=== PATIENT | female | born 1940 | race Caucasian/White ===

== ENCOUNTER 2017-07-09 15:30 | Outpatient (RCR) | payer MEDICARE, OTHER, SELFPAY ==
[2017-06-11 15:48] VITALS: BP 143/59; PULSE 93; RESP 22; TEMP 36.6; BMI 128.8
--- NOTE | 2017-06-11 17:01 | RAD_ITS ---
STUDY: X-RAY RIGHT FOOT, SECOND TOE REASON FOR EXAM: Female, 77 years old. Ulceration. TECHNIQUE: 3 view(s) of the toe were obtained. COMPARISON: Right foot, February 28, 2017. FINDINGS: Normal visualized metatarsus. Normal metatarsophalangeal (M.T.P) joint. Normal interphalangeal joints. There is limited visualization of the distal phalanges due to flexion deformity however there is no visualized fracture or destructive osseous pathology. The soft tissue structures are unremarkable. RAD/Toe(s) Min 2 Views IMPRESSION: No visualized fracture or destructive osseous pathology. Electronically Signed: Raymond Duff DO at 9:02 EST Tel [phone], Service support ,
--- NOTE | 2017-06-11 17:42 | PCM.WC.PN ---
(1) Cellulitis of right foot Status: Acute Current Visit: Yes Code(s): L03.115 - Cellulitis of right lower limb (2) Edema Status: Chronic Current Visit: Yes Code(s): R60.9 - Edema, unspecified (3) Neuropathic pain Status: Chronic Current Visit: Yes (4) Hammer toe of right foot Status: Chronic Current Visit: Yes Code(s): M20.41 - Other hammer toe(s) (acquired), right foot (5) Ulcer of right second toe with necrosis of muscle Status: Acute Current Visit: Yes Code(s): L97.513 - Non-pressure chronic ulcer of other part of right foot with necrosis of muscle (6) Delayed wound healing Status: Chronic Current Visit: Yes Code(s): T14.8 - Other injury of unspecified body region (7) Malnutrition Status: Chronic Current Visit: Yes Code(s): E46 - Unspecified protein-calorie malnutrition (8) Obesity Status: Chronic Current Visit: Yes Code(s): E66.9 - Obesity, unspecified Type of Wound Date of Service: 06/11/17 Chief Complaint: Right second toe ulcer History of Wound: This 77-year-old female with multiple comorbidities presents to the wound care center today with an ulcer to the right second toe. She reports is previously healed however it has returned the past month. Her has recently been admitted to hospice and she was not able to take care of herself as intended. She continues to wear shoes was modified previously to offload the wound better. The recurrence of this wound started after she tried to wear other shoes without this offloading mechanism. She has change dressing daily with Carolina. She complains of new redness, pain, swelling and other discoloration to the right second toe. She denies current fever, chill, nausea, vomiting, redness, odor, streaking. She does not wear compression dressings. Progress of Wound: Return and worse status - Physical Exam Vital Signs Temp Pulse Resp BP 97.8 F 93 22 H 143/59 H 06/11/17 15:48 06/11/17 15:48 06/11/17 15:48 06/11/17 15:48 General: Alert, Oriented x3, Cooperative Extremities: No cyanosis, Capillary Refill Less than 3 Seconds, No Calf Tenderness - Negative Vivian and Carroll sign bilateral, Diminished Peripheral Pulses, Edema - Bilateral lower extremities Skin: Ulcer/ Wound - No purulence, no odor, no geeta necrosis or eschar. There is exposed extensor tendon with devitalized fibrous and granular tissue. The toe has erythema extending to the sulcus level without additional proximal streaking. This is consistent with cellulitis. There is no interdigital maceration. Her adjacent skin is hairless and atrophic. No additional ulcers are noted. Wound Measurements and Assessment - Nurse 1 - General Ulcer Measurement Start: 06/11/17 15:40 Freq: Status: Active Protocol: Activity Type Activity Date Activity User E-Sign Co-Sign Detail Recorded Client Recorded Date Recorded By Document 06/11/17 15:48 DL [id number] 06/11/17 15:56 DL 06/11/17 15:48 Wound Center Nurse 1 [Ulcer Assessment Protocol: .WD.LOC] #2 R 2nd ant toe -Current Size (cm) - Length 0.5 -Current Size (cm) - Width 0.8 -Current Size (cm) - Depth 0.2 -Total Square Cm 0.40 -Photo Taken Yes -Exudate Amt Small (1-33%) -Exudate Type Serosanguineous -Wound Margin Distinct, Outline Attached -Granulation Amt None Present (0 %) -Granulation Quality N/A -Slough/Fibrin Yes -Necrosis Amt Large (67-100%) -Necrotic Tissue Type Adherent Slough -Structure Exposed N/A -Texture (Sheyla-wound Skin Appearance) Localized Edema -Moisture (Sheyla-wound Skin Appearance No Abnormality ) -Color (Sheyla-wound Skin Appearance) Erythema -Temperature (Sheyla-wound Skin Hot Appearance) -Tenderness on Palpation (Sheyla-wound Yes Skin Appearance) -Ulcer Cleansing Wound Cleanser -Foul Odor after Cleansing No -Anesthetic Used 4% Lidocaine Solution [Edema Assessment] -Right Calf (cm) 50 -Right Ankle (cm) 26 -Left Calf (cm) 52.5 -Left Ankle (cm) 31 WC - Nurse 2 - General Ulcer CM Notes Start: 06/11/17 15:40 Freq: Status: Active Protocol: Activity Type Activity Date Activity User E-Sign Co-Sign Detail Recorded Client Recorded Date Recorded By Document 06/11/17 16:37 TM [id number] 06/11/17 16:43 TM 01/03/18 16:37 Wound Center Nurse 2 [Procedure/Treatment] #2 R 2nd ant toe -Time 16:38 -Correct Patient Yes -Correct Side, Site, Position Yes -Correct Procedure Yes -Procedure Performed Yes -Type of Procedure Debridement -Clinical Debridement Subcutaneous -Post Debridement Size (cm) - Length 0.6 -Post Debridement Size (cm) - Width 0.9 -Post Debridement Size (cm) - Depth 0.2 -Total Square Cm 0.54 -Wound/Ulcer Outcome Not Healed -Ulcer Cleansing Rinsed/ Irrigated with Saline -Foul Odor after Cleansing No -Bioengineered Tissue No -Cetacaine [place] No -Topical Lidocaine (%) 5 -Bleeding Controlled with Pressure -Treatment Response Procedure Tolerated Well [See Physician Procedure note for Specifics] Pain Scale: 0-10 Numeric [Pain] -Is Patient Pain Free? Yes Musculoskeletal: No Tenderness to Palpation of Joints or Extremities, Muscle Wasting Neurological: - - Lack of epicritic sensation to light touch bilateral Psych/Mental Status: Normal Affect, Appropriate Debridement Note Post-Debridement Measurements/Treatment WC - Nurse 2 - General Ulcer CM Notes Start: 06/11/17 15:40 Freq: Status: Active Protocol: Activity Type Activity Date Activity User E-Sign Co-Sign Detail Recorded Client Recorded Date Recorded By Document 06/11/17 16:37 [id number] 06/11/17 16:43 06/11/17 16:37 Wound Center Nurse 2 #2 R 2nd ant toe -Time 16:38 -Correct Patient Yes -Correct Side, Site, Position Yes -Correct Procedure Yes -Procedure Performed Yes -Type of Procedure Debridement -Clinical Debridement Subcutaneous -Post Debridement Size (cm) - Length 0.6 -Post Debridement Size (cm) - Width 0.9 -Post Debridement Size (cm) - Depth 0.2 -Total Square Cm 0.54 -Wound/Ulcer Outcome Not Healed -Ulcer Cleansing Rinsed/ Irrigated with Saline -Foul Odor after Cleansing No -Bioengineered Tissue No -Cetacaine [place] No -Topical Lidocaine (%) 5 -Bleeding Controlled with Pressure -Treatment Response Procedure Tolerated Well Pain Scale: 0-10 Numeric Is Patient Pain Free? Yes Wound debrided: Dorsal second toe Laterality: Right Type of Debridement: Excisional debridement Depth: Down to and including healthy tissue Percentage of wound debrided: 100 Instrument Used: #15 blade Tissue Removed: Fibrous, devitalized subcutaneous, biofilm, slough Severity: Fat Layer Exposed Amount of bleeding with debridement: Mild Bleeding Controlled with: Pressure Patient tolerated procedure well Assessment/Plan Active Problems Edema (Chronic) Neuropathic pain (Chronic) Hammer toe of right foot (Chronic) Ulcer of right second toe with necrosis of muscle (Acute) Delayed wound healing (Chronic) Malnutrition (Chronic) Obesity (Chronic) Cellulitis of right foot (Acute) Assessment: Dorsal right second toe ulcer with fat and tendon exposed-return. Cellulitis right second toe. Neuropathy. Hammertoe. Malnutrition. Delayed healing. Chronic leg edema Plan: I reviewed and discussed her case. Subcutaneous excisional debridement was performed as noted in the clinical panel. To change dressing daily with Carolina. I recommend decrease pressure in the wound by cutting a hole in the shoe was performed at her initial consultation; she defers CAM Walker boot again today and it is noted she has very high fall risk. A Venous reflex exam was ordered to evaluate for incompetent veins that could potentially have intervention. Tubigrip's in double layer were applied today. Compliance is needed for this to help her condition and this was discussed again today. It is noted her clinical status has deteriorated and she now has signs of infection. Baseline lab work (CBC, CMP, ESR, C-reactive protein) and foot x-rays was also ordered to assess her infection status. A prescription for Augmentin was also provided and she was advised on safe and proper use. Her allergy list was reviewed. Aerobic and anaerobic and MRSA DNA PCR test was obtained today and the results are pending. Her noninvasive vascular studies were also reviewed with triphasic bilateral waveforms and a right HAYDEN of 1.06 and left 1.20. These findings suggest adequate perfusion in general to lower extremity. . To return to clinic in 1 week or sooner if he has any problems or concerns of infection. We reviewed signs of worsening infection status locally and systemically; she demonstrates understanding. She understands she is at risk for limb loss.
--- NOTE | 2017-06-11 17:48 | PN.PCM_ITS ---
(1) Cellulitis of right foot Status: Acute Current Visit: Yes Code(s): L03.115 - Cellulitis of right lower limb (2) Edema Status: Chronic Current Visit: Yes Code(s): R60.9 - Edema, unspecified (3) Neuropathic pain Status: Chronic Current Visit: Yes (4) Hammer toe of right foot Status: Chronic Current Visit: Yes Code(s): M20.41 - Other hammer toe(s) ( acquired), right foot (5) Ulcer of right second toe with necrosis of muscle Status: Acute Current Visit: Yes Code(s): L97.513 - Non-pressure chronic ulcer of other part of right foot with necrosis of muscle (6) Delayed wound healing Status: Chronic Current Visit: Yes Code(s): T14.8 - Other injury of unspecified body region (7) Malnutrition Status: Chronic Current Visit: Yes Code(s): E46 - Unspecified protein- calorie malnutrition (8) Obesity Status: Chronic Current Visit: Yes Code(s): E66.9 - Obesity, unspecified Type of Wound Date of Service: 06/11/17 Chief Complaint: Right second toe ulcer History of Wound: This 77-year-old female with multiple comorbidities presents to the wound care center today with an ulcer to the right second toe. She reports is previously healed however it has returned the past month. Her has recently been admitted to hospice and she was not able to take care of herself as intended. She continues to wear shoes was modified previously to offload the wound better. The recurrence of this wound started after she tried to wear other shoes without this offloading mechanism. She has change dressing daily with [place]. She complains of new redness, pain, swelling and other discoloration to the right second toe. She denies current fever, chill, nausea, vomiting, redness, odor, streaking. She does not wear compression dressings. Progress of Wound: Return and worse status - Physical Exam Vital Signs Temp Pulse Resp BP 97.8 F 93 22 H 143/59 H 06/11/17 15:48 06/11/17 15:48 06/11/17 15:48 06/11/17 15:48 General: Alert, Oriented x3, Cooperative Extremities: No cyanosis, Capillary Refill Less than 3 Seconds, No Calf Tenderness - Negative Vivian and Carroll sign bilateral, Diminished Peripheral Pulses, Edema - Bilateral lower extremities Skin: Ulcer/ Wound - No purulence, no odor, no geeta necrosis or eschar. There is exposed extensor tendon with devitalized fibrous and granular tissue. The toe has erythema extending to the sulcus level without additional proximal streaking. This is consistent with cellulitis. There is no interdigital maceration. Her adjacent skin is hairless and atrophic. No additional ulcers are noted. Wound Measurements and Assessment - Nurse 1 - General Ulcer Measurement Start: 06/11/17 15:40 Freq: Status: Active Protocol: Activity Type Activity Date Activity User E-Sign Co-Sign Detail Recorded Client Recorded Date Recorded By Document 06/11/17 15:48 DL [id number] 06/11/17 15:56 DL 06/11/17 15:48 Wound Center Nurse 1 [Ulcer Assessment Protocol: .WD.LOC] #2 R 2nd ant toe -Current Size (cm) - Length 0.5 -Current Size (cm) - Width 0.8 -Current Size (cm) - Depth 0.2 -Total Square Cm 0.40 -Photo Taken Yes -Exudate Amt Small (1-33%) -Exudate Type Serosanguineous -Wound Margin Distinct, Outline Attached -Granulation Amt None Present (0 %) -Granulation Quality N/A -Slough/Fibrin Yes -Necrosis Amt Large (67-100%) -Necrotic Tissue Type Adherent Slough -Structure Exposed N/A -Texture (Sheyla-wound Skin Appearance) Localized Edema -Moisture (Sheyla-wound Skin Appearance No Abnormality ) -Color (Sheyla-wound Skin Appearance) Erythema -Temperature (Sheyla-wound Skin Hot Appearance) -Tenderness on Palpation (Sheyla-wound Yes Skin Appearance) -Ulcer Cleansing Wound Cleanser -Foul Odor after Cleansing No -Anesthetic Used 4% Lidocaine Solution [Edema Assessment] -Right Calf (cm) 50 -Right Ankle (cm) 26 -Left Calf (cm) 52.5 -Left Ankle (cm) 31 WC - Nurse 2 - General Ulcer CM Notes Start: 06/11/17 15:40 Freq: Status: Active Protocol: Activity Type Activity Date Activity User E-Sign Co-Sign Detail Recorded Client Recorded Date Recorded By Document 06/11/17 16:37 TM [id number] 06/11/17 16:43 TM 01/03/18 16:37 Wound Center Nurse 2 [Procedure/Treatment] #2 R 2nd ant toe -Time 16:38 -Correct Patient Yes -Correct Side, Site, Position Yes -Correct Procedure Yes -Procedure Performed Yes -Type of Procedure Debridement -Clinical Debridement Subcutaneous -Post Debridement Size (cm) - Length 0.6 -Post Debridement Size (cm) - Width 0.9 -Post Debridement Size (cm) - Depth 0.2 -Total Square Cm 0.54 -Wound/Ulcer Outcome Not Healed -Ulcer Cleansing Rinsed/ Irrigated with Saline -Foul Odor after Cleansing No -Bioengineered Tissue No -Cetacaine [place] No -Topical Lidocaine (%) 5 -Bleeding Controlled with Pressure -Treatment Response Procedure Tolerated Well [See Physician Procedure note for Specifics] Pain Scale: 0-10 Numeric [Pain] -Is Patient Pain Free? Yes Musculoskeletal: No Tenderness to Palpation of Joints or Extremities, Muscle Wasting Neurological: - - Lack of epicritic sensation to light touch bilateral Psych/Mental Status: Normal Affect, Appropriate Debridement Note Post-Debridement Measurements/Treatment WC - Nurse 2 - General Ulcer CM Notes Start: 06/11/17 15:40 Freq: Status: Active Protocol: Activity Type Activity Date Activity User E-Sign Co-Sign Detail Recorded Client Recorded Date Recorded By Document 06/11/17 16:37 [id number] 06/11/17 16:43 06/11/17 16:37 Wound Center Nurse 2 #2 R 2nd ant toe -Time 16:38 -Correct Patient Yes -Correct Side, Site, Position Yes -Correct Procedure Yes -Procedure Performed Yes -Type of Procedure Debridement -Clinical Debridement Subcutaneous -Post Debridement Size (cm) - Length 0.6 -Post Debridement Size (cm) - Width 0.9 -Post Debridement Size (cm) - Depth 0.2 -Total Square Cm 0.54 -Wound/Ulcer Outcome Not Healed -Ulcer Cleansing Rinsed/ Irrigated with Saline -Foul Odor after Cleansing No -Bioengineered Tissue No -Cetacaine [place] No -Topical Lidocaine (%) 5 -Bleeding Controlled with Pressure -Treatment Response Procedure Tolerated Well Pain Scale: 0-10 Numeric Is Patient Pain Free? Yes Wound debrided: Dorsal second toe Laterality: Right Type of Debridement: Excisional debridement Depth: Down to and including healthy tissue Percentage of wound debrided: 100 Instrument Used: #15 blade Tissue Removed: Fibrous, devitalized subcutaneous, biofilm, slough Severity: Fat Layer Exposed Amount of bleeding with debridement: Mild Bleeding Controlled with: Pressure Patient tolerated procedure well Assessment/Plan Active Problems Edema (Chronic) Neuropathic pain (Chronic) Hammer toe of right foot (Chronic) Ulcer of right second toe with necrosis of muscle (Acute) Delayed wound healing (Chronic) Malnutrition (Chronic) Obesity (Chronic) Cellulitis of right foot (Acute) Assessment: Dorsal right second toe ulcer with fat and tendon exposed-return. Cellulitis right second toe. Neuropathy. Hammertoe. Malnutrition. Delayed healing. Chronic leg edema Plan: I reviewed and discussed her case. Subcutaneous excisional debridement was performed as noted in the clinical panel. To change dressing daily with [place]. I recommend decrease pressure in the wound by cutting a hole in the shoe was performed at her initial consultation; she defers CAM Walker boot again today and it is noted she has very high fall risk. A Venous reflex exam was ordered to evaluate for incompetent veins that could potentially have intervention. Tubigrip's in double layer were applied today. Compliance is needed for this to help her condition and this was discussed again today. It is noted her clinical status has deteriorated and she now has signs of infection. Baseline lab work (CBC, CMP, ESR, C-reactive protein) and foot x- rays was also ordered to assess her infection status. A prescription for Augmentin was also provided and she was advised on safe and proper use. Her allergy list was reviewed. Aerobic and anaerobic and MRSA DNA PCR test was obtained today and the results are pending. Her noninvasive vascular studies were also reviewed with triphasic bilateral waveforms and a right HAYDEN of 1.06 and left 1.20. These findings suggest adequate perfusion in general to lower extremity. . To return to clinic in 1 week or sooner if he has any problems or concerns of infection. We reviewed signs of worsening infection status locally and systemically; she demonstrates understanding. She understands she is at risk for limb loss.
[2017-06-11 18:06] LABS: Absolute Lymphocyte Count 1.45 X10^3/ul (0.83-4.51); Absolute Neutrophil Count 4.5 X10^3/uL (2.0-7.7); Basophil# 0.02 X10^3/uL; Basophil% 0.3 % (0-1); Eosinophil# 0.12 X10^3/uL; Eosinophils% 1.8 % (0-5); Hematocrit 39.6 % (37-47); Hemoglobin 12.5 g/dl (12.0-15.0); Lymphocyte # 1.45 X10^3/ul (4.0); Lymphocyte % 21.3 % (19-41); Mean Corp Hgb Conc 31.6 g/gl (32-36); Mean Corpuscular Hgb 30.2 pg (27.0-32.0); Mean Corpuscular Volume 95.7 fL (81-99); Mean Platelet Vol. 11.5 fl (6.2-12.0); Monocyte# 0.74 X10^3/uL; Monocyte% 10.9 % (0-10); Neutrophil # 4.47 X10^3/uL (2.7-7.7); Neutrophil % 65.6 % (47-70); Platelet Count 216 K/mm3 (150-450); RBC Distribution Width SD 48.9 fl (35.1-43.9); Red Blood Count 4.14 M/mm3 (4.2-5.4); White Blood Count 6.8 K/mm3 (4.4-11.0)
[2017-06-11 18:07] LABS: POSITIVE COUNT NO; POSITIVE DIFFERENTIAL NO; POSITIVE MORPHOLOGY NO
[2017-06-11 18:14] LABS: Erythrocyte Sedimentation Rate 15 mm/hr (0-30)
[2017-06-11 18:35] LABS: ALB/GLOB Ratio 0.9 RATIO (0.9-2.4); AST(SGOT) 27 U/L (15-37); Alanine Aminotransfer ALT/SGPT 29 U/L (12-78); Albumin, Serum 3.5 g/dL (3.4-5.0); Alkaline Phosphatase 113 U/L (45-117); Anion Gap 7 (5-15); BUN 24 mg/dL (7-18); BUN/Creat Ratio 24.8 RATIO (10-20); Calcium,Total 8.8 mg/dL (8.5-10.1); Chloride 104 mmol/L (98-107); Creatinine, Serum 0.97 mg/dL (0.55-1.02); EST Glomerular Filtration Rate 59 mL/min (>60); Est Glom Filt Rate - Afr Amer 72 mL/min (>60); Estimated Creatinine Clearance 207.02 ml/min; Glucose 86 mg/dL (70-110); Potassium 3.9 mmol/L (3.5-5.1); Protein, Total 7.5 g/dL (6.4-8.2); Sodium Level 139 mmol/L (136-145)
[2017-06-11 21:04] LABS: M R Staph aureus DNA By PCR Negative (Negative); Probe Check PASS; Specimen Processing Control PASS; Staph aureus DNA By PCR POSITIVE (Negative)
[2017-06-18 15:47] VITALS: BP 144/64; PULSE 85; RESP 22; TEMP 36.9; BMI 128.8
--- NOTE | 2017-06-18 22:14 | PCM.WC.PN ---
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 Status: Acute Current Visit: Yes Code(s): L97.513 - Non-pressure chronic ulcer of other part of right foot with necrosis of muscle (2) Cellulitis of right foot Status: Acute Current Visit: Yes Code(s): L03.115 - Cellulitis of right lower limb (3) Edema Status: Chronic Current Visit: Yes Code(s): R60.9 - Edema, unspecified (4) Neuropathic pain Status: Chronic Current Visit: Yes (5) Hammer toe of right foot Status: Chronic Current Visit: Yes Code(s): M20.41 - Other hammer toe(s) (acquired), right foot (6) Malnutrition Status: Chronic Current Visit: Yes Code(s): E46 - Unspecified protein-calorie malnutrition (7) Obesity Status: Chronic Current Visit: Yes Code(s): E66.9 - Obesity, unspecified Type of Wound Date of Service: 06/19/17 Chief Complaint: Right second toe ulcer History of Wound: This 77-year-old female with multiple comorbidities presents to the wound care center today with an ulcer to the right second toe. Unfortunately her this past week and she relates she has not been able to care for herself. She had upset stomach and diarrhea with Augmentin use and relates she took these medications on an empty stomach which was not advised. Her redness has resolved. She denies current fever, chill, nausea, vomiting, redness, odor, streaking. Progress of Wound: Improving - Physical Exam Vital Signs Temp Pulse Resp BP 98.5 F 85 22 H 144/64 H 06/18/17 15:47 06/18/17 15:47 06/18/17 15:47 06/18/17 15:47 General: Alert, Oriented x3, Cooperative Extremities: No cyanosis, Capillary Refill Less than 3 Seconds, No Calf Tenderness - Negative Vivian and Carroll sign bilateral, Diminished Peripheral Pulses, Edema - Bilateral lower extremities Skin: Ulcer/ Wound - No purulence, no erythema, no streaking, no odor, no geeta necrosis. The dorsal right second toe ulcer site is fibrous with minimal tendon visualized. No probe to bone noted. Her skin is atrophic and hairless right foot Wound Measurements and Assessment WC - Nurse 1 - General Ulcer Measurement Start: 06/11/17 15:40 Freq: Status: Active Protocol: Activity Type Activity Date Activity User E-Sign Co-Sign Detail Recorded Client Recorded Date Recorded By Document 06/18/17 15:47 DL [id number] 06/18/17 15:55 DL 06/18/17 15:47 Wound Center Nurse 1 [Ulcer Assessment Protocol: WC.WD.LOC] #2 R 2nd ant toe -Current Size (cm) - Length 0.8 -Current Size (cm) - Width 0.8 -Current Size (cm) - Depth 0.2 -Total Square Cm 0.64 -Photo Taken No -Epithelialization None Present -Exudate Amt Small (1-33%) -Exudate Type Serosanguineous -Wound Margin Distinct, Outline Attached -Granulation Amt None Present (0 %) -Necrosis Amt Large (67-100%) -Necrotic Tissue Type Adherent Slough -Structure Exposed N/A -Texture (Sheyla-wound Skin Appearance) Localized Edema -Moisture (Sheyla-wound Skin Appearance No Abnormality ) -Color (Sheyla-wound Skin Appearance) Erythema -Temperature (Sheyla-wound Skin No Abnormality Appearance) (Pt Warm) -Anesthetic Used 4% Lidocaine Solution - Nurse 2 - General Ulcer CM Notes Start: 06/11/17 15:40 Freq: Status: Active Protocol: Activity Type Activity Date Activity User E-Sign Co-Sign Detail Recorded Client Recorded Date Recorded By Document 06/18/17 16:43 JF [id number] 06/18/17 16:44 JF 06/18/17 16:43 Wound Center Nurse 2 [Procedure/Treatment] -Time 16:44 -Correct Patient Yes -Correct Side, Site, Position Yes -Correct Procedure Yes -Procedure Performed Yes -Type of Procedure Debridement -Clinical Debridement Subcutaneous -Post Debridement Size (cm) - Length 0.9 -Post Debridement Size (cm) - Width 0.8 -Post Debridement Size (cm) - Depth 0.2 -Total Square Cm 0.72 -Wound/Ulcer Outcome Not Healed -Ulcer Cleansing Rinsed/ Irrigated with Saline -Foul Odor after Cleansing No -Bioengineered Tissue No -Cetacaine [place] No -Bleeding Controlled with Pressure -Treatment Response Procedure Tolerated Well [See Physician Procedure note for Specifics] Pain Scale: 0-10 Numeric [Pain] -Is Patient Pain Free? Yes Musculoskeletal: No Tenderness to Palpation of Joints or Extremities, Muscle Wasting, - - Compartment soft. Dorsal contraction of lesser toes the right foot Neurological: - - Lack of epicritic sensation light touch right foot Psych/Mental Status: Normal Affect, Appropriate Debridement Note Post-Debridement Measurements/Treatment WC - Nurse 2 - General Ulcer CM Notes Start: 06/11/17 15:40 Freq: Status: Active Protocol: Activity Type Activity Date Activity User E-Sign Co-Sign Detail Recorded Client Recorded Date Recorded By Document 06/11/17 16:37 [id number] 06/11/17 16:43 Document 06/18/17 16:43 [id number] 06/18/17 16:44 06/11/17 06/18/17 16:37 16:43 Wound Center Nurse 2 #2 R 2nd ant toe -Time 16:38 16:44 -Correct Patient Yes Yes -Correct Side, Site, Position Yes Yes -Correct Procedure Yes Yes -Procedure Performed Yes Yes -Type of Procedure Debridement Debridement -Clinical Debridement Subcutaneous Subcutaneous -Post Debridement Size (cm) - Length 0.6 0.9 -Post Debridement Size (cm) - Width 0.9 0.8 -Post Debridement Size (cm) - Depth 0.2 0.2 -Total Square Cm 0.54 0.72 -Wound/Ulcer Outcome Not Healed Not Healed -Ulcer Cleansing Rinsed/ Rinsed/ Irrigated with Irrigated with Saline Saline -Foul Odor after Cleansing No No -Bioengineered Tissue No No -Cetacaine [place] No No -Topical Lidocaine (%) 5 -Bleeding Controlled with Pressure Pressure -Treatment Response Procedure Procedure Tolerated Well Tolerated Well Pain Scale: 0-10 Numeric Is Patient Pain Free? Yes Yes Wound debrided: Dorsal second toe Laterality: Right Type of Debridement: Excisional debridement Anesthesia Used: 4% Lidocaine Solution Depth: in the subcutaneous layer Percentage of wound debrided: 100 Instrument Used: #15 blade Tissue Removed: Fibrous, devitalized subcutaneous, biofilm, slough Severity: Fat Layer Exposed Amount of bleeding with debridement: Mild Bleeding Controlled with: Pressure Patient tolerated procedure well Assessment/Plan Clinical Impression(s) from Imaging Studies Toe X-Ray 06/11/17 17:01 IMPRESSION: No visualized fracture or destructive osseous pathology. Electronically Signed: Raymond Duff DO at 9:02 EST Tel [phone], Service support , Active Problems Edema (Chronic) Neuropathic pain (Chronic) Hammer toe of right foot (Chronic) Ulcer of right second toe with necrosis of muscle (Acute) Delayed wound healing (Chronic) Malnutrition (Chronic) Obesity (Chronic) Cellulitis of right foot (Acute) Assessment: Dorsal right second toe ulcer with fat and tendon exposed-return. Cellulitis right second toe - improving. Neuropathy. Hammertoe. Malnutrition. Delayed healing. Chronic leg edema Plan: I reviewed and discussed her case. Subcutaneous excisional debridement was performed as noted in the clinical panel. To change dressing daily with [place]. I recommend decrease pressure in the wound by cutting a hole in the shoe was performed at her initial consultation; she defers CAM Walker boot again today and it is noted she has very high fall risk. A Venous reflex exam was ordered to evaluate for incompetent veins that could potentially have intervention. Tubigrip's in double layer were applied today. Compliance is needed for this to help her condition and this was discussed again today. It is noted her clinical status has deteriorated and she now has signs of infection. Baseline lab work (CBC, CMP, ESR, C-reactive protein) and foot x-rays was also ordered to assess her infection status. A prescription for Augmentin was also provided last week and she was advised on safe and proper use. She stopped it due to diarrhea. She will try this again with proper use of concurrent food. She is advised to stop this if she has return of side effects immediately. Aerobic and anaerobic and MRSA DNA PCR test was obtained last visit and she demonstrated staph aureus and anaerobic cocci growth. Her noninvasive vascular studies were also reviewed with triphasic bilateral waveforms and a right HAYDEN of 1.06 and left 1.20. These findings suggest adequate perfusion in general to lower extremity. . To return to clinic in 1 week or sooner if he has any problems or concerns of infection. We reviewed signs of worsening infection status locally and systemically; she demonstrates understanding. She understands she is at risk for limb loss.
[2017-06-25 15:24] VITALS: BP 106/68; PULSE 91; RESP 20; TEMP 36.1; BMI 128.8
--- NOTE | 2017-06-25 21:28 | PN.PCM_ITS ---
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 Code(s): L97.513 - Non-pressure chronic ulcer of other part of right foot with necrosis of muscle (2) Cellulitis of right foot Status: Acute Code(s): L03.115 - Cellulitis of right lower limb (3) Edema Status: Chronic Code(s): R60.9 - Edema, unspecified (4) Neuropathic pain Status: Chronic (5) Hammer toe of right foot Status: Chronic Code(s): M20.41 - Other hammer toe(s) (acquired), right foot (6) Malnutrition Status: Chronic Code(s): E46 - Unspecified protein-calorie malnutrition (7) Obesity Status: Chronic Code(s): E66.9 - Obesity, unspecified Type of Wound Date of Service: 06/28/17 Chief Complaint: Right second toe ulcer History of Wound: This 77-year-old female with multiple comorbidities presents to the wound care center today with an ulcer to the right second toe. She has resumed oral antibiotic, Augmentin, this past week with food and she is tolerating this much better. Her redness has significantly improved. However she has continued pain to her toe. She changes her dressing daily as advised. She denies new trauma. She tries to offload her wound with a cut out to the top of her sneaker. She is not able to wear a cam walker boot due to her fall risk. It is noted she wears bilateral ankle-foot orthotics due to previous foot deformities and gait instability. Progress of Wound: Improving stable - Physical Exam Vital Signs Temp Pulse Resp BP 97 F L 91 20 H 106/68 06/25/17 15:24 06/25/17 15:24 06/25/17 15:24 06/25/17 15:24 General: Alert, Oriented x3, Cooperative Extremities: No cyanosis, Capillary Refill Less than 3 Seconds, No Calf Tenderness - Negative Vivian and Carroll sign bilateral, Diminished Peripheral Pulses - Palpable dorsalis pedis pulse bilateral, Edema - +2 bilateral lower extremity with varicosities Skin: Ulcer/ Wound - No purulence, no odor, no necrosis, no eschar. The erythema has decreased periwound to less than 2 mm peripherally. There is exposed tendon and it appears white glossy and healthy., - - Her skin is atrophic and hairless and there are no additional ulcers to bilateral lower extremities Wound Measurements and Assessment - Nurse 1 - General Ulcer Measurement Start: 06/11/17 15:40 Freq: Status: Active Protocol: Activity Type Activity Date Activity User E-Sign Co-Sign Detail Recorded Client Recorded Date Recorded By Document 06/25/17 15:24 DL [id number] 06/25/17 15:30 DL 06/25/17 15:24 Wound Center Nurse 1 [Ulcer Assessment Protocol: MERY.WD.LOC] #2 R 2nd ant toe -Current Size (cm) - Length 1.1 -Current Size (cm) - Width 1.1 -Current Size (cm) - Depth 0.2 -Total Square Cm 1.21 -Photo Taken No -Exudate Amt Small (1-33%) -Exudate Type Serosanguineous -Wound Margin Distinct, Outline Attached -Granulation Amt None Present (0 %) -Necrosis Amt Large (67-100%) -Necrotic Tissue Type Adherent Slough -Structure Exposed N/A -Texture (Sheyla-wound Skin Appearance) Localized Edema -Moisture (Sheyla-wound Skin Appearance No Abnormality ) -Color (Sheyla-wound Skin Appearance) Erythema -Temperature (Sheyla-wound Skin No Abnormality Appearance) (Pt Warm) -Ulcer Cleansing Rinsed/ Irrigated with Saline -Foul Odor after Cleansing No -Anesthetic Used 4% Lidocaine Solution - Nurse 2 - General Ulcer CM Notes Start: 06/11/17 15:40 Freq: Status: Active Protocol: Activity Type Activity Date Activity User E-Sign Co-Sign Detail Recorded Client Recorded Date Recorded By Document 06/25/17 15:48 [email or web address] [id number] 06/25/17 15:50 06/25/17 15:48 Wound Center Nurse 2 [Procedure/Treatment] -Time 15:48 -Correct Patient Yes -Correct Side, Site, Position Yes -Correct Procedure Yes -Procedure Performed Yes -Type of Procedure Debridement -Clinical Debridement Subcutaneous -Post Debridement Size (cm) - Length 1.2 -Post Debridement Size (cm) - Width 1.2 -Post Debridement Size (cm) - Depth 0.2 -Total Square Cm 1.44 -Wound/Ulcer Outcome Not Healed -Ulcer Cleansing Rinsed/ Irrigated with Saline -Foul Odor after Cleansing No -Bioengineered Tissue No -Cetacaine [place] No -Bleeding Controlled with Pressure -Treatment Response Procedure Tolerated Well [See Physician Procedure note for Specifics] Pain Scale: 0-10 Numeric [Pain] -Is Patient Pain Free? Yes Musculoskeletal: No Tenderness to Palpation of Joints or Extremities, Muscle Wasting, - - Dorsal contraction of second toe and ulcer site with prominent phalanx head at the site of the ulcer. No crepitus on palpation of the compartments of the lower extremity remain soft Neurological: - - lack of epicritic sensation light touch noted to bilateral lower extremity consistent with her neuropathy diagnosis Psych/Mental Status: Normal Affect, Appropriate Debridement Note Post-Debridement Measurements/Treatment WC - Nurse 2 - General Ulcer CM Notes Start: 06/11/17 15:40 Freq: Status: Active Protocol: Activity Type Activity Date Activity User E-Sign Co-Sign Detail Recorded Client Recorded Date Recorded By Document 06/11/17 16:37 TM [id number] 06/11/17 16:43 TM Document 06/18/17 16:43 [id number] 06/18/17 16:44 Document 06/25/17 15:48 [id number] 06/25/17 15:50 06/11/17 06/18/17 06/25/17 16:37 16:43 15:48 Wound Center Nurse 2 #2 R 2nd ant toe -Time 16:38 16:44 15:48 -Correct Patient Yes Yes Yes -Correct Side, Site, Position Yes Yes Yes -Correct Procedure Yes Yes Yes -Procedure Performed Yes Yes Yes -Type of Procedure Debridement Debridement Debridement -Clinical Debridement Subcutaneous Subcutaneous Subcutaneous -Post Debridement Size (cm) - Length 0.6 0.9 1.2 -Post Debridement Size (cm) - Width 0.9 0.8 1.2 -Post Debridement Size (cm) - Depth 0.2 0.2 0.2 -Total Square Cm 0.54 0.72 1.44 -Wound/Ulcer Outcome Not Healed Not Healed Not Healed -Ulcer Cleansing Rinsed/ Rinsed/ Rinsed/ Irrigated with Irrigated with Irrigated with Saline Saline Saline -Foul Odor after Cleansing No No No -Bioengineered Tissue No No No -Cetacaine [place] No No No -Topical Lidocaine (%) 5 -Bleeding Controlled with Pressure Pressure Pressure -Treatment Response Procedure Procedure Procedure Tolerated Well Tolerated Well Tolerated Well Pain Scale: 0-10 Numeric Is Patient Pain Free? Yes Yes Yes Wound debrided: Dorsal second toe Laterality: Right Type of Debridement: Excisional debridement Anesthesia Used: 4% Lidocaine Solution Depth: in the subcutaneous layer Percentage of wound debrided: 100 Instrument Used: #15 blade Tissue Removed: Fibrous, devitalized subcutaneous, biofilm, slough Severity: Fat Layer Exposed Amount of bleeding with debridement: Mild Bleeding Controlled with: Pressure Patient tolerated procedure well Assessment/Plan Clinical Impression(s) from Imaging Studies Toe X-Ray 06/11/17 17:01 IMPRESSION: No visualized fracture or destructive osseous pathology. Electronically Signed: Raymond Duff DO at 9:02 EST Tel [phone], Service support , Assessment: Dorsal right second toe ulcer with fat and tendon exposed-return. Cellulitis right second toe - improving. Neuropathy. Hammertoe. Malnutrition. Delayed healing. Chronic leg edema Plan: I reviewed and discussed her case. Subcutaneous excisional debridement was performed as noted in the clinical panel. To change dressing daily with [place]. I recommend decrease pressure in the wound by cutting a hole in the shoe was performed at her initial consultation; she defers CAM walker boot again today and it is noted she is very high fall risk. A Venous reflex exam was ordered to evaluate for incompetent veins that could potentially have intervention. She defers referral again today. Tubigrip's in double layer were applied today. Compliance is needed for this to help her condition and this was discussed again today. She was able to tolerte oral antibiotics when she took them with food this past week. Baseline lab work (CBC, CMP, ESR, C- reactive protein) and foot x-rays was also ordered to assess her infection status. She is advised to stop this if she has return of side effects immediately. Aerobic and anaerobic and MRSA DNA PCR test was obtained last visit and she demonstrated staph aureus and anaerobic cocci growth. Her noninvasive vascular studies were also reviewed with triphasic bilateral waveforms and a right HAYDEN of 1.06 and left 1.20. These findings suggest adequate perfusion in general to lower extremity. . To return to clinic in 1 week or sooner if he has any problems or concerns of infection. She defers surgical intervention option at this time such as arthroplasty of the involved digit with ulcer excision/biopsy/closure.
[2017-07-02 15:45] VITALS: BP 155/83; PULSE 87; RESP 20; TEMP 36.6; BMI 128.8
--- NOTE | 2017-07-02 23:34 | PN.PCM_ITS ---
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 Code(s): L97.513 - Non-pressure chronic ulcer of other part of right foot with necrosis of muscle (2) Cellulitis of right foot Status: Resolved Code(s): L03.115 - Cellulitis of right lower limb (3) Edema Status: Chronic Code(s): R60.9 - Edema, unspecified (4) Neuropathic pain Status: Chronic (5) Hammer toe of right foot Status: Chronic Code(s): M20.41 - Other hammer toe(s) (acquired), right foot (6) Malnutrition Status: Chronic Code(s): E46 - Unspecified protein-calorie malnutrition (7) Obesity Status: Chronic Code(s): E66.9 - Obesity, unspecified Type of Wound Date of Service: 07/05/17 Chief Complaint: Right second toe ulcer History of Wound: This 77-year-old female with multiple comorbidities presents to the wound care center today with an ulcer to the right second toe. She verbally agreed to have pure apply applied which is a collagen and antimicrobial dressing. This was applied according to standard protocol after debridement was performed. This was also secured in place with the wound veil and Steri-Strips. She tolerated this well. Local anesthesia was not required due to her lack of sensation and neuropathy. she has resumed oral antibiotic, Augmentin, this past week with food and she is tolerating this much better. Her redness remains improved. However she has continued pain to her toe. She tries to offload her wound with a cut out to the top of her sneaker. She is not able to wear a cam walker boot due to her fall risk. It is noted she wears bilateral ankle-foot orthotics due to previous foot deformities and gait instability. an additional section of the top if her shoe was cut away to offload her toe at this time. To take margot once dialy for nutritional optmization. RTC one week or call sooner if problems. Progress of Wound: Improving stable - Physical Exam Vital Signs Temp Pulse Resp BP 97.8 F 87 20 H 155/83 H 07/02/17 15:45 07/02/17 15:45 07/02/17 15:45 07/02/17 15:45 Wound Measurements and Assessment WC - Nurse 1 - General Ulcer Measurement Start: 06/11/17 15:40 Freq: Status: Active Protocol: Activity Type Activity Date Activity User E-Sign Co-Sign Detail Recorded Client Recorded Date Recorded By Document 07/02/17 15:45 DL [id number] 07/02/17 15:51 DL 07/02/17 15:45 Wound Center Nurse 1 [Ulcer Assessment Protocol: WC.WD.LOC] #2 R 2nd ant toe -Current Size (cm) - Length 1 -Current Size (cm) - Width 1.1 -Current Size (cm) - Depth 0.2 -Total Square Cm 1.1 -Photo Taken No -Exudate Amt Small (1-33%) -Exudate Type Serosanguineous -Wound Margin Distinct, Outline Attached -Granulation Amt None Present (0 %) -Necrosis Amt Large (67-100%) -Necrotic Tissue Type Adherent Slough -Structure Exposed N/A -Texture (Sheyla-wound Skin Appearance) Localized Edema -Moisture (Sheyla-wound Skin Appearance No Abnormality ) -Color (Sheyla-wound Skin Appearance) Erythema -Temperature (Sheyla-wound Skin No Abnormality Appearance) (Pt Warm) -Ulcer Cleansing Rinsed/ Irrigated with Saline -Foul Odor after Cleansing No -Anesthetic Used 4% Lidocaine Solution - Nurse 2 - General Ulcer CM Notes Start: 06/11/17 15:40 Freq: Status: Active Protocol: Activity Type Activity Date Activity User E-Sign Co-Sign Detail Recorded Client Recorded Date Recorded By Document 07/02/17 16:26 TM [id number] 07/02/17 16:39 TM 07/02/17 16:26 Wound Center Nurse 2 [Procedure/Treatment] -Time 16:37 -Correct Patient Yes -Correct Side, Site, Position Yes -Correct Procedure Yes -Procedure Performed Yes -Type of Procedure Debridement -Clinical Debridement Subcutaneous -Post Debridement Size (cm) - Length 1.1 -Post Debridement Size (cm) - Width 1.2 -Post Debridement Size (cm) - Depth 0.2 -Total Square Cm 1.32 -Wound/Ulcer Outcome Not Healed -Ulcer Cleansing Rinsed/ Irrigated with Saline -Foul Odor after Cleansing No -Bioengineered Tissue Yes -Type of bioengineered Tissue [id number] -Expiration Date 02/11/19 -Product Lot Number [id number] -Percent Used 100 -Saline Lot Number [id number] -Cetacaine [place] No -Topical Lidocaine (%) 5 -Bleeding Controlled with Pressure -Treatment Response Procedure Tolerated Well [See Physician Procedure note for Specifics] Pain Scale: 0-10 Numeric [Pain] -Is Patient Pain Free? Yes Debridement Note Post-Debridement Measurements/Treatment WC - Nurse 2 - General Ulcer CM Notes Start: 06/11/17 15:40 Freq: Status: Active Protocol: Activity Type Activity Date Activity User E-Sign Co-Sign Detail Recorded Client Recorded Date Recorded By Document 06/11/17 16:37 [id number] 06/11/17 16:43 Document 06/18/17 16:43 [id number] 06/18/17 16:44 Document 06/25/17 15:48 [id number] 06/25/17 15:50 Document 07/02/17 16:26 [id number] 07/02/17 16:39 TM 06/11/17 06/18/17 06/25/17 16:37 16:43 15:48 Wound Center Nurse 2 #2 R 2nd ant toe -Time 16:38 16:44 15:48 -Correct Patient Yes Yes Yes -Correct Side, Site, Position Yes Yes Yes -Correct Procedure Yes Yes Yes -Procedure Performed Yes Yes Yes -Type of Procedure Debridement Debridement Debridement -Clinical Debridement Subcutaneous Subcutaneous Subcutaneous -Post Debridement Size (cm) - Length 0.6 0.9 1.2 -Post Debridement Size (cm) - Width 0.9 0.8 1.2 -Post Debridement Size (cm) - Depth 0.2 0.2 0.2 -Total Square Cm 0.54 0.72 1.44 -Wound/Ulcer Outcome Not Healed Not Healed Not Healed -Ulcer Cleansing Rinsed/ Rinsed/ Rinsed/ Irrigated with Irrigated with Irrigated with Saline Saline Saline -Foul Odor after Cleansing No No No -Bioengineered Tissue No No No -Type of bioengineered Tissue -Expiration Date -Product Lot Number -Percent Used -Saline Lot Number -Cetacaine [place] No No No -Topical Lidocaine (%) 5 -Bleeding Controlled with Pressure Pressure Pressure -Treatment Response Procedure Procedure Procedure Tolerated Well Tolerated Well Tolerated Well Pain Scale: 0-10 Numeric Is Patient Pain Free? Yes Yes Yes 07/02/17 16:26 Wound Center Nurse 2 #2 R 2nd ant toe -Time 16:37 -Correct Patient Yes -Correct Side, Site, Position Yes -Correct Procedure Yes -Procedure Performed Yes -Type of Procedure Debridement -Clinical Debridement Subcutaneous -Post Debridement Size (cm) - Length 1.1 -Post Debridement Size (cm) - Width 1.2 -Post Debridement Size (cm) - Depth 0.2 -Total Square Cm 1.32 -Wound/Ulcer Outcome Not Healed -Ulcer Cleansing Rinsed/ Irrigated with Saline -Foul Odor after Cleansing No -Bioengineered Tissue Yes -Type of bioengineered Tissue [id number] -Expiration Date 02/11/19 -Product Lot Number [id number] -Percent Used 100 -Saline Lot Number [id number] -Cetacaine [place] No -Topical Lidocaine (%) 5 -Bleeding Controlled with Pressure -Treatment Response Procedure Tolerated Well Pain Scale: 0-10 Numeric Is Patient Pain Free? Yes Assessment/Plan Clinical Impression(s) from Imaging Studies Toe X-Ray 06/11/17 17:01 IMPRESSION: No visualized fracture or destructive osseous pathology. Electronically Signed: Raymond Duff DO at 9:02 EST Tel [phone], Service support , Assessment: Dorsal right second toe ulcer with fat and tendon exposed-return. Cellulitis right second toe - improving. Neuropathy. Hammertoe. Malnutrition. Delayed healing. Chronic leg edema Plan: I reviewed and discussed her case. Subcutaneous excisional debridement was performed as noted in the clinical panel. To change dressing daily with [place]. I recommend decrease pressure in the wound by cutting a hole in the shoe was performed at her initial consultation; she defers CAM walker boot again today and it is noted she is very high fall risk. A Venous reflex exam was ordered to evaluate for incompetent veins that could potentially have intervention. She defers referral again today. Tubigrip's in double layer were applied today. Compliance is needed for this to help her condition and this was discussed again today. She was able to tolerte oral antibiotics when she took them with food this past week. Baseline lab work (CBC, CMP, ESR, C- reactive protein) and foot x-rays was also ordered to assess her infection status. She is advised to stop this if she has return of side effects immediately. Aerobic and anaerobic and MRSA DNA PCR test was obtained last visit and she demonstrated staph aureus and anaerobic cocci growth. Her noninvasive vascular studies were also reviewed with triphasic bilateral waveforms and a right HAYDEN of 1.06 and left 1.20. These findings suggest adequate perfusion in general to lower extremity. . To return to clinic in 1 week or sooner if he has any problems or concerns of infection. She defers surgical intervention option at this time such as arthroplasty of the involved digit with ulcer excision/biopsy/closure.
[2017-07-09 15:49] VITALS: BP 132/70; PULSE 72; RESP 18; TEMP 37.4; BMI 128.8
--- NOTE | 2017-07-09 16:22 | PCM.WC.PN ---
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 Current Visit: Yes Code(s): L97.513 - Non-pressure chronic ulcer of other part of right foot with necrosis of muscle (2) Edema Status: Chronic Current Visit: Yes Code(s): R60.9 - Edema, unspecified (3) Hammer toe of right foot Status: Chronic Current Visit: No Code(s): M20.41 - Other hammer toe(s) (acquired), right foot (4) Malnutrition Status: Chronic Current Visit: No Code(s): E46 - Unspecified protein-calorie malnutrition (5) Obesity Status: Chronic Current Visit: Yes Code(s): E66.9 - Obesity, unspecified (6) Neuropathy Status: Chronic Current Visit: Yes Code(s): G62.9 - Polyneuropathy, unspecified Type of Wound Date of Service: 07/09/17 Chief Complaint: Right second toe ulcer History of Wound: This 77-year-old female with multiple comorbidities presents to the wound care center today with an ulcer to the right second toe. She has kept her dressing intact as advised. She denies worsening redness or odor or pain at the wound site. She denies fever, chill, nausea, vomiting, loss of appetite. Progress of Wound: Improving quality - Physical Exam Vital Signs Temp Pulse Resp BP 99.3 F H 72 18 132/70 H 07/09/17 15:49 07/09/17 15:49 07/09/17 15:49 07/09/17 15:49 General: Alert, Oriented x3, Cooperative Extremities: No cyanosis, Capillary Refill Less than 3 Seconds, No Calf Tenderness, Diminished Peripheral Pulses, Edema - Bilateral lower extremities Skin: Ulcer/ Wound - No purulence, no erythema, no streaking, no odor. There is exposed extensor tendon in the wound that is devitalized. Upon debridement there is deeper granular tissue noted that is healthier. Pain with manipulation is noted. Her adjacent skin is atrophic. Wound Measurements and Assessment WC - Nurse 1 - General Ulcer Measurement Start: 06/11/17 15:40 Freq: Status: Active Protocol: Activity Type Activity Date Activity User E-Sign Co-Sign Detail Recorded Client Recorded Date Recorded By Document 07/09/17 15:49 DV [id number] 07/09/17 15:58 DV 07/09/17 15:49 Wound Center Nurse 1 [Ulcer Assessment Protocol: WC.WD.LOC] #2 R 2nd ant toe -Combined with other wound No -Current Size (cm) - Length 1.4 -Current Size (cm) - Width 0.9 -Current Size (cm) - Depth 0.2 -Total Square Cm 1.26 -Photo Taken Yes -Epithelialization None Present -Tunneling No -Undermining/Tunneling No -Circular Undermining No -Classification - Thickness Full Thickness without Exposed Support Structure -Exudate Amt Medium (34-66%) -Exudate Type Serosanguineous -Wound Margin Distinct, Outline Attached -Granulation Amt Small (1-33%) -Granulation Quality Pale -Slough/Fibrin Yes -Necrosis Amt Large (67-100%) -Necrotic Tissue Type Adherent Slough -Structure Exposed None/Limited to Skin Breakdown -Texture (Sheyla-wound Skin Appearance) Assessed Localized Edema -Moisture (Sheyla-wound Skin Appearance Assessed ) Weeping -Color (Sheyla-wound Skin Appearance) Assessed Erythema -Temperature (Sheyla-wound Skin No Abnormality Appearance) (Pt Warm) -Tenderness on Palpation (Sheyla-wound No Skin Appearance) -Ulcer Cleansing Rinsed/ Irrigated with Saline -Foul Odor after Cleansing No -Anesthetic Used 4% Lidocaine Solution - Nurse 2 - General Ulcer CM Notes Start: 06/11/17 15:40 Freq: Status: Active Protocol: Activity Type Activity Date Activity User E-Sign Co-Sign Detail Recorded Client Recorded Date Recorded By Document 07/09/17 16:13 [id number] 07/09/17 16:16 07/09/17 16:13 Wound Center Nurse 2 [Procedure/Treatment] -Time 16:15 -Correct Patient Yes -Correct Side, Site, Position Yes -Correct Procedure Yes -Procedure Performed Yes -Type of Procedure Debridement -Clinical Debridement Muscle -Post Debridement Size (cm) - Length 1.5 -Post Debridement Size (cm) - Width 1 -Post Debridement Size (cm) - Depth 0.2 -Total Square Cm 1.5 -Wound/Ulcer Outcome Not Healed -Ulcer Cleansing Rinsed/ Irrigated with Saline -Foul Odor after Cleansing No -Bioengineered Tissue Yes -Type of bioengineered Tissue [id number] -Expiration Date 02/11/19 -Product Lot Number [id number] -Percent Used 100 -Cetacaine [place] No -Other saline [id number] -Treatment Response Procedure Tolerated Well [See Physician Procedure note for Specifics] Pain Scale: 0-10 Numeric [Pain] -Is Patient Pain Free? Yes Musculoskeletal: Muscle Wasting, Tenderness - Wound manipulation to second toe, - - Compartments of the foot remains soft. There is dorsal contraction of the lesser second toe Neurological: - - Lack of epicritic sensation light touch right foot Psych/Mental Status: Normal Affect, Appropriate Debridement Note Post-Debridement Measurements/Treatment WC - Nurse 2 - General Ulcer CM Notes Start: 06/11/17 15:40 Freq: Status: Active Protocol: Activity Type Activity Date Activity User E-Sign Co-Sign Detail Recorded Client Recorded Date Recorded By Document 06/11/17 16:37 [id number] 06/11/17 16:43 Document 06/18/17 16:43 [id number] 06/18/17 16:44 Document 06/25/17 15:48 [id number] 06/25/17 15:50 Document 07/02/17 16:26 [id number] 07/02/17 16:39 Document 07/09/17 16:13 [id number] 07/09/17 16:16 06/11/17 06/18/17 06/25/17 16:37 16:43 15:48 Wound Center Nurse 2 #2 R 2nd ant toe -Time 16:38 16:44 15:48 -Correct Patient Yes Yes Yes -Correct Side, Site, Position Yes Yes Yes -Correct Procedure Yes Yes Yes -Procedure Performed Yes Yes Yes -Type of Procedure Debridement Debridement Debridement -Clinical Debridement Subcutaneous Subcutaneous Subcutaneous -Post Debridement Size (cm) - Length 0.6 0.9 1.2 -Post Debridement Size (cm) - Width 0.9 0.8 1.2 -Post Debridement Size (cm) - Depth 0.2 0.2 0.2 -Total Square Cm 0.54 0.72 1.44 -Wound/Ulcer Outcome Not Healed Not Healed Not Healed -Ulcer Cleansing Rinsed/ Rinsed/ Rinsed/ Irrigated with Irrigated with Irrigated with Saline Saline Saline -Foul Odor after Cleansing No No No -Bioengineered Tissue No No No -Type of bioengineered Tissue -Expiration Date -Product Lot Number -Percent Used -Saline Lot Number -Cetacaine [place] No No No -Topical Lidocaine (%) 5 -Bleeding Controlled with Pressure Pressure Pressure -Other -Treatment Response Procedure Procedure Procedure Tolerated Well Tolerated Well Tolerated Well Pain Scale: 0-10 Numeric Is Patient Pain Free? Yes Yes Yes 07/02/17 07/09/17 16:26 16:13 Wound Center Nurse 2 #2 R 2nd ant toe -Time 16:37 16:15 -Correct Patient Yes Yes -Correct Side, Site, Position Yes Yes -Correct Procedure Yes Yes -Procedure Performed Yes Yes -Type of Procedure Debridement Debridement -Clinical Debridement Subcutaneous Muscle -Post Debridement Size (cm) - Length 1.1 1.5 -Post Debridement Size (cm) - Width 1.2 1 -Post Debridement Size (cm) - Depth 0.2 0.2 -Total Square Cm 1.32 1.5 -Wound/Ulcer Outcome Not Healed Not Healed -Ulcer Cleansing Rinsed/ Rinsed/ Irrigated with Irrigated with Saline Saline -Foul Odor after Cleansing No No -Bioengineered Tissue Yes Yes -Type of bioengineered Tissue [id number] -Expiration Date 02/11/19 02/11/19 -Product Lot Number [id number] -Percent Used 100 100 -Saline Lot Number [id number] -Cetacaine [place] No No -Topical Lidocaine (%) 5 -Bleeding Controlled with Pressure -Other saline [id number] -Treatment Response Procedure Procedure Tolerated Well Tolerated Well Pain Scale: 0-10 Numeric Is Patient Pain Free? Yes Yes Wound debrided: Dorsal second toe Laterality: Right Wound Grade/Stage: Grade 2 Type of Debridement: Excisional debridement Anesthesia Used: 4% Lidocaine Solution Depth: in the subcutaneous layer, to muscle Percentage of wound debrided: 100 Instrument Used: #15 blade, Forceps Tissue Removed: This 77-year-old female with multiple comorbidities presents to the wound c Severity: Necrosis of Muscle Amount of bleeding with debridement: Mild Bleeding Controlled with: Pressure Patient tolerated procedure well Assessment/Plan Clinical Impression(s) from Imaging Studies Toe X-Ray 06/11/17 17:01 IMPRESSION: No visualized fracture or destructive osseous pathology. 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 Cellulitis right second toe -resolved. Neuropathy. Hammertoe. Malnutrition. Delayed healing. Chronic leg edema Plan: I reviewed and discussed her case. Subcutaneous and tendon excisional debridement was performed as noted in the clinical panel. To change dressing daily with Puraply. She verbally agreed to have puraply applied which is a collagen and antimicrobial dressing. This was applied according to standard protocol after debridement was performed. This was also secured in place with the wound veil and Steri-Strips. She tolerated this well. Local anesthesia was not required due to her lack of sensation and neuropathy. She tries to offload her wound with a cut out to the top of her sneaker. She is not able to wear a cam walker boot due to her fall risk. It is noted she wears bilateral ankle-foot orthotics due to previous foot deformities and gait instability. To take margot once daily for nutritional optmization. She is ready to proceed with lower extremity compression management. She accepts a prescription for CircAid compression wrap at this time and she was advised on proper and safe use. RTC one week or call sooner if problems. I answered all of her questions.
== END 2017-07-09 23:59 ==
LOC: WC 15:30
PROVIDERS: Family Provider Nurse Practitioner; PCP Nurse Practitioner; Visit Provider Podiatrist
DX: L97.513 Non-pressure chronic ulcer of other part of right foot with necrosis of muscle (principal); E66.9 Obesity, unspecified; Z71.3 Dietary counseling and surveillance; R60.0 Localized edema; M20.41 Other hammer toe(s) (acquired), right foot; R09.89 Other specified symptoms and signs involving the circulatory and respiratory systems; L03.031 Cellulitis of right toe; R19.7 Diarrhea, unspecified; K30 Functional dyspepsia; G62.9 Polyneuropathy, unspecified; B95.61 Methicillin susceptible Staphylococcus aureus infection as the cause of diseases classified elsewhere; M79.674 Pain in right toe(s)
CPT/HCPCS: 11042; 11043; 15275; 36415; 73660; 80053; 85025; 85652; 86140; 87070; 87075; 87077; 87186; 87205; 87640; 99213; Q4172; G0463

== ENCOUNTER 2017-08-06 15:30 | Outpatient (RCR) | payer MEDICARE, OTHER, SELFPAY ==
[2017-07-09 15:49] VITALS: BP 132/70
[2017-07-10 01:01] VITALS: PULSE 72; RESP 18; TEMP 37.4
[2017-07-16 15:41] VITALS: BP 144/72; PULSE 88; RESP 18; TEMP 36.4; BMI 128.8
--- NOTE | 2017-07-16 16:24 | PCM.WC.PN ---
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 Current Visit: Yes Code(s): L97.513 - Non-pressure chronic ulcer of other part of right foot with necrosis of muscle (3) Delayed wound healing Status: Chronic Current Visit: Yes Code(s): T14.8 - Other injury of unspecified body region (4) Obesity Status: Chronic Current Visit: Yes Code(s): E66.9 - Obesity, unspecified (5) Neuropathy Status: Chronic Current Visit: Yes Code(s): G62.9 - Polyneuropathy, unspecified (6) Walking difficulty due to ankle and foot Status: Chronic Current Visit: Yes Code(s): R26.2 - Difficulty in walking, not elsewhere classified Type of Wound Date of Service: 07/16/17 Chief Complaint: Right second toe ulcer History of Wound: This 77-year-old female with multiple comorbidities presents to the wound care center today with an ulcer to the right second toe. She has kept her dressing intact as advised. She denies worsening redness or odor or redness at the wound site. She denies fever, chill, nausea, vomiting, loss of appetite. He is continued pain to the ulcer site that is worse at night. She relates she is unable to undergo surgery at this time or wear an offloading boot. She wears ankle-foot orthoses due to walking and balance issues. Progress of Wound: Improving quality - Physical Exam Vital Signs Temp Pulse Resp BP 97.5 F L 88 18 144/72 H 07/16/17 15:41 07/16/17 15:41 07/16/17 15:41 07/16/17 15:41 General: Alert, Oriented x3, Cooperative Extremities: No cyanosis, Capillary Refill Less than 3 Seconds, No Calf Tenderness - Negative Vivian and Carroll sign right, Diminished Peripheral Pulses, Peripheral Pulses Normal Skin: Ulcer/ Wound - No purulence, erythema, blistering, no odor, no necrosis. The wound bed has increased granulation tissue and appears improved quality. The peripheral skin is atrophic. Wound Measurements and Assessment WC - Nurse 1 - General Ulcer Measurement Start: 07/16/17 15:41 Freq: Status: Active Protocol: Activity Type Activity Date Activity User E-Sign Co-Sign Detail Recorded Client Recorded Date Recorded By Document 07/16/17 15:41 DL [id number] 07/16/17 15:45 DL 07/16/17 15:41 Wound Center Nurse 1 [Ulcer Assessment Protocol: WC.WD.LOC] #2 R 2nd ant toe -Combined with other wound No -Current Size (cm) - Length 1.4 -Current Size (cm) - Width 1 -Current Size (cm) - Depth 0.2 -Total Square Cm 1.4 -Photo Taken No -Tunneling No -Undermining/Tunneling No -Circular Undermining No -Classification - Pressure Ulcer Stage 3 -Exudate Amt Small (1-33%) -Exudate Type Serosanguineous -Wound Margin Thickened & Rolled Under -Granulation Amt Medium (34-66%) -Granulation Quality [place] -Slough/Fibrin Yes -Necrosis Amt Small (1-33%) -Necrotic Tissue Type Adherent Slough -Structure Exposed N/A -Texture (Sheyla-wound Skin Appearance) Assessed -Moisture (Sheyla-wound Skin Appearance Assessed ) -Color (Sheyla-wound Skin Appearance) Assessed Erythema -Temperature (Sheyla-wound Skin No Abnormality Appearance) (Pt Warm) -Tenderness on Palpation (Sheyla-wound No Skin Appearance) -Ulcer Cleansing Rinsed/ Irrigated with Saline -Foul Odor after Cleansing No -Anesthetic Used 4% Lidocaine Solution - Nurse 2 - General Ulcer CM Notes Start: 07/16/17 15:41 Freq: Status: Active Protocol: Activity Type Activity Date Activity User E-Sign Co-Sign Detail Recorded Client Recorded Date Recorded By Document 07/16/17 16:05 [id number] 07/16/17 16:09 07/16/17 16:05 Wound Center Nurse 2 [Procedure/Treatment] -Time 16:05 -Correct Patient Yes -Correct Side, Site, Position Yes -Correct Procedure Yes -Procedure Performed Yes -Type of Procedure Debridement -Clinical Debridement Subcutaneous -Post Debridement Size (cm) - Length 1.2 -Post Debridement Size (cm) - Width 1.0 -Post Debridement Size (cm) - Depth 0.1 -Total Square Cm 1.20 -Wound/Ulcer Outcome Not Healed -Ulcer Cleansing Rinsed/ Irrigated with Saline -Foul Odor after Cleansing No -Bioengineered Tissue Yes -Type of bioengineered Tissue [id number] -Expiration Date 02/11/19 -Product Lot Number [id number] -Percent Used 100 -Saline Lot Number [id number] -Topical Lidocaine (%) 5 -Bleeding Controlled with Pressure -Treatment Response Procedure Tolerated Well [See Physician Procedure note for Specifics] Pain Scale: 0-10 Numeric [Pain] -Is Patient Pain Free? Yes Musculoskeletal: No Tenderness to Palpation of Joints or Extremities, Muscle Wasting, - - Dorsal contraction of lesser toe, two right foot Neurological: - - Lack of sensation light touch right lower extremity Psych/Mental Status: Normal Affect, Appropriate Debridement Note Post-Debridement Measurements/Treatment WC - Nurse 2 - General Ulcer CM Notes Start: 07/16/17 15:41 Freq: Status: Active Protocol: Activity Type Activity Date Activity User E-Sign Co-Sign Detail Recorded Client Recorded Date Recorded By Document 07/16/17 16:05 [id number] 07/16/17 16:09 TM 07/16/17 16:05 Wound Center Nurse 2 #2 R 2nd ant toe -Time 16:05 -Correct Patient Yes -Correct Side, Site, Position Yes -Correct Procedure Yes -Procedure Performed Yes -Type of Procedure Debridement -Clinical Debridement Subcutaneous -Post Debridement Size (cm) - Length 1.2 -Post Debridement Size (cm) - Width 1.0 -Post Debridement Size (cm) - Depth 0.1 -Total Square Cm 1.20 -Wound/Ulcer Outcome Not Healed -Ulcer Cleansing Rinsed/ Irrigated with Saline -Foul Odor after Cleansing No -Bioengineered Tissue Yes -Type of bioengineered Tissue [id number] -Expiration Date 02/11/19 -Product Lot Number [id number] -Percent Used 100 -Saline Lot Number [id number] -Topical Lidocaine (%) 5 -Bleeding Controlled with Pressure -Treatment Response Procedure Tolerated Well Pain Scale: 0-10 Numeric Is Patient Pain Free? 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 Cellulitis right second toe -resolved. Neuropathy. Hammertoe. Malnutrition. Delayed healing. Chronic leg edema. Walking difficulty Plan: I reviewed and discussed her case. Subcutaneous excisional debridement was performed as noted in the clinical panel. Pure apply was applied today. She verbally agreed to have puraply applied which is a collagen and antimicrobial dressing. This was applied according to standard protocol after debridement was performed. This was also secured in place with the wound veil and Steri-Strips. She tolerated this well. Local anesthesia was not required due to her lack of sensation and neuropathy. Clean dry and intact until follow-up next week. She tries to offload her wound with a cut out to the top of her sneaker. She is not able to wear a cam walker boot due to her fall risk. I offered her this boot at any rate with additional physical therapy training sessions; she will consider this. It is noted she wears bilateral ankle-foot orthotics due to previous foot deformities and gait instability. To take margot once daily for nutritional optmization. She is ready to proceed with lower extremity compression management. She accepts a prescription for CircAid compression wrap at this time and she was advised on proper and safe use. RTC one week or call sooner if problems. I answered all of her questions. Due to the chronicity of this wound she understands the per deterioration in her bone or joint infection is possible. Serial x-rays and labs will be ordered next visit. She also understands arthroplasty with bone biopsy is an option that I recommend. She defers at this time. I also offered her admission to a rehabilitation center after the procedure she elects to proceed with the due to her inability to care for this at home on her own and walk safely with a appropriate offloading devices. She will give this more thought this next week.
--- NOTE | 2017-07-16 16:30 | PN.PCM_ITS ---
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 Current Visit: Yes Code(s): L97.513 - Non-pressure chronic ulcer of other part of right foot with necrosis of muscle (3) Delayed wound healing Status: Chronic Current Visit: Yes Code(s): T14.8 - Other injury of unspecified body region (4) Obesity Status: Chronic Current Visit: Yes Code(s): E66.9 - Obesity, unspecified (5) Neuropathy Status: Chronic Current Visit: Yes Code(s): G62.9 - Polyneuropathy, unspecified (6) Walking difficulty due to ankle and foot Status: Chronic Current Visit: Yes Code(s): R26.2 - Difficulty in walking, not elsewhere classified Type of Wound Date of Service: 07/16/17 Chief Complaint: Right second toe ulcer History of Wound: This 77-year-old female with multiple comorbidities presents to the wound care center today with an ulcer to the right second toe. She has kept her dressing intact as advised. She denies worsening redness or odor or redness at the wound site. She denies fever, chill, nausea, vomiting, loss of appetite. He is continued pain to the ulcer site that is worse at night. She relates she is unable to undergo surgery at this time or wear an offloading boot. She wears ankle-foot orthoses due to walking and balance issues. Progress of Wound: Improving quality - Physical Exam Vital Signs Temp Pulse Resp BP 97.5 F L 88 18 144/72 H 07/16/17 15:41 07/16/17 15:41 07/16/17 15:41 07/16/17 15:41 General: Alert, Oriented x3, Cooperative Extremities: No cyanosis, Capillary Refill Less than 3 Seconds, No Calf Tenderness - Negative Vivian and Carroll sign right, Diminished Peripheral Pulses, Peripheral Pulses Normal Skin: Ulcer/ Wound - No purulence, erythema, blistering, no odor, no necrosis. The wound bed has increased granulation tissue and appears improved quality. The peripheral skin is atrophic. Wound Measurements and Assessment WC - Nurse 1 - General Ulcer Measurement Start: 07/16/17 15:41 Freq: Status: Active Protocol: Activity Type Activity Date Activity User E-Sign Co-Sign Detail Recorded Client Recorded Date Recorded By Document 07/16/17 15:41 DL [id number] 07/16/17 15:45 DL 07/16/17 15:41 Wound Center Nurse 1 [Ulcer Assessment Protocol: WC.WD.LOC] #2 R 2nd ant toe -Combined with other wound No -Current Size (cm) - Length 1.4 -Current Size (cm) - Width 1 -Current Size (cm) - Depth 0.2 -Total Square Cm 1.4 -Photo Taken No -Tunneling No -Undermining/Tunneling No -Circular Undermining No -Classification - Pressure Ulcer Stage 3 -Exudate Amt Small (1-33%) -Exudate Type Serosanguineous -Wound Margin Thickened & Rolled Under -Granulation Amt Medium (34-66%) -Granulation Quality [place] -Slough/Fibrin Yes -Necrosis Amt Small (1-33%) -Necrotic Tissue Type Adherent Slough -Structure Exposed N/A -Texture (Sheyla-wound Skin Appearance) Assessed -Moisture (Sheyla-wound Skin Appearance Assessed ) -Color (Sheyla-wound Skin Appearance) Assessed Erythema -Temperature (Sheyla-wound Skin No Abnormality Appearance) (Pt Warm) -Tenderness on Palpation (Sheyla-wound No Skin Appearance) -Ulcer Cleansing Rinsed/ Irrigated with Saline -Foul Odor after Cleansing No -Anesthetic Used 4% Lidocaine Solution - Nurse 2 - General Ulcer CM Notes Start: 07/16/17 15:41 Freq: Status: Active Protocol: Activity Type Activity Date Activity User E-Sign Co-Sign Detail Recorded Client Recorded Date Recorded By Document 07/16/17 16:05 [id number] 07/16/17 16:09 07/16/17 16:05 Wound Center Nurse 2 [Procedure/Treatment] -Time 16:05 -Correct Patient Yes -Correct Side, Site, Position Yes -Correct Procedure Yes -Procedure Performed Yes -Type of Procedure Debridement -Clinical Debridement Subcutaneous -Post Debridement Size (cm) - Length 1.2 -Post Debridement Size (cm) - Width 1.0 -Post Debridement Size (cm) - Depth 0.1 -Total Square Cm 1.20 -Wound/Ulcer Outcome Not Healed -Ulcer Cleansing Rinsed/ Irrigated with Saline -Foul Odor after Cleansing No -Bioengineered Tissue Yes -Type of bioengineered Tissue [id number] -Expiration Date 02/11/19 -Product Lot Number [id number] -Percent Used 100 -Saline Lot Number [id number] -Topical Lidocaine (%) 5 -Bleeding Controlled with Pressure -Treatment Response Procedure Tolerated Well [See Physician Procedure note for Specifics] Pain Scale: 0-10 Numeric [Pain] -Is Patient Pain Free? Yes Musculoskeletal: No Tenderness to Palpation of Joints or Extremities, Muscle Wasting, - - Dorsal contraction of lesser toe, two right foot Neurological: - - Lack of sensation light touch right lower extremity Psych/Mental Status: Normal Affect, Appropriate Debridement Note Post-Debridement Measurements/Treatment WC - Nurse 2 - General Ulcer CM Notes Start: 07/16/17 15:41 Freq: Status: Active Protocol: Activity Type Activity Date Activity User E-Sign Co-Sign Detail Recorded Client Recorded Date Recorded By Document 07/16/17 16:05 [id number] 07/16/17 16:09 TM 07/16/17 16:05 Wound Center Nurse 2 #2 R 2nd ant toe -Time 16:05 -Correct Patient Yes -Correct Side, Site, Position Yes -Correct Procedure Yes -Procedure Performed Yes -Type of Procedure Debridement -Clinical Debridement Subcutaneous -Post Debridement Size (cm) - Length 1.2 -Post Debridement Size (cm) - Width 1.0 -Post Debridement Size (cm) - Depth 0.1 -Total Square Cm 1.20 -Wound/Ulcer Outcome Not Healed -Ulcer Cleansing Rinsed/ Irrigated with Saline -Foul Odor after Cleansing No -Bioengineered Tissue Yes -Type of bioengineered Tissue [id number] -Expiration Date 02/11/19 -Product Lot Number [id number] -Percent Used 100 -Saline Lot Number [id number] -Topical Lidocaine (%) 5 -Bleeding Controlled with Pressure -Treatment Response Procedure Tolerated Well Pain Scale: 0-10 Numeric Is Patient Pain Free? 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 Cellulitis right second toe -resolved. Neuropathy. Hammertoe. Malnutrition. Delayed healing. Chronic leg edema. Walking difficulty Plan: I reviewed and discussed her case. Subcutaneous excisional debridement was performed as noted in the clinical panel. Pure apply was applied today. She verbally agreed to have puraply applied which is a collagen and antimicrobial dressing. This was applied according to standard protocol after debridement was performed. This was also secured in place with the wound veil and Steri-Strips. She tolerated this well. Local anesthesia was not required due to her lack of sensation and neuropathy. Clean dry and intact until follow- up next week. She tries to offload her wound with a cut out to the top of her sneaker. She is not able to wear a cam walker boot due to her fall risk. I offered her this boot at any rate with additional physical therapy training sessions; she will consider this. It is noted she wears bilateral ankle-foot orthotics due to previous foot deformities and gait instability. To take amrgot once daily for nutritional optmization. She is ready to proceed with lower extremity compression management. She accepts a prescription for CircAid compression wrap at this time and she was advised on proper and safe use. RTC one week or call sooner if problems. I answered all of her questions. Due to the chronicity of this wound she understands the per deterioration in her bone or joint infection is possible. Serial x-rays and labs will be ordered next visit. She also understands arthroplasty with bone biopsy is an option that I recommend. She defers at this time. I also offered her admission to a rehabilitation center after the procedure she elects to proceed with the due to her inability to care for this at home on her own and walk safely with a appropriate offloading devices. She will give this more thought this next week.
[2017-07-18 15:20] VITALS: BP 120/68; RESP 24; TEMP 36.6; BMI 128.8
[2017-07-23 15:52] VITALS: BP 117/47; PULSE 80; RESP 18; TEMP 36.3; BMI 128.8
--- NOTE | 2017-07-23 16:36 | PN.PCM_ITS ---
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 Current Visit: Yes Code(s): L97.513 - Non-pressure chronic ulcer of other part of right foot with necrosis of muscle (3) Delayed wound healing Status: Chronic Current Visit: Yes Code(s): T14.8 - Other injury of unspecified body region (4) Obesity Status: Chronic Current Visit: Yes Code(s): E66.9 - Obesity, unspecified (5) Neuropathy Status: Chronic Current Visit: Yes Code(s): G62.9 - Polyneuropathy, unspecified (6) Walking difficulty due to ankle and foot Status: Chronic Current Visit: Yes Code(s): R26.2 - Difficulty in walking, not elsewhere classified Type of Wound Date of Service: 07/24/17 Chief Complaint: Right second toe ulcer History of Wound: This 77-year-old female with multiple comorbidities presents to the wound care center today with an ulcer to the right second toe. She has kept her dressing intact as advised. She denies worsening redness or odor or redness at the wound site. She denies fever, chill, nausea, vomiting, loss of appetite. He is continued pain to the ulcer site. She relates she is unable to undergo surgery at this time or wear an offloading boot. She wears ankle- foot orthoses due to walking and balance issues. Progress of Wound: Improving quality - Physical Exam Vital Signs Temp Pulse Resp BP 97.3 F L 80 18 117/47 L 07/23/17 15:52 07/23/17 15:52 07/23/17 15:52 07/23/17 15:52 General: Alert, Oriented x3, Cooperative Extremities: No cyanosis, Capillary Refill Less than 3 Seconds, No Calf Tenderness, Diminished Peripheral Pulses, Edema Skin: Ulcer/ Wound - Decrease inflammation. No erythema, no streaking, no odor Wound Measurements and Assessment WC - Nurse 1 - General Ulcer Measurement Start: 07/16/17 15:41 Freq: Status: Active Protocol: Activity Type Activity Date Activity User E-Sign Co-Sign Detail Recorded Client Recorded Date Recorded By Document 07/23/17 15:52 MW [id number] 07/23/17 15:54 MW 07/23/17 15:52 Wound Center Nurse 1 [Ulcer Assessment Protocol: MERY.WD.LOC] #2 R 2nd ant toe -Combined with other wound No -Current Size (cm) - Length 1.0 -Current Size (cm) - Width 0.8 -Current Size (cm) - Depth 0.2 -Total Square Cm 0.80 -Photo Taken No -Epithelialization None Present -Tunneling No -Undermining/Tunneling No -Circular Undermining No -Exudate Amt Small (1-33%) -Exudate Type Serosanguineous -Wound Margin Distinct, Outline Attached -Granulation Amt Small (1-33%) -Granulation Quality [place] -Slough/Fibrin Yes -Necrosis Amt Medium (34-66%) -Necrotic Tissue Type Adherent Slough -Structure Exposed N/A -Texture (Sheyla-wound Skin Appearance) No Abnormality Assessed -Moisture (Sheyla-wound Skin Appearance Assessed ) -Color (Sheyla-wound Skin Appearance) Assessed Erythema -Temperature (Sheyla-wound Skin No Abnormality Appearance) (Pt Warm) -Tenderness on Palpation (Sheyla-wound Yes Skin Appearance) -Ulcer Cleansing soap and water -Foul Odor after Cleansing No -Anesthetic Used 4% Lidocaine Solution [Edema Assessment] -Lower Limb Edema Present No - Nurse 2 - General Ulcer CM Notes Start: 07/16/17 15:41 Freq: Status: Active Protocol: Activity Type Activity Date Activity User E-Sign Co-Sign Detail Recorded Client Recorded Date Recorded By Document 07/23/17 16:20 [id number] 07/23/17 16:22 07/23/17 16:20 Wound Center Nurse 2 [Procedure/Treatment] #2 R 2nd ant toe -Time 16:21 -Correct Patient Yes -Correct Side, Site, Position Yes -Correct Procedure Yes -Procedure Performed Yes -Type of Procedure Debridement -Clinical Debridement Subcutaneous -Post Debridement Size (cm) - Length 1.1 -Post Debridement Size (cm) - Width 0.9 -Post Debridement Size (cm) - Depth 0.2 -Total Square Cm 0.99 -Wound/Ulcer Outcome Not Healed -Ulcer Cleansing Rinsed/ Irrigated with Saline -Foul Odor after Cleansing No -Bioengineered Tissue No -Type of bioengineered Tissue [id number] -Expiration Date 03/11/19 -Product Lot Number [id number] -Percent Used 100 -Saline Lot Number [id number] -Bleeding Controlled with Pressure -Treatment Response Procedure Tolerated Well [See Physician Procedure note for Specifics] Pain Scale: 0-10 Numeric [Pain] -Is Patient Pain Free? Yes Musculoskeletal: No Tenderness to Palpation of Joints or Extremities, Muscle Wasting, - - Dorsal contraction right second toe Neurological: - - Lack of sensation to light touch bilateral feet Psych/Mental Status: Normal Affect, Appropriate Debridement Note Post-Debridement Measurements/Treatment WC - Nurse 2 - General Ulcer CM Notes Start: 07/16/17 15:41 Freq: Status: Active Protocol: Activity Type Activity Date Activity User E-Sign Co-Sign Detail Recorded Client Recorded Date Recorded By Document 07/16/17 16:05 TM [id number] 07/16/17 16:09 TM Document 07/23/17 16:20 [id number] 07/23/17 16:22 07/16/17 07/23/17 16:05 16:20 Wound Center Nurse 2 #2 R 2nd ant toe -Time 16:05 16:21 -Correct Patient Yes Yes -Correct Side, Site, Position Yes Yes -Correct Procedure Yes Yes -Procedure Performed Yes Yes -Type of Procedure Debridement Debridement -Clinical Debridement Subcutaneous Subcutaneous -Post Debridement Size (cm) - Length 1.2 1.1 -Post Debridement Size (cm) - Width 1.0 0.9 -Post Debridement Size (cm) - Depth 0.1 0.2 -Total Square Cm 1.20 0.99 -Wound/Ulcer Outcome Not Healed Not Healed -Ulcer Cleansing Rinsed/ Rinsed/ Irrigated with Irrigated with Saline Saline -Foul Odor after Cleansing No No -Bioengineered Tissue Yes No -Type of bioengineered Tissue [id number] -Expiration Date 02/11/19 03/11/19 -Product Lot Number [id number] -Percent Used 100 100 -Saline Lot Number [id number] -Topical Lidocaine (%) 5 -Bleeding Controlled with Pressure Pressure -Treatment Response Procedure Procedure Tolerated Well Tolerated Well Pain Scale: 0-10 Numeric Is Patient Pain Free? 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 Cellulitis right second toe -resolved. Neuropathy. Hammertoe. Malnutrition. Delayed healing. Chronic leg edema. Walking difficulty Plan: I reviewed and discussed her case. Subcutaneous excisional debridement was performed as noted in the clinical panel. Purapply was applied today. She verbally agreed to have puraply applied which is a collagen and antimicrobial dressing. This was applied according to standard protocol after debridement was performed. This was also secured in place with the wound veil and Steri- Strips. She tolerated this well. I recommended an advanced wound care product , epi fix that is derived from amniotic cord cells. The indication and anticipated procedure and healing management was discussed. She is amenable and preauthorization is still in process. Local anesthesia was not required due to her lack of sensation and neuropathy. Clean dry and intact until follow- up next week. She tries to offload her wound with a cut out to the top of her sneaker. She is not able to wear a cam walker boot due to her fall risk. I offered her this boot at any rate with additional physical therapy training sessions; she will consider this. It is noted she wears bilateral ankle-foot orthotics due to previous foot deformities and gait instability. To take margot once daily for nutritional optmization. She is ready to proceed with lower extremity compression management. She accepts a prescription for CircAid compression wrap at this time and she was advised on proper and safe use. RTC one week or call sooner if problems. I answered all of her questions. Due to the chronicity of this wound she understands the per deterioration in her bone or joint infection is possible. Serial x-rays and labs will be ordered next visit. She also understands arthroplasty with bone biopsy is an option that I recommend. She defers at this time. I also offered her admission to a rehabilitation center after the procedure she elects to proceed with the due to her inability to care for this at home on her own and walk safely with a appropriate offloading devices. I answered her questions.
[2017-07-30 15:41] VITALS: BP 152/61; PULSE 84; RESP 18; TEMP 36.6; BMI 128.8
--- NOTE | 2017-07-30 16:24 | PCM.WC.PN ---
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 Current Visit: Yes Code(s): L97.513 - Non-pressure chronic ulcer of other part of right foot with necrosis of muscle (2) Hammer toe of right foot Status: Chronic Current Visit: Yes Code(s): M20.41 - Other hammer toe(s) (acquired), right foot (3) Delayed wound healing Status: Chronic Current Visit: Yes Code(s): T14.8 - Other injury of unspecified body region (4) Obesity Status: Chronic Current Visit: Yes Code(s): E66.9 - Obesity, unspecified (5) Neuropathy Status: Chronic Current Visit: Yes Code(s): G62.9 - Polyneuropathy, unspecified (6) 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 She has kept her dressing intact as advised. She denies worsening redness or odor or redness at the wound site. She denies fever, chill, nausea, vomiting, loss of appetite. He is decreased pain to the ulcer site. She relates she is unable to undergo surgery at this time or wear an offloading boot. She wears ankle-foot orthoses due to walking and balance issues. Progress of Wound: Improving quality - Physical Exam Vital Signs Temp Pulse Resp BP 97.8 F 84 18 152/61 H 07/30/17 15:41 07/30/17 15:41 07/30/17 15:41 07/30/17 15:41 General: Alert, Oriented x3, Cooperative Extremities: No cyanosis, Capillary Refill Less than 3 Seconds, No Calf Tenderness - Negative [place] and [place], Diminished Peripheral Pulses, Edema - Decreased Skin: Ulcer/ Wound - No purulence, no erythema, streaking, no odor, no exposed bone joint or tendon to the second toe. The adjacent skin is atrophic with scant hair Wound Measurements and Assessment WC - Nurse 1 - General Ulcer Measurement Start: 07/16/17 15:41 Freq: Status: Active Protocol: Activity Type Activity Date Activity User E-Sign Co-Sign Detail Recorded Client Recorded Date Recorded By Document 07/30/17 15:41 DL [id number] 07/30/17 15:48 DL 07/30/17 15:41 Wound Center Nurse 1 [Ulcer Assessment] #2 R 2nd ant toe -Current Size (cm) - Length 0.8 -Current Size (cm) - Width 0.6 -Current Size (cm) - Depth 0.1 -Total Square Cm 0.48 -Photo Taken No -Exudate Amt Small (1-33%) -Exudate Type Serosanguineous -Wound Margin Thickened -Granulation Amt Medium (34-66%) -Granulation Quality [place] -Necrosis Amt Medium (34-66%) -Necrotic Tissue Type Adherent Slough -Structure Exposed N/A -Texture (Sheyla-wound Skin Appearance) Scarring -Moisture (Sheyla-wound Skin Appearance No Abnormality ) -Color (Sheyla-wound Skin Appearance) Erythema Rubor -Temperature (Sheyla-wound Skin No Abnormality Appearance) (Pt Warm) -Ulcer Cleansing Rinsed/ Irrigated with Saline -Foul Odor after Cleansing No -Anesthetic Used 4% Lidocaine Solution [Edema Assessment] -Right Calf (cm) 51.5 -Right Ankle (cm) 25.5 WC - Nurse 2 - General Ulcer CM Notes Start: 07/16/17 15:41 Freq: Status: Active Protocol: Activity Type Activity Date Activity User E-Sign Co-Sign Detail Recorded Client Recorded Date Recorded By Document 07/30/17 15:59 [id number] 07/30/17 16:03 07/30/17 15:59 Wound Center Nurse 2 [Procedure/Treatment] #2 R 2nd ant toe -Time 16:00 -Correct Patient Yes -Correct Side, Site, Position Yes -Correct Procedure Yes -Procedure Performed Yes -Type of Procedure Debridement -Clinical Debridement Subcutaneous -Post Debridement Size (cm) - Length 0.8 -Post Debridement Size (cm) - Width 0.7 -Post Debridement Size (cm) - Depth 0.2 -Total Square Cm 0.56 -Wound/Ulcer Outcome Not Healed -Ulcer Cleansing Rinsed/ Irrigated with Saline -Foul Odor after Cleansing No -Bioengineered Tissue Yes -Type of bioengineered Tissue EPIFIX -Expiration Date 05/09/22 -Product Lot Number [id number] -Percent Used 100 -Saline Lot Number [id number] -Bleeding Controlled with Pressure -Treatment Response Procedure Tolerated Well [See Physician Procedure note for Specifics] Pain Scale: 0-10 Numeric [Pain] -Is Patient Pain Free? Yes Musculoskeletal: No Tenderness to Palpation of Joints or Extremities, Muscle Wasting, - - Dorsal contraction second toe Neurological: - - Lack of epicritic sensation light touch bilateral foot Psych/Mental Status: Normal Affect, Appropriate Debridement Note Post-Debridement Measurements/Treatment WC - Nurse 2 - General Ulcer CM Notes Start: 07/16/17 15:41 Freq: Status: Active Protocol: Activity Type Activity Date Activity User E-Sign Co-Sign Detail Recorded Client Recorded Date Recorded By Document 07/16/17 16:05 TM [id number] 07/16/17 16:09 TM Document 07/23/17 16:20 [id number] 07/23/17 16:22 Document 07/30/17 15:59 [id number] 07/30/17 16:03 07/16/17 07/23/17 07/30/17 16:05 16:20 15:59 Wound Center Nurse 2 #2 R 2nd ant toe -Time 16:05 16:21 16:00 -Correct Patient Yes Yes Yes -Correct Side, Site, Position Yes Yes Yes -Correct Procedure Yes Yes Yes -Procedure Performed Yes Yes Yes -Type of Procedure Debridement Debridement Debridement -Clinical Debridement Subcutaneous Subcutaneous Subcutaneous -Post Debridement Size (cm) - Length 1.2 1.1 0.8 -Post Debridement Size (cm) - Width 1.0 0.9 0.7 -Post Debridement Size (cm) - Depth 0.1 0.2 0.2 -Total Square Cm 1.20 0.99 0.56 -Wound/Ulcer Outcome Not Healed Not Healed Not Healed -Ulcer Cleansing Rinsed/ Rinsed/ Rinsed/ Irrigated with Irrigated with Irrigated with Saline Saline Saline -Foul Odor after Cleansing No No No -Bioengineered Tissue Yes No Yes -Type of bioengineered Tissue [id number] EPIFIX -Expiration Date 02/11/19 03/11/19 05/09/22 -Product Lot Number [id number] -Percent Used 100 100 100 -Saline Lot Number [id number] -Topical Lidocaine (%) 5 -Bleeding Controlled with Pressure Pressure Pressure -Treatment Response Procedure Procedure Procedure Tolerated Well Tolerated Well Tolerated Well Pain Scale: 0-10 Numeric Is Patient Pain Free? 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 Cellulitis right second toe -resolved. Neuropathy. Hammertoe. Malnutrition. Delayed healing. Chronic leg edema. Walking difficulty Plan: I reviewed and discussed her case. Subcutaneous excisional debridement was performed as noted in the clinical panel. She is approved for covered epi fix, advanced wound care product. Verbal consent was obtained and epi fix was applied today according to standard protocol after ulcer debridement and saline irrigation. This was secured in place with a wound veil and Steri-Strips. She tolerated this well. The indication and anticipated procedure and healing management was discussed. Local anesthesia was not required due to her lack of sensation and neuropathy. Clean dry and intact until follow-up next week. She tries to offload her wound with a cut out to the top of her sneaker. She is not able to wear a cam walker boot due to her fall risk. I offered her this boot at any rate with additional physical therapy training sessions; she will consider this. It is noted she wears bilateral ankle-foot orthotics due to previous foot deformities and gait instability. To take margot once daily for nutritional optmization. She is ready to proceed with lower extremity compression management. She accepts a prescription for CircAid compression wrap at this time and she was advised on proper and safe use. To RTC one week or call sooner if problems. I answered all of her questions.
[2017-08-06 15:54] VITALS: BP 151/75; PULSE 83; RESP 16; TEMP 36.5; BMI 128.8
--- NOTE | 2017-08-06 16:21 | PCM.WC.PN ---
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 Code(s): L97.513 - Non-pressure chronic ulcer of other part of right foot with necrosis of muscle (2) Hammer toe of right foot Status: Chronic Code(s): M20.41 - Other hammer toe(s) (acquired), right foot (3) Delayed wound healing Status: Chronic Code(s): T14.8 - Other injury of unspecified body region (4) Obesity Status: Chronic Code(s): E66.9 - Obesity, unspecified (5) Neuropathy Status: Chronic Code(s): G62.9 - Polyneuropathy, unspecified (6) Walking difficulty due to ankle and foot Status: Chronic Code(s): R26.2 - Difficulty in walking, not elsewhere classified Type of Wound Date of Service: 08/07/17 Chief Complaint: Right second toe ulcer History of Wound: This 77-year-old female with multiple comorbidities presents to the wound care center today with an ulcer to the right second toe. She has kept her dressing intact as advised. She denies worsening redness or odor or redness at the wound site. She denies fever, chill, nausea, vomiting, loss of appetite. She has continued decreased pain to the ulcer site. She relates she is unable to undergo surgery at this time or wear an offloading boot. She wears ankle-foot orthoses due to walking and balance issues. She has avoided wearing shoes at home to take pressure off the wound and reports this is helping. Progress of Wound: Improving quality - Physical Exam Vital Signs Temp Pulse Resp BP 97.7 F L 83 16 151/75 H 08/06/17 15:54 08/06/17 15:54 08/06/17 15:54 08/06/17 15:54 General: Alert, Oriented x3, Cooperative Extremities: No cyanosis, Capillary Refill Less than 3 Seconds, No Calf Tenderness, Diminished Peripheral Pulses, Edema Skin: Ulcer/ Wound - No purulence, no erythema, streaking, no odor. No exposed bone joint or tendon today. There is some peripheral epithelialization noted, - - The skin is atrophic Wound Measurements and Assessment WC - Nurse 1 - General Ulcer Measurement Start: 07/16/17 15:41 Freq: Status: Active Protocol: Activity Type Activity Date Activity User E-Sign Co-Sign Detail Recorded Client Recorded Date Recorded By Document 08/06/17 15:54 MW [id number] 08/06/17 15:56 MW 08/06/17 15:54 Wound Center Nurse 1 [Ulcer Assessment] #2 R 2nd ant toe -Combined with other wound No -Current Size (cm) - Length 1.1 -Current Size (cm) - Width 1.0 -Current Size (cm) - Depth 0.1 -Total Square Cm 1.10 -Date of Last Picture (Recall this 08/06/17 field) -Photo Taken Yes -Epithelialization None Present -Tunneling No -Undermining/Tunneling No -Circular Undermining No -Exudate Amt Small (1-33%) -Exudate Type Serosanguineous -Wound Margin Flat & Intact -Granulation Amt Small (1-33%) -Granulation Quality Pale -Slough/Fibrin Yes -Necrosis Amt Large (67-100%) -Necrotic Tissue Type Adherent Slough -Structure Exposed N/A -Texture (Sheyla-wound Skin Appearance) Assessed Localized Edema -Moisture (Sheyla-wound Skin Appearance No Abnormality ) Assessed -Color (Sheyla-wound Skin Appearance) Assessed Erythema -Temperature (Sheyla-wound Skin No Abnormality Appearance) (Pt Warm) -Tenderness on Palpation (Sheyla-wound Yes Skin Appearance) -Ulcer Cleansing soap and water -Foul Odor after Cleansing No -Anesthetic Used 4% Lidocaine Solution [Edema Assessment] -Lower Limb Edema Present No WC - Nurse 2 - General Ulcer CM Notes Start: 07/16/17 15:41 Freq: Status: Active Protocol: Activity Type Activity Date Activity User E-Sign Co-Sign Detail Recorded Client Recorded Date Recorded By Document 08/06/17 16:09 [id number] 08/06/17 16:10 08/06/17 16:09 Wound Center Nurse 2 [Procedure/Treatment] #2 R 2nd ant toe -Time 16:09 -Correct Patient Yes -Correct Side, Site, Position Yes -Correct Procedure Yes -Procedure Performed Yes -Type of Procedure Debridement -Clinical Debridement Subcutaneous -Post Debridement Size (cm) - Length 1.1 -Post Debridement Size (cm) - Width 1.1 -Post Debridement Size (cm) - Depth 0.1 -Total Square Cm 1.21 -Wound/Ulcer Outcome Not Healed -Ulcer Cleansing Rinsed/ Irrigated with Saline -Foul Odor after Cleansing No -Bioengineered Tissue Yes -Type of bioengineered Tissue EPIFIX -Expiration Date 05/09/22 -Product Lot Number [id number] -Percent Used 100 -Saline Lot Number [id number] -Bleeding Controlled with Pressure -Treatment Response Procedure Tolerated Well [See Physician Procedure note for Specifics] Pain Scale: 0-10 Numeric [Pain] -Is Patient Pain Free? Yes Musculoskeletal: No Tenderness to Palpation of Joints or Extremities, Muscle Wasting, - - Dorsal contraction left second toe Neurological: - - Lack of epicritic sensation light touch consistent with neuropathy Psych/Mental Status: Normal Affect, Appropriate Debridement Note Post-Debridement Measurements/Treatment WC - Nurse 2 - General Ulcer CM Notes Start: 07/16/17 15:41 Freq: Status: Active Protocol: Activity Type Activity Date Activity User E-Sign Co-Sign Detail Recorded Client Recorded Date Recorded By Document 07/16/17 16:05 [id number] 07/16/17 16:09 Document 07/23/17 16:20 [id number] 07/23/17 16:22 Document 07/30/17 15:59 [id number] 07/30/17 16:03 Document 08/06/17 16:09 [id number] 08/06/17 16:10 07/16/17 07/23/17 07/30/17 16:05 16:20 15:59 Wound Center Nurse 2 #2 R 2nd ant toe -Time 16:05 16:21 16:00 -Correct Patient Yes Yes Yes -Correct Side, Site, Position Yes Yes Yes -Correct Procedure Yes Yes Yes -Procedure Performed Yes Yes Yes -Type of Procedure Debridement Debridement Debridement -Clinical Debridement Subcutaneous Subcutaneous Subcutaneous -Post Debridement Size (cm) - Length 1.2 1.1 0.8 -Post Debridement Size (cm) - Width 1.0 0.9 0.7 -Post Debridement Size (cm) - Depth 0.1 0.2 0.2 -Total Square Cm 1.20 0.99 0.56 -Wound/Ulcer Outcome Not Healed Not Healed Not Healed -Ulcer Cleansing Rinsed/ Rinsed/ Rinsed/ Irrigated with Irrigated with Irrigated with Saline Saline Saline -Foul Odor after Cleansing No No No -Bioengineered Tissue Yes No Yes -Type of bioengineered Tissue [id number] EPIFIX -Expiration Date 02/11/19 03/11/19 05/09/22 -Product Lot Number [id number] -Percent Used 100 100 100 -Saline Lot Number [id number] -Topical Lidocaine (%) 5 -Bleeding Controlled with Pressure Pressure Pressure -Treatment Response Procedure Procedure Procedure Tolerated Well Tolerated Well Tolerated Well Pain Scale: 0-10 Numeric Is Patient Pain Free? Yes Yes Yes 08/06/17 16:09 Wound Center Nurse 2 #2 R 2nd ant toe -Time 16:09 -Correct Patient Yes -Correct Side, Site, Position Yes -Correct Procedure Yes -Procedure Performed Yes -Type of Procedure Debridement -Clinical Debridement Subcutaneous -Post Debridement Size (cm) - Length 1.1 -Post Debridement Size (cm) - Width 1.1 -Post Debridement Size (cm) - Depth 0.1 -Total Square Cm 1.21 -Wound/Ulcer Outcome Not Healed -Ulcer Cleansing Rinsed/ Irrigated with Saline -Foul Odor after Cleansing No -Bioengineered Tissue Yes -Type of bioengineered Tissue EPIFIX -Expiration Date 05/09/22 -Product Lot Number [id number] -Percent Used 100 -Saline Lot Number [id number] -Topical Lidocaine (%) -Bleeding Controlled with Pressure -Treatment Response Procedure Tolerated Well Pain Scale: 0-10 Numeric Is Patient Pain Free? Yes Wound debrided: dorsal second toe Laterality: Right Type of Debridement: Excisional debridement Anesthesia Used: 4% Lidocaine Solution Depth: in the subcutaneous layer Percentage of wound debrided: 100 Instrument Used: #15 blade Tissue Removed: fibrous, devitalized subcutaneous, biofilm, slough Severity: Fat Layer Exposed Amount of bleeding with debridement: Mild Bleeding Controlled with: Pressure Patient tolerated procedure well Assessment/Plan Assessment: Dorsal right second toe ulcer with fat exposed. Cellulitis right second toe -resolved. Neuropathy. Hammertoe. Malnutrition. Delayed healing. Chronic leg edema. Walking difficulty Plan: I reviewed and discussed her case. Subcutaneous excisional debridement was performed as noted in the clinical panel. She is approved for covered epi fix, advanced wound care product. Verbal consent was obtained and epi fix was applied today according to standard protocol after ulcer debridement and saline irrigation. This was secured in place with a wound veil and Steri-Strips. She tolerated this well. The indication and anticipated procedure and healing management was discussed. Local anesthesia was not required due to her lack of sensation and neuropathy. Clean dry and intact until follow-up next week. She tries to offload her wound with a cut out to the top of her sneaker. She is not able to wear a cam walker boot due to her fall risk. I offered her this boot at any rate with additional physical therapy training sessions; she will consider this. It is noted she wears bilateral ankle-foot orthotics due to previous foot deformities and gait instability. To take margot once daily for nutritional optmization. She is ready to proceed with lower extremity compression management. She accepts a prescription for CircAid compression wrap at this time and she was advised on proper and safe use. To RTC one week or call sooner if problems. I answered all of her questions.
== END 2017-08-06 23:59 ==
LOC: WC 15:30
PROVIDERS: Family Provider Nurse Practitioner; PCP Nurse Practitioner; Visit Provider Podiatrist
DX: L97.513 Non-pressure chronic ulcer of other part of right foot with necrosis of muscle (principal); R26.2 Difficulty in walking, not elsewhere classified; E66.9 Obesity, unspecified; Z71.3 Dietary counseling and surveillance; M20.41 Other hammer toe(s) (acquired), right foot; G62.9 Polyneuropathy, unspecified; L03.031 Cellulitis of right toe; R60.0 Localized edema
CPT/HCPCS: 15275; 99211; Q4131; Q4172; G0463

== ENCOUNTER → 2017-08-08 14:04 | Outpatient (CLI) | payer MEDICARE, OTHER, SELFPAY | PROVIDERS: Family Provider Nurse Practitioner; PCP Nurse Practitioner; Visit Provider Internal Medicine | DX: R55 Syncope and collapse (principal) | CPT/HCPCS: 93225; 93226 ==

== ENCOUNTER 2017-08-08 15:04 | Outpatient (RCR) | payer MEDICARE, OTHER, SELFPAY | END 2017-09-06 23:59 | LOC: WC 15:04 | PROVIDERS: Family Provider Nurse Practitioner; PCP Nurse Practitioner; Visit Provider Family Medicine | DX: R60.0 Localized edema (principal); G62.9 Polyneuropathy, unspecified; L97.512 Non-pressure chronic ulcer of other part of right foot with fat layer exposed; M20.41 Other hammer toe(s) (acquired), right foot; R26.2 Difficulty in walking, not elsewhere classified ==

== ENCOUNTER → 2017-08-11 13:08 | Outpatient (CLI) | payer MEDICARE, OTHER, SELFPAY ==
[2017-07-18 13:52] VITALS: BP 120/68; BMI 61.2
--- NOTE | 2017-08-11 13:11 | ECHOD_ITS ---
Reason For Study: NEAR SYNCOPE Procedure This was a 2D Doppler, Color Flow transthoracic echocardiogram. The exam was of fair technical quality due to body habitus. Exam performed in department. Left Ventricle Normal LV size. Left ventricular systolic function is normal. The estimated ejection fraction is 60 %. No evidence for diastolic dysfunction. No regional wall motion abnormalities noted. Right Ventricle Normal RV size. Normal systolic function. Atria The left atrium is moderately enlarged. Normal right atrium. Mitral Valve Normal mitral valve. Mild (1+) eccentric mitral valve insufficiency. Tricuspid Valve Normal tricuspid valve. Trivial tricuspid valve insufficiency. Aortic Valve Trisinus/trileaflet aortic valve. Pulmonic Valve Normal pulmonic valve. Great Vessels Normal aortic root. The pulmonary artery is normal size. Normal inferior vena cava. Pericardium/Pleural No pericardial effusion. MMode/2D Measurements & Calculations LVIDd: 4.9 cm IVSd: 1.2 cm Ao root diam: 2.9 cm LVIDs: 2.8 cm LVPWd: 1.0 cm LA dimension: 4.8 cm RVDd: 3.3 cm FS: 42.3 % LAV(MOD-bp): 98.4 ml EDV(MOD-sp4): 105.0 ml EDV(MOD-sp2): 98.6 ml LAV(MOD-bp) Indexed: 46.0 ml/m2 ESV(MOD-sp4): 41.7 ml EF(MOD-sp2): 65.1 % LAV(MOD-sp2): 130.0 ml EF(MOD-sp4): 60.3 % LAV(MOD-sp4): 74.4 ml SV(MOD-sp4): 63.4 ml SV(MOD-sp2): 64.2 ml LA A4 area: 23.4 cm2 RA A4 area: 14.5 cm2 Doppler Measurements & Calculations MV E max leann: 136.6 cm/sec Ao V2 max: 158.7 cm/sec LV V1 max: 119.0 cm/sec MV A max leann: 91.6 cm/sec Ao max P.1 mmHg LV V1 max P.7 mmHg MV E/A: 1.5 PA V2 max: 86.5 cm/sec Interpretation Summary Normal LV size. Left ventricular systolic function is normal. The estimated ejection fraction is 60 %. The left atrium is moderately enlarged. Mild (1+) eccentric mitral valve insufficiency. No evidence for diastolic dysfunction. Ordering Physician: Tomasa Self Referring Physician: ANNE TALBOT Performed By: Val Pagan, RDCS, RVT
--- NOTE | 2017-08-11 13:11 | CDU_ITS ---
Reason For Study: Near syncope Rt. Velocities/BP Lt. Velocities/BP Prox CCA 104.0/16.4 cm/sec. Prox CCA 107.0/12.9 cm/sec. Mid CCA 100.0/15.8 cm/sec. Mid CCA 96.7/15.8 cm/sec. Dist CCA 109.0/19.3 cm/sec. Dist CCA 85.0/16.4 cm/sec. Prox ICA 107.0/17.6 cm/sec. Prox ICA 127.0/22.0 cm/sec. Mid ICA 97.3/21.7 cm/sec. Mid ICA 82.7/21.7 cm/sec. Dist ICA 106.0/22.3 cm/sec. Dist ICA 101.0/24.0 cm/sec. Rt. ICA/CCA = 1.1. Lt. ICA/CCA = 1.3. Prox ECA 114.0/18.8 cm/sec. Prox ECA 215.0/31.4 cm/sec. Rt. Vert. 48.1/9.4 cm/sec. Lt. Vert. 45.1/11.7 cm/sec. Right Extracranial There is intimal thickening but no significant atherosclerotic plaque noted in the right common carotid artery. There is no significant atherosclerotic plaque noted in the right internal carotid artery. There is no significant atherosclerotic plaque noted in the right external carotid artery. Antegrade flow is noted in the right vertebral artery. Left Extracranial There is intimal thickening but no significant atherosclerotic plaque noted in the left common carotid artery. There is heterogeneous, irregular atherosclerotic plaque noted in the left internal carotid artery. There is heterogeneous, irregular atherosclerotic plaque noted in the left external carotid artery. Antegrade flow is noted in the left vertebral artery. Procedure Carotid Duplex [id number]. Exam performed in department. Interpretation Summary Mild (<50%) stenosis right extracranial internal carotid. Moderate (50-69%) stenosis left extracranial internal carotid. Flow within the vertebral arteries is antegrade bilaterally. Ordering Physician: Tomasa Self Referring Physician: Tomasa Self Performed By: Sana Hanson RVT
--- NOTE | 2017-08-11 14:51 | CT_ITS ---
STUDY: CT BRAIN WITHOUT CONTRAST REASON FOR EXAM: Female, 77 years old. Near syncope. RADIATION DOSAGE (If Supplied By Facility): CTDIvol = ( 60.81 ) mGy, DLP = ( 1089.89 ) mGycm TECHNIQUE: Transaxial CT imaging of the brain was performed without administration of intravenous contrast material. Individualized dose optimization techniques were used for this CT. COMPARISON: None. FINDINGS: Normal soft tissue structures. There is hyperostosis frontalis internus. There is mild cerebral atrophy with widening of the extra-axial spaces and ventricular dilatation. There are areas of decreased attenuation within the white matter tracts of the supratentorial brain, consistent with microvascular disease changes. Normal basal ganglia and thalami. Normal brainstem. Normal cerebellum. There is no intracranial hemorrhage. There are no findings of an acute ischemic infarction. Normal visualized paranasal sinuses. CT/Brain/Head without Contrast IMPRESSION: Chronic involutional changes of the brain. Electronically Signed: Shamar Shah MD at 16:50 EST , Service support ,
== END ==
PROVIDERS: Family Provider Nurse Practitioner; PCP Nurse Practitioner; Visit Provider Internal Medicine
DX: R55 Syncope and collapse (principal)
CPT/HCPCS: 70450; 93306; 93880

== ENCOUNTER 2017-09-03 15:30 | Outpatient (RCR) | payer MEDICARE, OTHER, SELFPAY ==
[2017-08-07 00:47] VITALS: BP 120/68; PULSE 83; RESP 16; TEMP 36.5; BMI 128.8
[2017-08-13 15:43] VITALS: BP 141/80; PULSE 88; RESP 20; TEMP 36.1; BMI 128.8
--- NOTE | 2017-08-13 16:39 | PCM.WC.PN ---
(1) Ulcer of right foot with fat layer exposed Status: Chronic Current Visit: Yes Code(s): L97.512 - Non-pressure chronic ulcer of other part of right foot with fat layer exposed (2) Neuropathy Status: Chronic Current Visit: Yes Code(s): G62.9 - Polyneuropathy, unspecified (3) Edema Status: Chronic Current Visit: Yes Code(s): R60.9 - Edema, unspecified (4) Delayed wound healing Status: Chronic Current Visit: Yes Code(s): T14.8 - Other injury of unspecified body region (5) Malnutrition Status: Chronic Current Visit: Yes Code(s): E46 - Unspecified protein-calorie malnutrition (6) Hammer toe of right foot Status: Chronic Current Visit: Yes Code(s): M20.41 - Other hammer toe(s) (acquired), right foot Type of Wound Date of Service: 08/13/17 Chief Complaint: Right second toe ulcer History of Wound: This 77-year-old female with multiple comorbidities presents to the wound care center today with an ulcer to the right second toe. She has kept her dressing intact as advised. She denies worsening redness or odor or redness at the wound site. She denies fever, chill, nausea, vomiting, loss of appetite. He is decreased pain to the ulcer site. She was not able to wear the compression dressing is advised last week due to depression. Progress of Wound: Improving quality - Physical Exam Vital Signs Temp Pulse Resp BP 97 F L 88 20 H 141/80 H 08/13/17 15:43 08/13/17 15:43 08/13/17 15:43 08/13/17 15:43 General: Alert, Oriented x3, Cooperative Extremities: No cyanosis, Capillary Refill Less than 3 Seconds, No Calf Tenderness, Diminished Peripheral Pulses, Edema Skin: Ulcer/ Wound - No purulence, no erythema, no streaking, no odor, no infection. No exposed tendon bone or joint. Her skin is atrophic. Peripheral epithelialization and healing progression and granulation tissue is noted the dorsal toe. No new wounds. Wound Measurements and Assessment WC - Nurse 1 - General Ulcer Measurement Start: 08/13/17 15:43 Freq: Status: Active Protocol: Activity Type Activity Date Activity User E-Sign Co-Sign Detail Recorded Client Recorded Date Recorded By Document 08/13/17 15:43 DL [id number] 08/13/17 15:54 DL 08/13/17 15:43 Wound Center Nurse 1 [Ulcer Assessment] #2 R 2nd ant toe -Current Size (cm) - Length 0.8 -Current Size (cm) - Width 0.8 -Current Size (cm) - Depth 0.1 -Total Square Cm 0.64 -Photo Taken No -Exudate Amt Small (1-33%) -Exudate Type Serosanguineous -Wound Margin Distinct, Outline Attached -Granulation Amt Small (1-33%) -Granulation Quality [place] -Necrosis Amt Small (1-33%) -Necrotic Tissue Type Adherent Slough -Structure Exposed N/A -Texture (Sheyla-wound Skin Appearance) Localized Edema Scarring -Moisture (Sheyla-wound Skin Appearance No Abnormality ) -Color (Sheyla-wound Skin Appearance) Erythema -Temperature (Sheyla-wound Skin No Abnormality Appearance) (Pt Warm) -Ulcer Cleansing Rinsed/ Irrigated with Saline -Foul Odor after Cleansing No -Anesthetic Used 4% Lidocaine Solution [Edema Assessment] -Right Calf (cm) 50.2 -Right Ankle (cm) 25 WC - Nurse 2 - General Ulcer CM Notes Start: 08/13/17 15:43 Freq: Status: Active Protocol: Activity Type Activity Date Activity User E-Sign Co-Sign Detail Recorded Client Recorded Date Recorded By Document 08/13/17 16:13 [id number] 08/13/17 16:17 08/13/17 16:13 Wound Center Nurse 2 [Procedure/Treatment] #2 R 2nd ant toe -Time 16:13 -Correct Patient Yes -Correct Side, Site, Position Yes -Correct Procedure Yes -Procedure Performed Yes -Type of Procedure Debridement -Clinical Debridement Subcutaneous -Post Debridement Size (cm) - Length 0.9 -Post Debridement Size (cm) - Width 0.9 -Post Debridement Size (cm) - Depth 0.1 -Total Square Cm 0.81 -Wound/Ulcer Outcome Not Healed -Ulcer Cleansing Rinsed/ Irrigated with Saline -Foul Odor after Cleansing No -Bioengineered Tissue Yes -Type of bioengineered Tissue EPIFIX -Expiration Date 05/09/22 -Product Lot Number [id number] -Percent Used 100 -Saline Lot Number [id number] -Topical Lidocaine (%) 4 -Bleeding Controlled with Pressure -Treatment Response Procedure Tolerated Well [See Physician Procedure note for Specifics] Pain Scale: 0-10 Numeric [Pain] -Is Patient Pain Free? Yes Musculoskeletal: No Tenderness to Palpation of Joints or Extremities, Muscle Wasting, - - Dorsal contraction of right second toe Neurological: - - Lack of epicritic sensation light touch right foot Psych/Mental Status: Normal Affect, Appropriate Debridement Note Post-Debridement Measurements/Treatment WC - Nurse 2 - General Ulcer CM Notes Start: 08/13/17 15:43 Freq: Status: Active Protocol: Activity Type Activity Date Activity User E-Sign Co-Sign Detail Recorded Client Recorded Date Recorded By Document 08/13/17 16:13 TM [id number] 08/13/17 16:17 TM 08/13/17 16:13 Wound Center Nurse 2 #2 R 2nd ant toe -Time 16:13 -Correct Patient Yes -Correct Side, Site, Position Yes -Correct Procedure Yes -Procedure Performed Yes -Type of Procedure Debridement -Clinical Debridement Subcutaneous -Post Debridement Size (cm) - Length 0.9 -Post Debridement Size (cm) - Width 0.9 -Post Debridement Size (cm) - Depth 0.1 -Total Square Cm 0.81 -Wound/Ulcer Outcome Not Healed -Ulcer Cleansing Rinsed/ Irrigated with Saline -Foul Odor after Cleansing No -Bioengineered Tissue Yes -Type of bioengineered Tissue EPIFIX -Expiration Date 05/09/22 -Product Lot Number [id number] -Percent Used 100 -Saline Lot Number [id number] -Topical Lidocaine (%) 4 -Bleeding Controlled with Pressure -Treatment Response Procedure Tolerated Well Pain Scale: 0-10 Numeric Is Patient Pain Free? Yes Wound debrided: dorsal 2nd toe Laterality: Right Type of Debridement: Excisional debridement Anesthesia Used: 4% Lidocaine Solution Depth: in the subcutaneous layer Percentage of wound debrided: 100 Instrument Used: #15 blade Tissue Removed: fibrous, devitalized subcutaneous, biofilm, slough Severity: Fat Layer Exposed Amount of bleeding with debridement: Mild Bleeding Controlled with: Pressure Patient tolerated procedure well Assessment/Plan Active Problems (Last Updated 07/18/17 @ 12:58 by Brandt Jarquin) Edema (Chronic) Delayed wound healing (Chronic) Malnutrition (Chronic) Ulcer of right foot with fat layer exposed (Chronic) Hammer toe of right foot (Chronic) Neuropathy (Chronic) Assessment: Dorsal right second toe ulcer with fat exposed. Cellulitis right second toe -resolved. Neuropathy. Hammertoe. Malnutrition. Delayed healing. Chronic leg edema. Walking difficulty Plan: I reviewed and discussed her case. Subcutaneous excisional debridement was performed as noted in the clinical panel. She is approved for covered epi fix, advanced wound care product. Verbal consent was obtained and epi fix was applied today according to standard protocol after ulcer debridement and saline irrigation. This was secured in place with a wound veil and Steri-Strips. She tolerated this well. The indication and anticipated procedure and healing management was discussed. Local anesthesia was not required due to her lack of sensation and neuropathy. Clean dry and intact until follow-up next week. She tries to offload her wound with a cut out to the top of her sneaker. It is noted she wears bilateral ankle-foot orthotics due to previous foot deformities and gait instability. To take margot once daily for nutritional optmization. She has CircAid compression wrap but was not able to use them. She defers help and will consider reapplication this upcoming week. To RTC one week or call sooner if problems. I answered all of her questions.
--- NOTE | 2017-08-13 16:43 | PN.PCM_ITS ---
(1) Ulcer of right foot with fat layer exposed Status: Chronic Current Visit: Yes Code(s): L97.512 - Non-pressure chronic ulcer of other part of right foot with fat layer exposed (2) Neuropathy Status: Chronic Current Visit: Yes Code(s): G62.9 - Polyneuropathy, unspecified (3) Edema Status: Chronic Current Visit: Yes Code(s): R60.9 - Edema, unspecified (4) Delayed wound healing Status: Chronic Current Visit: Yes Code(s): T14.8 - Other injury of unspecified body region (5) Malnutrition Status: Chronic Current Visit: Yes Code(s): E46 - Unspecified protein- calorie malnutrition (6) Hammer toe of right foot Status: Chronic Current Visit: Yes Code(s): M20.41 - Other hammer toe(s) ( acquired), right foot Type of Wound Date of Service: 08/13/17 Chief Complaint: Right second toe ulcer History of Wound: This 77-year-old female with multiple comorbidities presents to the wound care center today with an ulcer to the right second toe. She has kept her dressing intact as advised. She denies worsening redness or odor or redness at the wound site. She denies fever, chill, nausea, vomiting, loss of appetite. He is decreased pain to the ulcer site. She was not able to wear the compression dressing is advised last week due to depression. Progress of Wound: Improving quality - Physical Exam Vital Signs Temp Pulse Resp BP 97 F L 88 20 H 141/80 H 08/13/17 15:43 08/13/17 15:43 08/13/17 15:43 08/13/17 15:43 General: Alert, Oriented x3, Cooperative Extremities: No cyanosis, Capillary Refill Less than 3 Seconds, No Calf Tenderness, Diminished Peripheral Pulses, Edema Skin: Ulcer/ Wound - No purulence, no erythema, no streaking, no odor, no infection. No exposed tendon bone or joint. Her skin is atrophic. Peripheral epithelialization and healing progression and granulation tissue is noted the dorsal toe. No new wounds. Wound Measurements and Assessment WC - Nurse 1 - General Ulcer Measurement Start: 08/13/17 15:43 Freq: Status: Active Protocol: Activity Type Activity Date Activity User E-Sign Co-Sign Detail Recorded Client Recorded Date Recorded By Document 08/13/17 15:43 DL [id number] 08/13/17 15:54 DL 08/13/17 15:43 Wound Center Nurse 1 [Ulcer Assessment] #2 R 2nd ant toe -Current Size (cm) - Length 0.8 -Current Size (cm) - Width 0.8 -Current Size (cm) - Depth 0.1 -Total Square Cm 0.64 -Photo Taken No -Exudate Amt Small (1-33%) -Exudate Type Serosanguineous -Wound Margin Distinct, Outline Attached -Granulation Amt Small (1-33%) -Granulation Quality [place] -Necrosis Amt Small (1-33%) -Necrotic Tissue Type Adherent Slough -Structure Exposed N/A -Texture (Sheyla-wound Skin Appearance) Localized Edema Scarring -Moisture (Sheyla-wound Skin Appearance No Abnormality ) -Color (Sheyla-wound Skin Appearance) Erythema -Temperature (Sheyla-wound Skin No Abnormality Appearance) (Pt Warm) -Ulcer Cleansing Rinsed/ Irrigated with Saline -Foul Odor after Cleansing No -Anesthetic Used 4% Lidocaine Solution [Edema Assessment] -Right Calf (cm) 50.2 -Right Ankle (cm) 25 WC - Nurse 2 - General Ulcer CM Notes Start: 08/13/17 15:43 Freq: Status: Active Protocol: Activity Type Activity Date Activity User E-Sign Co-Sign Detail Recorded Client Recorded Date Recorded By Document 08/13/17 16:13 [id number] 08/13/17 16:17 08/13/17 16:13 Wound Center Nurse 2 [Procedure/Treatment] #2 R 2nd ant toe -Time 16:13 -Correct Patient Yes -Correct Side, Site, Position Yes -Correct Procedure Yes -Procedure Performed Yes -Type of Procedure Debridement -Clinical Debridement Subcutaneous -Post Debridement Size (cm) - Length 0.9 -Post Debridement Size (cm) - Width 0.9 -Post Debridement Size (cm) - Depth 0.1 -Total Square Cm 0.81 -Wound/Ulcer Outcome Not Healed -Ulcer Cleansing Rinsed/ Irrigated with Saline -Foul Odor after Cleansing No -Bioengineered Tissue Yes -Type of bioengineered Tissue EPIFIX -Expiration Date 05/09/22 -Product Lot Number [id number] -Percent Used 100 -Saline Lot Number [id number] -Topical Lidocaine (%) 4 -Bleeding Controlled with Pressure -Treatment Response Procedure Tolerated Well [See Physician Procedure note for Specifics] Pain Scale: 0-10 Numeric [Pain] -Is Patient Pain Free? Yes Musculoskeletal: No Tenderness to Palpation of Joints or Extremities, Muscle Wasting, - - Dorsal contraction of right second toe Neurological: - - Lack of epicritic sensation light touch right foot Psych/Mental Status: Normal Affect, Appropriate Debridement Note Post-Debridement Measurements/Treatment WC - Nurse 2 - General Ulcer CM Notes Start: 08/13/17 15:43 Freq: Status: Active Protocol: Activity Type Activity Date Activity User E-Sign Co-Sign Detail Recorded Client Recorded Date Recorded By Document 08/13/17 16:13 TM [id number] 08/13/17 16:17 TM 08/13/17 16:13 Wound Center Nurse 2 #2 R 2nd ant toe -Time 16:13 -Correct Patient Yes -Correct Side, Site, Position Yes -Correct Procedure Yes -Procedure Performed Yes -Type of Procedure Debridement -Clinical Debridement Subcutaneous -Post Debridement Size (cm) - Length 0.9 -Post Debridement Size (cm) - Width 0.9 -Post Debridement Size (cm) - Depth 0.1 -Total Square Cm 0.81 -Wound/Ulcer Outcome Not Healed -Ulcer Cleansing Rinsed/ Irrigated with Saline -Foul Odor after Cleansing No -Bioengineered Tissue Yes -Type of bioengineered Tissue EPIFIX -Expiration Date 05/09/22 -Product Lot Number [id number] -Percent Used 100 -Saline Lot Number [id number] -Topical Lidocaine (%) 4 -Bleeding Controlled with Pressure -Treatment Response Procedure Tolerated Well Pain Scale: 0-10 Numeric Is Patient Pain Free? Yes Wound debrided: dorsal 2nd toe Laterality: Right Type of Debridement: Excisional debridement Anesthesia Used: 4% Lidocaine Solution Depth: in the subcutaneous layer Percentage of wound debrided: 100 Instrument Used: #15 blade Tissue Removed: fibrous, devitalized subcutaneous, biofilm, slough Severity: Fat Layer Exposed Amount of bleeding with debridement: Mild Bleeding Controlled with: Pressure Patient tolerated procedure well Assessment/Plan Active Problems (Last Updated 07/18/17 @ 12:58 by Brandt Jarquin) Edema (Chronic) Delayed wound healing (Chronic) Malnutrition (Chronic) Ulcer of right foot with fat layer exposed (Chronic) Hammer toe of right foot (Chronic) Neuropathy (Chronic) Assessment: Dorsal right second toe ulcer with fat exposed. Cellulitis right second toe -resolved. Neuropathy. Hammertoe. Malnutrition. Delayed healing. Chronic leg edema. Walking difficulty Plan: I reviewed and discussed her case. Subcutaneous excisional debridement was performed as noted in the clinical panel. She is approved for covered epi fix, advanced wound care product. Verbal consent was obtained and epi fix was applied today according to standard protocol after ulcer debridement and saline irrigation. This was secured in place with a wound veil and Steri-Strips. She tolerated this well. The indication and anticipated procedure and healing management was discussed. Local anesthesia was not required due to her lack of sensation and neuropathy. Clean dry and intact until follow-up next week. She tries to offload her wound with a cut out to the top of her sneaker. It is noted she wears bilateral ankle-foot orthotics due to previous foot deformities and gait instability. To take marogt once daily for nutritional optmization. She has CircAid compression wrap but was not able to use them. She defers help and will consider reapplication this upcoming week. To RTC one week or call sooner if problems. I answered all of her questions.
[2017-08-20 16:15] VITALS: BP 151/78; PULSE 80; RESP 18; TEMP 36.3; BMI 128.8
--- NOTE | 2017-08-20 17:27 | PN.PCM_ITS ---
(1) Ulcer of right foot with fat layer exposed Status: Chronic Current Visit: Yes Code(s): L97.512 - Non-pressure chronic ulcer of other part of right foot with fat layer exposed (2) Neuropathy Status: Chronic Current Visit: Yes Code(s): G62.9 - Polyneuropathy, unspecified (3) Edema Status: Chronic Current Visit: Yes Code(s): R60.9 - Edema, unspecified (4) Delayed wound healing Status: Chronic Current Visit: Yes Code(s): T14.8 - Other injury of unspecified body region (5) Malnutrition Status: Chronic Current Visit: Yes Code(s): E46 - Unspecified protein- calorie malnutrition (6) Hammer toe of right foot Status: Chronic Current Visit: Yes Code(s): M20.41 - Other hammer toe(s) ( acquired), right foot Type of Wound Date of Service: 08/23/17 Chief Complaint: Right second toe ulcer History of Wound: This 77-year-old female with multiple comorbidities presents to the wound care center today with an ulcer to the right second toe. She has kept her dressing intact as advised. She denies worsening redness or odor or redness at the wound site. She denies fever, chill, nausea, vomiting, loss of appetite. She had an advanced wound care product applied. Progress of Wound: Improving quality - Physical Exam Vital Signs Temp Pulse Resp BP 97.3 F L 80 18 151/78 H 08/20/17 16:15 08/20/17 16:15 08/20/17 16:15 08/20/17 16:15 General: Alert, Oriented x3, Cooperative Extremities: No cyanosis, Capillary Refill Less than 3 Seconds, No Calf Tenderness, Diminished Peripheral Pulses, Edema - bilateral legs mild and unchanged Skin: Ulcer/ Wound - no maceration, erythema, streaking, odor, or infection. Atrophic skin Wound Measurements and Assessment WC - Nurse 1 - General Ulcer Measurement Start: 08/13/17 15:43 Freq: Status: Active Protocol: Activity Type Activity Date Activity User E-Sign Co-Sign Detail Recorded Client Recorded Date Recorded By Document 08/20/17 16:15 DV [id number] 08/20/17 16:31 DV 08/20/17 16:15 Wound Center Nurse 1 [Ulcer Assessment] #2 R 2nd ant toe -Combined with other wound No -Current Size (cm) - Length 1.6 -Current Size (cm) - Width 1.5 -Current Size (cm) - Depth 0.1 -Total Square Cm 2.40 -Photo Taken No -Epithelialization Small 1-33% -Tunneling No -Undermining/Tunneling No -Circular Undermining No -Exudate Amt Medium (34-66%) -Exudate Type Serosanguineous -Wound Margin Distinct, Outline Attached -Granulation Amt Small (1-33%) -Granulation Quality [place] -Slough/Fibrin Yes -Necrosis Amt Medium (34-66%) -Necrotic Tissue Type Adherent Slough -Structure Exposed None/Limited to Skin Breakdown -Texture (Sheyla-wound Skin Appearance) Assessed Localized Edema Scarring -Moisture (Sheyla-wound Skin Appearance Assessed ) Weeping -Color (Sheyla-wound Skin Appearance) No Abnormality Assessed -Temperature (Sheyla-wound Skin No Abnormality Appearance) (Pt Warm) -Tenderness on Palpation (Sheyla-wound Yes Skin Appearance) -Ulcer Cleansing Rinsed/ Irrigated with Saline -Foul Odor after Cleansing No -Anesthetic Used 4% Lidocaine Solution WC - Nurse 2 - General Ulcer CM Notes Start: 08/13/17 15:43 Freq: Status: Active Protocol: Activity Type Activity Date Activity User E-Sign Co-Sign Detail Recorded Client Recorded Date Recorded By Document 08/20/17 16:50 MITCH [id number] 08/20/17 16:51 MITCH 08/20/17 16:50 Wound Center Nurse 2 [Procedure/Treatment] -Time 16:50 -Correct Patient Yes -Correct Side, Site, Position Yes -Correct Procedure Yes -Procedure Performed Yes -Type of Procedure Debridement -Clinical Debridement Subcutaneous -Post Debridement Size (cm) - Length 1.6 -Post Debridement Size (cm) - Width 1.6 -Post Debridement Size (cm) - Depth 0.1 -Total Square Cm 2.56 -Wound/Ulcer Outcome Not Healed -Ulcer Cleansing Rinsed/ Irrigated with Saline -Foul Odor after Cleansing No -Bioengineered Tissue Yes -Type of bioengineered Tissue EPIFIX -Expiration Date 05/09/22 -Product Lot Number [id number] -Percent Used 100 -Saline Lot Number [id number] -Bleeding Controlled with Pressure -Treatment Response Procedure Tolerated Well [See Physician Procedure note for Specifics] Pain Scale: 0-10 Numeric [Pain] -Is Patient Pain Free? Yes Musculoskeletal: No Tenderness to Palpation of Joints or Extremities, Muscle Wasting, - - Dorsal lesser digit contraction Neurological: - - Lack of epicritic sensation light touch Psych/Mental Status: Normal Affect, Appropriate Debridement Note Post-Debridement Measurements/Treatment WC - Nurse 2 - General Ulcer CM Notes Start: 08/13/17 15:43 Freq: Status: Active Protocol: Activity Type Activity Date Activity User E-Sign Co-Sign Detail Recorded Client Recorded Date Recorded By Document 08/13/17 16:13 TM [id number] 08/13/17 16:17 TM Document 08/20/17 16:50 [id number] 08/20/17 16:51 08/13/17 08/20/17 16:13 16:50 Wound Center Nurse 2 #2 R 2nd ant toe -Time 16:13 16:50 -Correct Patient Yes Yes -Correct Side, Site, Position Yes Yes -Correct Procedure Yes Yes -Procedure Performed Yes Yes -Type of Procedure Debridement Debridement -Clinical Debridement Subcutaneous Subcutaneous -Post Debridement Size (cm) - Length 0.9 1.6 -Post Debridement Size (cm) - Width 0.9 1.6 -Post Debridement Size (cm) - Depth 0.1 0.1 -Total Square Cm 0.81 2.56 -Wound/Ulcer Outcome Not Healed Not Healed -Ulcer Cleansing Rinsed/ Rinsed/ Irrigated with Irrigated with Saline Saline -Foul Odor after Cleansing No No -Bioengineered Tissue Yes Yes -Type of bioengineered Tissue EPIFIX EPIFIX -Expiration Date 05/09/22 05/09/22 -Product Lot Number [id number] -Percent Used 100 100 -Saline Lot Number [id number] -Topical Lidocaine (%) 4 -Bleeding Controlled with Pressure Pressure -Treatment Response Procedure Procedure Tolerated Well Tolerated Well Pain Scale: 0-10 Numeric Is Patient Pain Free? Yes Yes Wound debrided: dorsal second toe Laterality: Right Type of Debridement: Excisional debridement Anesthesia Used: 4% Lidocaine Solution Depth: in the subcutaneous layer Percentage of wound debrided: 100 Instrument Used: #15 blade Tissue Removed: fibrous, devitalized subcutaneous, biofilm, slough Severity: Fat Layer Exposed Amount of bleeding with debridement: Mild Bleeding Controlled with: Pressure Patient tolerated procedure well Assessment/Plan Active Problems (Last Updated 07/18/17 @ 12:58 by Brandt Jarquin) Edema (Chronic) Delayed wound healing (Chronic) Malnutrition (Chronic) Ulcer of right foot with fat layer exposed (Chronic) Hammer toe of right foot (Chronic) Neuropathy (Chronic) Assessment: Dorsal right second toe ulcer with fat exposed. Cellulitis right second toe -resolved. Neuropathy. Hammertoe. Malnutrition. Delayed healing. Chronic leg edema. Walking difficulty Plan: I reviewed and discussed her case. Subcutaneous excisional debridement was performed as noted in the clinical panel. She is approved for covered epi fix, advanced wound care product. Verbal consent was obtained and epi fix was applied today according to standard protocol after ulcer debridement and saline irrigation. This was secured in place with a wound veil and Steri-Strips. She tolerated this well. The indication and anticipated procedure and healing management was discussed. Local anesthesia was not required due to her lack of sensation and neuropathy. She was advised to keep this site clean dry and intact until follow-up next week. She tries to offload her wound with a cut out to the top of her sneaker. It is noted she wears bilateral ankle-foot orthotics due to previous foot deformities and gait instability. To take margot once daily for nutritional optmization. She has CircAid compression wrap and will try to use them as advised. To RTC one week or call sooner if problems. I answered all of her questions.
[2017-08-27 13:52] VITALS: BP 133/110; PULSE 104; RESP 20; TEMP 36.6; BMI 128.8
--- NOTE | 2017-08-27 14:22 | PCM.WC.PN ---
(1) Ulcer of right foot with fat layer exposed Status: Chronic Current Visit: Yes Code(s): L97.512 - Non-pressure chronic ulcer of other part of right foot with fat layer exposed (2) Neuropathy Status: Chronic Current Visit: Yes Code(s): G62.9 - Polyneuropathy, unspecified (3) Edema Status: Chronic Current Visit: Yes Code(s): R60.9 - Edema, unspecified (4) Malnutrition Status: Chronic Current Visit: Yes Code(s): E46 - Unspecified protein-calorie malnutrition (5) Hammer toe of right foot Status: Chronic Current Visit: Yes Code(s): M20.41 - Other hammer toe(s) (acquired), right foot (6) Delayed wound healing Status: Chronic Current Visit: Yes Code(s): T14.8XXD - Other injury of unspecified body region, subsequent encounter (7) Osteomyelitis Status: Suspected Current Visit: Yes Code(s): M86.9 - Osteomyelitis, unspecified Type of Wound Date of Service: 08/27/17 Chief Complaint: Right second toe ulcer History of Wound: This 77-year-old female with multiple comorbidities presents to the wound care center today with an ulcer to the right second toe. She has kept her dressing intact as advised. She denies worsening redness or odor or redness at the wound site. She denies fever, chill, nausea, vomiting, loss of appetite. She had an advanced wound care product applied. She has ongoing deep aching to this toe and denies odor or redness. She has not been wearing the recommended compression dressing. She is not amenable to proceed forward with surgical intervention at this time. Progress of Wound: Stable - Physical Exam Vital Signs Temp Pulse Resp BP 98 F 104 H 20 H 133/110 H 08/27/17 13:52 08/27/17 13:52 08/27/17 13:52 08/27/17 13:52 General: Alert, Oriented x3, Cooperative Extremities: No cyanosis, Capillary Refill Less than 3 Seconds, No Calf Tenderness, Diminished Peripheral Pulses, Edema - Bilateral lower extremities, Tenderness - Pain with wound manipulation. No pain to proximal second metatarsophalangeal joint palpation or with passive range of motion. No bogginess on palpation. Skin: Ulcer/ Wound - No purulence, no erythema, no streaking, no odor, no acute signs of infection. There is some peripheral epithelialization noted. Wound Measurements and Assessment WC - Nurse 1 - General Ulcer Measurement Start: 08/13/17 15:43 Freq: Status: Active Protocol: Activity Type Activity Date Activity User E-Sign Co-Sign Detail Recorded Client Recorded Date Recorded By Document 08/27/17 13:52 DL [id number] 08/27/17 13:57 DL 08/27/17 13:52 Wound Center Nurse 1 [Ulcer Assessment] #2 R 2nd ant toe -Current Size (cm) - Length 0.8 -Current Size (cm) - Width 0.5 -Current Size (cm) - Depth 0.1 -Total Square Cm 0.40 -Photo Taken No -Exudate Amt Small (1-33%) -Exudate Type Serosanguineous -Wound Margin Distinct, Outline Attached -Granulation Amt Large (67-100%) -Granulation Quality [place] -Necrosis Amt Small (1-33%) -Necrotic Tissue Type Adherent Slough -Structure Exposed N/A -Texture (Sheyla-wound Skin Appearance) Localized Edema Scarring -Moisture (Sheyla-wound Skin Appearance No Abnormality ) -Color (Sheyla-wound Skin Appearance) Rubor -Temperature (Sheyla-wound Skin No Abnormality Appearance) (Pt Warm) -Ulcer Cleansing Wound Cleanser -Foul Odor after Cleansing No -Anesthetic Used 4% Lidocaine Solution [Edema Assessment] -Right Calf (cm) 50.8 -Right Ankle (cm) 25.4 WC - Nurse 2 - General Ulcer CM Notes Start: 08/13/17 15:43 Freq: Status: Active Protocol: Activity Type Activity Date Activity User E-Sign Co-Sign Detail Recorded Client Recorded Date Recorded By Document 08/27/17 14:18 TM [id number] 08/27/17 14:21 TM 08/27/17 14:18 Wound Center Nurse 2 [Procedure/Treatment] #2 R 2nd ant toe -Time 14:20 -Correct Patient Yes -Correct Side, Site, Position Yes -Correct Procedure Yes -Procedure Performed Yes -Type of Procedure Debridement -Clinical Debridement Subcutaneous -Post Debridement Size (cm) - Length 0.9 -Post Debridement Size (cm) - Width 0.6 -Post Debridement Size (cm) - Depth 0.1 -Total Square Cm 0.54 -Wound/Ulcer Outcome Not Healed -Ulcer Cleansing Rinsed/ Irrigated with Saline -Foul Odor after Cleansing No -Bioengineered Tissue Yes -Type of bioengineered Tissue EPIFIX -Expiration Date 06/09/22 -Product Lot Number [id number] -Percent Used 100 -Saline Lot Number [id number] -Topical Lidocaine (%) 4 -Bleeding Controlled with Pressure -Treatment Response Procedure Tolerated Well [See Physician Procedure note for Specifics] Pain Scale: 0-10 Numeric [Pain] -Is Patient Pain Free? Yes Musculoskeletal: No Tenderness to Palpation of Joints or Extremities, Muscle Wasting, - - Dorsal dorsal contraction of right second toe that is reducible Neurological: - - Lack of epicritic sensation light touch right lower extremity Psych/Mental Status: Normal Affect, Appropriate, - - Depressed Debridement Note Post-Debridement Measurements/Treatment WC - Nurse 2 - General Ulcer CM Notes Start: 08/13/17 15:43 Freq: Status: Active Protocol: Activity Type Activity Date Activity User E-Sign Co-Sign Detail Recorded Client Recorded Date Recorded By Document 08/13/17 16:13 [id number] 08/13/17 16:17 Document 08/20/17 16:50 [id number] 08/20/17 16:51 Document 08/27/17 14:18 [id number] 08/27/17 14:21 08/13/17 08/20/17 08/27/17 16:13 16:50 14:18 Wound Center Nurse 2 #2 R 2nd ant toe -Time 16:13 16:50 14:20 -Correct Patient Yes Yes Yes -Correct Side, Site, Position Yes Yes Yes -Correct Procedure Yes Yes Yes -Procedure Performed Yes Yes Yes -Type of Procedure Debridement Debridement Debridement -Clinical Debridement Subcutaneous Subcutaneous Subcutaneous -Post Debridement Size (cm) - Length 0.9 1.6 0.9 -Post Debridement Size (cm) - Width 0.9 1.6 0.6 -Post Debridement Size (cm) - Depth 0.1 0.1 0.1 -Total Square Cm 0.81 2.56 0.54 -Wound/Ulcer Outcome Not Healed Not Healed Not Healed -Ulcer Cleansing Rinsed/ Rinsed/ Rinsed/ Irrigated with Irrigated with Irrigated with Saline Saline Saline -Foul Odor after Cleansing No No No -Bioengineered Tissue Yes Yes Yes -Type of bioengineered Tissue EPIFIX EPIFIX EPIFIX -Expiration Date 05/09/22 05/09/22 06/09/22 -Product Lot Number [id number] -Percent Used 100 100 100 -Saline Lot Number [id number] -Topical Lidocaine (%) 4 4 -Bleeding Controlled with Pressure Pressure Pressure -Treatment Response Procedure Procedure Procedure Tolerated Well Tolerated Well Tolerated Well Pain Scale: 0-10 Numeric Is Patient Pain Free? Yes Yes Yes Wound debrided: dorsal 2nd toe Laterality: Right Type of Debridement: Excisional debridement Anesthesia Used: 4% Lidocaine Solution Depth: in the subcutaneous layer Percentage of wound debrided: 100 Instrument Used: #15 blade Tissue Removed: fibrous, devitalized subcutaneous tissue, biofilm, slough Severity: Fat Layer Exposed Amount of bleeding with debridement: Mild Bleeding Controlled with: Pressure Patient tolerated procedure well Assessment/Plan Active Problems (Last Updated 07/18/17 @ 12:58 by Brandt Jarquin) Delayed wound healing (Chronic) Edema (Chronic) Delayed wound healing (Chronic) Malnutrition (Chronic) Ulcer of right foot with fat layer exposed (Chronic) Hammer toe of right foot (Chronic) Neuropathy (Chronic) Assessment: Dorsal right second toe ulcer with fat exposed. rule out osteomyelitis right second toe. Neuropathy. Hammertoe. Malnutrition. Delayed healing. Chronic leg edema. Walking difficulty Plan: I reviewed and discussed her case. Subcutaneous excisional debridement was performed as noted in the clinical panel. She is approved for covered epi fix, advanced wound care product. Verbal consent was obtained and epi fix was applied today according to standard protocol after ulcer debridement and saline irrigation. This was secured in place with a wound veil and Steri-Strips. She tolerated this well. The indication and anticipated procedure and healing management was discussed. Local anesthesia was not required due to her lack of sensation and neuropathy. She was advised to keep this site clean dry and intact until follow-up next week. She tries to offload her wound with a cut out to the top of her sneaker. It is noted she wears bilateral ankle-foot orthotics due to previous foot deformities and gait instability. We discussed off loading the wound by removing the knuckle joint and she is not amenable to this at this time. To take margot once daily for nutritional optmization. She has CircAid compression wrap and will try to use them as advised. Due to the chronicity of the wound and recent progression of pain to this site I recommend workup for potential deep infection formation. Toe x-rays and labs (CBC, CMP, C-reactive protein, sedimentation rate) were ordered and the results are pending. To RTC one week or call sooner if problems. I answered all of her questions.
--- NOTE | 2017-08-27 14:28 | PN.PCM_ITS ---
(1) Ulcer of right foot with fat layer exposed Status: Chronic Current Visit: Yes Code(s): L97.512 - Non-pressure chronic ulcer of other part of right foot with fat layer exposed (2) Neuropathy Status: Chronic Current Visit: Yes Code(s): G62.9 - Polyneuropathy, unspecified (3) Edema Status: Chronic Current Visit: Yes Code(s): R60.9 - Edema, unspecified (4) Malnutrition Status: Chronic Current Visit: Yes Code(s): E46 - Unspecified protein- calorie malnutrition (5) Hammer toe of right foot Status: Chronic Current Visit: Yes Code(s): M20.41 - Other hammer toe(s) ( acquired), right foot (6) Delayed wound healing Status: Chronic Current Visit: Yes Code(s): T14.8XXD - Other injury of unspecified body region, subsequent encounter (7) Osteomyelitis Status: Suspected Current Visit: Yes Code(s): M86.9 - Osteomyelitis, unspecified Type of Wound Date of Service: 08/27/17 Chief Complaint: Right second toe ulcer History of Wound: This 77-year-old female with multiple comorbidities presents to the wound care center today with an ulcer to the right second toe. She has kept her dressing intact as advised. She denies worsening redness or odor or redness at the wound site. She denies fever, chill, nausea, vomiting, loss of appetite. She had an advanced wound care product applied. She has ongoing deep aching to this toe and denies odor or redness. She has not been wearing the recommended compression dressing. She is not amenable to proceed forward with surgical intervention at this time. Progress of Wound: Stable - Physical Exam Vital Signs Temp Pulse Resp BP 98 F 104 H 20 H 133/110 H 08/27/17 13:52 08/27/17 13:52 08/27/17 13:52 08/27/17 13:52 General: Alert, Oriented x3, Cooperative Extremities: No cyanosis, Capillary Refill Less than 3 Seconds, No Calf Tenderness, Diminished Peripheral Pulses, Edema - Bilateral lower extremities, Tenderness - Pain with wound manipulation. No pain to proximal second metatarsophalangeal joint palpation or with passive range of motion. No bogginess on palpation. Skin: Ulcer/ Wound - No purulence, no erythema, no streaking, no odor, no acute signs of infection. There is some peripheral epithelialization noted. Wound Measurements and Assessment WC - Nurse 1 - General Ulcer Measurement Start: 08/13/17 15:43 Freq: Status: Active Protocol: Activity Type Activity Date Activity User E-Sign Co-Sign Detail Recorded Client Recorded Date Recorded By Document 08/27/17 13:52 DL [id number] 08/27/17 13:57 DL 08/27/17 13:52 Wound Center Nurse 1 [Ulcer Assessment] #2 R 2nd ant toe -Current Size (cm) - Length 0.8 -Current Size (cm) - Width 0.5 -Current Size (cm) - Depth 0.1 -Total Square Cm 0.40 -Photo Taken No -Exudate Amt Small (1-33%) -Exudate Type Serosanguineous -Wound Margin Distinct, Outline Attached -Granulation Amt Large (67-100%) -Granulation Quality [place] -Necrosis Amt Small (1-33%) -Necrotic Tissue Type Adherent Slough -Structure Exposed N/A -Texture (Sheyla-wound Skin Appearance) Localized Edema Scarring -Moisture (Sheyla-wound Skin Appearance No Abnormality ) -Color (Sheyla-wound Skin Appearance) Rubor -Temperature (Sheyla-wound Skin No Abnormality Appearance) (Pt Warm) -Ulcer Cleansing Wound Cleanser -Foul Odor after Cleansing No -Anesthetic Used 4% Lidocaine Solution [Edema Assessment] -Right Calf (cm) 50.8 -Right Ankle (cm) 25.4 WC - Nurse 2 - General Ulcer CM Notes Start: 08/13/17 15:43 Freq: Status: Active Protocol: Activity Type Activity Date Activity User E-Sign Co-Sign Detail Recorded Client Recorded Date Recorded By Document 08/27/17 14:18 TM [id number] 08/27/17 14:21 TM 08/27/17 14:18 Wound Center Nurse 2 [Procedure/Treatment] #2 R 2nd ant toe -Time 14:20 -Correct Patient Yes -Correct Side, Site, Position Yes -Correct Procedure Yes -Procedure Performed Yes -Type of Procedure Debridement -Clinical Debridement Subcutaneous -Post Debridement Size (cm) - Length 0.9 -Post Debridement Size (cm) - Width 0.6 -Post Debridement Size (cm) - Depth 0.1 -Total Square Cm 0.54 -Wound/Ulcer Outcome Not Healed -Ulcer Cleansing Rinsed/ Irrigated with Saline -Foul Odor after Cleansing No -Bioengineered Tissue Yes -Type of bioengineered Tissue EPIFIX -Expiration Date 06/09/22 -Product Lot Number [id number] -Percent Used 100 -Saline Lot Number [id number] -Topical Lidocaine (%) 4 -Bleeding Controlled with Pressure -Treatment Response Procedure Tolerated Well [See Physician Procedure note for Specifics] Pain Scale: 0-10 Numeric [Pain] -Is Patient Pain Free? Yes Musculoskeletal: No Tenderness to Palpation of Joints or Extremities, Muscle Wasting, - - Dorsal dorsal contraction of right second toe that is reducible Neurological: - - Lack of epicritic sensation light touch right lower extremity Psych/Mental Status: Normal Affect, Appropriate, - - Depressed Debridement Note Post-Debridement Measurements/Treatment WC - Nurse 2 - General Ulcer CM Notes Start: 08/13/17 15:43 Freq: Status: Active Protocol: Activity Type Activity Date Activity User E-Sign Co-Sign Detail Recorded Client Recorded Date Recorded By Document 08/13/17 16:13 [id number] 08/13/17 16:17 Document 08/20/17 16:50 [id number] 08/20/17 16:51 Document 08/27/17 14:18 [id number] 08/27/17 14:21 08/13/17 08/20/17 08/27/17 16:13 16:50 14:18 Wound Center Nurse 2 #2 R 2nd ant toe -Time 16:13 16:50 14:20 -Correct Patient Yes Yes Yes -Correct Side, Site, Position Yes Yes Yes -Correct Procedure Yes Yes Yes -Procedure Performed Yes Yes Yes -Type of Procedure Debridement Debridement Debridement -Clinical Debridement Subcutaneous Subcutaneous Subcutaneous -Post Debridement Size (cm) - Length 0.9 1.6 0.9 -Post Debridement Size (cm) - Width 0.9 1.6 0.6 -Post Debridement Size (cm) - Depth 0.1 0.1 0.1 -Total Square Cm 0.81 2.56 0.54 -Wound/Ulcer Outcome Not Healed Not Healed Not Healed -Ulcer Cleansing Rinsed/ Rinsed/ Rinsed/ Irrigated with Irrigated with Irrigated with Saline Saline Saline -Foul Odor after Cleansing No No No -Bioengineered Tissue Yes Yes Yes -Type of bioengineered Tissue EPIFIX EPIFIX EPIFIX -Expiration Date 05/09/22 05/09/22 06/09/22 -Product Lot Number [id number] -Percent Used 100 100 100 -Saline Lot Number [id number] -Topical Lidocaine (%) 4 4 -Bleeding Controlled with Pressure Pressure Pressure -Treatment Response Procedure Procedure Procedure Tolerated Well Tolerated Well Tolerated Well Pain Scale: 0-10 Numeric Is Patient Pain Free? Yes Yes Yes Wound debrided: dorsal 2nd toe Laterality: Right Type of Debridement: Excisional debridement Anesthesia Used: 4% Lidocaine Solution Depth: in the subcutaneous layer Percentage of wound debrided: 100 Instrument Used: #15 blade Tissue Removed: fibrous, devitalized subcutaneous tissue, biofilm, slough Severity: Fat Layer Exposed Amount of bleeding with debridement: Mild Bleeding Controlled with: Pressure Patient tolerated procedure well Assessment/Plan Active Problems (Last Updated 07/18/17 @ 12:58 by Brandt Jarquin) Delayed wound healing (Chronic) Edema (Chronic) Delayed wound healing (Chronic) Malnutrition (Chronic) Ulcer of right foot with fat layer exposed (Chronic) Hammer toe of right foot (Chronic) Neuropathy (Chronic) Assessment: Dorsal right second toe ulcer with fat exposed. rule out osteomyelitis right second toe. Neuropathy. Hammertoe. Malnutrition. Delayed healing. Chronic leg edema. Walking difficulty Plan: I reviewed and discussed her case. Subcutaneous excisional debridement was performed as noted in the clinical panel. She is approved for covered epi fix, advanced wound care product. Verbal consent was obtained and epi fix was applied today according to standard protocol after ulcer debridement and saline irrigation. This was secured in place with a wound veil and Steri-Strips. She tolerated this well. The indication and anticipated procedure and healing management was discussed. Local anesthesia was not required due to her lack of sensation and neuropathy. She was advised to keep this site clean dry and intact until follow-up next week. She tries to offload her wound with a cut out to the top of her sneaker. It is noted she wears bilateral ankle-foot orthotics due to previous foot deformities and gait instability. We discussed off loading the wound by removing the knuckle joint and she is not amenable to this at this time. To take margot once daily for nutritional optmization. She has CircAid compression wrap and will try to use them as advised. Due to the chronicity of the wound and recent progression of pain to this site I recommend workup for potential deep infection formation. Toe x-rays and labs (CBC, CMP, C -reactive protein, sedimentation rate) were ordered and the results are pending. To RTC one week or call sooner if problems. I answered all of her questions.
--- NOTE | 2017-08-27 15:12 | RAD_ITS ---
STUDY: X-RAY RIGHT FOOT, THE SECOND TOE. REASON FOR EXAM: Female, 77 years old. Chronic soft tissue wound. TECHNIQUE: view(s) of the toe were obtained. COMPARISON: None. FINDINGS: Normal visualized metatarsus. Normal metatarsophalangeal (M.T.P) joint. Normal interphalangeal joints. Normal phalanges and interphalangeal joints. There is no demonstrated fracture. No focal destructive process. The soft tissue structures are unremarkable. RAD/Toe(s) Min 2 Views IMPRESSION: Within normal limits. Electronically Signed: Olayinka Knapp MD at 10:23 EDT , Service support ,
[2017-08-27 18:20] LABS: Absolute Lymphocyte Count 1.54 X10^3/ul (0.83-4.51); Absolute Neutrophil Count 4.2 X10^3/uL (2.0-7.7); Basophil# 0.02 X10^3/uL; Basophil% 0.3 % (0-1); Eosinophil# 0.13 X10^3/uL; Eosinophils% 1.9 % (0-5); Hematocrit 39.4 % (37-47); Hemoglobin 12.5 g/dl (12.0-15.0); Lymphocyte # 1.54 X10^3/ul (4.0); Lymphocyte % 22.3 % (19-41); Mean Corp Hgb Conc 31.7 g/gl (32-36); Mean Corpuscular Hgb 30.6 pg (27.0-32.0); Mean Corpuscular Volume 96.6 fL (81-99); Mean Platelet Vol. 11.9 fl (6.2-12.0); Monocyte# 0.96 X10^3/uL; Monocyte% 13.9 % (0-10); Neutrophil # 4.24 X10^3/uL (2.7-7.7); Neutrophil % 61.3 % (47-70); Platelet Count 227 K/mm3 (150-450); RBC Distribution Width CV 13.7 % (11.6-14.6); RBC Distribution Width SD 47.2 fl (35.1-43.9); Red Blood Count 4.08 M/mm3 (4.2-5.4); White Blood Count 6.9 K/mm3 (4.4-11.0)
[2017-08-27 18:21] LABS: POSITIVE COUNT NO; POSITIVE DIFFERENTIAL NO; POSITIVE MORPHOLOGY NO
[2017-08-27 18:29] LABS: Erythrocyte Sedimentation Rate 18 mm/hr (0-30)
[2017-08-27 18:42] LABS: ALB/GLOB Ratio 0.9 RATIO (0.9-2.4); AST(SGOT) 24 U/L (15-37); Alanine Aminotransfer ALT/SGPT 28 U/L (13-56); Albumin, Serum 3.7 g/dL (3.2-5.0); Alkaline Phosphatase 108 U/L (45-117); Anion Gap 7 (5-15); BUN 30 mg/dL (7-18); BUN/Creat Ratio 27.8 RATIO (10-20); CRP < 2.90 mg/L (0.0-3.0); Calcium,Total 8.8 mg/dL (8.5-10.1); Chloride 103 mmol/L (98-107); Creatinine, Serum 1.08 mg/dL (0.55-1.02); EST Glomerular Filtration Rate 52 mL/min (>60); Est Glom Filt Rate - Afr Amer 63 mL/min (>60); Estimated Creatinine Clearance 185.94 ml/min; Glucose 77 mg/dL (74-106); Potassium 3.9 mmol/L (3.5-5.1); Protein, Total 7.7 g/dL (6.4-8.2); Sodium Level 140 mmol/L (136-145)
[2017-09-04 12:15] VITALS: BP 140/73; PULSE 85; TEMP 36.6; BMI 128.8
== END 2017-09-06 23:59 ==
LOC: WC 15:30
PROVIDERS: Family Provider Nurse Practitioner; PCP Nurse Practitioner; Visit Provider Podiatrist
DX: L97.512 Non-pressure chronic ulcer of other part of right foot with fat layer exposed (principal); G62.9 Polyneuropathy, unspecified; R60.0 Localized edema; M20.41 Other hammer toe(s) (acquired), right foot; R26.2 Difficulty in walking, not elsewhere classified
CPT/HCPCS: 15275; 36415; 73660; 80053; 85025; 85652; 86140; 99211; 99212; Q4131; G0463

== ENCOUNTER 2017-09-10 10:35 | Outpatient (RCR) | payer MEDICARE, OTHER, SELFPAY | END 2017-10-06 10:36 | disposition home or self-care (01) | LOC: WC 10:35 | PROVIDERS: Family Provider Nurse Practitioner; PCP Nurse Practitioner; Referring Provider Family Medicine; Visit Provider Family Medicine | DX: L97.512 Non-pressure chronic ulcer of other part of right foot with fat layer exposed (principal); L03.115 Cellulitis of right lower limb; M20.41 Other hammer toe(s) (acquired), right foot; E46 Unspecified protein-calorie malnutrition; G62.9 Polyneuropathy, unspecified; R60.0 Localized edema; R26.2 Difficulty in walking, not elsewhere classified | CPT/HCPCS: 11042 ==

== ENCOUNTER → 2017-09-12 08:36 | Outpatient (CLI) | payer MEDICARE, OTHER, SELFPAY ==
--- NOTE | 2017-09-12 08:39 | RAD_ITS ---
STUDY: AIR-CONTRAST UPPER GI SERIES AND SMALL BOWEL FOLLOW-THROUGH EXAMINATION. REASON FOR EXAM: Female, 77 years old. Esophageal pain and right lower quadrant pain. FLUOROSCOPY TIME (if supplied): (0:44) minutes/seconds TECHNIQUE: The patient ingested barium. Multiple images of the esophagus, stomach and duodenum were obtained. Following this, a small bowel follow-through examination was performed. COMPARISON: None. FINDINGS: The esophagus is unremarkable. There is no evidence of obstruction. No mass lesion is seen. There is no evidence of gastroesophageal reflux. Small sliding or hernia. The stomach is unremarkable. A small diverticulum is seen in the medial aspect of the second portion of the duodenum.. There is no evidence of ulceration. No mass lesion is seen. Following this, a small bowel follow-through examination was obtained. The transit time is normal. No intrinsic or extrinsic abnormality is seen. RAD/Upper GI/w Small Bowel IMPRESSION: Small sliding hiatal hernia without gastroesophageal reflux. 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 Electronically Signed: Hi Naranjo MD at 20:31 EDT Tel [phone], Service support ,
== END ==
PROVIDERS: Family Provider Nurse Practitioner; PCP Nurse Practitioner; Visit Provider Nurse Practitioner Adult Health
DX: K44.9 Diaphragmatic hernia without obstruction or gangrene (principal); K57.10 Diverticulosis of small intestine without perforation or abscess without bleeding; R10.13 Epigastric pain
CPT/HCPCS: 74249

== ENCOUNTER 2017-10-01 15:30 | Outpatient (RCR) | payer MEDICARE, OTHER, SELFPAY ==
[2017-09-07 00:41] VITALS: BP 120/68; PULSE 85; RESP 20; TEMP 36.6; BMI 128.8
[2017-09-10 15:56] VITALS: BP 165/79; PULSE 80; RESP 18; TEMP 36.6; BMI 128.8
--- NOTE | 2017-09-10 22:26 | PCM.WC.PN ---
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 Current Visit: Yes Code(s): L97.513 - Non-pressure chronic ulcer of other part of right foot with necrosis of muscle (2) Delayed wound healing Status: Chronic Current Visit: Yes Code(s): T14.8XXD - Other injury of unspecified body region, subsequent encounter (3) Walking difficulty due to ankle and foot Status: Chronic Current Visit: Yes Code(s): R26.2 - Difficulty in walking, not elsewhere classified (4) Hammer toe of right foot Status: Chronic Current Visit: Yes Code(s): M20.41 - Other hammer toe(s) (acquired), right foot (5) Malnutrition Status: Chronic Current Visit: Yes Code(s): E46 - Unspecified protein-calorie malnutrition (6) Obesity Status: Chronic Current Visit: Yes Code(s): E66.9 - Obesity, unspecified (7) Neuropathy Status: Chronic Current Visit: Yes Code(s): G62.9 - Polyneuropathy, unspecified (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 She has kept her dressing intact as advised. She denies worsening redness or odor or redness at the wound site. She denies fever, chill, nausea, vomiting, loss of appetite. She had an advanced wound care product applied. She has ongoing deep aching to this toe and denies odor or redness. She has not been wearing the recommended compression dressing. Progress of Wound: Stable - Physical Exam Vital Signs Temp Pulse Resp BP 97.8 F 80 18 165/79 H 09/10/17 15:56 09/10/17 15:56 09/10/17 15:56 09/10/17 15:56 General: Alert, Oriented x3, Cooperative Extremities: No cyanosis, Capillary Refill Less than 3 Seconds, No Calf Tenderness, Diminished Peripheral Pulses, Edema Skin: Ulcer/ Wound - no purulence, no erythema, no infection, no streaking right. no deep joint or bone noted, - - atrophic skin Wound Measurements and Assessment WC - Nurse 1 - General Ulcer Measurement Start: 09/10/17 15:56 Freq: Status: Active Protocol: Activity Type Activity Date Activity User E-Sign Co-Sign Detail Recorded Client Recorded Date Recorded By Document 09/10/17 15:56 MW [id number] 09/10/17 16:01 MW 09/10/17 15:56 Wound Center Nurse 1 [Ulcer Assessment] #2 R 2nd ant toe -Combined with other wound No -Current Size (cm) - Length 1.0 -Current Size (cm) - Width 1.2 -Current Size (cm) - Depth 0.1 -Total Square Cm 1.20 -Photo Taken No -Epithelialization None Present -Tunneling No -Undermining/Tunneling No -Circular Undermining No -Exudate Amt Small (1-33%) -Exudate Type Serosanguineous -Wound Margin Flat & Intact -Granulation Amt Small (1-33%) -Granulation Quality [place] -Slough/Fibrin Yes -Necrosis Amt Medium (34-66%) -Necrotic Tissue Type Adherent Slough -Structure Exposed N/A -Texture (Sheyla-wound Skin Appearance) No Abnormality Assessed -Moisture (Sheyla-wound Skin Appearance Assessed ) Maceration -Color (Sheyla-wound Skin Appearance) Assessed Erythema -Temperature (Sheyla-wound Skin No Abnormality Appearance) (Pt Warm) -Tenderness on Palpation (Sheyla-wound No Skin Appearance) -Ulcer Cleansing soap and water -Foul Odor after Cleansing No -Anesthetic Used 4% Lidocaine Solution [Edema Assessment] -Lower Limb Edema Present No WC - Nurse 2 - General Ulcer CM Notes Start: 09/10/17 15:56 Freq: Status: Active Protocol: Activity Type Activity Date Activity User E-Sign Co-Sign Detail Recorded Client Recorded Date Recorded By Document 09/10/17 16:36 TM [id number] 09/10/17 16:37 TM 09/10/17 16:36 Wound Center Nurse 2 [Procedure/Treatment] #2 R 2nd ant toe -Time 16:36 -Correct Patient Yes -Correct Side, Site, Position Yes -Correct Procedure Yes -Procedure Performed Yes -Type of Procedure Debridement -Clinical Debridement Subcutaneous -Post Debridement Size (cm) - Length 1.1 -Post Debridement Size (cm) - Width 1.3 -Post Debridement Size (cm) - Depth 0.1 -Total Square Cm 1.43 -Wound/Ulcer Outcome Not Healed -Ulcer Cleansing Rinsed/ Irrigated with Saline -Foul Odor after Cleansing No -Bioengineered Tissue No -Topical Lidocaine (%) 4 -Bleeding Controlled with Pressure -Treatment Response Procedure Tolerated Well [See Physician Procedure note for Specifics] Pain Scale: 0-10 Numeric [Pain] -Is Patient Pain Free? Yes Musculoskeletal: No Tenderness to Palpation of Joints or Extremities, Muscle Wasting, - - dorsal contraction lesser digits (2) Neurological: - - lack of epicritic sensation via light touch right lower extremity Psych/Mental Status: Normal Affect, Appropriate Debridement Note Post-Debridement Measurements/Treatment WC - Nurse 2 - General Ulcer CM Notes Start: 09/10/17 15:56 Freq: Status: Active Protocol: Activity Type Activity Date Activity User E-Sign Co-Sign Detail Recorded Client Recorded Date Recorded By Document 09/10/17 16:36 TM [id number] 09/10/17 16:37 TM 09/10/17 16:36 Wound Center Nurse 2 #2 R 2nd ant toe -Time 16:36 -Correct Patient Yes -Correct Side, Site, Position Yes -Correct Procedure Yes -Procedure Performed Yes -Type of Procedure Debridement -Clinical Debridement Subcutaneous -Post Debridement Size (cm) - Length 1.1 -Post Debridement Size (cm) - Width 1.3 -Post Debridement Size (cm) - Depth 0.1 -Total Square Cm 1.43 -Wound/Ulcer Outcome Not Healed -Ulcer Cleansing Rinsed/ Irrigated with Saline -Foul Odor after Cleansing No -Bioengineered Tissue No -Topical Lidocaine (%) 4 -Bleeding Controlled with Pressure -Treatment Response Procedure Tolerated Well Pain Scale: 0-10 Numeric Is Patient Pain Free? Yes Wound debrided: dorsal second toe Laterality: Right Type of Debridement: Excisional debridement Anesthesia Used: 4% Lidocaine Solution Depth: in the subcutaneous layer Percentage of wound debrided: 100 Instrument Used: #15 blade Tissue Removed: fibrous, devitalized subcutaneous, biofilm, slough Severity: Fat Layer Exposed Amount of bleeding with debridement: Mild Bleeding Controlled with: Pressure Patient tolerated procedure well Assessment/Plan Active Problems (Last Updated 07/18/17 @ 12:58 by Brandt Jarquin) Delayed wound healing (Chronic) Posterior tibialis muscle dysfunction (Chronic) Walking difficulty due to ankle and foot (Chronic) Hammer toe of right foot (Chronic) 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 rule out osteomyelitis right second toe. Neuropathy. Hammertoe. Malnutrition. Delayed healing. Chronic leg edema. Walking difficulty Plan: I reviewed and discussed her case. Subcutaneous excisional debridement was performed as noted in the clinical panel. He wound progression has stagnated and I recommend application of franklyn. This was applied and moistened with saline. She was advised to keep this site clean dry and intact until follow-up next week. She tries to offload her wound with a cut out to the top of her sneaker. It is noted she wears bilateral ankle-foot orthotics due to previous foot deformities and gait instability. We discussed off loading the wound by removing the knuckle joint and she is not amenable to this at this time. To take margot once daily for nutritional optmization. She has CircAid compression wrap and will try to use them as advised. Due to the chronicity of the wound and recent progression of pain to this site I recommend workup for potential deep infection formation. Toe x-rays and labs (CBC, CMP, C-reactive protein, sedimentation rate) were ordered and the results are pending. To RTC one week or call sooner if problems. I answered all of her questions.
[2017-09-17 11:36] VITALS: BP 161/83; PULSE 83; RESP 16; TEMP 36.8; BMI 128.8
--- NOTE | 2017-09-17 12:56 | PCM.WC.PN ---
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 Current Visit: Yes Code(s): L97.513 - Non-pressure chronic ulcer of other part of right foot with necrosis of muscle (2) Delayed wound healing Status: Chronic Current Visit: Yes Code(s): T14.8XXD - Other injury of unspecified body region, subsequent encounter (3) Walking difficulty due to ankle and foot Status: Chronic Current Visit: Yes Code(s): R26.2 - Difficulty in walking, not elsewhere classified (4) Hammer toe of right foot Status: Chronic Current Visit: Yes Code(s): M20.41 - Other hammer toe(s) (acquired), right foot (5) Malnutrition Status: Chronic Current Visit: Yes Code(s): E46 - Unspecified protein-calorie malnutrition (6) Obesity Status: Chronic Current Visit: Yes Code(s): E66.9 - Obesity, unspecified (7) Neuropathy Status: Chronic Current Visit: Yes Code(s): G62.9 - Polyneuropathy, unspecified (8) Posterior tibialis muscle dysfunction Status: Chronic Current Visit: Yes Code(s): M76.829 - Posterior tibial tendinitis, unspecified leg Type of Wound Date of Service: 09/17/17 Chief Complaint: Right second toe ulcer History of Wound: This 77-year-old female with multiple comorbidities presents to the wound care center today with an ulcer to the right second toe. She has perform dressing changes as advised. She denies worsening redness or odor or redness at the wound site. She denies fever, chill, nausea, vomiting, loss of appetite. Progress of Wound: Improving - Physical Exam Vital Signs Temp Pulse Resp BP 98.2 F 83 16 161/83 H 09/17/17 11:36 09/17/17 11:36 09/17/17 11:36 09/17/17 11:36 General: Alert, Oriented x3, Cooperative Extremities: No cyanosis, Capillary Refill Less than 3 Seconds, No Calf Tenderness, Diminished Peripheral Pulses, Edema - Mild bilateral, - - Dorsal contraction of lesser toes Skin: Ulcer/ Wound - No purulence, no erythema, no streaking, no odor, no exposed deep tendon and joint or bone. The peripheral skin is atrophic. Wound Measurements and Assessment WC - Nurse 1 - General Ulcer Measurement Start: 09/10/17 15:56 Freq: Status: Active Protocol: Activity Type Activity Date Activity User E-Sign Co-Sign Detail Recorded Client Recorded Date Recorded By Document 09/17/17 11:36 [facility] [id number] 09/17/17 11:43 [facility] 09/17/17 11:36 Wound Center Nurse 1 [Ulcer Assessment] #2 R 2nd ant toe -Combined with other wound No -Current Size (cm) - Length 1 -Current Size (cm) - Width 1 -Current Size (cm) - Depth 0.1 -Total Square Cm 1 -Date of Last Picture (Recall this 09/17/17 field) -Photo Taken Yes -Epithelialization Small 1-33% -Tunneling No -Undermining/Tunneling No -Circular Undermining No -Exudate Amt Small (1-33%) -Exudate Type Serosanguineous -Wound Margin Distinct, Outline Attached -Granulation Amt Large (67-100%) -Granulation Quality Red -Slough/Fibrin No -Necrosis Amt None Present (0 %) -Structure Exposed N/A -Texture (Sheyla-wound Skin Appearance) Scarring -Moisture (Sheyla-wound Skin Appearance Assessed ) -Color (Sheyla-wound Skin Appearance) Erythema -Temperature (Sheyla-wound Skin No Abnormality Appearance) (Pt Warm) -Tenderness on Palpation (Sheyla-wound Yes Skin Appearance) -Ulcer Cleansing Rinsed/ Irrigated with Saline -Foul Odor after Cleansing No -Anesthetic Used 4% Lidocaine Solution [Edema Assessment] -Lower Limb Edema Present Yes -Right Calf (cm) 50 -Right Ankle (cm) 25.6 WC - Nurse 2 - General Ulcer CM Notes Start: 09/10/17 15:56 Freq: Status: Active Protocol: Activity Type Activity Date Activity User E-Sign Co-Sign Detail Recorded Client Recorded Date Recorded By Document 09/17/17 12:07 [id number] 09/17/17 12:09 09/17/17 12:07 Wound Center Nurse 2 [Procedure/Treatment] #2 R 2nd ant toe -Time 12:08 -Correct Patient Yes -Correct Side, Site, Position Yes -Correct Procedure Yes -Procedure Performed Yes -Type of Procedure Debridement -Clinical Debridement Subcutaneous -Post Debridement Size (cm) - Length 1.1 -Post Debridement Size (cm) - Width 1.1 -Post Debridement Size (cm) - Depth 0.1 -Total Square Cm 1.21 -Wound/Ulcer Outcome Not Healed -Ulcer Cleansing Rinsed/ Irrigated with Saline -Foul Odor after Cleansing No -Bioengineered Tissue No -Topical Lidocaine (%) 5 -Bleeding Controlled with Pressure -Treatment Response Procedure Tolerated Well [See Physician Procedure note for Specifics] Pain Scale: 0-10 Numeric [Pain] -Is Patient Pain Free? Yes Musculoskeletal: No Tenderness to Palpation of Joints or Extremities, Muscle Wasting, Tenderness - Pain with wound debridement Neurological: Sensory exam intact to light touch and pain Psych/Mental Status: Normal Affect, Appropriate Debridement Note Post-Debridement Measurements/Treatment WC - Nurse 2 - General Ulcer CM Notes Start: 09/10/17 15:56 Freq: Status: Active Protocol: Activity Type Activity Date Activity User E-Sign Co-Sign Detail Recorded Client Recorded Date Recorded By Document 09/10/17 16:36 TM [email or web address] 09/10/17 16:37 TM Document 09/17/17 12:07 TM [id number] 09/17/17 12:09 TM 09/10/17 09/17/17 16:36 12:07 Wound Center Nurse 2 #2 R 2nd ant toe -Time 16:36 12:08 -Correct Patient Yes Yes -Correct Side, Site, Position Yes Yes -Correct Procedure Yes Yes -Procedure Performed Yes Yes -Type of Procedure Debridement Debridement -Clinical Debridement Subcutaneous Subcutaneous -Post Debridement Size (cm) - Length 1.1 1.1 -Post Debridement Size (cm) - Width 1.3 1.1 -Post Debridement Size (cm) - Depth 0.1 0.1 -Total Square Cm 1.43 1.21 -Wound/Ulcer Outcome Not Healed Not Healed -Ulcer Cleansing Rinsed/ Rinsed/ Irrigated with Irrigated with Saline Saline -Foul Odor after Cleansing No No -Bioengineered Tissue No No -Topical Lidocaine (%) 4 5 -Bleeding Controlled with Pressure Pressure -Treatment Response Procedure Procedure Tolerated Well Tolerated Well Pain Scale: 0-10 Numeric Is Patient Pain Free? Yes Yes Wound debrided: dorsal second toe Laterality: Right Type of Debridement: Excisional debridement Anesthesia Used: 4% Lidocaine Solution Depth: in the subcutaneous layer Percentage of wound debrided: 100 Instrument Used: #15 blade Tissue Removed: fibrous, devitalized subcutaneous, biofilm, slough Severity: Fat Layer Exposed Amount of bleeding with debridement: Mild Bleeding Controlled with: Pressure Patient tolerated procedure well Assessment/Plan Active Problems (Last Updated 07/18/17 @ 12:58 by Brandt Jarquin) Delayed wound healing (Chronic) Posterior tibialis muscle dysfunction (Chronic) Walking difficulty due to ankle and foot (Chronic) Hammer toe of right foot (Chronic) 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 Neuropathy. Hammertoe. Malnutrition. Delayed healing. Chronic leg edema. Walking difficulty Plan: I reviewed and discussed her case. Subcutaneous excisional debridement was performed as noted in the clinical panel. To continue daily dressing changes with [place]. Additional advanced wound care product application will be considered in the future if this stagnates. This was applied and moistened with saline. She was advised to changes every 2 days. She tries to offload her wound with a cut out to the top of her sneaker. It is noted she wears bilateral ankle-foot orthotics due to previous foot deformities and gait instability. We discussed off loading the wound by removing the knuckle joint and she is not amenable to this at this time. To take margot once daily for nutritional optmization. She has CircAid compression wrap and will try to use them as advised. Due to the chronicity of the wound and recent progression of pain to this site I recommend workup for potential deep infection formation. Her right toe x-rays were negative for any soft tissue emphysema, osseous destruction, or acute fractures or dislocations. Her hammertoe deformities are noted. Her last set of labs obtained at the end of last month were relatively negative. She did not have any leukocytosis and her white blood cell count 6.9, sedimentation rate 18, and C-reactive protein less than 2.9. These lab trends will be periodically monitored. To RTC two weeks or call sooner if problems. I answered all of her questions.
--- NOTE | 2017-09-17 13:01 | PN.PCM_ITS ---
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 Current Visit: Yes Code(s): L97.513 - Non-pressure chronic ulcer of other part of right foot with necrosis of muscle (2) Delayed wound healing Status: Chronic Current Visit: Yes Code(s): T14.8XXD - Other injury of unspecified body region, subsequent encounter (3) Walking difficulty due to ankle and foot Status: Chronic Current Visit: Yes Code(s): R26.2 - Difficulty in walking, not elsewhere classified (4) Hammer toe of right foot Status: Chronic Current Visit: Yes Code(s): M20.41 - Other hammer toe(s) ( acquired), right foot (5) Malnutrition Status: Chronic Current Visit: Yes Code(s): E46 - Unspecified protein- calorie malnutrition (6) Obesity Status: Chronic Current Visit: Yes Code(s): E66.9 - Obesity, unspecified (7) Neuropathy Status: Chronic Current Visit: Yes Code(s): G62.9 - Polyneuropathy, unspecified (8) Posterior tibialis muscle dysfunction Status: Chronic Current Visit: Yes Code(s): M76.829 - Posterior tibial tendinitis, unspecified leg Type of Wound Date of Service: 09/17/17 Chief Complaint: Right second toe ulcer History of Wound: This 77-year-old female with multiple comorbidities presents to the wound care center today with an ulcer to the right second toe. She has perform dressing changes as advised. She denies worsening redness or odor or redness at the wound site. She denies fever, chill, nausea, vomiting, loss of appetite. Progress of Wound: Improving - Physical Exam Vital Signs Temp Pulse Resp BP 98.2 F 83 16 161/83 H 09/17/17 11:36 09/17/17 11:36 09/17/17 11:36 09/17/17 11:36 General: Alert, Oriented x3, Cooperative Extremities: No cyanosis, Capillary Refill Less than 3 Seconds, No Calf Tenderness, Diminished Peripheral Pulses, Edema - Mild bilateral, - - Dorsal contraction of lesser toes Skin: Ulcer/ Wound - No purulence, no erythema, no streaking, no odor, no exposed deep tendon and joint or bone. The peripheral skin is atrophic. Wound Measurements and Assessment WC - Nurse 1 - General Ulcer Measurement Start: 09/10/17 15:56 Freq: Status: Active Protocol: Activity Type Activity Date Activity User E-Sign Co-Sign Detail Recorded Client Recorded Date Recorded By Document 09/17/17 11:36 [facility] [id number] 09/17/17 11:43 [facility] 09/17/17 11:36 Wound Center Nurse 1 [Ulcer Assessment] #2 R 2nd ant toe -Combined with other wound No -Current Size (cm) - Length 1 -Current Size (cm) - Width 1 -Current Size (cm) - Depth 0.1 -Total Square Cm 1 -Date of Last Picture (Recall this 09/17/17 field) -Photo Taken Yes -Epithelialization Small 1-33% -Tunneling No -Undermining/Tunneling No -Circular Undermining No -Exudate Amt Small (1-33%) -Exudate Type Serosanguineous -Wound Margin Distinct, Outline Attached -Granulation Amt Large (67-100%) -Granulation Quality Red -Slough/Fibrin No -Necrosis Amt None Present (0 %) -Structure Exposed N/A -Texture (Sheyla-wound Skin Appearance) Scarring -Moisture (Sheyla-wound Skin Appearance Assessed ) -Color (Sheyla-wound Skin Appearance) Erythema -Temperature (Sheyla-wound Skin No Abnormality Appearance) (Pt Warm) -Tenderness on Palpation (Sheyla-wound Yes Skin Appearance) -Ulcer Cleansing Rinsed/ Irrigated with Saline -Foul Odor after Cleansing No -Anesthetic Used 4% Lidocaine Solution [Edema Assessment] -Lower Limb Edema Present Yes -Right Calf (cm) 50 -Right Ankle (cm) 25.6 WC - Nurse 2 - General Ulcer CM Notes Start: 09/10/17 15:56 Freq: Status: Active Protocol: Activity Type Activity Date Activity User E-Sign Co-Sign Detail Recorded Client Recorded Date Recorded By Document 09/17/17 12:07 [id number] 09/17/17 12:09 09/17/17 12:07 Wound Center Nurse 2 [Procedure/Treatment] #2 R 2nd ant toe -Time 12:08 -Correct Patient Yes -Correct Side, Site, Position Yes -Correct Procedure Yes -Procedure Performed Yes -Type of Procedure Debridement -Clinical Debridement Subcutaneous -Post Debridement Size (cm) - Length 1.1 -Post Debridement Size (cm) - Width 1.1 -Post Debridement Size (cm) - Depth 0.1 -Total Square Cm 1.21 -Wound/Ulcer Outcome Not Healed -Ulcer Cleansing Rinsed/ Irrigated with Saline -Foul Odor after Cleansing No -Bioengineered Tissue No -Topical Lidocaine (%) 5 -Bleeding Controlled with Pressure -Treatment Response Procedure Tolerated Well [See Physician Procedure note for Specifics] Pain Scale: 0-10 Numeric [Pain] -Is Patient Pain Free? Yes Musculoskeletal: No Tenderness to Palpation of Joints or Extremities, Muscle Wasting, Tenderness - Pain with wound debridement Neurological: Sensory exam intact to light touch and pain Psych/Mental Status: Normal Affect, Appropriate Debridement Note Post-Debridement Measurements/Treatment WC - Nurse 2 - General Ulcer CM Notes Start: 09/10/17 15:56 Freq: Status: Active Protocol: Activity Type Activity Date Activity User E-Sign Co-Sign Detail Recorded Client Recorded Date Recorded By Document 09/10/17 16:36 TM [id number] 09/10/17 16:37 TM Document 09/17/17 12:07 TM [id number] 09/17/17 12:09 TM 09/10/17 09/17/17 16:36 12:07 Wound Center Nurse 2 #2 R 2nd ant toe -Time 16:36 12:08 -Correct Patient Yes Yes -Correct Side, Site, Position Yes Yes -Correct Procedure Yes Yes -Procedure Performed Yes Yes -Type of Procedure Debridement Debridement -Clinical Debridement Subcutaneous Subcutaneous -Post Debridement Size (cm) - Length 1.1 1.1 -Post Debridement Size (cm) - Width 1.3 1.1 -Post Debridement Size (cm) - Depth 0.1 0.1 -Total Square Cm 1.43 1.21 -Wound/Ulcer Outcome Not Healed Not Healed -Ulcer Cleansing Rinsed/ Rinsed/ Irrigated with Irrigated with Saline Saline -Foul Odor after Cleansing No No -Bioengineered Tissue No No -Topical Lidocaine (%) 4 5 -Bleeding Controlled with Pressure Pressure -Treatment Response Procedure Procedure Tolerated Well Tolerated Well Pain Scale: 0-10 Numeric Is Patient Pain Free? Yes Yes Wound debrided: dorsal second toe Laterality: Right Type of Debridement: Excisional debridement Anesthesia Used: 4% Lidocaine Solution Depth: in the subcutaneous layer Percentage of wound debrided: 100 Instrument Used: #15 blade Tissue Removed: fibrous, devitalized subcutaneous, biofilm, slough Severity: Fat Layer Exposed Amount of bleeding with debridement: Mild Bleeding Controlled with: Pressure Patient tolerated procedure well Assessment/Plan Active Problems (Last Updated 07/18/17 @ 12:58 by Brandt Jarquin) Delayed wound healing (Chronic) Posterior tibialis muscle dysfunction (Chronic) Walking difficulty due to ankle and foot (Chronic) Hammer toe of right foot (Chronic) 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 Neuropathy. Hammertoe. Malnutrition. Delayed healing. Chronic leg edema. Walking difficulty Plan: I reviewed and discussed her case. Subcutaneous excisional debridement was performed as noted in the clinical panel. To continue daily dressing changes with [place]. Additional advanced wound care product application will be considered in the future if this stagnates. This was applied and moistened with saline. She was advised to changes every 2 days. She tries to offload her wound with a cut out to the top of her sneaker. It is noted she wears bilateral ankle-foot orthotics due to previous foot deformities and gait instability. We discussed off loading the wound by removing the knuckle joint and she is not amenable to this at this time. To take margot once daily for nutritional optmization. She has CircAid compression wrap and will try to use them as advised. Due to the chronicity of the wound and recent progression of pain to this site I recommend workup for potential deep infection formation. Her right toe x-rays were negative for any soft tissue emphysema, osseous destruction, or acute fractures or dislocations. Her hammertoe deformities are noted. Her last set of labs obtained at the end of last month were relatively negative. She did not have any leukocytosis and her white blood cell count 6.9 , sedimentation rate 18, and C-reactive protein less than 2.9. These lab trends will be periodically monitored. To RTC two weeks or call sooner if problems. I answered all of her questions.
[2017-10-01 15:54] VITALS: BP 123/47; PULSE 85; RESP 18; TEMP 36.3; BMI 128.8
--- NOTE | 2017-10-02 12:54 | PN.PCM_ITS ---
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 Current Visit: Yes Code(s): L97.513 - Non-pressure chronic ulcer of other part of right foot with necrosis of muscle (2) Delayed wound healing Status: Chronic Current Visit: Yes Code(s): T14.8XXD - Other injury of unspecified body region, subsequent encounter (3) Walking difficulty due to ankle and foot Status: Chronic Current Visit: Yes Code(s): R26.2 - Difficulty in walking, not elsewhere classified (4) Hammer toe of right foot Status: Chronic Current Visit: Yes Code(s): M20.41 - Other hammer toe(s) ( acquired), right foot (5) Malnutrition Status: Chronic Current Visit: Yes Code(s): E46 - Unspecified protein- calorie malnutrition (6) Obesity Status: Chronic Current Visit: Yes Code(s): E66.9 - Obesity, unspecified (7) Neuropathy Status: Chronic Current Visit: Yes Code(s): G62.9 - Polyneuropathy, unspecified (8) Posterior tibialis muscle dysfunction Status: Chronic Current Visit: Yes Code(s): M76.829 - Posterior tibial tendinitis, unspecified leg Type of Wound Date of Service: 10/03/17 Chief Complaint: Right second toe ulcer History of Wound: This 77-year-old female with multiple comorbidities presents to the wound care center today with an ulcer to the right second toe. She has perform dressing changes as advised. She denies worsening redness or odor or redness at the wound site. She denies fever, chill, nausea, vomiting, loss of appetite. Late she has had to wear her shoe more frequently this past week and the hole that was coming top of that she does provide adequate offloading. However, her concern is that when she is entering her shoe with the foot the wound is being scraped. Progress of Wound: Stable - Physical Exam Vital Signs Temp Pulse Resp BP 97.3 F L 85 18 123/47 H 10/01/17 15:54 10/01/17 15:54 10/01/17 15:54 10/01/17 15:54 General: Alert, Oriented x3, Cooperative Extremities: No cyanosis, No edema, No Calf Tenderness - Bilateral negative Vivian and Carroll signs, Diminished Peripheral Pulses, Edema, - - Dorsal contraction of second toe Skin: Ulcer/ Wound - No purulence, no erythema, streaking, no odor, no acute signs of infection. The wound bed is granular and more superficial Wound Measurements and Assessment - Nurse 1 - General Ulcer Measurement Start: 09/10/17 15:56 Freq: Status: Active Protocol: Activity Type Activity Date Activity User E-Sign Co-Sign Detail Recorded Client Recorded Date Recorded By Document 10/01/17 15:54 [id number] 10/01/17 16:00 10/01/17 15:54 Wound Center Nurse 1 [Ulcer Assessment] #2 R 2nd ant toe -Combined with other wound No -Current Size (cm) - Length 1.0 -Current Size (cm) - Width 1.4 -Current Size (cm) - Depth 0.1 -Total Square Cm 1.40 -Photo Taken Yes -Epithelialization Small 1-33% -Tunneling No -Undermining/Tunneling No -Circular Undermining No -Exudate Amt Medium (34-66%) -Exudate Type Serous -Wound Margin Flat & Intact -Granulation Amt Medium (34-66%) -Granulation Quality [place] -Slough/Fibrin Yes -Necrosis Amt Medium (34-66%) -Necrotic Tissue Type Adherent Slough -Structure Exposed N/A -Texture (Sheyla-wound Skin Appearance) Assessed Localized Edema -Moisture (Sheyla-wound Skin Appearance Assessed ) Dry/Scaly -Color (Sheyla-wound Skin Appearance) Assessed -Temperature (Sheyla-wound Skin No Abnormality Appearance) (Pt Warm) -Tenderness on Palpation (Sheyla-wound No Skin Appearance) -Ulcer Cleansing Rinsed/ Irrigated with Saline -Foul Odor after Cleansing No -Anesthetic Used 4% Lidocaine Solution - Nurse 2 - General Ulcer CM Notes Start: 09/10/17 15:56 Freq: Status: Active Protocol: Activity Type Activity Date Activity User E-Sign Co-Sign Detail Recorded Client Recorded Date Recorded By Document 10/01/17 16:55 [id number] 10/01/17 16:56 10/01/17 16:55 Wound Center Nurse 2 [Procedure/Treatment] -Time 16:55 -Correct Patient Yes -Correct Side, Site, Position Yes -Correct Procedure Yes -Procedure Performed Yes -Type of Procedure Debridement -Clinical Debridement Subcutaneous -Post Debridement Size (cm) - Length 1 -Post Debridement Size (cm) - Width 1.5 -Post Debridement Size (cm) - Depth 0.1 -Total Square Cm 1.5 -Wound/Ulcer Outcome Not Healed -Ulcer Cleansing Rinsed/ Irrigated with Saline -Foul Odor after Cleansing No -Bioengineered Tissue No -Bleeding Controlled with Pressure -Treatment Response Procedure Tolerated Well [See Physician Procedure note for Specifics] Pain Scale: 0-10 Numeric [Pain] -Is Patient Pain Free? Yes Musculoskeletal: No Tenderness to Palpation of Joints or Extremities, Muscle Wasting Neurological: - - Lack of epicritic sensation light touch to the involved limb Psych/Mental Status: Normal Affect, Appropriate Debridement Note Post-Debridement Measurements/Treatment WC - Nurse 2 - General Ulcer CM Notes Start: 09/10/17 15:56 Freq: Status: Active Protocol: Activity Type Activity Date Activity User E-Sign Co-Sign Detail Recorded Client Recorded Date Recorded By Document 09/10/17 16:36 [id number] 09/10/17 16:37 Document 09/17/17 12:07 [id number] 09/17/17 12:09 Document 10/01/17 16:55 [id number] 10/01/17 16:56 09/10/17 09/17/17 10/01/17 16:36 12:07 16:55 Wound Center Nurse 2 #2 R 2nd ant toe -Time 16:36 12:08 16:55 -Correct Patient Yes Yes Yes -Correct Side, Site, Position Yes Yes Yes -Correct Procedure Yes Yes Yes -Procedure Performed Yes Yes Yes -Type of Procedure Debridement Debridement Debridement -Clinical Debridement Subcutaneous Subcutaneous Subcutaneous -Post Debridement Size (cm) - Length 1.1 1.1 1 -Post Debridement Size (cm) - Width 1.3 1.1 1.5 -Post Debridement Size (cm) - Depth 0.1 0.1 0.1 -Total Square Cm 1.43 1.21 1.5 -Wound/Ulcer Outcome Not Healed Not Healed Not Healed -Ulcer Cleansing Rinsed/ Rinsed/ Rinsed/ Irrigated with Irrigated with Irrigated with Saline Saline Saline -Foul Odor after Cleansing No No No -Bioengineered Tissue No No No -Topical Lidocaine (%) 4 5 -Bleeding Controlled with Pressure Pressure Pressure -Treatment Response Procedure Procedure Procedure Tolerated Well Tolerated Well Tolerated Well Pain Scale: 0-10 Numeric Is Patient Pain Free? Yes Yes Yes Wound debrided: dorsal toe second Laterality: Right Type of Debridement: Excisional debridement Anesthesia Used: 5% Lidocaine Gel Depth: in the subcutaneous layer Percentage of wound debrided: 100 Instrument Used: #15 blade Tissue Removed: fibrous, devitalized subcutaneous, biofilm, slough Severity: Fat Layer Exposed Amount of bleeding with debridement: Mild Bleeding Controlled with: Pressure Patient tolerated procedure well Assessment/Plan Active Problems (Last Updated 07/18/17 @ 12:58 by Brandt Jarquin) Delayed wound healing (Chronic) Posterior tibialis muscle dysfunction (Chronic) Walking difficulty due to ankle and foot (Chronic) Hammer toe of right foot (Chronic) 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 Neuropathy. Hammertoe. Malnutrition. Delayed healing. Chronic leg edema. Walking difficulty Plan: I reviewed and discussed her case. Subcutaneous excisional debridement was performed as noted in the clinical panel. To continue daily dressing changes with [place]. Additional advanced wound care product application will be considered in the future if this stagnates. This was applied and moistened with saline. She was advised to changes every 2 days. She tries to offload her wound with a cut out to the top of her sneaker. It is noted she wears bilateral ankle-foot orthotics due to previous foot deformities and gait instability. We discussed off loading the wound by removing the knuckle joint and she is not amenable to this at this time. To take margot once daily for nutritional optmization. She defers surgical arthroplasty of this toe to reduce the deformity contributing to this ulcer site. She has CircAid compression wrap and will try to use them as advised. Due to the chronicity of the wound and recent progression of pain to this site I recommend workup for potential deep infection formation. Her right toe x-rays were negative for any soft tissue emphysema, osseous destruction, or acute fractures or dislocations. Her hammertoe deformities are noted. Her last set of labs obtained at the end of last month were relatively negative. She did not have any leukocytosis and her white blood cell count 6.9, sedimentation rate 18, and C-reactive protein less than 2.9. These lab trends will be periodically monitored. To RTC 1 week or call sooner if problems. I answered all of her questions.
== END 2017-10-06 23:59 ==
LOC: WC 15:30
PROVIDERS: Family Provider Nurse Practitioner; PCP Nurse Practitioner; Visit Provider Podiatrist
DX: L97.513 Non-pressure chronic ulcer of other part of right foot with necrosis of muscle (principal); R26.2 Difficulty in walking, not elsewhere classified; M20.41 Other hammer toe(s) (acquired), right foot; E66.9 Obesity, unspecified; Z71.3 Dietary counseling and surveillance; G62.9 Polyneuropathy, unspecified; M76.829 Posterior tibial tendinitis, unspecified leg; R60.0 Localized edema
CPT/HCPCS: 11042

== ENCOUNTER → 2017-10-27 10:32 | Outpatient (CLI) | payer MEDICARE, OTHER, SELFPAY ==
--- NOTE | 2017-09-20 11:39 | US_ITS ---
STUDY: ABDOMINAL ULTRASOUND REASON FOR EXAM: Female, 77 years old. Epigastric pain TECHNIQUE: Transabdominal ultrasound was performed with real-time and static leos scale imaging. TECHNICAL QUALITY: Limited. Examination limited due to a combination of factors including obesity and bowel gas, and patient condition. COMPARISON: None. FINDINGS: Liver: The liver measures 16.2 cm. There is increased echogenicity consistent with fatty infiltration. The bile ducts are within normal limits. There is hepatic color flow. The direction of portal flow is hepatopetal. There is no demonstrated mass lesion. Gallbladder: Normal distended gallbladder. The gallbladder wall measures 1.3 mm. There is a negative sonographic Baptiste's sign. There is no pericholecystic fluid. There are multiple echogenic structures within the gallbladder, consistent with multiple gallstones. Common Bile Duct (C.B.D.): The common bile duct measures 3.2 mm. Pancreas: Normal size of the head, body and tail of the pancreas. There is normal echogenicity of the pancreas. There is no demonstrated pancreatic mass or cyst. Spleen: Normal size of the spleen. The spleen measures 10.2 cm. Right Kidney: Normal size of the right kidney. The right kidney measures 10.0 x 5.2 x 5.2 cm. Normal renal cortex. The right cortex measures 1.5 cm. There is no demonstrated renal mass or cyst. There is no right hydronephrosis. Left Kidney: Normal size of the left kidney. The left kidney measures 9.3 x 4.8 x 5.4 cm. Normal renal cortex. The left cortex measures 1.4 cm. There is no demonstrated renal mass or cyst. There is no left hydronephrosis. Aorta: Tapers normally I.V.C.: The IVC is patent. There is no ascites. US/Abdomen Complete IMPRESSION: Fatty infiltration of liver, no discrete lesion Cholelithiasis, no sonographic evidence of acute cholecystitis Electronically Signed: Adin Miranda MD at 18:18 EDT , Service support ,
== END ==
PROVIDERS: Family Provider Nurse Practitioner; PCP Nurse Practitioner; Visit Provider Nurse Practitioner Adult Health
DX: K76.0 Fatty (change of) liver, not elsewhere classified (principal); K80.20 Calculus of gallbladder without cholecystitis without obstruction
CPT/HCPCS: 76700

== ENCOUNTER 2017-11-05 15:30 | Outpatient (RCR) | payer MEDICARE, OTHER, SELFPAY ==
[2017-10-07 00:35] VITALS: BP 120/68; PULSE 85; RESP 18; TEMP 36.3; BMI 128.8
[2017-10-22 15:45] VITALS: BP 143/65; PULSE 83; RESP 18; TEMP 36.3; BMI 128.8
--- NOTE | 2017-10-22 16:38 | PN.PCM_ITS ---
(1) Ulcer of right foot with fat layer exposed Status: Chronic Current Visit: Yes Code(s): L97.512 - Non-pressure chronic ulcer of other part of right foot with fat layer exposed (2) Delayed wound healing Status: Chronic Current Visit: Yes Code(s): T14.8XXD - Other injury of unspecified body region, subsequent encounter (3) Hammer toe of right foot Status: Chronic Current Visit: Yes Code(s): M20.41 - Other hammer toe(s) ( acquired), right foot (4) Delayed wound healing Status: Chronic Current Visit: Yes Code(s): T14.8 - Other injury of unspecified body region (5) Malnutrition Status: Chronic Current Visit: Yes Code(s): E46 - Unspecified protein- calorie malnutrition (6) Neuropathy Status: Chronic Current Visit: Yes Code(s): G62.9 - Polyneuropathy, unspecified Type of Wound Date of Service: 10/22/17 Chief Complaint: Right second toe ulcer History of Wound: This 77-year-old female with multiple comorbidities presents to the wound care center today with an ulcer to the right second toe. She has performed dressing changes as advised. She denies worsening redness or odor or redness at the wound site. She denies fever, chill, nausea, vomiting, loss of appetite. Progress of Wound: Stable - Physical Exam Vital Signs Temp Pulse Resp BP 97.4 F L 83 18 143/65 H 10/22/17 15:45 10/22/17 15:45 10/22/17 15:45 10/22/17 15:45 General: Alert, Oriented x3, Cooperative Extremities: No cyanosis, Capillary Refill Less than 3 Seconds, No Calf Tenderness, Diminished Peripheral Pulses, Edema Skin: Ulcer/ Wound - No purulence, no erythema, streaking, no odor, no infection. The wound size has decreased and there is peripheral epithelialization. The wound base is granular and healthy. The peripheral skin is atrophic. Wound Measurements and Assessment WC - Nurse 1 - General Ulcer Measurement Start: 10/22/17 15:45 Freq: Status: Active Protocol: Activity Type Activity Date Activity User E-Sign Co-Sign Detail Recorded Client Recorded Date Recorded By Document 10/22/17 15:45 DL [id number] 10/22/17 15:53 DL 10/22/17 15:45 Wound Center Nurse 1 [Ulcer Assessment] #2 R 2nd ant toe -Current Size (cm) - Length 0.8 -Current Size (cm) - Width 0.8 -Current Size (cm) - Depth 0.1 -Total Square Cm 0.64 -Photo Taken No -Exudate Amt Small (1-33%) -Exudate Type Serosanguineous -Wound Margin Distinct, Outline Attached -Granulation Amt Large (67-100%) -Granulation Quality Red -Necrosis Amt Small (1-33%) -Necrotic Tissue Type Adherent Slough -Structure Exposed N/A -Texture (Sheyla-wound Skin Appearance) Localized Edema -Moisture (Sheyla-wound Skin Appearance No Abnormality ) -Color (Sheyla-wound Skin Appearance) Erythema -Temperature (Sheyla-wound Skin No Abnormality Appearance) (Pt Warm) -Ulcer Cleansing Wound Cleanser -Foul Odor after Cleansing No -Anesthetic Used 4% Lidocaine Solution WC - Nurse 2 - General Ulcer CM Notes Start: 10/22/17 15:45 Freq: Status: Active Protocol: Activity Type Activity Date Activity User E-Sign Co-Sign Detail Recorded Client Recorded Date Recorded By Document 10/22/17 16:11 [id number] 10/22/17 16:12 MITCH 10/22/17 16:11 Wound Center Nurse 2 [Procedure/Treatment] -Time 16:12 -Correct Patient Yes -Correct Side, Site, Position Yes -Correct Procedure Yes -Procedure Performed Yes -Type of Procedure Debridement -Clinical Debridement Subcutaneous -Post Debridement Size (cm) - Length 0.9 -Post Debridement Size (cm) - Width 0.9 -Post Debridement Size (cm) - Depth 0.1 -Total Square Cm 0.81 -Wound/Ulcer Outcome Not Healed -Ulcer Cleansing Rinsed/ Irrigated with Saline -Foul Odor after Cleansing No -Bioengineered Tissue No -Bleeding Controlled with Pressure -Treatment Response Procedure Tolerated Well [See Physician Procedure note for Specifics] Pain Scale: 0-10 Numeric [Pain] -Is Patient Pain Free? Yes Musculoskeletal: No Tenderness to Palpation of Joints or Extremities, Muscle Wasting, - - Dorsal contraction of second toe with prominent dorsal aspect at the wound sites Neurological: - - Lack of epicritic sensation light touch Psych/Mental Status: Normal Affect, Appropriate Debridement Note Post-Debridement Measurements/Treatment WC - Nurse 2 - General Ulcer CM Notes Start: 10/22/17 15:45 Freq: Status: Active Protocol: Activity Type Activity Date Activity User E-Sign Co-Sign Detail Recorded Client Recorded Date Recorded By Document 10/22/17 16:11 [email or web address] [id number] 10/22/17 16:12 MITCH 10/22/17 16:11 Wound Center Nurse 2 #2 R 2nd ant toe -Time 16:12 -Correct Patient Yes -Correct Side, Site, Position Yes -Correct Procedure Yes -Procedure Performed Yes -Type of Procedure Debridement -Clinical Debridement Subcutaneous -Post Debridement Size (cm) - Length 0.9 -Post Debridement Size (cm) - Width 0.9 -Post Debridement Size (cm) - Depth 0.1 -Total Square Cm 0.81 -Wound/Ulcer Outcome Not Healed -Ulcer Cleansing Rinsed/ Irrigated with Saline -Foul Odor after Cleansing No -Bioengineered Tissue No -Bleeding Controlled with Pressure -Treatment Response Procedure Tolerated Well Pain Scale: 0-10 Numeric Is Patient Pain Free? Yes Wound debrided: dorsal 2nd toe Laterality: Right Type of Debridement: Excisional debridement Anesthesia Used: 5% Lidocaine Gel Depth: in the subcutaneous layer Percentage of wound debrided: 100 Instrument Used: #15 blade Tissue Removed: fibrous, devitalized subcutaneous tissue, biofilm, slough Severity: Fat Layer Exposed Amount of bleeding with debridement: Mild Bleeding Controlled with: Pressure Patient tolerated procedure well Assessment/Plan Active Problems (Last Updated 07/18/17 @ 12:58 by Brandt Jarquin) Delayed wound healing (Chronic) Hammer toe of right foot (Chronic) Delayed wound healing (Chronic) Malnutrition (Chronic) Ulcer of right foot with fat layer exposed (Chronic) Neuropathy (Chronic) Assessment: Dorsal right second toe ulcer with fat exposed. Neuropathy. Hammertoe. Malnutrition. Delayed healing. Chronic leg edema. Walking difficulty Plan: I reviewed and discussed her case. Subcutaneous excisional debridement was performed as noted in the clinical panel. To continue daily dressing changes with [place]. Additional advanced wound care product application will be considered in the future if this stagnates. This was applied and moistened with saline. She was advised to changes every 2 days. She tries to offload her wound with a cut out to the top of her sneaker. It is noted she wears bilateral ankle-foot orthotics due to previous foot deformities and gait instability. We discussed off loading the wound by removing the knuckle joint and she is not amenable to this at this time. To take margot once daily for nutritional optmization. She defers surgical arthroplasty of this toe to reduce the deformity contributing to this ulcer site. She has CircAid compression wrap and will try to use them as advised. Due to the chronicity of the wound and recent progression of pain to this site I recommend workup for potential deep infection formation. Her right toe x-rays were negative for any soft tissue emphysema, osseous destruction, or acute fractures or dislocations. Her hammertoe deformities are noted. Her last set of labs obtained at the end of last month were relatively negative. She did not have any leukocytosis and her white blood cell count 6.9, sedimentation rate 18, and C-reactive protein less than 2.9. These lab trends will be periodically monitored. To RTC 1 week or call sooner if problems. I answered all of her questions.
[2017-10-29 16:03] VITALS: BP 145/70; PULSE 89; RESP 20; TEMP 36.4; BMI 128.8
--- NOTE | 2017-10-29 16:39 | PCM.WC.PN ---
(1) Cellulitis of right foot Status: Chronic Current Visit: Yes Code(s): L03.115 - Cellulitis of right lower limb (2) Ulcer of right foot with fat layer exposed Status: Chronic Current Visit: Yes Code(s): L97.512 - Non-pressure chronic ulcer of other part of right foot with fat layer exposed (3) Delayed wound healing Status: Chronic Current Visit: Yes Code(s): T14.8XXD - Other injury of unspecified body region, subsequent encounter (4) Hammer toe of right foot Status: Chronic Current Visit: Yes Code(s): M20.41 - Other hammer toe(s) (acquired), right foot (5) Delayed wound healing Status: Chronic Current Visit: Yes Code(s): T14.8 - Other injury of unspecified body region (6) Malnutrition Status: Chronic Current Visit: Yes Code(s): E46 - Unspecified protein-calorie malnutrition (7) Neuropathy Status: Chronic Current Visit: Yes Code(s): G62.9 - Polyneuropathy, unspecified (8) Cellulitis of foot, right Status: Acute Current Visit: Yes Code(s): L03.115 - Cellulitis of right lower limb Type of Wound Date of Service: 10/29/17 Chief Complaint: Right second toe ulcer History of Wound: This 77-year-old female with multiple comorbidities presents to the wound care center today with an ulcer to the right second toe. She has performed dressing changes as advised. She denies odor or pain at the wound site. She denies fever, chill, nausea, vomiting, loss of appetite. She has progressive redness. She did not pick and shovel man her Augmentin antibiotics as prescribed yesterday after she made a phone call to the foot and ankle center with concern of infection. Progress of Wound: Stable. Decreased wound size but concern of peripheral mild infection noted - Physical Exam Vital Signs Temp Pulse Resp BP 97.5 F L 89 20 H 145/70 H 10/29/17 16:03 10/29/17 16:03 10/29/17 16:03 10/29/17 16:03 General: Alert, Oriented x3, Cooperative Extremities: No cyanosis, Capillary Refill Less than 3 Seconds, No Calf Tenderness, Diminished Peripheral Pulses, Edema Skin: Ulcer/ Wound - No purulence, no erythema, streaking, no necrosis or eschar right foot. There is decreased wound size with improvement of granulation tissue wound bed. The peripheral skin is atrophic. There is erythema that extends proximal to the sulcus level and this was marked today. It does extend onto the second toe and she denies application of tape along this pattern. No interdigital maceration noted. Wound Measurements and Assessment - Nurse 1 - General Ulcer Measurement Start: 10/22/17 15:45 Freq: Status: Active Protocol: Activity Type Activity Date Activity User E-Sign Co-Sign Detail Recorded Client Recorded Date Recorded By Document 10/29/17 16:03 DL [id number] 10/29/17 16:08 DL 10/29/17 16:03 Wound Center Nurse 1 [Ulcer Assessment] #2 R 2nd ant toe -Current Size (cm) - Length 0.8 -Current Size (cm) - Width 0.8 -Current Size (cm) - Depth 0.1 -Total Square Cm 0.64 -Photo Taken No -Exudate Amt Small (1-33%) -Exudate Type Serosanguineous -Wound Margin Distinct, Outline Attached -Granulation Amt Large (67-100%) -Granulation Quality Red -Necrosis Amt Small (1-33%) -Necrotic Tissue Type Adherent Slough -Structure Exposed N/A -Texture (Sheyla-wound Skin Appearance) Rash -Moisture (Sheyla-wound Skin Appearance No Abnormality ) -Color (Sheyla-wound Skin Appearance) Erythema -Temperature (Sheyla-wound Skin No Abnormality Appearance) (Pt Warm) -Ulcer Cleansing Rinsed/ Irrigated with Saline -Foul Odor after Cleansing No -Anesthetic Used 4% Lidocaine Solution - Nurse 2 - General Ulcer CM Notes Start: 10/22/17 15:45 Freq: Status: Active Protocol: Activity Type Activity Date Activity User E-Sign Co-Sign Detail Recorded Client Recorded Date Recorded By Document 10/29/17 16:27 MITCH [id number] 10/29/17 16:29 10/29/17 16:27 Wound Center Nurse 2 [Procedure/Treatment] -Time 16:27 -Correct Patient Yes -Correct Side, Site, Position Yes -Correct Procedure Yes -Procedure Performed Yes -Type of Procedure Debridement -Clinical Debridement Subcutaneous -Post Debridement Size (cm) - Length 0.6 -Post Debridement Size (cm) - Width 1.0 -Post Debridement Size (cm) - Depth 0.1 -Total Square Cm 0.60 -Wound/Ulcer Outcome Not Healed -Ulcer Cleansing Rinsed/ Irrigated with Saline -Foul Odor after Cleansing No -Bioengineered Tissue No -Bleeding Controlled with Pressure -Treatment Response Procedure Tolerated Well [See Physician Procedure note for Specifics] Pain Scale: 0-10 Numeric [Pain] -Is Patient Pain Free? Yes Musculoskeletal: No Tenderness to Palpation of Joints or Extremities, Muscle Wasting, - - Subtle dorsal contraction of lesser toes and hallux abuts second toe. Neurological: - - Lack of epicritic sensation light touch right lower extremity Psych/Mental Status: Normal Affect, Appropriate Debridement Note Post-Debridement Measurements/Treatment WC - Nurse 2 - General Ulcer CM Notes Start: 10/22/17 15:45 Freq: Status: Active Protocol: Activity Type Activity Date Activity User E-Sign Co-Sign Detail Recorded Client Recorded Date Recorded By Document 10/22/17 16:11 [id number] 10/22/17 16:12 Document 10/29/17 16:27 [id number] 10/29/17 16:29 10/22/17 10/29/17 16:11 16:27 Wound Center Nurse 2 #2 R 2nd ant toe -Time 16:12 16:27 -Correct Patient Yes Yes -Correct Side, Site, Position Yes Yes -Correct Procedure Yes Yes -Procedure Performed Yes Yes -Type of Procedure Debridement Debridement -Clinical Debridement Subcutaneous Subcutaneous -Post Debridement Size (cm) - Length 0.9 0.6 -Post Debridement Size (cm) - Width 0.9 1.0 -Post Debridement Size (cm) - Depth 0.1 0.1 -Total Square Cm 0.81 0.60 -Wound/Ulcer Outcome Not Healed Not Healed -Ulcer Cleansing Rinsed/ Rinsed/ Irrigated with Irrigated with Saline Saline -Foul Odor after Cleansing No No -Bioengineered Tissue No No -Bleeding Controlled with Pressure Pressure -Treatment Response Procedure Procedure Tolerated Well Tolerated Well Pain Scale: 0-10 Numeric Is Patient Pain Free? Yes Yes Wound debrided: dorsal 2nd toe Laterality: Right Type of Debridement: Excisional debridement Anesthesia Used: 5% Lidocaine Gel Depth: in the subcutaneous layer Percentage of wound debrided: 100 Instrument Used: #15 blade Tissue Removed: fibrous, devitalized subcutaneous, biofilm, slough Severity: Fat Layer Exposed Amount of bleeding with debridement: Mild Bleeding Controlled with: Pressure Patient tolerated procedure well Assessment/Plan Active Problems (Last Updated 07/18/17 @ 12:58 by Brandt Jarquin) Delayed wound healing (Chronic) Cellulitis of foot, right (Acute) Hammer toe of right foot (Chronic) Delayed wound healing (Chronic) Malnutrition (Chronic) Ulcer of right foot with fat layer exposed (Chronic) Cellulitis of right foot (Chronic) Neuropathy (Chronic) Assessment: Dorsal right second toe ulcer with fat exposed. Neuropathy. Hammertoe. Malnutrition. Delayed healing. Chronic leg edema. Walking difficulty Plan: I reviewed and discussed her case. Subcutaneous excisional debridement was performed as noted in the clinical panel. To continue daily dressing changes with [place]. Additional advanced wound care product application will be considered in the future if this stagnates. This was applied and moistened with saline. She was advised to changes every 2 days. She tries to offload her wound with a cut out to the top of her sneaker. It is noted she wears bilateral ankle-foot orthotics due to previous foot deformities and gait instability. We discussed off loading the wound by removing the knuckle joint and she is not amenable to this at this time. To take margot once daily for nutritional optmization. She defers surgical arthroplasty of this toe to reduce the deformity contributing to this ulcer site. She has CircAid compression wrap and will try to use them as advised. Due to the chronicity of the wound and recent progression of pain to this site I recommend workup for potential deep infection formation. Her right toe x-rays were negative for any soft tissue emphysema, osseous destruction, or acute fractures or dislocations. Her hammertoe deformities are noted. Her last set of labs obtained at the end of last month were relatively negative. She did not have any leukocytosis and her white blood cell count 6.9, sedimentation rate 18, and C-reactive protein less than 2.9. These lab trends will be periodically monitored. The redness there is marked. I advised her to avoid tape application to this site. This is evidence of peripheral wound inflammation versus mild infection. She is advised to take Augmentin 875 mg tablets twice daily for a 1 week course and this is already sent to her pharmacy. To call if this progresses on the marked area. To RTC 1 week or call sooner if problems. I answered all of her questions.
--- NOTE | 2017-10-29 16:43 | PN.PCM_ITS ---
(1) Cellulitis of right foot Status: Chronic Current Visit: Yes Code(s): L03.115 - Cellulitis of right lower limb (2) Ulcer of right foot with fat layer exposed Status: Chronic Current Visit: Yes Code(s): L97.512 - Non-pressure chronic ulcer of other part of right foot with fat layer exposed (3) Delayed wound healing Status: Chronic Current Visit: Yes Code(s): T14.8XXD - Other injury of unspecified body region, subsequent encounter (4) Hammer toe of right foot Status: Chronic Current Visit: Yes Code(s): M20.41 - Other hammer toe(s) ( acquired), right foot (5) Delayed wound healing Status: Chronic Current Visit: Yes Code(s): T14.8 - Other injury of unspecified body region (6) Malnutrition Status: Chronic Current Visit: Yes Code(s): E46 - Unspecified protein- calorie malnutrition (7) Neuropathy Status: Chronic Current Visit: Yes Code(s): G62.9 - Polyneuropathy, unspecified (8) Cellulitis of foot, right Status: Acute Current Visit: Yes Code(s): L03.115 - Cellulitis of right lower limb Type of Wound Date of Service: 10/29/17 Chief Complaint: Right second toe ulcer History of Wound: This 77-year-old female with multiple comorbidities presents to the wound care center today with an ulcer to the right second toe. She has performed dressing changes as advised. She denies odor or pain at the wound site. She denies fever, chill, nausea, vomiting, loss of appetite. She has progressive redness. She did not hot die picker her Augmentin antibiotics as prescribed yesterday after she made a phone call to the foot and ankle center with concern of infection. Progress of Wound: Stable. Decreased wound size but concern of peripheral mild infection noted - Physical Exam Vital Signs Temp Pulse Resp BP 97.5 F L 89 20 H 145/70 H 10/29/17 16:03 10/29/17 16:03 10/29/17 16:03 10/29/17 16:03 General: Alert, Oriented x3, Cooperative Extremities: No cyanosis, Capillary Refill Less than 3 Seconds, No Calf Tenderness, Diminished Peripheral Pulses, Edema Skin: Ulcer/ Wound - No purulence, no erythema, streaking, no necrosis or eschar right foot. There is decreased wound size with improvement of granulation tissue wound bed. The peripheral skin is atrophic. There is erythema that extends proximal to the sulcus level and this was marked today. It does extend onto the second toe and she denies application of tape along this pattern. No interdigital maceration noted. Wound Measurements and Assessment - Nurse 1 - General Ulcer Measurement Start: 10/22/17 15:45 Freq: Status: Active Protocol: Activity Type Activity Date Activity User E-Sign Co-Sign Detail Recorded Client Recorded Date Recorded By Document 10/29/17 16:03 DL [id number] 10/29/17 16:08 DL 10/29/17 16:03 Wound Center Nurse 1 [Ulcer Assessment] #2 R 2nd ant toe -Current Size (cm) - Length 0.8 -Current Size (cm) - Width 0.8 -Current Size (cm) - Depth 0.1 -Total Square Cm 0.64 -Photo Taken No -Exudate Amt Small (1-33%) -Exudate Type Serosanguineous -Wound Margin Distinct, Outline Attached -Granulation Amt Large (67-100%) -Granulation Quality Red -Necrosis Amt Small (1-33%) -Necrotic Tissue Type Adherent Slough -Structure Exposed N/A -Texture (Sheyla-wound Skin Appearance) Rash -Moisture (Sheyla-wound Skin Appearance No Abnormality ) -Color (Sheyla-wound Skin Appearance) Erythema -Temperature (Sheyla-wound Skin No Abnormality Appearance) (Pt Warm) -Ulcer Cleansing Rinsed/ Irrigated with Saline -Foul Odor after Cleansing No -Anesthetic Used 4% Lidocaine Solution - Nurse 2 - General Ulcer CM Notes Start: 10/22/17 15:45 Freq: Status: Active Protocol: Activity Type Activity Date Activity User E-Sign Co-Sign Detail Recorded Client Recorded Date Recorded By Document 10/29/17 16:27 [email or web address] [id number] 10/29/17 16:29 10/29/17 16:27 Wound Center Nurse 2 [Procedure/Treatment] -Time 16:27 -Correct Patient Yes -Correct Side, Site, Position Yes -Correct Procedure Yes -Procedure Performed Yes -Type of Procedure Debridement -Clinical Debridement Subcutaneous -Post Debridement Size (cm) - Length 0.6 -Post Debridement Size (cm) - Width 1.0 -Post Debridement Size (cm) - Depth 0.1 -Total Square Cm 0.60 -Wound/Ulcer Outcome Not Healed -Ulcer Cleansing Rinsed/ Irrigated with Saline -Foul Odor after Cleansing No -Bioengineered Tissue No -Bleeding Controlled with Pressure -Treatment Response Procedure Tolerated Well [See Physician Procedure note for Specifics] Pain Scale: 0-10 Numeric [Pain] -Is Patient Pain Free? Yes Musculoskeletal: No Tenderness to Palpation of Joints or Extremities, Muscle Wasting, - - Subtle dorsal contraction of lesser toes and hallux abuts second toe. Neurological: - - Lack of epicritic sensation light touch right lower extremity Psych/Mental Status: Normal Affect, Appropriate Debridement Note Post-Debridement Measurements/Treatment WC - Nurse 2 - General Ulcer CM Notes Start: 10/22/17 15:45 Freq: Status: Active Protocol: Activity Type Activity Date Activity User E-Sign Co-Sign Detail Recorded Client Recorded Date Recorded By Document 10/22/17 16:11 [id number] 10/22/17 16:12 Document 10/29/17 16:27 [id number] 10/29/17 16:29 10/22/17 10/29/17 16:11 16:27 Wound Center Nurse 2 #2 R 2nd ant toe -Time 16:12 16:27 -Correct Patient Yes Yes -Correct Side, Site, Position Yes Yes -Correct Procedure Yes Yes -Procedure Performed Yes Yes -Type of Procedure Debridement Debridement -Clinical Debridement Subcutaneous Subcutaneous -Post Debridement Size (cm) - Length 0.9 0.6 -Post Debridement Size (cm) - Width 0.9 1.0 -Post Debridement Size (cm) - Depth 0.1 0.1 -Total Square Cm 0.81 0.60 -Wound/Ulcer Outcome Not Healed Not Healed -Ulcer Cleansing Rinsed/ Rinsed/ Irrigated with Irrigated with Saline Saline -Foul Odor after Cleansing No No -Bioengineered Tissue No No -Bleeding Controlled with Pressure Pressure -Treatment Response Procedure Procedure Tolerated Well Tolerated Well Pain Scale: 0-10 Numeric Is Patient Pain Free? Yes Yes Wound debrided: dorsal 2nd toe Laterality: Right Type of Debridement: Excisional debridement Anesthesia Used: 5% Lidocaine Gel Depth: in the subcutaneous layer Percentage of wound debrided: 100 Instrument Used: #15 blade Tissue Removed: fibrous, devitalized subcutaneous, biofilm, slough Severity: Fat Layer Exposed Amount of bleeding with debridement: Mild Bleeding Controlled with: Pressure Patient tolerated procedure well Assessment/Plan Active Problems (Last Updated 07/18/17 @ 12:58 by Brandt Jarquin) Delayed wound healing (Chronic) Cellulitis of foot, right (Acute) Hammer toe of right foot (Chronic) Delayed wound healing (Chronic) Malnutrition (Chronic) Ulcer of right foot with fat layer exposed (Chronic) Cellulitis of right foot (Chronic) Neuropathy (Chronic) Assessment: Dorsal right second toe ulcer with fat exposed. Neuropathy. Hammertoe. Malnutrition. Delayed healing. Chronic leg edema. Walking difficulty Plan: I reviewed and discussed her case. Subcutaneous excisional debridement was performed as noted in the clinical panel. To continue daily dressing changes with [place]. Additional advanced wound care product application will be considered in the future if this stagnates. This was applied and moistened with saline. She was advised to changes every 2 days. She tries to offload her wound with a cut out to the top of her sneaker. It is noted she wears bilateral ankle-foot orthotics due to previous foot deformities and gait instability. We discussed off loading the wound by removing the knuckle joint and she is not amenable to this at this time. To take margot once daily for nutritional optmization. She defers surgical arthroplasty of this toe to reduce the deformity contributing to this ulcer site. She has CircAid compression wrap and will try to use them as advised. Due to the chronicity of the wound and recent progression of pain to this site I recommend workup for potential deep infection formation. Her right toe x-rays were negative for any soft tissue emphysema, osseous destruction, or acute fractures or dislocations. Her hammertoe deformities are noted. Her last set of labs obtained at the end of last month were relatively negative. She did not have any leukocytosis and her white blood cell count 6.9, sedimentation rate 18, and C-reactive protein less than 2.9. These lab trends will be periodically monitored. The redness there is marked. I advised her to avoid tape application to this site. This is evidence of peripheral wound inflammation versus mild infection. She is advised to take Augmentin 875 mg tablets twice daily for a 1 week course and this is already sent to her pharmacy. To call if this progresses on the marked area. To RTC 1 week or call sooner if problems. I answered all of her questions.
[2017-11-05 15:47] VITALS: BP 156/60; PULSE 88; RESP 18; TEMP 36.4; BMI 128.8
--- NOTE | 2017-11-05 16:42 | PN.PCM_ITS ---
(1) Ulcer of right foot with fat layer exposed Status: Chronic Current Visit: Yes Code(s): L97.512 - Non-pressure chronic ulcer of other part of right foot with fat layer exposed (2) Delayed wound healing Status: Chronic Current Visit: Yes Code(s): T14.8XXD - Other injury of unspecified body region, subsequent encounter (3) Hammer toe of right foot Status: Chronic Current Visit: Yes Code(s): M20.41 - Other hammer toe(s) ( acquired), right foot (4) Delayed wound healing Status: Chronic Current Visit: Yes Code(s): T14.8 - Other injury of unspecified body region (5) Malnutrition Status: Chronic Current Visit: Yes Code(s): E46 - Unspecified protein- calorie malnutrition (6) Neuropathy Status: Chronic Current Visit: Yes Code(s): G62.9 - Polyneuropathy, unspecified (7) Cellulitis of foot, right Status: Acute Current Visit: Yes Code(s): L03.115 - Cellulitis of right lower limb Type of Wound Date of Service: 11/06/17 Chief Complaint: Right second toe ulcer History of Wound: This 77-year-old female with multiple comorbidities presents to the wound care center today with an ulcer to the right second toe. She has performed dressing changes as advised. She denies odor or pain at the wound site. She denies fever, chill, nausea, vomiting, loss of appetite. She has resolved rednessl; she completed her doxycycline prescription. Progress of Wound: improving - Physical Exam Vital Signs Temp Pulse Resp BP 97.5 F L 88 18 156/60 H 11/05/17 15:47 11/05/17 15:47 11/05/17 15:47 11/05/17 15:47 General: Alert, Oriented x3, Cooperative Extremities: No edema - decreased to toe, Capillary Refill Less than 3 Seconds, No Calf Tenderness, Diminished Peripheral Pulses Skin: Ulcer/ Wound - lateral peripheral epithelialization noted to 2nd toe. no purulence, no erythema, no streaking, no odor, no infection noted. no exposed bone or capsule is seen. no interdigital maceration seen. Wound Measurements and Assessment WC - Nurse 1 - General Ulcer Measurement Start: 10/22/17 15:45 Freq: Status: Active Protocol: Activity Type Activity Date Activity User E-Sign Co-Sign Detail Recorded Client Recorded Date Recorded By Document 11/05/17 15:47 RB [id number] 11/05/17 15:55 RB 11/05/17 15:47 Wound Center Nurse 1 [Ulcer Assessment] #2 R 2nd ant toe -Combined with other wound No -Current Size (cm) - Length 0.6 -Current Size (cm) - Width 0.7 -Current Size (cm) - Depth 0.1 -Total Square Cm 0.42 -Photo Taken No -Epithelialization Small 1-33% -Tunneling No -Undermining/Tunneling No -Circular Undermining No -Classification - Thickness Full Thickness without Exposed Support Structure -Exudate Amt Small (1-33%) -Exudate Type Serosanguineous -Wound Margin Distinct, Outline Attached -Granulation Amt Medium (34-66%) -Granulation Quality [place] -Slough/Fibrin Yes -Necrosis Amt Small (1-33%) -Necrotic Tissue Type Adherent Slough -Structure Exposed N/A -Texture (Sheyla-wound Skin Appearance) Assessed -Moisture (Sheyla-wound Skin Appearance Assessed ) -Color (Sheyla-wound Skin Appearance) Assessed -Temperature (Sheyla-wound Skin No Abnormality Appearance) (Pt Warm) -Tenderness on Palpation (Sheyla-wound No Skin Appearance) -Ulcer Cleansing Rinsed/ Irrigated with Saline -Foul Odor after Cleansing No -Anesthetic Used 5% Lidocaine Gel WC - Nurse 2 - General Ulcer CM Notes Start: 10/22/17 15:45 Freq: Status: Active Protocol: Activity Type Activity Date Activity User E-Sign Co-Sign Detail Recorded Client Recorded Date Recorded By Document 11/05/17 16:10 [id number] 11/05/17 16:11 11/05/17 16:10 Wound Center Nurse 2 [Procedure/Treatment] -Time 16:10 -Correct Patient Yes -Correct Side, Site, Position Yes -Correct Procedure Yes -Procedure Performed Yes -Type of Procedure Debridement -Clinical Debridement Subcutaneous -Post Debridement Size (cm) - Length 0.7 -Post Debridement Size (cm) - Width 0.7 -Post Debridement Size (cm) - Depth 0.1 -Total Square Cm 0.49 -Wound/Ulcer Outcome Not Healed -Ulcer Cleansing Rinsed/ Irrigated with Saline -Foul Odor after Cleansing No -Bioengineered Tissue No -Bleeding Controlled with Pressure -Treatment Response Procedure Tolerated Well [See Physician Procedure note for Specifics] Pain Scale: 0-10 Numeric [Pain] -Is Patient Pain Free? Yes Musculoskeletal: No Tenderness to Palpation of Joints or Extremities, Muscle Wasting Neurological: - - lack of epicritic sensation via light touch Psych/Mental Status: Normal Affect, Appropriate Debridement Note Post-Debridement Measurements/Treatment WC - Nurse 2 - General Ulcer CM Notes Start: 10/22/17 15:45 Freq: Status: Active Protocol: Activity Type Activity Date Activity User E-Sign Co-Sign Detail Recorded Client Recorded Date Recorded By Document 10/22/17 16:11 [id number] 10/22/17 16:12 Document 10/29/17 16:27 [id number] 10/29/17 16:29 Document 11/05/17 16:10 [id number] 11/05/17 16:11 10/22/17 10/29/17 11/05/17 16:11 16:27 16:10 Wound Center Nurse 2 #2 R 2nd ant toe -Time 16:12 16:27 16:10 -Correct Patient Yes Yes Yes -Correct Side, Site, Position Yes Yes Yes -Correct Procedure Yes Yes Yes -Procedure Performed Yes Yes Yes -Type of Procedure Debridement Debridement Debridement -Clinical Debridement Subcutaneous Subcutaneous Subcutaneous -Post Debridement Size (cm) - Length 0.9 0.6 0.7 -Post Debridement Size (cm) - Width 0.9 1.0 0.7 -Post Debridement Size (cm) - Depth 0.1 0.1 0.1 -Total Square Cm 0.81 0.60 0.49 -Wound/Ulcer Outcome Not Healed Not Healed Not Healed -Ulcer Cleansing Rinsed/ Rinsed/ Rinsed/ Irrigated with Irrigated with Irrigated with Saline Saline Saline -Foul Odor after Cleansing No No No -Bioengineered Tissue No No No -Bleeding Controlled with Pressure Pressure Pressure -Treatment Response Procedure Procedure Procedure Tolerated Well Tolerated Well Tolerated Well Pain Scale: 0-10 Numeric Is Patient Pain Free? Yes Yes Yes Assessment/Plan Active Problems (Last Updated 07/18/17 @ 12:58 by Brandt Jarquin) Delayed wound healing (Chronic) Cellulitis of foot, right (Acute) Hammer toe of right foot (Chronic) Delayed wound healing (Chronic) Malnutrition (Chronic) Ulcer of right foot with fat layer exposed (Chronic) Cellulitis of right foot (Chronic) Neuropathy (Chronic) Assessment: Dorsal right second toe ulcer with fat exposed. Neuropathy. Hammertoe. Malnutrition. Delayed healing. Chronic leg edema. Walking difficulty Plan: I reviewed and discussed her case. Subcutaneous excisional debridement was performed as noted in the clinical panel. To continue daily dressing changes with [place]. Additional advanced wound care product application will be considered in the future if this stagnates. This was applied and moistened with saline. She was advised to changes every 2 days. She tries to offload her wound with a cut out to the top of her sneaker. It is noted she wears bilateral ankle-foot orthotics due to previous foot deformities and gait instability. We discussed off loading the wound by removing the knuckle joint and she is not amenable to this at this time. To take margot once daily for nutritional optmization. She defers surgical arthroplasty of this toe to reduce the deformity contributing to this ulcer site. She has CircAid compression wrap and will try to use them as advised. Due to the chronicity of the wound and recent progression of pain to this site I recommend workup for potential deep infection formation. Her right toe x-rays were negative for any soft tissue emphysema, osseous destruction, or acute fractures or dislocations. Her hammertoe deformities are noted. Her last set of labs obtained at the end of last month were relatively negative. She did not have any leukocytosis and her white blood cell count 6.9, sedimentation rate 18, and C-reactive protein less than 2.9. These lab trends will be periodically monitored. The redness there is marked. I advised her to avoid tape application to this site. This is evidence of peripheral wound inflammation has resolved. To RTC 1 week or call sooner if problems. I answered all of her questions.
== END 2017-11-06 23:59 ==
LOC: WC 15:30
PROVIDERS: Family Provider Nurse Practitioner; PCP Nurse Practitioner; Visit Provider Podiatrist
DX: L97.512 Non-pressure chronic ulcer of other part of right foot with fat layer exposed (principal); L03.115 Cellulitis of right lower limb; M20.41 Other hammer toe(s) (acquired), right foot; E46 Unspecified protein-calorie malnutrition; G62.9 Polyneuropathy, unspecified; R60.0 Localized edema; R26.2 Difficulty in walking, not elsewhere classified
CPT/HCPCS: 11042

== ENCOUNTER 2017-11-26 12:48 | Outpatient (RCR) | payer MEDICARE, OTHER, SELFPAY ==
[2017-11-07 00:34] VITALS: BP 156/60; PULSE 88; RESP 18; TEMP 36.4; BMI 128.8
[2017-11-26 13:47] VITALS: BP 128/65; PULSE 83; RESP 18; TEMP 36.9; BMI 128.8
--- NOTE | 2017-11-26 14:31 | PN.PCM_ITS ---
(1) Ulcer of right foot with fat layer exposed Status: Chronic Current Visit: Yes Code(s): L97.512 - Non-pressure chronic ulcer of other part of right foot with fat layer exposed (2) Delayed wound healing Status: Chronic Current Visit: Yes Code(s): T14.8XXD - Other injury of unspecified body region, subsequent encounter (3) Neuropathy Status: Chronic Current Visit: Yes Code(s): G62.9 - Polyneuropathy, unspecified (4) Hammer toe of right foot Status: Chronic Current Visit: Yes Code(s): M20.41 - Other hammer toe(s) ( acquired), right foot Type of Wound Date of Service: 11/26/17 Chief Complaint: Right second toe ulcer History of Wound: This 77-year-old female with multiple comorbidities presents to the wound care center today with an ulcer to the right second toe. She has performed dressing changes as advised. She denies odor or pain at the wound site. She denies fever, chill, nausea, vomiting, loss of appetite. She has resolved redness ; she completed her doxycycline prescription. She has changed her dressing with hydrogel is advised. She discontinue [place] use. She is also been performing self toe massage without touching the wound itself. She does allow the wound to get air occasionally throughout the day. Progress of Wound: improving - Physical Exam Vital Signs Temp Pulse Resp BP 98.4 F 83 18 128/65 H 11/26/17 13:47 11/26/17 13:47 11/26/17 13:47 11/26/17 13:47 General: Alert, Oriented x3, Cooperative Extremities: No cyanosis, Capillary Refill Less than 3 Seconds, No Calf Tenderness, Diminished Peripheral Pulses, Edema, - - Dorsal contraction of right second toe Skin: Ulcer/ Wound - No purulence, no erythema, streaking, no odor, no infection. There is no exposed tendon bone or joint to the right foot. Her skin is atrophic and hairless right Wound Measurements and Assessment WC - Nurse 1 - General Ulcer Measurement Start: 11/26/17 13:42 Freq: Status: Active Protocol: Activity Type Activity Date Activity User E-Sign Co-Sign Detail Recorded Client Recorded Date Recorded By Document 11/26/17 13:47 RB [id number] 11/26/17 13:54 RB 06/20/18 13:47 Wound Center Nurse 1 [Ulcer Assessment] #2 R 2nd ant toe -Combined with other wound No -Current Size (cm) - Length 0.4 -Current Size (cm) - Width 0.5 -Current Size (cm) - Depth 0.1 -Total Square Cm 0.20 -Photo Taken No -Epithelialization Small 1-33% -Tunneling No -Undermining/Tunneling No -Circular Undermining No -Classification - Thickness Full Thickness without Exposed Support Structure -Exudate Amt Small (1-33%) -Exudate Type Serosanguineous -Wound Margin Distinct, Outline Attached -Granulation Amt Medium (34-66%) -Granulation Quality [place] -Slough/Fibrin Yes -Necrosis Amt Small (1-33%) -Necrotic Tissue Type Adherent Slough -Structure Exposed N/A -Texture (Sheyla-wound Skin Appearance) Assessed -Moisture (Sheyla-wound Skin Appearance Assessed ) -Color (Sheyla-wound Skin Appearance) Assessed -Temperature (Sheyla-wound Skin No Abnormality Appearance) (Pt Warm) -Tenderness on Palpation (Sheyla-wound No Skin Appearance) -Ulcer Cleansing Rinsed/ Irrigated with Saline -Foul Odor after Cleansing No -Anesthetic Used 5% Lidocaine Gel WC - Nurse 2 - General Ulcer CM Notes Start: 11/26/17 13:42 Freq: Status: Active Protocol: Activity Type Activity Date Activity User E-Sign Co-Sign Detail Recorded Client Recorded Date Recorded By Document 11/26/17 14:14 MITCH [id number] 11/26/17 14:16 MITCH 11/26/17 14:14 Wound Center Nurse 2 [Procedure/Treatment] -Time 14:15 -Correct Patient Yes -Correct Side, Site, Position Yes -Correct Procedure Yes -Procedure Performed Yes -Type of Procedure Debridement -Clinical Debridement Subcutaneous -Post Debridement Size (cm) - Length 0.3 -Post Debridement Size (cm) - Width 0.4 -Post Debridement Size (cm) - Depth 0.1 -Total Square Cm 0.12 -Wound/Ulcer Outcome Not Healed -Ulcer Cleansing Rinsed/ Irrigated with Saline -Foul Odor after Cleansing No -Bioengineered Tissue No -Bleeding Controlled with Pressure -Treatment Response Procedure Tolerated Well [See Physician Procedure note for Specifics] Pain Scale: 0-10 Numeric [Pain] -Is Patient Pain Free? Yes Musculoskeletal: No Tenderness to Palpation of Joints or Extremities, Muscle Wasting Neurological: - - Lack of epicritic sensation light touch right foot Psych/Mental Status: Normal Affect, Appropriate Debridement Note Post-Debridement Measurements/Treatment WC - Nurse 2 - General Ulcer CM Notes Start: 11/26/17 13:42 Freq: Status: Active Protocol: Activity Type Activity Date Activity User E-Sign Co-Sign Detail Recorded Client Recorded Date Recorded By Document 11/26/17 14:14 MITCH [id number] 11/26/17 14:16 MITCH 11/26/17 14:14 Wound Center Nurse 2 #2 R 2nd ant toe -Time 14:15 -Correct Patient Yes -Correct Side, Site, Position Yes -Correct Procedure Yes -Procedure Performed Yes -Type of Procedure Debridement -Clinical Debridement Subcutaneous -Post Debridement Size (cm) - Length 0.3 -Post Debridement Size (cm) - Width 0.4 -Post Debridement Size (cm) - Depth 0.1 -Total Square Cm 0.12 -Wound/Ulcer Outcome Not Healed -Ulcer Cleansing Rinsed/ Irrigated with Saline -Foul Odor after Cleansing No -Bioengineered Tissue No -Bleeding Controlled with Pressure -Treatment Response Procedure Tolerated Well Pain Scale: 0-10 Numeric Is Patient Pain Free? Yes Wound debrided: dorsal second toe Laterality: Right Wound Grade/Stage: Type of Debridement: Excisional debridement Anesthesia Used: 5% Lidocaine Gel Depth: in the subcutaneous layer Percentage of wound debrided: 100 Instrument Used: #15 blade Tissue Removed: fibrous, devitalized subcutaneous, biofilm, slough Severity: Fat Layer Exposed Amount of bleeding with debridement: Mild Bleeding Controlled with: Pressure Patient tolerated procedure well Assessment/Plan Active Problems (Last Updated 07/18/17 @ 12:58 by Brandt Jarquin) Delayed wound healing (Chronic) Ulcer of right foot with fat layer exposed (Chronic) Hammer toe of right foot (Chronic) Neuropathy (Chronic) Assessment: Dorsal right second toe ulcer with fat exposed. Neuropathy. Hammertoe. Malnutrition. Delayed healing. Chronic leg edema. Walking difficulty Plan: I reviewed and discussed her case. Subcutaneous excisional debridement was performed as noted in the clinical panel. To continue daily dressing changes with hydrogel and Adaptic. She was advised to changes every 2 days. She tries to offload her wound with a cut out to the top of her sneaker. It is noted she wears bilateral ankle-foot orthotics due to previous foot deformities and gait instability. To take margot once daily for nutritional optmization. She previously defers surgical arthroplasty of this toe to reduce the deformity contributing to this ulcer site. She has CircAid compression wrap and will try to use them as advised. Due to the chronicity of the wound and recent progression of pain to this site I recommend workup for potential deep infection formation. Her right toe x-rays were negative for any soft tissue emphysema, osseous destruction, or acute fractures or dislocations. Her hammertoe deformities are noted. Her last set of labs obtained at the end of last month were relatively negative. She did not have any leukocytosis and her white blood cell count 6.9, sedimentation rate 18, and C-reactive protein less than 2.9. These lab trends will be periodically monitored. She was reassured there are no clinical signs of infection today. To RTC 1 week or call sooner if problems. I answered all of her questions.
== END 2017-12-06 23:59 ==
LOC: WC 12:48
PROVIDERS: Family Provider Nurse Practitioner; PCP Nurse Practitioner; Visit Provider Podiatrist
DX: L89.893 Pressure ulcer of other site, stage 3 (principal); G62.9 Polyneuropathy, unspecified; M20.41 Other hammer toe(s) (acquired), right foot; R60.0 Localized edema
CPT/HCPCS: 11042

== ENCOUNTER 2017-12-24 14:15 | Outpatient (RCR) | payer MEDICARE, OTHER, SELFPAY ==
[2017-12-07 00:33] VITALS: BP 128/65; PULSE 83; RESP 18; TEMP 36.9; BMI 128.8
[2017-12-17 15:55] VITALS: BP 155/77; PULSE 95; RESP 18; TEMP 36.3; BMI 128.8
--- NOTE | 2017-12-17 16:46 | PCM.WC.PN ---
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 She has performed dressing changes as advised. She denies odor or pain at the wound site. She denies fever, chill, nausea, vomiting, loss of appetite. She has resolved redness ; she completed her doxycycline prescription. She has changed her dressing with hydrogel is advised. She discontinue [place] use. She reports increased swelling and bilateral lower extremity discomfort. She admits her new balance shoes are 2 years old and her braces are also very old. She inquires about getting these items updated. She denies recent trauma or new injuries. Progress of Wound: improving - Physical Exam Vital Signs Temp Pulse Resp BP 97.4 F L 95 18 155/77 H 12/17/17 15:55 12/17/17 15:55 12/17/17 15:55 12/17/17 15:55 General: Alert, Oriented x3, Cooperative Extremities: No cyanosis, Capillary Refill Less than 3 Seconds, No Calf Tenderness - Negative Vivian and [place] bilateral, Diminished Peripheral Pulses, Edema - Bilateral lower extremity moderate, - - Dorsal contraction of lesser toes right foot. The compartments of bilateral lower extremities remain soft. Her new balance shoes are noted in bilateral short articulating ankle foot orthotics are noted and well aligned the foot and leg contour. Skin: Ulcer/ Wound - There is no purulence, erythema, streaking, odor, infection right lower extremity. The skin is atrophic. There is no exposed bone or tendon noted Wound Measurements and Assessment WC - Nurse 1 - General Ulcer Measurement Start: 12/17/17 15:54 Freq: Status: Active Protocol: Activity Type Activity Date Activity User E-Sign Co-Sign Detail Recorded Client Recorded Date Recorded By Document 12/17/17 15:55 DL [id number] 12/17/17 16:00 DL 12/17/17 15:55 Wound Center Nurse 1 [Ulcer Assessment] #2 R 2nd ant toe -Current Size (cm) - Length 0.2 -Current Size (cm) - Width 0.3 -Current Size (cm) - Depth 0.1 -Total Square Cm 0.06 -Photo Taken No -Exudate Amt Small (1-33%) -Exudate Type Serosanguineous -Wound Margin Distinct, Outline Attached -Granulation Amt Small (1-33%) -Granulation Quality [place] -Necrosis Amt Small (1-33%) -Necrotic Tissue Type Adherent Slough -Structure Exposed N/A -Texture (Sheyla-wound Skin Appearance) Localized Edema -Moisture (Sheyla-wound Skin Appearance No Abnormality ) -Color (Sheyla-wound Skin Appearance) Rubor -Tenderness on Palpation (Sheyla-wound Yes Skin Appearance) -Ulcer Cleansing Rinsed/ Irrigated with Saline -Foul Odor after Cleansing No -Anesthetic Used 4% Lidocaine Solution MERY - Nurse 2 - General Ulcer CM Notes Start: 12/17/17 15:54 Freq: Status: Active Protocol: Activity Type Activity Date Activity User E-Sign Co-Sign Detail Recorded Client Recorded Date Recorded By Document 12/17/17 16:23 [id number] 12/17/17 16:30 12/17/17 16:23 Wound Center Nurse 2 [Procedure/Treatment] -Time 16:25 -Correct Patient Yes -Correct Side, Site, Position Yes -Correct Procedure Yes -Procedure Performed Yes -Type of Procedure Debridement -Clinical Debridement Subcutaneous -Post Debridement Size (cm) - Length 0.2 -Post Debridement Size (cm) - Width 0.6 -Post Debridement Size (cm) - Depth 0.1 -Total Square Cm 0.12 -Wound/Ulcer Outcome Not Healed -Ulcer Cleansing Not Cleansed -Foul Odor after Cleansing No -Bioengineered Tissue No -Bleeding Controlled with NA -Treatment Response Procedure Tolerated Well [See Physician Procedure note for Specifics] Pain Scale: 0-10 Numeric [Pain] -Is Patient Pain Free? Yes Musculoskeletal: No Tenderness to Palpation of Joints or Extremities, Muscle Wasting Neurological: - - Lack of epicritic sensation to light touch right lower extremity Psych/Mental Status: Normal Affect, Appropriate Debridement Note Post-Debridement Measurements/Treatment WC - Nurse 2 - General Ulcer CM Notes Start: 12/17/17 15:54 Freq: Status: Active Protocol: Activity Type Activity Date Activity User E-Sign Co-Sign Detail Recorded Client Recorded Date Recorded By Document 12/17/17 16:23 [id number] 12/17/17 16:30 CS 12/17/17 16:23 Wound Center Nurse 2 #2 R 2nd ant toe -Time 16:25 -Correct Patient Yes -Correct Side, Site, Position Yes -Correct Procedure Yes -Procedure Performed Yes -Type of Procedure Debridement -Clinical Debridement Subcutaneous -Post Debridement Size (cm) - Length 0.2 -Post Debridement Size (cm) - Width 0.6 -Post Debridement Size (cm) - Depth 0.1 -Total Square Cm 0.12 -Wound/Ulcer Outcome Not Healed -Ulcer Cleansing Not Cleansed -Foul Odor after Cleansing No -Bioengineered Tissue No -Bleeding Controlled with NA -Treatment Response Procedure Tolerated Well Pain Scale: 0-10 Numeric Is Patient Pain Free? 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 Neuropathy. Hammertoe. Malnutrition. Delayed healing. Chronic leg edema. Walking difficulty Plan: I reviewed and discussed her case. Subcutaneous excisional debridement was performed as noted in the clinical panel. To continue daily dressing changes with hydrogel and Adaptic. She was advised to changes every 2 days. She tries to offload her wound with a cut out to the top of her sneaker. It is noted she wears bilateral ankle-foot orthotics due to previous foot deformities and gait instability. I recommended this time to get these braces and she is updated. She will follow-up at the foot and ankle center within the next month to discuss extra-depth shoes updated foot and ankle orthotics. To take margot once daily for nutritional optmization. She has CircAid compression wrap and will try to use them as advised. She is concerned she does not always tolerate this and I recommend application of single layer Tubigrip today. She is advised on proper use. I recommend she start on the foot and ended the proximal leg. Her labs and x-rays are previously performed and reviewed as noted. She was reassured there are no clinical signs of infection today and she is recently progressing better. To RTC 1 week or call sooner if problems. I answered all of her questions.
[2017-12-24 14:22] VITALS: BP 150/81; PULSE 98; RESP 18; TEMP 37; BMI 128.8
--- NOTE | 2017-12-24 17:13 | PCM.WC.PN ---
(1) Ulcer of right foot with fat layer exposed Status: Chronic Code(s): L97.512 - Non-pressure chronic ulcer of other part of right foot with fat layer exposed (2) Delayed wound healing Status: Chronic Code(s): T14.8XXD - Other injury of unspecified body region, subsequent encounter (3) Walking difficulty due to ankle and foot Status: Chronic Code(s): R26.2 - Difficulty in walking, not elsewhere classified (4) Edema Status: Chronic Code(s): R60.9 - Edema, unspecified (5) Malnutrition Status: Chronic Code(s): E46 - Unspecified protein-calorie malnutrition (6) Neuropathy Status: Chronic Code(s): G62.9 - Polyneuropathy, unspecified Type of Wound Date of Service: 12/28/17 Chief Complaint: Right second toe ulcer History of Wound: This 77-year-old female with multiple comorbidities presents to the wound care center today with an ulcer to the right second toe. She has performed dressing changes as advised. She denies odor or pain at the wound site. She denies fever, chill, nausea, vomiting, loss of appetite. She has changed her dressing with hydrogel is advised. Progress of Wound: improving - Physical Exam Vital Signs Temp Pulse Resp BP 98.6 F 98 18 150/81 H 12/24/17 14:22 12/24/17 14:22 12/24/17 14:22 12/24/17 14:22 General: Alert, Oriented x3, Cooperative Extremities: No cyanosis, Capillary Refill Less than 3 Seconds, No Calf Tenderness - Negative Carroll right, Diminished Peripheral Pulses, Edema - Right lower extremity Skin: Ulcer/ Wound - No purulence, no erythema, streaking, odor, no infection. There is peripheral epithelialization noted to the dorsal right second toe ulcer with no infection signs. Skin is atrophic. Wound Measurements and Assessment WC - Nurse 1 - General Ulcer Measurement Start: 12/17/17 15:54 Freq: Status: Active Protocol: Activity Type Activity Date Activity User E-Sign Co-Sign Detail Recorded Client Recorded Date Recorded By Document 12/24/17 14:22 [id number] 12/24/17 14:23 12/24/17 14:22 Wound Center Nurse 1 [Ulcer Assessment] #2 R 2nd ant toe -Combined with other wound No -Current Size (cm) - Length 0.2 -Current Size (cm) - Width 0.2 -Current Size (cm) - Depth 0.1 -Total Square Cm 0.04 -Photo Taken No -Epithelialization Small 1-33% -Tunneling No -Undermining/Tunneling No -Circular Undermining No -Exudate Amt Small (1-33%) -Exudate Type Serosanguineous -Wound Margin Distinct, Outline Attached -Granulation Amt Small (1-33%) -Granulation Quality [place] -Slough/Fibrin No -Necrosis Amt None Present (0 %) -Necrotic Tissue Type Adherent Slough -Structure Exposed None/Limited to Skin Breakdown -Texture (Sheyla-wound Skin Appearance) Assessed -Moisture (Sheyla-wound Skin Appearance No Abnormality ) Assessed -Color (Sheyla-wound Skin Appearance) No Abnormality Assessed -Temperature (Sheyla-wound Skin No Abnormality Appearance) (Pt Warm) -Tenderness on Palpation (Sheyla-wound Yes Skin Appearance) -Ulcer Cleansing Rinsed/ Irrigated with Saline -Foul Odor after Cleansing No -Anesthetic Used 4% Lidocaine Solution [Edema Assessment] -Lower Limb Edema Present NA WC - Nurse 2 - General Ulcer CM Notes Start: 12/17/17 15:54 Freq: Status: Active Protocol: Activity Type Activity Date Activity User E-Sign Co-Sign Detail Recorded Client Recorded Date Recorded By Document 12/24/17 14:49 [id number] 12/24/17 14:49 12/24/17 14:49 Wound Center Nurse 2 [Procedure/Treatment] #2 R 2nd ant toe -Time 14:49 -Correct Patient Yes -Correct Side, Site, Position Yes -Correct Procedure Yes -Procedure Performed Yes -Type of Procedure Debridement -Clinical Debridement Subcutaneous -Post Debridement Size (cm) - Length 0.1 -Post Debridement Size (cm) - Width 0.2 -Post Debridement Size (cm) - Depth 0.1 -Total Square Cm 0.02 -Wound/Ulcer Outcome Not Healed -Ulcer Cleansing Rinsed/ Irrigated with Saline -Foul Odor after Cleansing No -Bioengineered Tissue No -Topical Lidocaine (%) 4 -Bleeding Controlled with Pressure -Treatment Response Procedure Tolerated Well [See Physician Procedure note for Specifics] Pain Scale: 0-10 Numeric [Pain] -Is Patient Pain Free? Yes Musculoskeletal: No Tenderness to Palpation of Joints or Extremities, Muscle Wasting Neurological: - - Lack of epicritic sensation light touch Psych/Mental Status: Normal Affect, Appropriate Debridement Note Post-Debridement Measurements/Treatment WC - Nurse 2 - General Ulcer CM Notes Start: 12/17/17 15:54 Freq: Status: Active Protocol: Activity Type Activity Date Activity User E-Sign Co-Sign Detail Recorded Client Recorded Date Recorded By Document 12/17/17 16:23 [id number] 12/17/17 16:30 Document 12/24/17 14:49 [id number] 12/24/17 14:49 12/17/17 12/24/17 16:23 14:49 Wound Center Nurse 2 #2 R 2nd ant toe -Time 16:25 14:49 -Correct Patient Yes Yes -Correct Side, Site, Position Yes Yes -Correct Procedure Yes Yes -Procedure Performed Yes Yes -Type of Procedure Debridement Debridement -Clinical Debridement Subcutaneous Subcutaneous -Post Debridement Size (cm) - Length 0.2 0.1 -Post Debridement Size (cm) - Width 0.6 0.2 -Post Debridement Size (cm) - Depth 0.1 0.1 -Total Square Cm 0.12 0.02 -Wound/Ulcer Outcome Not Healed Not Healed -Ulcer Cleansing Not Cleansed Rinsed/ Irrigated with Saline -Foul Odor after Cleansing No No -Bioengineered Tissue No No -Topical Lidocaine (%) 4 -Bleeding Controlled with NA Pressure -Treatment Response Procedure Procedure Tolerated Well Tolerated Well Pain Scale: 0-10 Numeric Is Patient Pain Free? Yes Yes Wound debrided: dorsal 2nd toe Laterality: Right Type of Debridement: Excisional debridement Anesthesia Used: 5% Lidocaine Gel Depth: in the subcutaneous layer Percentage of wound debrided: 100 Instrument Used: #15 blade Tissue Removed: fibrous, devitalized subcutaneous, biofilm, slough Severity: Fat Layer Exposed Amount of bleeding with debridement: Mild Bleeding Controlled with: Pressure Patient tolerated procedure well Assessment/Plan Assessment: Dorsal right second toe ulcer with fat exposed. Neuropathy. Hammertoe. Malnutrition. Delayed healing. Chronic leg edema. Walking difficulty Plan: I reviewed and discussed her case. Subcutaneous excisional debridement was performed as noted in the clinical panel. To continue daily dressing changes with hydrogel and Adaptic. She was advised to changes every 2 days. She tries to offload her wound with a cut out to the top of her sneaker. She was reassured there are no clinical signs of infection today and she is recently progressing better. To RTC 1 week or call sooner if problems. I answered all of her questions.
== END 2018-01-06 23:59 ==
LOC: WC 14:15
PROVIDERS: Family Provider Nurse Practitioner; PCP Nurse Practitioner; Visit Provider Podiatrist
DX: L97.512 Non-pressure chronic ulcer of other part of right foot with fat layer exposed (principal); R26.2 Difficulty in walking, not elsewhere classified; G62.9 Polyneuropathy, unspecified; R60.0 Localized edema; M79.89 Other specified soft tissue disorders; M20.40 Other hammer toe(s) (acquired), unspecified foot
CPT/HCPCS: 11042

== ENCOUNTER → 2018-01-06 17:58 | Outpatient (CLI) | payer MEDICARE, OTHER, SELFPAY | PROVIDERS: Family Provider Nurse Practitioner; PCP Nurse Practitioner; Visit Provider Urology | DX: N39.0 Urinary tract infection, site not specified (principal) | CPT/HCPCS: 87077; 87086; 87088; 87186 ==

== ENCOUNTER 2018-01-21 14:15 | Outpatient (RCR) | payer MEDICARE, OTHER, SELFPAY ==
[2018-01-07 00:36] VITALS: BP 150/81; PULSE 98; RESP 18; TEMP 37; BMI 128.8
[2018-01-07 14:44] VITALS: BP 166/67; PULSE 88; RESP 18; TEMP 36.6; BMI 128.8
--- NOTE | 2018-01-08 20:49 | PCM.WC.PN ---
(1) Ulcer of right foot with fat layer exposed Status: Chronic Current Visit: Yes Code(s): L97.512 - Non-pressure chronic ulcer of other part of right foot with fat layer exposed (2) Delayed wound healing Status: Chronic Current Visit: Yes Code(s): T14.8XXD - Other injury of unspecified body region, subsequent encounter (3) Malnutrition Status: Chronic Current Visit: Yes Code(s): E46 - Unspecified protein-calorie malnutrition (4) Hammer toe of right foot Status: Chronic Current Visit: Yes Code(s): M20.41 - Other hammer toe(s) (acquired), right foot (5) Neuropathy Status: Chronic Current Visit: Yes Code(s): G62.9 - Polyneuropathy, unspecified Type of Wound Date of Service: 01/07/18 Chief Complaint: Right second toe ulcer History of Wound: This 77-year-old female with multiple comorbidities presents to the wound care center today with an ulcer to the right second toe. She has performed dressing changes as advised. She denies odor or pain at the wound site. She denies fever, chill, nausea, vomiting, loss of appetite. She has changed her dressing with hydrogel is advised. Progress of Wound: improving - Physical Exam Vital Signs Temp Pulse Resp BP 97.8 F 88 18 166/67 H 01/07/18 14:44 01/07/18 14:44 01/07/18 14:44 01/07/18 14:44 General: Alert, Oriented x3, Cooperative Extremities: No cyanosis, Capillary Refill Less than 3 Seconds, No Calf Tenderness - Negative Vivian and Carroll bilateral, Diminished Peripheral Pulses, Edema - Moderate bilateral lower extremity, - - Dorsal contraction right second toe Skin: Ulcer/ Wound - No purulence, no erythema, streaking, no odor, no infection. Peripheral epithelialization is a granular base wound is noted. The skin is atrophic and hairless. Wound Measurements and Assessment WC - Nurse 1 - General Ulcer Measurement Start: 01/07/18 14:37 Freq: Status: Active Protocol: Activity Type Activity Date Activity User E-Sign Co-Sign Detail Recorded Client Recorded Date Recorded By Document 01/07/18 14:44 RB [id number] 01/07/18 14:50 RB 01/07/18 14:44 Wound Center Nurse 1 [Ulcer Assessment] #2 R 2nd ant toe -Combined with other wound No -Current Size (cm) - Length 0.3 -Current Size (cm) - Width 0.6 -Current Size (cm) - Depth 0.1 -Total Square Cm 0.18 -Photo Taken No -Tunneling No -Undermining/Tunneling No -Circular Undermining No -Classification - Thickness Full Thickness without Exposed Support Structure -Exudate Amt Small (1-33%) -Exudate Type Serosanguineous -Wound Margin Distinct, Outline Attached -Granulation Amt Large (67-100%) -Granulation Quality [place] -Slough/Fibrin Yes -Necrosis Amt Small (1-33%) -Necrotic Tissue Type Adherent Slough -Structure Exposed N/A -Texture (Sheyla-wound Skin Appearance) Assessed -Moisture (Sheyla-wound Skin Appearance Assessed ) -Color (Sheyla-wound Skin Appearance) Assessed -Temperature (Sheyla-wound Skin No Abnormality Appearance) (Pt Warm) -Tenderness on Palpation (Sheyla-wound No Skin Appearance) -Ulcer Cleansing Rinsed/ Irrigated with Saline -Foul Odor after Cleansing No -Anesthetic Used 4% Lidocaine Solution [Edema Assessment] -Lower Limb Edema Present Yes -Right Calf (cm) 48.5 -Right Ankle (cm) 25.2 WC - Nurse 2 - General Ulcer CM Notes Start: 01/07/18 14:37 Freq: Status: Active Protocol: Activity Type Activity Date Activity User E-Sign Co-Sign Detail Recorded Client Recorded Date Recorded By Document 01/07/18 15:07 [id number] 01/07/18 15:09 01/07/18 15:07 Wound Center Nurse 2 [Procedure/Treatment] #2 R 2nd ant toe -Time 15:08 -Correct Patient Yes -Correct Side, Site, Position Yes -Correct Procedure Yes -Procedure Performed Yes -Type of Procedure Debridement -Clinical Debridement Subcutaneous -Post Debridement Size (cm) - Length 0.4 -Post Debridement Size (cm) - Width 0.7 -Post Debridement Size (cm) - Depth 0.1 -Total Square Cm 0.28 -Wound/Ulcer Outcome Not Healed -Ulcer Cleansing Rinsed/ Irrigated with Saline -Foul Odor after Cleansing No -Bioengineered Tissue No -Topical Lidocaine (%) 4 -Bleeding Controlled with Pressure -Treatment Response Procedure Tolerated Well [See Physician Procedure note for Specifics] Pain Scale: 0-10 Numeric [Pain] -Is Patient Pain Free? Yes Musculoskeletal: No Tenderness to Palpation of Joints or Extremities, Muscle Wasting Neurological: - - Lack of epicritic sensation light touch bilateral lower extremities Psych/Mental Status: Normal Affect, Appropriate Debridement Note Post-Debridement Measurements/Treatment WC - Nurse 2 - General Ulcer CM Notes Start: 01/07/18 14:37 Freq: Status: Active Protocol: Activity Type Activity Date Activity User E-Sign Co-Sign Detail Recorded Client Recorded Date Recorded By Document 01/07/18 15:07 [id number] 01/07/18 15:09 01/07/18 15:07 Wound Center Nurse 2 #2 R 2nd ant toe -Time 15:08 -Correct Patient Yes -Correct Side, Site, Position Yes -Correct Procedure Yes -Procedure Performed Yes -Type of Procedure Debridement -Clinical Debridement Subcutaneous -Post Debridement Size (cm) - Length 0.4 -Post Debridement Size (cm) - Width 0.7 -Post Debridement Size (cm) - Depth 0.1 -Total Square Cm 0.28 -Wound/Ulcer Outcome Not Healed -Ulcer Cleansing Rinsed/ Irrigated with Saline -Foul Odor after Cleansing No -Bioengineered Tissue No -Topical Lidocaine (%) 4 -Bleeding Controlled with Pressure -Treatment Response Procedure Tolerated Well Pain Scale: 0-10 Numeric Is Patient Pain Free? Yes Wound debrided: dorsal toe Laterality: Right Type of Debridement: Excisional debridement Anesthesia Used: 4% Lidocaine Solution Depth: in the subcutaneous layer Percentage of wound debrided: 100 Instrument Used: #15 blade Tissue Removed: fibrous, devitalized subcutaneous, biofilm, slough Severity: Fat Layer Exposed Amount of bleeding with debridement: Mild Bleeding Controlled with: Pressure Patient tolerated procedure well Assessment/Plan Active Problems (Last Reviewed 12/18/17 @ 07:59 by Carlos Manuel Gunn MD) Delayed wound healing (Chronic) Hammer toe of right foot (Chronic) Malnutrition (Chronic) Ulcer of right foot with fat layer exposed (Chronic) Hammer toe of right foot (Chronic) Neuropathy (Chronic) Assessment: Dorsal right second toe ulcer with fat exposed. Neuropathy. Hammertoe. Malnutrition. Delayed healing. Chronic leg edema. Walking difficulty Plan: I reviewed and discussed her case. Subcutaneous excisional debridement was performed as noted in the clinical panel. To continue daily dressing changes with hydrogel and Adaptic. She was advised to changes every 2 days. She tries to offload her wound with a cut out to the top of her sneaker. She was reassured there are no clinical signs of infection today and she is recently progressing better. She will follow-up at the foot and ankle center for protective palliative care of the nails as well as to discuss updated supportive extra-depth shoes with ankle-foot orthoses to bilateral lower extremities. To RTC 1 week or call sooner if problems. I answered all of her questions.
--- NOTE | 2018-01-08 20:52 | PN.PCM_ITS ---
(1) Ulcer of right foot with fat layer exposed Status: Chronic Current Visit: Yes Code(s): L97.512 - Non-pressure chronic ulcer of other part of right foot with fat layer exposed (2) Delayed wound healing Status: Chronic Current Visit: Yes Code(s): T14.8XXD - Other injury of unspecified body region, subsequent encounter (3) Malnutrition Status: Chronic Current Visit: Yes Code(s): E46 - Unspecified protein- calorie malnutrition (4) Hammer toe of right foot Status: Chronic Current Visit: Yes Code(s): M20.41 - Other hammer toe(s) ( acquired), right foot (5) Neuropathy Status: Chronic Current Visit: Yes Code(s): G62.9 - Polyneuropathy, unspecified Type of Wound Date of Service: 01/07/18 Chief Complaint: Right second toe ulcer History of Wound: This 77-year-old female with multiple comorbidities presents to the wound care center today with an ulcer to the right second toe. She has performed dressing changes as advised. She denies odor or pain at the wound site. She denies fever, chill, nausea, vomiting, loss of appetite. She has changed her dressing with hydrogel is advised. Progress of Wound: improving - Physical Exam Vital Signs Temp Pulse Resp BP 97.8 F 88 18 166/67 H 01/07/18 14:44 01/07/18 14:44 01/07/18 14:44 01/07/18 14:44 General: Alert, Oriented x3, Cooperative Extremities: No cyanosis, Capillary Refill Less than 3 Seconds, No Calf Tenderness - Negative Vivian and Carroll bilateral, Diminished Peripheral Pulses, Edema - Moderate bilateral lower extremity, - - Dorsal contraction right second toe Skin: Ulcer/ Wound - No purulence, no erythema, streaking, no odor, no infection. Peripheral epithelialization is a granular base wound is noted. The skin is atrophic and hairless. Wound Measurements and Assessment WC - Nurse 1 - General Ulcer Measurement Start: 01/07/18 14:37 Freq: Status: Active Protocol: Activity Type Activity Date Activity User E-Sign Co-Sign Detail Recorded Client Recorded Date Recorded By Document 01/07/18 14:44 RB [id number] 01/07/18 14:50 RB 01/07/18 14:44 Wound Center Nurse 1 [Ulcer Assessment] #2 R 2nd ant toe -Combined with other wound No -Current Size (cm) - Length 0.3 -Current Size (cm) - Width 0.6 -Current Size (cm) - Depth 0.1 -Total Square Cm 0.18 -Photo Taken No -Tunneling No -Undermining/Tunneling No -Circular Undermining No -Classification - Thickness Full Thickness without Exposed Support Structure -Exudate Amt Small (1-33%) -Exudate Type Serosanguineous -Wound Margin Distinct, Outline Attached -Granulation Amt Large (67-100%) -Granulation Quality [place] -Slough/Fibrin Yes -Necrosis Amt Small (1-33%) -Necrotic Tissue Type Adherent Slough -Structure Exposed N/A -Texture (Sheyla-wound Skin Appearance) Assessed -Moisture (Sheyla-wound Skin Appearance Assessed ) -Color (Sheyla-wound Skin Appearance) Assessed -Temperature (Sheyla-wound Skin No Abnormality Appearance) (Pt Warm) -Tenderness on Palpation (Sheyla-wound No Skin Appearance) -Ulcer Cleansing Rinsed/ Irrigated with Saline -Foul Odor after Cleansing No -Anesthetic Used 4% Lidocaine Solution [Edema Assessment] -Lower Limb Edema Present Yes -Right Calf (cm) 48.5 -Right Ankle (cm) 25.2 WC - Nurse 2 - General Ulcer CM Notes Start: 01/07/18 14:37 Freq: Status: Active Protocol: Activity Type Activity Date Activity User E-Sign Co-Sign Detail Recorded Client Recorded Date Recorded By Document 01/07/18 15:07 [id number] 01/07/18 15:09 01/07/18 15:07 Wound Center Nurse 2 [Procedure/Treatment] #2 R 2nd ant toe -Time 15:08 -Correct Patient Yes -Correct Side, Site, Position Yes -Correct Procedure Yes -Procedure Performed Yes -Type of Procedure Debridement -Clinical Debridement Subcutaneous -Post Debridement Size (cm) - Length 0.4 -Post Debridement Size (cm) - Width 0.7 -Post Debridement Size (cm) - Depth 0.1 -Total Square Cm 0.28 -Wound/Ulcer Outcome Not Healed -Ulcer Cleansing Rinsed/ Irrigated with Saline -Foul Odor after Cleansing No -Bioengineered Tissue No -Topical Lidocaine (%) 4 -Bleeding Controlled with Pressure -Treatment Response Procedure Tolerated Well [See Physician Procedure note for Specifics] Pain Scale: 0-10 Numeric [Pain] -Is Patient Pain Free? Yes Musculoskeletal: No Tenderness to Palpation of Joints or Extremities, Muscle Wasting Neurological: - - Lack of epicritic sensation light touch bilateral lower extremities Psych/Mental Status: Normal Affect, Appropriate Debridement Note Post-Debridement Measurements/Treatment WC - Nurse 2 - General Ulcer CM Notes Start: 01/07/18 14:37 Freq: Status: Active Protocol: Activity Type Activity Date Activity User E-Sign Co-Sign Detail Recorded Client Recorded Date Recorded By Document 01/07/18 15:07 [id number] 01/07/18 15:09 01/07/18 15:07 Wound Center Nurse 2 #2 R 2nd ant toe -Time 15:08 -Correct Patient Yes -Correct Side, Site, Position Yes -Correct Procedure Yes -Procedure Performed Yes -Type of Procedure Debridement -Clinical Debridement Subcutaneous -Post Debridement Size (cm) - Length 0.4 -Post Debridement Size (cm) - Width 0.7 -Post Debridement Size (cm) - Depth 0.1 -Total Square Cm 0.28 -Wound/Ulcer Outcome Not Healed -Ulcer Cleansing Rinsed/ Irrigated with Saline -Foul Odor after Cleansing No -Bioengineered Tissue No -Topical Lidocaine (%) 4 -Bleeding Controlled with Pressure -Treatment Response Procedure Tolerated Well Pain Scale: 0-10 Numeric Is Patient Pain Free? Yes Wound debrided: dorsal toe Laterality: Right Type of Debridement: Excisional debridement Anesthesia Used: 4% Lidocaine Solution Depth: in the subcutaneous layer Percentage of wound debrided: 100 Instrument Used: #15 blade Tissue Removed: fibrous, devitalized subcutaneous, biofilm, slough Severity: Fat Layer Exposed Amount of bleeding with debridement: Mild Bleeding Controlled with: Pressure Patient tolerated procedure well Assessment/Plan Active Problems (Last Reviewed 12/18/17 @ 07:59 by Carlos Manuel Gunn MD) Delayed wound healing (Chronic) Hammer toe of right foot (Chronic) Malnutrition (Chronic) Ulcer of right foot with fat layer exposed (Chronic) Hammer toe of right foot (Chronic) Neuropathy (Chronic) Assessment: Dorsal right second toe ulcer with fat exposed. Neuropathy. Hammertoe. Malnutrition. Delayed healing. Chronic leg edema. Walking difficulty Plan: I reviewed and discussed her case. Subcutaneous excisional debridement was performed as noted in the clinical panel. To continue daily dressing changes with hydrogel and Adaptic. She was advised to changes every 2 days. She tries to offload her wound with a cut out to the top of her sneaker. She was reassured there are no clinical signs of infection today and she is recently progressing better. She will follow-up at the foot and ankle center for protective palliative care of the nails as well as to discuss updated supportive extra-depth shoes with ankle-foot orthoses to bilateral lower extremities. To RTC 1 week or call sooner if problems. I answered all of her questions.
[2018-01-14 14:29] VITALS: BP 143/35; PULSE 89; RESP 20; TEMP 36.6; BMI 128.8
--- NOTE | 2018-01-14 16:46 | PCM.WC.PN ---
(1) Ulcer of right foot with fat layer exposed Status: Chronic Code(s): L97.512 - Non-pressure chronic ulcer of other part of right foot with fat layer exposed (2) Delayed wound healing Status: Chronic Code(s): T14.8XXD - Other injury of unspecified body region, subsequent encounter (3) Malnutrition Status: Chronic Code(s): E46 - Unspecified protein-calorie malnutrition (4) Hammer toe of right foot Status: Chronic Code(s): M20.41 - Other hammer toe(s) (acquired), right foot (5) Neuropathy Status: Chronic Code(s): G62.9 - Polyneuropathy, unspecified Type of Wound Date of Service: 01/17/18 Chief Complaint: Right second toe ulcer History of Wound: This 77-year-old female with multiple comorbidities presents to the wound care center today with an ulcer to the right second toe. She has performed dressing changes as advised. She denies odor or pain at the wound site. She denies fever, chill, nausea, vomiting, loss of appetite. She has changed her dressing with hydrogel is advised. Progress of Wound: improving - Physical Exam Vital Signs Temp Pulse Resp BP 97.9 F 89 20 H 143/35 H 01/14/18 14:29 01/14/18 14:29 01/14/18 14:29 01/14/18 14:29 General: Alert, Oriented x3, Cooperative HEENT: Atraumatic Extremities: No cyanosis, Capillary Refill Less than 3 Seconds, No Calf Tenderness - Negative for depression bilateral, Diminished Peripheral Pulses, Edema - Controlled and mild bilateral Skin: Ulcer/ Wound - No purulence, no erythema, streaking, no odor, no infection. Peripheral epithelialization is noted. The skin is atrophic and hairless Wound Measurements and Assessment WC - Nurse 1 - General Ulcer Measurement Start: 01/07/18 14:37 Freq: Status: Active Protocol: Activity Type Activity Date Activity User E-Sign Co-Sign Detail Recorded Client Recorded Date Recorded By Document 01/14/18 14:29 [id number] 01/14/18 14:33 01/14/18 14:29 Wound Center Nurse 1 [Ulcer Assessment] #2 R 2nd ant toe -Current Size (cm) - Length 0.2 -Current Size (cm) - Width 0.1 -Current Size (cm) - Depth 0.1 -Total Square Cm 0.02 -Photo Taken No -Exudate Amt Small (1-33%) -Exudate Type Serosanguineous -Wound Margin Flat & Intact -Granulation Amt Large (67-100%) -Granulation Quality [place] -Necrosis Amt None Present (0 %) -Structure Exposed N/A -Texture (Sheyla-wound Skin Appearance) Scarring -Moisture (Sheyla-wound Skin Appearance Dry/Scaly ) -Color (Sheyla-wound Skin Appearance) Erythema Rubor -Temperature (Sheyla-wound Skin No Abnormality Appearance) (Pt Warm) -Ulcer Cleansing Rinsed/ Irrigated with Saline -Foul Odor after Cleansing No -Anesthetic Used 4% Lidocaine Solution [Edema Assessment] -Right Calf (cm) 48 -Right Ankle (cm) 26 - Nurse 2 - General Ulcer CM Notes Start: 01/07/18 14:37 Freq: Status: Active Protocol: Activity Type Activity Date Activity User E-Sign Co-Sign Detail Recorded Client Recorded Date Recorded By Document 01/14/18 14:58 [id number] 01/14/18 15:00 01/14/18 14:58 Wound Center Nurse 2 [Procedure/Treatment] #2 R 2nd ant toe -Time 14:58 -Correct Patient Yes -Correct Side, Site, Position Yes -Correct Procedure Yes -Procedure Performed Yes -Type of Procedure Debridement -Clinical Debridement Selective -Post Debridement Size (cm) - Length 0.2 -Post Debridement Size (cm) - Width 0.1 -Post Debridement Size (cm) - Depth 0.1 -Total Square Cm 0.02 -Wound/Ulcer Outcome Not Healed -Ulcer Cleansing Rinsed/ Irrigated with Saline -Foul Odor after Cleansing No -Bioengineered Tissue No -Topical Lidocaine (%) 4 -Bleeding Controlled with Pressure -Treatment Response Procedure Tolerated Well [See Physician Procedure note for Specifics] Pain Scale: 0-10 Numeric [Pain] -Is Patient Pain Free? Yes Musculoskeletal: No Tenderness to Palpation of Joints or Extremities, Muscle Wasting Neurological: - - Lack of epicritic sensation light touch bilateral lower extremities Psych/Mental Status: Normal Affect, Appropriate Debridement Note Post-Debridement Measurements/Treatment - Nurse 2 - General Ulcer CM Notes Start: 01/07/18 14:37 Freq: Status: Active Protocol: Activity Type Activity Date Activity User E-Sign Co-Sign Detail Recorded Client Recorded Date Recorded By Document 01/07/18 15:07 TM [id number] 01/07/18 15:09 TM Document 01/14/18 14:58 TM [id number] 01/14/18 15:00 TM 01/07/18 01/14/18 15:07 14:58 Wound Center Nurse 2 #2 R 2nd ant toe -Time 15:08 14:58 -Correct Patient Yes Yes -Correct Side, Site, Position Yes Yes -Correct Procedure Yes Yes -Procedure Performed Yes Yes -Type of Procedure Debridement Debridement -Clinical Debridement Subcutaneous Selective -Post Debridement Size (cm) - Length 0.4 0.2 -Post Debridement Size (cm) - Width 0.7 0.1 -Post Debridement Size (cm) - Depth 0.1 0.1 -Total Square Cm 0.28 0.02 -Wound/Ulcer Outcome Not Healed Not Healed -Ulcer Cleansing Rinsed/ Rinsed/ Irrigated with Irrigated with Saline Saline -Foul Odor after Cleansing No No -Bioengineered Tissue No No -Topical Lidocaine (%) 4 4 -Bleeding Controlled with Pressure Pressure -Treatment Response Procedure Procedure Tolerated Well Tolerated Well Pain Scale: 0-10 Numeric Is Patient Pain Free? Yes Yes Wound debrided: dorsal 2nd toe Laterality: Right Type of Debridement: Excisional debridement Anesthesia Used: 4% Lidocaine Solution Depth: Down to and including healthy tissue Percentage of wound debrided: 100 Instrument Used: #15 blade Tissue Removed: fibrous, devitalized subhemorrhagic tissue scant, biofilm, slough Severity: Limited To Skin Breakdown Amount of bleeding with debridement: Mild Bleeding Controlled with: Pressure Patient tolerated procedure well Assessment/Plan Assessment: Dorsal right second toe ulcer with skin discontinuity. Neuropathy. Hammertoe. Malnutrition. Delayed healing. Chronic leg edema. Walking difficulty Plan: I reviewed and discussed her case. Selective debridement was performed as noted in the clinical panel. To continue daily dressing changes with hydrogel and Adaptic. She was advised to changes every 2 days. She tries to offload her wound with a cut out to the top of her sneaker. She was reassured there are no clinical signs of infection today and she is recently progressing better. She was also recently seen by me at the foot and ankle center in which I will assist her with obtaining custom shoes, a rate Fabricio brace, and a left Sunitha brace for treatment of her painful bilateral lower extremity deformities and walking impairment. To RTC 1 week or call sooner if problems. I answered all of her questions.
[2018-01-21 14:20] VITALS: BP 151/64; PULSE 87; RESP 18; TEMP 36.9; BMI 128.8
--- NOTE | 2018-01-21 16:34 | PCM.WC.PN ---
(1) Ulcer of right second toe, limited to breakdown of skin Status: Chronic Current Visit: Yes Code(s): L97.511 - Non-pressure chronic ulcer of other part of right foot limited to breakdown of skin (2) Delayed wound healing Status: Chronic Current Visit: Yes Code(s): T14.8XXD - Other injury of unspecified body region, subsequent encounter (3) Malnutrition Status: Chronic Current Visit: Yes Code(s): E46 - Unspecified protein-calorie malnutrition (4) Hammer toe of right foot Status: Chronic Current Visit: Yes Code(s): M20.41 - Other hammer toe(s) (acquired), right foot (5) Neuropathy Status: Chronic Current Visit: Yes Code(s): G62.9 - Polyneuropathy, unspecified Type of Wound Date of Service: 01/21/18 Chief Complaint: Right second toe ulcer History of Wound: This 77-year-old female with multiple comorbidities presents to the wound care center today with an ulcer to the right second toe. She has performed dressing changes as advised. She denies odor or pain at the wound site. She denies fever, chill, nausea, vomiting, loss of appetite. She has changed her dressing with hydrogel is advised. Progress of Wound: improving - Physical Exam Vital Signs Temp Pulse Resp BP 98.4 F 87 18 151/64 H 01/21/18 14:20 01/21/18 14:20 01/21/18 14:20 01/21/18 14:20 General: Alert, Oriented x3, Cooperative Extremities: No cyanosis, Capillary Refill Less than 3 Seconds, No Calf Tenderness, Diminished Peripheral Pulses, Edema, - - Subtle dorsal contraction of lesser toe Skin: Ulcer/ Wound - No purulence, no erythema, no streaking, no odor, no infection. There is no longer any subcutaneous tissue exposed there is some very scant skin discontinuity and peripheral skin peeling noted to the ulcer site which is improving. The skin is atrophic and hairless right foot Wound Measurements and Assessment WC - Nurse 1 - General Ulcer Measurement Start: 01/07/18 14:37 Freq: Status: Active Protocol: Activity Type Activity Date Activity User E-Sign Co-Sign Detail Recorded Client Recorded Date Recorded By Document 01/21/18 14:20 [facility] [id number] 01/21/18 14:27 [facility] 01/21/18 14:20 Wound Center Nurse 1 [Ulcer Assessment] #2 R 2nd ant toe -Combined with other wound No -Current Size (cm) - Length 0.3 -Current Size (cm) - Width 0.8 -Current Size (cm) - Depth 0.1 -Total Square Cm 0.24 -Date of Last Picture (Recall this 01/21/18 field) -Photo Taken Yes -Epithelialization None Present -Tunneling No -Undermining/Tunneling No -Circular Undermining No -Exudate Amt None Present (0 %) -Wound Margin Distinct, Outline Attached -Granulation Amt Small (1-33%) -Granulation Quality Red -Slough/Fibrin Yes -Necrosis Amt Medium (34-66%) -Necrotic Tissue Type Adherent Slough -Texture (Sheyla-wound Skin Appearance) Scarring -Moisture (Sheyla-wound Skin Appearance Assessed ) -Color (Sheyla-wound Skin Appearance) Erythema -Temperature (Sheyla-wound Skin No Abnormality Appearance) (Pt Warm) -Tenderness on Palpation (Sheyla-wound No Skin Appearance) -Ulcer Cleansing Rinsed/ Irrigated with Saline -Foul Odor after Cleansing No -Anesthetic Used 5% Lidocaine Gel [Edema Assessment] -Lower Limb Edema Present Yes -Right Calf (cm) 46 -Right Ankle (cm) 26.8 WC - Nurse 2 - General Ulcer CM Notes Start: 01/07/18 14:37 Freq: Status: Active Protocol: Activity Type Activity Date Activity User E-Sign Co-Sign Detail Recorded Client Recorded Date Recorded By Document 01/21/18 14:36 [id number] 01/21/18 14:40 01/21/18 14:36 Wound Center Nurse 2 [Procedure/Treatment] #2 R 2nd ant toe -Time 14:39 -Correct Patient No -Correct Side, Site, Position No -Correct Procedure No -Procedure Performed No -Post Debridement Size (cm) - Length 0.3 -Post Debridement Size (cm) - Width 0.8 -Post Debridement Size (cm) - Depth 0.1 -Total Square Cm 0.24 -Wound/Ulcer Outcome Not Healed -Ulcer Cleansing Rinsed/ Irrigated with Saline -Foul Odor after Cleansing No [See Physician Procedure note for Specifics] Pain Scale: 0-10 Numeric [Pain] -Is Patient Pain Free? Yes Musculoskeletal: No Tenderness to Palpation of Joints or Extremities, Muscle Wasting Neurological: - - Lack of epicritic sensation light touch bilateral lower extremities Psych/Mental Status: Normal Affect, Appropriate Debridement Note Post-Debridement Measurements/Treatment WC - Nurse 2 - General Ulcer CM Notes Start: 01/07/18 14:37 Freq: Status: Active Protocol: Activity Type Activity Date Activity User E-Sign Co-Sign Detail Recorded Client Recorded Date Recorded By Document 01/07/18 15:07 [id number] 01/07/18 15:09 TM Document 01/14/18 14:58 [id number] 01/14/18 15:00 Document 01/21/18 14:36 [id number] 01/21/18 14:40 01/07/18 01/14/18 01/21/18 15:07 14:58 14:36 Wound Center Nurse 2 #2 R 2nd ant toe -Time 15:08 14:58 14:39 -Correct Patient Yes Yes No -Correct Side, Site, Position Yes Yes No -Correct Procedure Yes Yes No -Procedure Performed Yes Yes No -Type of Procedure Debridement Debridement -Clinical Debridement Subcutaneous Selective -Post Debridement Size (cm) - Length 0.4 0.2 0.3 -Post Debridement Size (cm) - Width 0.7 0.1 0.8 -Post Debridement Size (cm) - Depth 0.1 0.1 0.1 -Total Square Cm 0.28 0.02 0.24 -Wound/Ulcer Outcome Not Healed Not Healed Not Healed -Ulcer Cleansing Rinsed/ Rinsed/ Rinsed/ Irrigated with Irrigated with Irrigated with Saline Saline Saline -Foul Odor after Cleansing No No No -Bioengineered Tissue No No -Topical Lidocaine (%) 4 4 -Bleeding Controlled with Pressure Pressure -Treatment Response Procedure Procedure Tolerated Well Tolerated Well Pain Scale: 0-10 Numeric Is Patient Pain Free? Yes Yes Yes No debridement was completed today - Very scant skin discontinuities superficially noted and no debridement was performed Assessment/Plan Active Problems (Last Reviewed 12/18/17 @ 07:59 by Carlos Manuel Gunn MD) Ulcer of right second toe, limited to breakdown of skin (Chronic) Delayed wound healing (Chronic) Malnutrition (Chronic) Ulcer of right foot with fat layer exposed (Chronic) Hammer toe of right foot (Chronic) Neuropathy (Chronic) Assessment: Dorsal right second toe ulcer with skin discontinuity, improving and no infection. Neuropathy. Hammertoe. Malnutrition. Delayed healing. Chronic leg edema. Walking difficulty Plan: I reviewed and discussed her case. No debridement was performed today due to improvement. To continue daily dressing changes with hydrogel and Adaptic. She was advised to changes every 2 days. She tries to offload her wound with a cut out to the top of her sneaker. She was reassured there are no clinical signs of infection today and she is recently progressing better. She was also recently seen by me at the foot and ankle center in which I will assist her with obtaining custom shoes, a rate Fabricio brace, and a left Sunitha brace for treatment of her painful bilateral lower extremity deformities and walking impairment. She has followed up as advised. To RTC 1 week or call sooner if problems. I answered all of her questions.
== END 2018-02-06 23:59 ==
LOC: WC 14:15
PROVIDERS: Family Provider Nurse Practitioner; PCP Nurse Practitioner; Visit Provider Podiatrist
DX: L97.512 Non-pressure chronic ulcer of other part of right foot with fat layer exposed (principal); R26.2 Difficulty in walking, not elsewhere classified; G62.9 Polyneuropathy, unspecified; R60.0 Localized edema; M79.89 Other specified soft tissue disorders; M20.40 Other hammer toe(s) (acquired), unspecified foot
CPT/HCPCS: 11042; 97597; 99212; 99213; G0463

== ENCOUNTER 2018-02-18 14:30 | Outpatient (RCR) | payer MEDICARE, OTHER, SELFPAY ==
[2018-02-07 00:48] VITALS: BP 151/64; PULSE 87; RESP 18; TEMP 36.9; BMI 128.8
[2018-02-11 14:37] VITALS: BP 157/56; PULSE 101; RESP 18; TEMP 36.1; BMI 128.8
--- NOTE | 2018-02-11 16:02 | PCM.WC.PN ---
(1) Ulcer of right second toe, limited to breakdown of skin Status: Chronic Current Visit: Yes Code(s): L97.511 - Non-pressure chronic ulcer of other part of right foot limited to breakdown of skin (2) Hammer toe of right foot Status: Chronic Current Visit: Yes Code(s): M20.41 - Other hammer toe(s) (acquired), right foot (3) Neuropathy Status: Chronic Current Visit: Yes Code(s): G62.9 - Polyneuropathy, unspecified Type of Wound Date of Service: 02/11/18 Chief Complaint: Right second toe ulcer History of Wound: This 78-year-old female with multiple comorbidities presents to the wound care center today with an ulcer to the right second toe. She has performed dressing changes as advised. She denies odor or pain at the wound site. She denies fever, chill, nausea, vomiting, loss of appetite. She has changed her dressing with hydrogel is advised. She thinks there is still some moisture. She did go to [facility] and was casted for left lower extremity ankle-foot orthotic and they are currently still making this. She was also advised to order extra deep stretchable shoe gear to accommodate this brace. She denies being casted or evaluated for the right lower extremity ankle-foot orthotic that was also ordered. Progress of Wound: Healed - Physical Exam Vital Signs Temp Pulse Resp BP 97.0 F L 101 H 18 157/56 H 02/11/18 14:37 02/11/18 14:37 02/11/18 14:37 02/11/18 14:37 General: Alert, Oriented x3, Cooperative Extremities: No cyanosis, Capillary Refill Less than 3 Seconds, No Calf Tenderness - negative christine and escamilla signs, Diminished Peripheral Pulses, Edema, - - Bilateral lower extremity deformity with progressive flatfoot Skin: Ulcer/ Wound - full epithelialization is noted. no purulence, no erythema, no infection is noted. I do not see any weeping or moisture or maceration at this time., - - Her skin is atrophic Wound Measurements and Assessment WC - Nurse 1 - General Ulcer Measurement Start: 02/11/18 14:36 Freq: Status: Active Protocol: Activity Type Activity Date Activity User E-Sign Co-Sign Detail Recorded Client Recorded Date Recorded By Document 02/11/18 14:37 [place] [id number] 02/11/18 14:40 [place] 02/11/18 14:37 Wound Center Nurse 1 [Ulcer Assessment] #2 R 2nd ant toe -Combined with other wound No -Current Size (cm) - Length 0.1 -Current Size (cm) - Width 0.6 -Current Size (cm) - Depth 0.1 -Total Square Cm 0.06 -Photo Taken No -Epithelialization Small 1-33% -Tunneling No -Undermining/Tunneling No -Circular Undermining No -Exudate Amt None Present (0 %) -Wound Margin Flat & Intact -Granulation Amt Large (67-100%) -Granulation Quality [place] Red -Slough/Fibrin No -Necrosis Amt None Present (0 %) -Texture (Sheyla-wound Skin Appearance) Assessed -Moisture (Sheyla-wound Skin Appearance Assessed ) -Color (Sheyla-wound Skin Appearance) Assessed -Temperature (Sheyla-wound Skin No Abnormality Appearance) (Pt Warm) -Tenderness on Palpation (Sheyla-wound No Skin Appearance) -Ulcer Cleansing Rinsed/ Irrigated with Saline -Foul Odor after Cleansing No -Anesthetic Used 4% Lidocaine Solution [Edema Assessment] -Right Calf (cm) 51.2 -Right Ankle (cm) 27.5 WC - Nurse 2 - General Ulcer CM Notes Start: 02/11/18 14:36 Freq: Status: Active Protocol: Activity Type Activity Date Activity User E-Sign Co-Sign Detail Recorded Client Recorded Date Recorded By Document 02/11/18 14:53 [id number] 02/11/18 15:00 02/11/18 14:53 Wound Center Nurse 2 [Procedure/Treatment] #2 R 2nd ant toe -Time 14:59 -Correct Patient Yes -Correct Side, Site, Position Yes -Correct Procedure Yes -Procedure Performed Yes -Post Debridement Size (cm) - Length 0 -Post Debridement Size (cm) - Width 0 -Post Debridement Size (cm) - Depth 0 -Total Square Cm 0 -Wound/Ulcer Outcome Healed- Epithelialized -Ulcer Cleansing Rinsed/ Irrigated with Saline -Foul Odor after Cleansing No -Bioengineered Tissue No -Topical Lidocaine (%) 4 -Bleeding Controlled with NA -Treatment Response Procedure Tolerated Well [See Physician Procedure note for Specifics] Pain Scale: 0-10 Numeric [Pain] -Is Patient Pain Free? Yes Neurological: - - Lack of normal epicritic sensation light touch bilateral lower extremities Psych/Mental Status: Normal Affect, Appropriate Debridement Note Post-Debridement Measurements/Treatment WC - Nurse 2 - General Ulcer CM Notes Start: 02/11/18 14:36 Freq: Status: Active Protocol: Activity Type Activity Date Activity User E-Sign Co-Sign Detail Recorded Client Recorded Date Recorded By Document 02/11/18 14:53 TM [id number] 02/11/18 15:00 TM 02/11/18 14:53 Wound Center Nurse 2 #2 R 2nd ant toe -Time 14:59 -Correct Patient Yes -Correct Side, Site, Position Yes -Correct Procedure Yes -Procedure Performed Yes -Post Debridement Size (cm) - Length 0 -Post Debridement Size (cm) - Width 0 -Post Debridement Size (cm) - Depth 0 -Total Square Cm 0 -Wound/Ulcer Outcome Healed- Epithelialized -Ulcer Cleansing Rinsed/ Irrigated with Saline -Foul Odor after Cleansing No -Bioengineered Tissue No -Topical Lidocaine (%) 4 -Bleeding Controlled with NA -Treatment Response Procedure Tolerated Well Pain Scale: 0-10 Numeric Is Patient Pain Free? Yes No debridement was completed today - The ulcer site has healed Assessment/Plan Active Problems (Last Reviewed 12/18/17 @ 07:59 by Carlos Manuel Gunn MD) Ulcer of right second toe, limited to breakdown of skin (Chronic) Hammer toe of right foot (Chronic) Neuropathy (Chronic) Assessment: Dorsal right second toe ulcer healed. Neuropathy. Hammertoe. Malnutrition. Delayed healing. Chronic leg edema. Walking difficulty Plan: I reviewed and discussed her case. No debridement was performed today due to improvement and full epithelialization is noted. She reports there is recent weeping and we will continue to protect the site where the skin remodel. It is okay to cover gently with a dry gauze. No additional wound care products are recommended at this time. It appears the ulcer site is healed today. To continue offloading until she follows up in 1 week to check this site. I also recommend she follows up at [facility] to obtain bilateral foot and ankle orthotics. It appears she is already been casted and started the process for the left lower extremity. I recommend she returns to follow-up for the right lower extremity. I answered all her questions. To monitor the foot daily for recurrence of ulcer or infection development.
[2018-02-18 14:39] VITALS: BP 149/67; PULSE 93; RESP 18; TEMP 36.7; BMI 128.8
--- NOTE | 2018-02-18 15:38 | PCM.WC.PN ---
(1) Ulcer of right second toe, limited to breakdown of skin Status: Resolved Current Visit: Yes Code(s): L97.511 - Non-pressure chronic ulcer of other part of right foot limited to breakdown of skin (2) Hammer toe of right foot Status: Chronic Current Visit: Yes Code(s): M20.41 - Other hammer toe(s) (acquired), right foot (3) Neuropathy Status: Chronic Current Visit: Yes Code(s): G62.9 - Polyneuropathy, unspecified Type of Wound Date of Service: 02/18/18 Chief Complaint: Right second toe ulcer History of Wound: This 78-year-old female with multiple comorbidities presents to the wound care center today with an ulcer to the right second toe. This site has not changed for over 2 weeks and she continues to wear silicone toe sleeve. She denies fever, chill, nausea, vomiting, loss of appetite. She started to get casted for her left lower extremity ankle-foot orthotic at [email or web address] and was also given a referral to get extra-depth shoes. She is waiting is scheduled to get casted for her right ankle foot orthotic at [email or web address] and has called once last week to follow-up on this. Progress of Wound: Remains healed - Physical Exam Vital Signs Temp Pulse Resp BP 98.0 F 93 18 149/67 H 02/18/18 14:39 02/18/18 14:39 02/18/18 14:39 02/18/18 14:39 General: Alert, Oriented x3, Cooperative Extremities: No cyanosis, Capillary Refill Less than 3 Seconds, No Calf Tenderness, Diminished Peripheral Pulses, Edema Skin: Ulcer/ Wound - Full epithelialization is noted in the ulcer site remains peripheral skin is atrophic and skin remodeling is noted at the recent ulcer site of the dorsal right second toe Wound Measurements and Assessment WC - Nurse 1 - General Ulcer Measurement Start: 02/11/18 14:36 Freq: Status: Active Protocol: Activity Type Activity Date Activity User E-Sign Co-Sign Detail Recorded Client Recorded Date Recorded By Document 02/18/18 14:39 [id number] 02/18/18 14:40 02/18/18 14:39 Wound Center Nurse 1 [Edema Assessment] -Lower Limb Edema Present NA WC - Nurse 2 - General Ulcer CM Notes Start: 02/11/18 14:36 Freq: Status: Active Protocol: Activity Type Activity Date Activity User E-Sign Co-Sign Detail Recorded Client Recorded Date Recorded By Document 02/18/18 14:43 [id number] 02/18/18 14:50 02/18/18 14:43 Pain Scale: 0-10 Numeric [Pain] -Is Patient Pain Free? Yes Musculoskeletal: No Tenderness to Palpation of Joints or Extremities, Muscle Wasting, - - Dorsal contraction of right second toe Neurological: - - Lack of epicritic sensation light touch noted Psych/Mental Status: Normal Affect, Appropriate Debridement Note Post-Debridement Measurements/Treatment WC - Nurse 2 - General Ulcer CM Notes Start: 02/11/18 14:36 Freq: Status: Active Protocol: Activity Type Activity Date Activity User E-Sign Co-Sign Detail Recorded Client Recorded Date Recorded By Document 02/11/18 14:53 [id number] 02/11/18 15:00 TM Document 02/18/18 14:43 [id number] 02/18/18 14:50 02/11/18 02/18/18 14:53 14:43 Wound Center Nurse 2 #2 R 2nd ant toe -Time 14:59 -Correct Patient Yes -Correct Side, Site, Position Yes -Correct Procedure Yes -Procedure Performed Yes -Post Debridement Size (cm) - Length 0 -Post Debridement Size (cm) - Width 0 -Post Debridement Size (cm) - Depth 0 -Total Square Cm 0 -Wound/Ulcer Outcome Healed- Epithelialized -Ulcer Cleansing Rinsed/ Irrigated with Saline -Foul Odor after Cleansing No -Bioengineered Tissue No -Topical Lidocaine (%) 4 -Bleeding Controlled with NA -Treatment Response Procedure Tolerated Well Pain Scale: 0-10 Numeric Is Patient Pain Free? Yes Yes No debridement was completed today - Because the ulcer site is healed Assessment/Plan Active Problems (Last Reviewed 12/18/17 @ 07:59 by Carlos Manuel Gunn MD) Hammer toe of right foot (Chronic) Neuropathy (Chronic) Assessment: Dorsal right second toe ulcer healed. Neuropathy. Hammertoe. Malnutrition. Delayed healing. Chronic leg edema. Walking difficulty Plan: I reviewed and discussed her case. No debridement was performed today due to improvement and full epithelialization is noted. She denies recent weeping and I recommended she does not apply any dressing. It is okay to apply silicone toe sleeve as long as it is not causing additional pressure on this friable site. No additional wound care products are recommended at this time. It appears the ulcer site has remained healed today. To continue offloading until with extra-depth shoes. I also recommend she follows up at [facility] to obtain bilateral foot and ankle orthotics. It appears she is already been casted and started the process for the left lower extremity. I recommend she returns to follow-up for the right lower extremity. She will be discharged from the wound healing center at this time. She is scheduled follow-up at the foot and ankle center for her other lower extremity treatments. I answered all her questions. To monitor the foot daily for recurrence of ulcer or infection development.
--- NOTE | 2018-02-18 15:42 | PN.PCM_ITS ---
(1) Ulcer of right second toe, limited to breakdown of skin Status: Resolved Current Visit: Yes Code(s): L97.511 - Non-pressure chronic ulcer of other part of right foot limited to breakdown of skin (2) Hammer toe of right foot Status: Chronic Current Visit: Yes Code(s): M20.41 - Other hammer toe(s) ( acquired), right foot (3) Neuropathy Status: Chronic Current Visit: Yes Code(s): G62.9 - Polyneuropathy, unspecified Type of Wound Date of Service: 02/18/18 Chief Complaint: Right second toe ulcer History of Wound: This 78-year-old female with multiple comorbidities presents to the wound care center today with an ulcer to the right second toe. This site has not changed for over 2 weeks and she continues to wear silicone toe sleeve. She denies fever, chill, nausea, vomiting, loss of appetite. She started to get casted for her left lower extremity ankle-foot orthotic at [facility] and was also given a referral to get extra-depth shoes. She is waiting is scheduled to get casted for her right ankle foot orthotic at [facility] and has called once last week to follow-up on this. Progress of Wound: Remains healed - Physical Exam Vital Signs Temp Pulse Resp BP 98.0 F 93 18 149/67 H 02/18/18 14:39 02/18/18 14:39 02/18/18 14:39 02/18/18 14:39 General: Alert, Oriented x3, Cooperative Extremities: No cyanosis, Capillary Refill Less than 3 Seconds, No Calf Tenderness, Diminished Peripheral Pulses, Edema Skin: Ulcer/ Wound - Full epithelialization is noted in the ulcer site remains peripheral skin is atrophic and skin remodeling is noted at the recent ulcer site of the dorsal right second toe Wound Measurements and Assessment WC - Nurse 1 - General Ulcer Measurement Start: 02/11/18 14:36 Freq: Status: Active Protocol: Activity Type Activity Date Activity User E-Sign Co-Sign Detail Recorded Client Recorded Date Recorded By Document 02/18/18 14:39 [id number] 02/18/18 14:40 02/18/18 14:39 Wound Center Nurse 1 [Edema Assessment] -Lower Limb Edema Present NA WC - Nurse 2 - General Ulcer CM Notes Start: 02/11/18 14:36 Freq: Status: Active Protocol: Activity Type Activity Date Activity User E-Sign Co-Sign Detail Recorded Client Recorded Date Recorded By Document 02/18/18 14:43 [id number] 02/18/18 14:50 02/18/18 14:43 Pain Scale: 0-10 Numeric [Pain] -Is Patient Pain Free? Yes Musculoskeletal: No Tenderness to Palpation of Joints or Extremities, Muscle Wasting, - - Dorsal contraction of right second toe Neurological: - - Lack of epicritic sensation light touch noted Psych/Mental Status: Normal Affect, Appropriate Debridement Note Post-Debridement Measurements/Treatment WC - Nurse 2 - General Ulcer CM Notes Start: 02/11/18 14:36 Freq: Status: Active Protocol: Activity Type Activity Date Activity User E-Sign Co-Sign Detail Recorded Client Recorded Date Recorded By Document 02/11/18 14:53 [id number] 02/11/18 15:00 TM Document 02/18/18 14:43 [id number] 02/18/18 14:50 02/11/18 02/18/18 14:53 14:43 Wound Center Nurse 2 #2 R 2nd ant toe -Time 14:59 -Correct Patient Yes -Correct Side, Site, Position Yes -Correct Procedure Yes -Procedure Performed Yes -Post Debridement Size (cm) - Length 0 -Post Debridement Size (cm) - Width 0 -Post Debridement Size (cm) - Depth 0 -Total Square Cm 0 -Wound/Ulcer Outcome Healed- Epithelialized -Ulcer Cleansing Rinsed/ Irrigated with Saline -Foul Odor after Cleansing No -Bioengineered Tissue No -Topical Lidocaine (%) 4 -Bleeding Controlled with NA -Treatment Response Procedure Tolerated Well Pain Scale: 0-10 Numeric Is Patient Pain Free? Yes Yes No debridement was completed today - Because the ulcer site is healed Assessment/Plan Active Problems (Last Reviewed 12/18/17 @ 07:59 by Carlos Manuel Gunn MD) Hammer toe of right foot (Chronic) Neuropathy (Chronic) Assessment: Dorsal right second toe ulcer healed. Neuropathy. Hammertoe. Malnutrition. Delayed healing. Chronic leg edema. Walking difficulty Plan: I reviewed and discussed her case. No debridement was performed today due to improvement and full epithelialization is noted. She denies recent weeping and I recommended she does not apply any dressing. It is okay to apply silicone toe sleeve as long as it is not causing additional pressure on this friable site. No additional wound care products are recommended at this time. It appears the ulcer site has remained healed today. To continue offloading until with extra-depth shoes. I also recommend she follows up at [facility] to obtain bilateral foot and ankle orthotics. It appears she is already been casted and started the process for the left lower extremity. I recommend she returns to follow-up for the right lower extremity. She will be discharged from the wound healing center at this time. She is scheduled follow-up at the foot and ankle center for her other lower extremity treatments. I answered all her questions. To monitor the foot daily for recurrence of ulcer or infection development.
== END 2018-03-08 23:59 ==
LOC: WC 14:30
PROVIDERS: Family Provider Nurse Practitioner; PCP Nurse Practitioner; Visit Provider Podiatrist
DX: Z09 Encounter for follow-up examination after completed treatment for conditions other than malignant neoplasm (principal); M20.41 Other hammer toe(s) (acquired), right foot; G62.9 Polyneuropathy, unspecified; R60.0 Localized edema
CPT/HCPCS: 99212; 99213; G0463

== ENCOUNTER → 2018-04-28 12:33 | Outpatient (CLI) | payer MEDICARE, OTHER, SELFPAY ==
[2018-03-09 00:41] VITALS: BMI 128.8
--- NOTE | 2018-04-28 12:39 | BI_ITS ---
MAMMOGRAPHY - BILATERAL SCREENING REASON FOR EXAM: Female, 78 years old. Routine annual screening examination. PERTINENT HISTORY: Non-contributory. TECHNIQUE: Digital bilateral breast bonnie (3D mammographic acquisition) in the CC and MLO projections. 2-D mediolateral oblique (MLO) and craniocaudad (CC) views of both breasts were obtained. CAD: Full Field Digital Mammography with Computer Added Detection was performed. COMPARISON: Comparison is made with prior study dated April 26, 2017 and April 17, 2016. FINDINGS: Breast Composition: There are scattered areas of fibroglandular density. There are no dominant masses or suspicious calcifications. No other significant abnormalities are identified. There has been no significant change since the prior study. BI/SCREENING MAMM (CAD), BILAT IMPRESSION: Stable bilateral screening mammogram. Yearly follow-up mammogram recommended. (A) ASSESSMENT CATEGORY: BIRADS Category 1: Negative. A letter regarding these results will be sent to the patient by the facility within 30 days. Approximately 10% of breast cancers are not detected by mammography. A normal mammogram should not delay biopsy of a clinically suspicious abnormality. [id number] Electronically Signed: Hi Naranjo MD at 8:12 EST Tel [phone], Service support ,
--- NOTE | 2018-04-28 12:40 | BD_ITS ---
STUDY: DUAL ENERGY X-RAY ABSORPTIOMETRY / DXA REASON FOR EXAM: Female, 78 years old. The patient is postmenopausal. Loss of height. TECHNIQUE: Bone Mineral Density (BMD) measurements of lumbar spine and left hip were obtained. The patient is status post right hip replacement. COMPARISON: Comparison is made with prior study dated September 19, 2009. FINDINGS: Lumbar Spine (L1-L4): g/cm2 (1.326) / T-score (1.0) / Z-score (2.9) Findings are suggestive of normal bone density with a low fracture risk. Left Femur Total: g/cm2 (0.833) / T-score (-1.4) / Z-score (0.5) Left Femoral Neck: g/cm2 (0.820) / T-score (-1.6) / Z-score (0.5) The T-Scores on the most recent prior examination were: Lumbar Spine (L1-L4): There has been worsening of bone density since the previous examination. Left Femur Total: which represents a worsening of 17%. BD/Dexa Bone Density Study IMPRESSION: The patient is considered osteopenic as outlined below according to World [employer] Organization (WHO) criteria with a moderate fracture risk. There has been worsening of bone density since the previous examination. Reference Information: The T-score is the number of standard deviations above or below the standard which is normal for young adults at their peak bone mineral density. The World Health Organization (WHO) interprets the T-scores as follows: Above -1 Normal bone density Between -1 and -2.5 Osteopenia Equal to / or below -2.5 Osteoporosis As a practical clinical guideline, osteopenia may be graded as follows: Mild -1 through -1.5 Moderate -1.6 through -2.0 Severe -2.1 through -2.4 The Z-score is the number of standard deviations above or below age-matched controls. A Z-score of less than -1.5 would be considered abnormal. References: 1. NIH Osteoporosis and Related Bone Diseases http://www.osteo.org 2. International Society for Clinical Densitometry http://www.iscd.org 3. National Osteoporosis Foundation http://www.nof.org Electronically Signed: Hi Naranjo MD at 15:02 EST Tel [phone], Service support ,
== END ==
PROVIDERS: Family Provider Nurse Practitioner; PCP Nurse Practitioner; Visit Provider Nurse Practitioner
DX: Z78.0 Asymptomatic menopausal state (principal); Z12.31 Encounter for screening mammogram for malignant neoplasm of breast
CPT/HCPCS: 77063; 77067; 77080

== ENCOUNTER → 2018-06-10 14:10 | Outpatient (CLI) | payer MEDICARE, OTHER, SELFPAY ==
[2018-06-04 16:35] VITALS: BMI 61.2
--- NOTE | 2018-06-10 14:14 | US_ITS ---
STUDY: RENAL ULTRASOUND - COMPLETE REASON FOR EXAM: Female, 78 years old. Recurrent urinary tract infections. TECHNIQUE: Ultrasound evaluation of the kidneys was performed with real-time and static spear-scale imaging. COMPARISON: CT abdomen and pelvis 04/24/2016, ultrasound abdomen 09/04/2016, 09/20/2017. FINDINGS: RIGHT KIDNEY: 9.5 x 5.7 x 5.3 cm, normal cortical thickness and echotexture 1.5 cm, with no mass, cyst, calculus or hydronephrosis. LEFT KIDNEY: 9.6 x 4.9 x 5.9 cm, normal cortical thickness and echotexture 1.6 cm, with no mass, cyst, calculus or hydronephrosis. BLADDER: Bilateral ureteral jets are visible. Urinary bladder appears normal in caliber, contour and wall thickness, maximum wall thickness 3 mm. Distended volume 72 mL. US/Kidney and Bladder IMPRESSION: Normal ultrasound of the kidneys and urinary bladder. Electronically Signed: Severiano Overton MD at 15:25 EST Tel , Service support ,
== END ==
PROVIDERS: Family Provider Nurse Practitioner; PCP Nurse Practitioner; Referring Provider Urology; Visit Provider Urology
DX: N39.0 Urinary tract infection, site not specified (principal)
CPT/HCPCS: 76770

== ENCOUNTER 2019-02-24 08:48 | Day surgery (SDC) | payer MEDICARE, OTHER, SELFPAY ==
[2019-02-12 13:06] VITALS: BMI 61.2
--- NOTE | 2019-02-13 12:38 | HP_ITS ---
Intake Vital Signs 02/12/19 Body Mass Index (BMI) 61.2 02/12/19 Height 4 ft 11 in 02/12/19 Weight: 258 lb 3 oz 02/12/19 Body Mass Index (BMI) 52.1 02/12/19 Blood Pressure 163/73 H 02/12/19 Blood Pressure Location Rt brachial 02/12/19 Blood Pressure Position Sitting 02/12/19 Respiratory Rate 20 H 02/12/19 Pulse Rate 75 02/12/19 Pulse Ox 95 Intake Visit Reasons: EGD/[facility] 2YRS AGO Chief Complaint: post EGD Reformatory Attendant Required: No Is patient in pain?: No Allergies latex Allergy (Verified 12/17/17 14:25) Rash bupropion [From Wellbutrin] Adverse Reaction (Severe, Verified 12/17/17 14:25) Shakiness & lightheadedness ciprofloxacin Adverse Reaction (Verified 12/17/17 14:25) Diarrhea levofloxacin [From Levaquin] Adverse Reaction (Verified 12/17/17 14:25) Diarrhea Medications Biotin 5,000 mcg PO DAILY 04/18/14 [History Confirmed 02/12/19] Levothyroxine Sodium [Levoxyl] 75 mcg PO [id number] 04/18/14 [History Confirmed 02/12/19] Omeprazole [Prilosec] 40 mg PO DAILY 04/18/14 [History Confirmed 02/12/19] Calcium Carb/Mag Ox/Zinc Sulf [Fipnhgd-Xwiabwvom-Kink Tablet] 1 ea PO DAILY 05/09/16 [History Confirmed 02/12/19] Gabapentin [Neurontin] 300 mg PO QHS 05/09/16 [History Confirmed 02/12/19] Propranolol HCl [Inderal (Beta Lynnette)] 20 mg PO BID 05/09/16 [History Confirmed 02/12/19] L.acidoph,Paracasei, B.lactis [Probiotic] 1 ea PO DAILY 08/15/16 [History Confirmed 02/12/19] Cholecalciferol (Vitamin D3) [Vitamin D3] 2,000 unit PO DAILY 02/13/17 [History Confirmed 02/12/19] Duloxetine Hcl [Cymbalta] 120 mg PO DAILY 02/13/17 [History Confirmed 02/12/19] Meloxicam 15 mg PO DAILY 02/13/17 [History Confirmed 02/12/19] melatonin 5 mg capsule mg PO 07/18/17 [History Confirmed 02/12/19] potassium 99 mg tablet 99 mg PO QDAY 07/18/17 [History Confirmed 02/12/19] amlodipine 5 mg tablet 5 mg PO QDAY 12/17/17 [History Confirmed 02/12/19] furosemide 40 mg tablet 40 mg PO QDAY #90 tab 06/25/18 [Rx Confirmed 02/12/19] losartan 100 mg tablet 100 mg PO DAILY #90 tab 09/29/18 [Rx Confirmed 02/12/19] Is last menstrual period known: No Post menopausal: Yes Patient : No PFSH Medical History Hyperlipidemia (Chronic) Essential (primary) hypertension (Chronic) Ulcer of right second toe, limited to breakdown of skin (Resolved) Delayed wound healing (Chronic) Osteomyelitis (Suspected) History of flexible sigmoidoscopy (Acute ~2007) Anxiety (Chronic) Bipolar disorder (Chronic) Congenital coronary artery anomaly (Chronic) Diverticulosis (Chronic) GERD (gastroesophageal reflux disease) (Chronic) Hammer toe of right foot (Chronic) Hypothyroidism (Chronic) IBS (irritable bowel syndrome) (Chronic) Insomnia (Chronic) Neuropathic pain (Chronic) Obesity (Chronic) Obstructive sleep apnea (Chronic) Osteoarthritis of right hip (Chronic) Posterior tibialis muscle dysfunction (Chronic) Renal insufficiency (Chronic) Sciatica (Chronic) Vitamin D deficiency (Chronic) Walking difficulty due to ankle and foot (Chronic) Palpitations (Resolved) Postoperative anemia (Resolved) Mitral valve prolapse (Ruled-out) Surgical History History of cardiac catheterization (Acute ~2008) History of carpal tunnel release (Acute ~2006) History of esophagogastroduodenoscopy (EGD) (Acute ~2016) History of suburethral sling procedure (Acute ~2015) History of total hysterectomy (Acute ~2015) S/P colonoscopy (Suspected) History of esophagogastroduodenoscopy (EGD) (Resolved ~05/04/08) History of total right hip replacement (Resolved ~05/2016) S/P shoulder replacement (Resolved) Status post knee replacement (Resolved) Family History Father Aortic aneurysm Cancer lymphoma Mother CVA (cerebral vascular accident) Dementia Aunt Colon cancer Social History (Updated 02/13/19 @ 12:38 by Carlos Manuel Gunn MD) Smoking Status: Former smoker how long ago did patient quit smokin alcohol intake: never substance use type: does not use caffeine: Yes Type: coffee what type of physical activity do you participate in: none seatbelt use: never do you feel safe at home: Yes HPI HPI HPI: SERA MARK, is a 79 F who presents to the office today for HPI HPI Surgical H&P: Yes HPI: SERA MARK, is a 79 F who presents to the office today for Evaluation for endoscopy. Patient has a history of Headley's esophagus this was done in 2017 where she was noted to have a rather long segment that looked abnormal this was biopsied but did not show any signs of intestinal metaplasia. Unfortunately I do not know the number of biopsies that were performed. She also had a colonoscopy in 2014 and was noted to have a 5 mm polyp of the rectum. She has been having some nausea and she is also been noting some diarrhea. And this is been happening with increasing frequency when she eats. In addition she is having significant amount of right-sided discomfort. ROS General General: Yes fatigue; no weight change, appetite, colon cancer, breast cancer or weakness HEENT HEENT: No difficulty swallowing, eye injury, eye surgery, swollen glands or hoarseness Endo Endocrine: Yes thyroid disease; no diabetes mellitus, thyroid cancer, Hair loss, heat intolerance or cold intolerance Cardio Cardiovascular: No murmur, pacemaker, heart disease, atrial fibrillation, high blood pressure, heart attack, heart stent, palpitations, shortness of breat with exertion or chest pain Psych Psychiatric: Yes depression; no anxiety or hearing voices Resp Respiratory: Yes shortness of breath, Yes sleep apnea, No cough, No COPD, No asthma, No emphysema, No wheezing Gastro Gastrointestinal: No abdominal pain, No nausea or vomiting, Yes diarrhea, Yes constipation, No blood in stool, Yes acid reflux, No hemorrhoids, No ulcers, No gallbladder problem, No black,tarry stools Neuro Neurologic: No weakness Exam Const General: no acute distress, well developed, well hydrated Orientation: oriented to person, oriented to place, oriented to time [facility] Head: normocephalic, atraumatic Ears: external ears normal Mouth: moist mucous membranes Eyes Sclera: sclerae normal Pupils: normal by confrontation Neck Neck: no lymphadenopathy noted Neck mass: No Thyroid: thyroid normal, symmetrical Chest Chest palpation & inspection: normal inspection of the chest Resp Effort & Inspection: normal respiratory effort Auscultation: clear to auscultation bilaterally Percussion: percussion normal Cardio Rate: regular rate Rhythm: regular rhythm Heart Sounds: no murmurs GI Inspection: obesity Palpation: soft, no hepatosplenomegaly, no masses, tender (Right side of abdomen) Rectal Exam: other Other: Rectal exam deferred. Extrem General: normal to inspection, no clubbing, cyanosis or edema Assessment & Plan Problems 1. History of Headley's esophagus Z87. 2. Right sided abdominal pain R10.9 3. Diarrhea, unspecified type R19.7 Plan I have discussed the above with the patient. I have offered the patient colonoscopy As well as an EGDfor evaluation. I have explained the risks/benefits of the procedure and described the procedure. I have discussed the risks with the patient, including but not limited to: infection, bleeding, perforation of the GI tract requiring emergency surgery, inability to complete the procedure, injury to any internal organs, complications of anesthesia, etc. - the patient understands and agrees to proceed. I have answered all the patient's questions to the patient's satisfaction and the patient has no further questions. The patient has been given instructions for the colon cleansing preparation. We will be doing random colon biopsies Orders Orders: EGD 02/12/19 Coding Level of Care Code Off vis,new,level 3 Diagnoses History of Headley's esophagus Z87.19 Right sided abdominal pain R10.9 Diarrhea, unspecified type R19.7 ??Diarrhea type: unspecified type 02/13/19 1238 <Electronically signed by Carlos Manuel jensen MD> Date _ Carlos Manuel Gunn MD I have re-examined the patient. There are no clinical changes since date of exam.
[2019-02-16 12:59] VITALS: BMI 51.0
[2019-02-24] VITALS (9 sets, daily range): BP systolic 99–134; BP diastolic 52–100; PULSE 68–80; RESP 16; TEMP 36.1–36.5; O2SAT 92–98; BMI 52.5
--- NOTE | 2019-02-24 09:45 | COLBX_PTH ---
PATIENT: SERA MARK LOC: EN U#:[id number] AGE/SX: 79/F ROOM: RE02/24/[address]: Dr. Carlos Manuel Gunn MD : 1940 BED: DIS: 02/24/2019 SPEC #: [id number] RECD: 02/24/19 10:45 STATUS: WILFRID MEKHI #: [id number] VIET: 02/24/19 09:[address]: Carlos Manuel Gunn DEPT: SURGICAL PATHOLOGY RECD BY: Stephen Calzada ENTERED: 02/24/19 11:31 SP TYPE: COLON BX OTHR DR: Millie Cabrera, TIRE BUFFER-C Tissues: A - Gastric mucous membrane B - COLON BIOPSY Procedures: Trichrome (control) Special Stain Group II Surgery Specimen Level IV HEADER OPERATION: [place] [place] DIAGNOSIS: History of Headley's, abdominal pain, diarrhea TISSUE SUBMITTED: A. Antral biopsy for H. pylori and pathology, B. Random colon biopsies MICROSCOPIC DIAGNOSIS A. Antral biopsy: Moderate gastritis. See microscopic description and comment. B. Colon, random biopsy: Fragments of colonic mucosa, no pathologic diagnosis. See comment. SJ:leticia 02/25/19 COMMENT A. The results of immunohistochemistry for Helicobacter pylori will be reported separately ([id number]). B. Trichrome stain with matched control is used in the evaluation of this specimen and does not reveal any significant thickening of subepithelial collagen band. MICROSCOPIC DESCRIPTION Slides are reviewed. A. The specimen shows fragments of gastric mucosa with chronic inflammatory cell infiltrates in the lamina propria consisting of lymphocytes and plasma cells, consistent with moderate chronic gastritis. A minute lymphoid aggregate is also noted, favor benign. GROSS DESCRIPTION A - Received in fixative is one container labeled with the patient's name and designated antral biopsy. The specimen consists of one irregular fragment of light gibbs soft tissue that measures 0.4 x 0.3 x 0.1 cm. The specimen is totally submitted in one cassette. B - Received in fixative is one container labeled with the patient's name and designated random colon biopsy. The specimen consists of multiple irregular fragments of light gibbs soft tissue that in aggregate measure 2 x 0.5 x 0.1 cm. The specimen is totally submitted in one cassette. / MARIBEL:leticia 02/24/19 TC:3 CPT: 30440 x2, 99632
--- NOTE | 2019-02-24 09:45 | IMM_PTH ---
PATIENT: SERA MARK LOC: EN U#:[id number] AGE/SX: 79/F ROOM: RE02/24/[address]: Dr. Carlos Manuel Gunn MD : 1940 BED: DIS: 02/24/2019 SPEC #: [id number] RECD: 02/24/19 12:51 STATUS: RONNYPrasanna REGregoria #: [id number] VIET: 02/24/19 09:[address]: Carlos Manuel Gunn DEPT: IMMUNOHISTOCHEMISTRY RECD BY: Ghislaine Glasgow ENTERED: 02/24/19 12:52 SP TYPE: IMMUNO OTHR DR: Millie Cabrera, APARTMENT COMMUNITY MANAGER-Danis Tissues: A - Stomach, NOS Procedures: H Pylori (initial) PHYSICIAN & INSTITUTION [place] [address] SPECIMEN INFORMATION: Tissue Source: A - Antral biopsy Clinical Info: History of Headley's; abdominal pain; diarrhea Specimen Number: [id number] CPT code: 02260 METHODOLOGY: Deparaffinized sections of prefer/formalin-fixed tissue or PAP/DQ stained slides are incubated with monoclonal/polyclonal antibodies/oligonucleotide probes. Localization is made via biotin free immunoperoxidase method. Appropriate controls are performed and reacted as expected. Results on target cell population are indicated in the following table: RESULTS: ANTIBODY / CLONE RESULT Block A H Pylori (polyclonal) negative These tests were developed and their performance characteristics determined by [facility]. They may not have been cleared or approved by the U.S. Food and Drug Administration. The FDA has determined that such clearance or approval is not necessary. INTERPRETATION: A. Antral biopsy: Negative for Helicobacter pylori organisms. SJ:leticia 02/25/19
--- NOTE | 2019-02-24 10:25 | OP.ENDO_ITS ---
02/24/2019 Millie Cabrera, HAY [address] [place] [address] Re : Upper GI endoscopy procedure for Leeann Johnson Dear Ms. Cabrera This procedure was performed on Sunday, February 24, 2019. My impressions and recommendations are as follows: Impressions : - Normal esophagus. No specimens collected. - Erythematous mucosa in the prepyloric region of the stomach. Biopsied. - Normal examined duodenum. No specimens collected. Recommendations : - Discharge patient to home. - Resume previous diet. - Continue present medications. - Await pathology results. - Repeat upper endoscopy at appointment to be scheduled for surveillance. - Return to my office in 1 week. My findings are described in the full procedure note, which is enclosed. If I can be of further assistance, please feel free to contact me at Doctor phone number(s): , Fax: [phone], Work: . Sincerely, MD Carlos Manuel Kenney MD 02/24/2019 10:24:26 AM This report has been signed electronically.
--- NOTE | 2019-02-24 10:27 | OP.ENDO_ITS ---
02/24/2019 Millie Cabrera, HAY [address] [place] [address] Re : Colonoscopy procedure for Leeann Johnson Dear Ms. Cabrera This procedure was performed on Sunday, February 24, 2019. My impressions and recommendations are as follows: Impressions : - The entire examined colon is normal. - The entire examined colon is normal. Random colon biopsies were performed. - The examination was otherwise normal. Recommendations : - Discharge patient to home. - Resume previous diet. - Continue present medications. - Await pathology results. - Repeat colonoscopy in 10 years for screening purposes. - Return to my office in 1 week. My findings are described in the full procedure note, which is enclosed. If I can be of further assistance, please feel free to contact me at Doctor phone number(s): , Fax: [phone], Work: . Sincerely, MD Carlos Manuel Kenney MD 02/24/2019 10:27:41 AM This report has been signed electronically.
== END 2019-02-24 11:48 | disposition home or self-care (01) ==
LOC: EN 08:49 → AC 08:51
PROVIDERS: Family Provider Nurse Practitioner; PCP Nurse Practitioner; Referring Provider Nurse Practitioner; Visit Provider Surgery
PROC: 0DJD8ZZ Inspection of Lower Intestinal Tract, Via Natural or Artificial Opening Endoscopic (ICD-10-PCS; CPT 45378; principal; 2019-02-24 09:40)
DX: K22.70 Barrett's esophagus without dysplasia (principal); K29.70 Gastritis, unspecified, without bleeding; Z86.010 Personal history of colon polyps; R10.9 Unspecified abdominal pain; K21.9 Gastro-esophageal reflux disease without esophagitis; F32.9 Major depressive disorder, single episode, unspecified; F41.9 Anxiety disorder, unspecified; I10 Essential (primary) hypertension; E78.5 Hyperlipidemia, unspecified; E03.9 Hypothyroidism, unspecified; G47.33 Obstructive sleep apnea (adult) (pediatric); E55.9 Vitamin D deficiency, unspecified; K58.0 Irritable bowel syndrome with diarrhea; E66.9 Obesity, unspecified; Z68.44 Body mass index [BMI] 60.0-69.9, adult; Z79.899 Other long term (current) drug therapy; Z87.891 Personal history of nicotine dependence
CPT/HCPCS: 43239; 45380; 88305; 88313; 88342; J7120; J1610

== ENCOUNTER → 2019-04-13 10:25 | Outpatient (CLI) | payer MEDICARE, OTHER, SELFPAY ==
[2019-04-13 07:47] VITALS: BMI 52.4
[2019-04-13 11:32] LABS: Absolute Lymphocyte Count 1.26 X10^3/uL (0.83-4.51); Absolute Neutrophil Count 2.8 X10^3/uL (2.0-7.7); Basophil# 0.04 X10^3/uL; Basophil% 0.8 % (0-1); Eosinophil# 0.09 X10^3/uL; Eosinophils% 1.9 % (0-5); Hematocrit 39.6 % (37-47); Hemoglobin 12.4 g/dL (12.0-15.0); Lymphocyte # 1.26 X10^3/ul (4.0); Lymphocyte % 26.3 % (19-41); Mean Corp Hgb Conc 31.3 g/dL (32-36); Mean Corpuscular Hgb 30.2 pg (27.0-32.0); Mean Corpuscular Volume 96.6 fL (81-99); Mean Platelet Vol. 11.6 fl (6.2-12.0); Monocyte# 0.55 X10^3/uL; Monocyte% 11.5 % (0-10); NRBC Flagged by Analyzer 0 % (0-5); Neutrophil # 2.84 X10^3/uL (2.7-7.7); Neutrophil % 59.1 % (47-70); Platelet Count 203 K/mm3 (150-450); RBC Distribution Width CV 13.3 % (11.6-14.6); RBC Distribution Width SD 47.7 fl (35.1-43.9); White Blood Count 4.8 K/mm3 (4.4-11.0)
[2019-04-13 12:00] LABS: AST(SGOT) 25 U/L (15-37); Alanine Aminotransfer ALT/SGPT 27 U/L (13-56); Albumin, Serum 3.6 g/dL (3.2-5.0); Alkaline Phosphatase 123 U/L (45-117); Anion Gap 7 (5-15); BUN 25 mg/dL (7-18); BUN/Creat Ratio 19.2 RATIO (10-20); Bilirubin, Direct 0.13 mg/dL (0.00-0.30); Calcium,Total 9.3 mg/dL (8.5-10.1); Chloride 108 mmol/L (98-107); Cholesterol 169 mg/dL (200); EST Glomerular Filtration Rate 42 mL/min (>60); Est Glom Filt Rate - Afr Amer 51 mL/min (>60); Glucose 74 mg/dL (74-106); High Density Lipoprotein 70 mg/dL; Potassium 4.1 mmol/L (3.5-5.1); Protein, Total 7.6 g/dL (6.4-8.2); Sodium Level 145 mmol/L (136-145); Thyroid Stim Hormone (TSH) 1.14 uIU/mL (0.358-3.74); Triglycerides 95 mg/dL; Very Low Density Lipoprotein 19 mg/dL (5-40)
[2019-04-13 12:04] LABS: BNP,B-Type NATRIURETIC PEPTIDE 68.1 pg/mL (0-100)
== END ==
PROVIDERS: Family Provider Internal Medicine; PCP Internal Medicine; Referring Provider Internal Medicine Cardiovascular Disease; Visit Provider Internal Medicine Cardiovascular Disease
DX: E78.5 Hyperlipidemia, unspecified (principal); I10 Essential (primary) hypertension
CPT/HCPCS: 36415; 80048; 80061; 80076; 83880; 84436; 84443; 85025

== ENCOUNTER → 2019-05-07 07:04 | Outpatient (CLI) | payer MEDICARE, OTHER, SELFPAY ==
[2019-04-13 07:47] VITALS: BMI 52.4
--- NOTE | 2019-05-07 10:07 | STRESSREP ---
Stress Test Report Pharmacologic myocardial perfusion stress test. 79-year-old lady with history of hypertension and diastolic dysfunction as well as shortness of breath. Stress protocol: Resting EKG demonstrates normal sinus rhythm with a rate of 81 bpm normal intervals are noted resting blood pressures 142/70 mmHg. 0.4 mg of regadenoson was infused per usual protocol followed by rapid intravenous saline flush injection continuous EKG monitoring was performed. Maximum heart rate attained was 94 bpm which was 66% of maximum predicted heart rate the maximum workload was 1 metabolic equivalent. At rest nonspecific ST-T wave changes were noted at peak infusion nonspecific ST-T wave changes were noted. The resting blood pressures 142/70 final blood pressures 140/60 mmHg. Myocardial perfusion protocol. 15.0 mCi of technetium 99m sestamibi was injected at rest. 0.4 mg of regadenoson was infused per usual protocol peak infusion 45.0 mCi of technetium 99m sestamibi was injected stress images were obtained stress and rest images were reconstructed and compared in the short axis vertical and horizontal long axis. Gated images also obtained Perfusion SPECT analysis: Review of the stress images demonstrate normal uptake of tracer noted in all rest myocardium the rest images similar demonstrate normal uptake of tracer noted in all areas of myocardium. There is significant GI attenuation artifact however noted and diaphragmatic attenuation cannot be completely excluded. Conclusion Probably normal pharmacologic myocardial perfusion stress test. Inferior GI attenuation artifact noted. Preserved ejection fraction.
== END ==
PROVIDERS: Family Provider Internal Medicine; PCP Internal Medicine; Referring Provider Internal Medicine Cardiovascular Disease; Visit Provider Internal Medicine Cardiovascular Disease
DX: R06.09 Other forms of dyspnea (principal)
CPT/HCPCS: 78452; 93017; A9500; A4216; J2785

== ENCOUNTER → 2019-05-31 11:59 | Outpatient (CLI) | payer MEDICARE, OTHER, SELFPAY ==
[2019-04-13 07:47] VITALS: BMI 52.4
--- NOTE | 2019-05-31 12:01 | BI_ITS ---
MAMMOGRAPHY - BILATERAL SCREENING 3-D TOMOSYNTHESIS REASON FOR EXAM: Female, 79 years old. NO FM HX , RT STEREO BX 2000, BILAT MOLES MARKED, BILAT LTD SHOULDER ROM PERTINENT HISTORY: No significant family history. TECHNIQUE: 2-D mammograms and 3-D Tomosynthesis of the breast (s) were performed. CAD was performed. COMPARISON: 04/28/2018, 04/26/2017 FINDINGS: The breast composition is composed of scattered fibroglandular density. A focal prominence is noted on the right side in the retroareolar region measuring about up to 1.4 cm, with overall increase in prominence since prior in the CC and also MLO projections. Further assessment with spot compression mammogram and if persistent with sonogram is recommended as follow-up. Scattered benign calcifications are seen. No other focus of dense spiculated masses or suspicious microcalcifications are identified. No architectural distortion is identified. There is no skin thickening or retraction. BI/SCREEN MAMM (CAD) W/YANELIS BILAT IMPRESSION: A focal prominence is noted on the right side in the retroareolar region measuring about up to 1.4 cm, with overall increase in prominence since prior in the CC and also MLO projections. Further assessment with spot compression mammogram and if persistent with sonogram is recommended as follow-up. ASSESSMENT CATEGORY: BIRADS Category 0: Incomplete. Need additional imaging evaluation as above. A letter regarding these results will be sent to the patient by the facility within 30 days. FOLLOW UP RECOMMENDATION: Additional imaging recommended as above. (E) Approximately 10% of breast cancers are not detected by mammography. A normal mammogram should not delay biopsy of a clinically suspicious abnormality. Electronically Signed: Catarino Hodges MD at 13:18 EST Tel [phone], Service support ,
== END ==
PROVIDERS: Family Provider Internal Medicine; PCP Internal Medicine; Referring Provider Internal Medicine; Visit Provider Internal Medicine
DX: Z12.31 Encounter for screening mammogram for malignant neoplasm of breast (principal)
CPT/HCPCS: 77063; 77067

== ENCOUNTER → 2019-06-11 14:10 | Outpatient (CLI) | payer MEDICARE, OTHER, SELFPAY ==
[2019-04-13 07:47] VITALS: BMI 52.4
--- NOTE | 2019-06-11 14:17 | BI_ITS ---
MAMMOGRAPHY - UNILATERAL SCREENING: RIGHT BREAST REASON FOR EXAM: Female, 79 years old. Routine annual screening examination (unilateral). PERTINENT HISTORY: Abnormal screening mammogram. TECHNIQUE: Compression spot views of the right breast in the mediolateral oblique and craniocaudad views were obtained. CAD: Full Field Digital Mammography with Computer Added Detection was performed. COMPARISON: Comparison is made with prior examination dated May 31, 2019. FINDINGS: Breast Composition: There are scattered areas of fibroglandular density. There are no dominant masses or suspicious calcifications. No definite nodule is seen at this time. No other significant abnormalities are identified. BI/DIAG MAMM W/CAD, UNILAT IMPRESSION: Stable unilateral screening mammogram. Targeted ultrasound of the right breast is recommended for further evaluation. ASSESSMENT CATEGORY: BIRADS Category 0: Incomplete. Need additional imaging evaluation. A letter regarding these results will be sent to the patient by the facility within 30 days. Approximately 10% of breast cancers are not detected by mammography. A normal mammogram should not delay biopsy of a clinically suspicious abnormality. [id number] Electronically Signed: Hi Naranjo, at 12:53 EST , Service support ,
--- NOTE | 2019-06-11 14:17 | US_ITS ---
STUDY: ULTRASOUND BREAST - RIGHT REASON FOR EXAM: Female, 79 years old. Abnormal screening mammogram. TECHNIQUE: Axial and longitudinal images of the RIGHT breast were performed with a high resolution ultrasound transducer. # OF IMAGES: 34 COMPARISON: Comparison made with prior mammogram dated May 31, 2019. FINDINGS: RIGHT Breast: The mammographic abnormality corresponds to a 4 mm x 4 mm x 3 mm hypoechoic nodule with the focal peripheral calcification. US/Breast Limited Unilateral IMPRESSION: 4 mm x 4 mm x 3 mm hypoechoic nodule with focal peripheral calcification suggestive of a fibroadenoma. ASSESSMENT CATEGORY: BIRADS Category 2: Benign. A letter regarding these results will be sent to the patient by the facility within 30 days. Electronically Signed: Hi Naranjo, at 10:57 EST , Service support ,
== END ==
PROVIDERS: Family Provider Internal Medicine; PCP Internal Medicine; Referring Provider Internal Medicine; Visit Provider Internal Medicine
DX: N63.10 Unspecified lump in the right breast, unspecified quadrant (principal)
CPT/HCPCS: 76642; 77065

== ENCOUNTER 2019-08-18 11:30 | Outpatient (RCR) | payer MEDICARE, OTHER, SELFPAY ==
[2019-04-13 07:47] VITALS: BMI 52.4
--- NOTE | 2019-06-21 15:16 | HP.PTEVAL_ITS ---
Patient's Visit Information SERA MARK is a 79 year old F referred to Physical Therapy by Tomasa Self DO with a diagnosis of frequent falls and unstable balance. Date of Evaluation: 06/21/19 Physical Therapist: JAYLIN Huizar - Visit Plan Frequency: 2x /Week Duration: 4 Weeks Plan: 2X/ week for 4 weeks for LE strengthening, endurance, functional balance including some safe foam work and head movements with curb steps and HEP - Subjective Findings: Pt reports that her balance is really bad. She is SOB all the time. SHe had a nuclear stress test and it was fine. She has not fallen for about a year now. SHe has been using the cane when she goes out somewhere and not a daily occurance. She does not hold onto furniture. SHe does not do any exercises. She is out of shape. She does stairs with 2 feet to a stair and uses a railing. 3 steps into the house and they are wide and a walker can fit on them. She is not dizzy. She sleeps a lot. She feels she walks slow and has braces... 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 Pt has a trouble walking up a little grade on a sidewalk. - Pain B shoulders Pain Intensity (Out of 10): 1 B knees Pain Intensity (Out of 10): 1 R hip pain Pain Intensity (Out of 10): 1 - Objective Gait: Walks with L forefoot abductionand decrease stance time onthe L LE... alittle wobbly. Veers on occ... LE MMT: B hip abd in supine 4-/5, Bridge less than 1/4 normal ROM, B knee ext 4/5, B knee flex 4-/5. Pt has trouble with heel and toe raises. FGA: 7. CATSIB: 90 - Balance Scores Functional Gait Assessment Score: 7 % Disability: 76.6700 CATSIB Score (Max score 120 seconds): 90 - Goals Goal 1:: I HEP Goal 2:: Be able to go up and down a 4 inch curb step with use of a cane and SBA Goal Time Frame: 4-6 Weeks Goal 3:: Increase FGA by 5 points to decrease fall risk. Goal Time Frame: 4-6 Weeks Goal 4:: Increase CATSIB score bu 20 seconds to decrease fall risk Goal Time Frame: 4-6 Weeks - Rehabilitation Potential Rehabilitation Potential: Good - Anticipated Interventions Patient/Client Instruction: Educate patient on: Condition, Plan of Care For the Purpose of:: To improve nutrient delivery to tissue, To improve muscle performance and motor function, To improve ability to perform ADL's, To increase tolerance to activity/condition/position, To improve performance and independence with ADL's, To decrease level of supervision to perform tasks, To improve ability of physical actions for home/community/work/leisure, To improve gait and locomotor functions, To improve health of tissue, To improve endurance, To improve balance, To improve safety with gait Therapeutic Exercise to Include: Strength training, Endurance training, Balance training, Postural training, Gait and locomotor training For the Purpose of:: To improve muscle performance and motor function, To improve ability to perform ADL's, To increase tolerance to activity/condition/position, To improve performance and independence with ADL's, To decrease level of supervision to perform tasks, To improve ability of physical actions for home/community/work/leisure, To improve gait and locomotor functions, To improve balance, To improve safety with gait Functional Training to Include: Gait training For the Purpose of:: To improve gait and locomotor functions, To improve safety with gait Thank you for the opportunity to evaluate your patient. For Medicare and Medicare HMO plans, please review the plan of care and approve it. It will need to be FAXED BACK to us at [phone] for Medicare purposes. For Medicare only, by signing this I certify the plan of care. Please let me know if there are questions or concerns regarding this plan of care. Physician Signature: Date:
--- NOTE | 2019-07-19 13:28 | HP.PTREVAL ---
Tomasa Self, DO, It has been my pleasure to treat SERA MARK over the last 8 visits for frequent falls and unstable balance. Please see the progress note below for an update on the physical therapy plan of care! Subjective: Pt feel that she has not noticed much difference with standing with her eyes closed. Objective/Function: curb step 4 inch.... able to do with a straight cane, verbal cues and min A with therapist hand in hand. CATSIB 110/120. FGA 05/08 Plan Plan: 2X/ week for 4 additional weeks for LE strengthening, endurance, functional balance including some safe foam work and head movements with curb steps and HEP Goals Goal 1:: I HEP Goal Progress: Progressing Goal 2:: Be able to go up and down a 4 [address] curb step with use of a cane and SBA Goal Time Frame: 4-6 Weeks Goal Progress: Progressing Goal 3:: Increase FGA by 5 points to decrease fall risk. Goal Time Frame: 4-6 Weeks Goal Progress: Progressing Goal 4:: Increase CATSIB score bu 20 seconds to decrease fall risk Goal Time Frame: 4-6 Weeks Goal Progress: Goal Met Goal 5:: Be able to stand with eyes closed and feel secure in standing by 50% Goal Time Frame: 2-4 Weeks Anticipated Interventions Patient/Client Instruction: Educate patient on: Condition, Plan of Care For the Purpose of:: To improve nutrient delivery to tissue, To improve muscle performance and motor function, To improve ability to perform ADL's, To increase tolerance to activity/condition/position, To improve performance and independence with ADL's, To decrease level of supervision to perform tasks, To improve ability of physical actions for home/community/work/leisure, To improve gait and locomotor functions, To improve health of tissue, To improve endurance, To improve balance, To improve safety with gait Therapeutic Exercise to Include: Strength training, Endurance training, Balance training, Postural training, Gait and locomotor training For the Purpose of:: To improve muscle performance and motor function, To improve ability to perform ADL's, To increase tolerance to activity/condition/position, To improve performance and independence with ADL's, To decrease level of supervision to perform tasks, To improve ability of physical actions for home/community/work/leisure, To improve gait and locomotor functions, To improve balance, To improve safety with gait Functional Training to Include: Gait training For the Purpose of:: To improve gait and locomotor functions, To improve safety with gait Please do not hesitate to contact me at [phone] by phone or if you have questions or concerns regarding this new plan of care! Sincerely, Janis Butler, MPT
--- NOTE | 2019-08-25 13:28 | HP.PT.NRP ---
SERA MARK was seen in my office for initial evaluation on 06/21/19. The following Plan of Care was established for this patient: Initial Frequency: 2x /Week Initial Duration: 4 Weeks Patient/Client Instruction: Educate patient on: Condition, Plan of Care For the Purpose of:: To improve nutrient delivery to tissue, To improve muscle performance and motor function, To improve ability to perform ADL's, To increase tolerance to activity/condition/position, To improve performance and independence with ADL's, To decrease level of supervision to perform tasks, To improve ability of physical actions for home/community/work/leisure, To improve gait and locomotor functions, To improve health of tissue, To improve endurance, To improve balance, To improve safety with gait Therapeutic Exercise to Include: Strength training, Endurance training, Balance training, Postural training, Gait and locomotor training For the Purpose of:: To improve muscle performance and motor function, To improve ability to perform ADL's, To increase tolerance to activity/condition/position, To improve performance and independence with ADL's, To decrease level of supervision to perform tasks, To improve ability of physical actions for home/community/work/leisure, To improve gait and locomotor functions, To improve balance, To improve safety with gait Functional Training to Include: Gait training For the Purpose of:: To improve gait and locomotor functions, To improve safety with gait This patient was last seen in our office . Pertinent comments regarding their Physical therapy will appear below: At this point I will be discontinuing this patient from physical therapy. I would be happy to see this patient again in the future if found appropriate by the physician. Thank you! Janis Butler, MPT
== END 2019-08-18 19:00 | disposition home or self-care (01) ==
LOC: PT 11:30
PROVIDERS: Family Provider Internal Medicine; PCP Internal Medicine; Referring Provider Internal Medicine; Visit Provider Internal Medicine
DX: R29.6 Repeated falls (principal); R26.89 Other abnormalities of gait and mobility
CPT/HCPCS: 97110; 97161; 97164

== ENCOUNTER → 2020-03-08 14:33 | Outpatient (CLI) | payer MEDICARE, OTHER, SELFPAY ==
[2020-03-08 13:33] VITALS: BMI 53.1
[2020-03-08 15:56] LABS: Absolute Lymphocyte Count 1.44 X10^3/uL (0.83-4.51); Absolute Neutrophil Count 3.3 X10^3/uL (2.0-7.7); Basophil# 0.04 X10^3/uL; Basophil% 0.7 % (0-1); Eosinophil# 0.08 X10^3/uL; Eosinophils% 1.4 % (0-5); Hemoglobin 12.8 g/dL (12.0-15.0); Lymphocyte # 1.44 X10^3/ul (4.0); Lymphocyte % 25.7 % (19-41); Mean Corpuscular Hgb 30.8 pg (27.0-32.0); Mean Corpuscular Volume 96.2 fL (81-99); Mean Platelet Vol. 12.1 fl (6.2-12.0); Monocyte# 0.76 X10^3/uL; Monocyte% 13.6 % (0-10); NRBC Flagged by Analyzer 0 % (0-5); Neutrophil # 3.26 X10^3/uL (2.7-7.7); Neutrophil % 58.2 % (47-70); Platelet Count 202 K/mm3 (150-450); RBC Distribution Width CV 13.5 % (11.6-14.6); RBC Distribution Width SD 47.9 fl (35.1-43.9); Red Blood Count 4.16 M/mm3 (4.2-5.4); White Blood Count 5.6 K/mm3 (4.4-11.0)
[2020-03-08 16:20] LABS: Anion Gap 3 (5-15); BUN 32 mg/dL (7-18); BUN/Creat Ratio 24.2 RATIO (10-20); Calcium,Total 9.5 mg/dL (8.5-10.1); Chloride 110 mmol/L (98-107); Creatinine, Serum 1.32 mg/dL (0.55-1.02); EST Glomerular Filtration Rate 41 mL/min (>60); Est Glom Filt Rate - Afr Amer 50 mL/min (>60); Glucose 85 mg/dL (74-106); Potassium 4.3 mmol/L (3.5-5.1); Sodium Level 142 mmol/L (136-145)
[2020-03-08 16:27] LABS: BNP,B-Type NATRIURETIC PEPTIDE 215.8 pg/mL (0-100)
== END ==
PROVIDERS: PCP Internal Medicine; Referring Provider Internal Medicine Cardiovascular Disease; Visit Provider Internal Medicine Cardiovascular Disease
DX: R06.00 Dyspnea, unspecified (principal); R00.2 Palpitations
CPT/HCPCS: 36415; 80048; 83880; 85025

== ENCOUNTER → 2020-04-04 12:54 | Outpatient (CLI) | payer MEDICARE, OTHER, SELFPAY ==
[2020-03-08 13:33] VITALS: BMI 53.1
--- NOTE | 2020-04-04 12:59 | ECHOCS_ITS ---
Reason For Study: DYSPNEA/SOB Procedure This was a 2D Doppler, Color Flow transthoracic echocardiogram. The study was technically difficult. Due to body habitus and patient unable to lie on left side. Exam performed in department. Left Ventricle Normal LV size. Left ventricular systolic function is normal. The estimated ejection fraction is 65 %. No regional wall motion abnormalities noted. Right Ventricle Normal RV size. Normal systolic function. Atria Normal left atrium. Normal right atrium. Mitral Valve Normal mitral valve. Tricuspid Valve The tricuspid valve is not well visualized. Aortic Valve The aortic valve is not well visualized. Pulmonic Valve The pulmonic valve is not well visualized. Great Vessels Normal aortic root. The pulmonary artery is normal size. Normal inferior vena cava. Pericardium/Pleural No pericardial effusion. Medication 22 gauge I.V. with prn adaptor inserted into right arm. Diluted definity 3.0ml given slow IV push to enhance endocardial definition. MMode/2D Measurements & Calculations LVIDd: 4.9 cm IVSd: 1.1 cm Ao root diam: 2.8 cm LVIDs: 3.1 cm LVPWd: 1.3 cm FS: 37.2 % LAV(MOD-bp): 121.3 ml LA A4 area: 32.7 cm2 LA dimension(2D): 4.2 cm LAV(MOD-bp) Indexed: 58.6 ml/m2 LAV(MOD-sp2): 112.8 ml LAV(MOD-sp4): 123.5 ml Time Measurements MV dec time: 0.28 sec Doppler Measurements & Calculations MV E max leann: 112.8 cm/sec Ao V2 max: 190.1 cm/sec LV V1 max: 116.1 cm/sec MV A max leann: 80.8 cm/sec Ao max P.5 mmHg LV V1 max P.4 mmHg MV E/A: 1.4 Ao V2 mean: 122.1 cm/sec LV V1 mean P.0 mmHg Ao mean P.7 mmHg LV V1 mean: 83.3 cm/sec Ao V2 VTI: 38.1 cm LV V1 VTI: 25.7 cm PA V2 max: 99.5 cm/sec Interpretation Summary Normal LV size. Left ventricular systolic function is normal. The estimated ejection fraction is 65 %. Contrast injection was performed. The study was technically difficult. Ordering Physician: Slava Phillips Referring Physician: Tomasa Self Performed By: Betsy Bansal, PADDY, RVT
--- NOTE | 2020-04-04 13:50 | CT_ITS ---
HISTORY: DYSPNEA ON EXCERTION TECHNIQUE: CT images of the chest were obtained with 100mL Isovue-300 IV contrast. Number of images including paperwork: [id number]. A radiation dose optimization technique was used for this scan. COMPARISON: None FINDINGS: Evaluation mildly limited by motion artifact. VASCULATURE: Vascular tortuosity. Atherosclerotic plaque. No dissection. HEART/PERICARDIUM: Mildly enlarged heart. Coronary calcification. MEDIASTINUM: Small hiatal hernia. ADENOPATHY: No pathologic appearing adenopathy. THYROID: Unremarkable visualized portions. LUNG PARENCHYMA: No consolidation or mass. Minimal interstitial septal thickening. Reticular changes anterior upper lobes. Calcified granulomata. PLEURAL SPACES: Unremarkable. UPPER ABDOMEN: Unremarkable. OSSEOUS AND SOFT TISSUE STRUCTURES: No acute skeletal findings. Degenerative changes. DEVICES: None. CT/Chest WITH Contrast IMPRESSION: Minimal interstitial septal thickening, possibly minimal edema and/or chronic changes.. Cardiomegaly. Additional findings above. Individualized dose optimization techniques were used for this CT. at 0005 Reported and signed by: Cyn Bernal MD Electronically Signed: Cyn Bernal MD at 0:05 EDT Tel , Service support ,
== END ==
PROVIDERS: PCP Internal Medicine; Referring Provider Internal Medicine Cardiovascular Disease; Visit Provider Internal Medicine Cardiovascular Disease
DX: R00.2 Palpitations (principal); R06.02 Shortness of breath
CPT/HCPCS: 71260; 93306; Q9957; Q9967; A4216; C8929

== ENCOUNTER 2020-05-05 12:49 | Outpatient (RCR) | payer MEDICARE, OTHER, SELFPAY ==
[2020-04-10 15:16] VITALS: BMI 53.5
[2020-05-05 14:32] LABS: International Normalized Ratio 1.4; Prothrombin Time (Protime)PT. 16.4 SECONDS (11.7-14.9)
== END 2020-05-05 18:00 | disposition home or self-care (01) ==
LOC: LAB 12:49
PROVIDERS: PCP Internal Medicine; Referring Provider Internal Medicine Cardiovascular Disease; Visit Provider Internal Medicine Cardiovascular Disease
DX: I48.92 Unspecified atrial flutter (principal); Z79.01 Long term (current) use of anticoagulants
CPT/HCPCS: 36415; 85610

== ENCOUNTER → 2020-05-16 15:56 | Outpatient (CLI) | payer MEDICARE, OTHER, SELFPAY ==
[2020-04-10 15:16] VITALS: BMI 53.5
[2020-05-16 12:13] VITALS: BMI 53.7
[2020-05-16 16:20] LABS: Bacteria 0 SEEN /hpf (None Seen); Mucous, Urine 0 SEEN /hpf (<or=2+); Red Blood Cells-Urine 0 SEEN /hpf (0-5)
[2020-05-16 18:07] LABS: Color, Urine Yellow (Yellow); Glucose, Dipstick Normal (Normal); Ketone-Dipstick Negative (Negative); Leukocyte Esterase-Dipstick 25 /ul (Negative); Nitrite-Dipstick Negative (Negative); Occult Blood-Urine Negative /ul (Negative); Protein-Dipstick Negative (Negative); Urine Bilirubin Dipstick Negative (Negative); Urine Clarity Sl. Cloudy (Clear); Urine Urobilinogen Normal (Normal)
[2020-05-16 18:52] LABS: Squamous Epithelial Cells - UA 0-5 SEEN /hpf (5-10); White Blood Cells 0-5 SEEN /hpf (0-5)
[2020-05-16 18:57] LABS: Microalbumin,Random Urine 6.5 mg/L (NO RANGE EST.); Microalbumin:Creatinine Ratio 15.6 mg/g CRE (<30 mg/g CRE)
== END ==
PROVIDERS: PCP Internal Medicine; Referring Provider Internal Medicine; Visit Provider Internal Medicine
DX: I10 Essential (primary) hypertension (principal)
CPT/HCPCS: 81001; 82043; 82570

== ENCOUNTER → 2020-05-23 14:44 | Outpatient (CLI) | payer MEDICARE, OTHER, SELFPAY ==
[2020-04-10 15:16] VITALS: BMI 53.5
[2020-05-16 12:13] VITALS: BMI 53.7
--- NOTE | 2020-05-23 14:46 | CT_ITS ---
STUDY: CT SOFT TISSUE NECK WITH CONTRAST REASON FOR EXAM: Female, 80 years old patient with bilateral posterior neck masses. RADIATION DOSAGE (If Supplied By Facility): CTDIvol = ( 19.09 ) mGy, DLP = ( 615.35 ) mGycm TECHNIQUE: The patient was scanned in a multi-detector CT scanner. High resolution transaxial imaging was performed following intravenous administration of 100 mL of Isovue-300. Sagittal and coronal images were reconstructed. Multiple images are limited by patient motion. Individualized dose optimization techniques were used for this CT. COMPARISON: None. FINDINGS: Normal bilateral parotid glands. Normal bilateral pearl technician spaces. Normal bilateral parapharyngeal spaces. Normal bilateral carotid spaces. Normal bilateral sublingual and submandibular glands and spaces. Normal visualized nasopharynx. Normal retropharyngeal space. Normal perivertebral space. Normal visualized bilateral faucial tonsils. The visualized tongue, tongue base and oropharynx are normal. The visualized cervical lymph nodes (levels I-) are within normal size limits, and maintain normal morphology. There is no demonstrated solid or cystic mass lesion. There is no abnormal contrast enhancement. Normal epiglottis, bilateral vallecula and hypopharynx. The pre-epiglottic and paraglottic adipose spaces are normal. Normal visualized bilateral piriform sinuses, aryepiglottic folds, vocal cords, and arytenoid-cricoid articulations. Normal subglottic trachea. The left lobe of thyroid is enlarged with heterogeneous attenuation in what probably represents multiple nodules. The largest left-sided thyroid nodule measures approximately 1.6 cm There is prominence of central pulmonary arteries suggesting possible pulmonary artery hypertension. Normal visualized pulmonary apices. Normal visualized paranasal sinuses. Patient has left-sided yari bullosa. The bones are osteopenic. There is narrowing of the C4-5, C5-6 and C6-7 disc spaces consistent with degenerative disc disease. The odontoid has a normal appearance. The atlantoaxial and atlantooccipital relationships are within normal limits. Patient had a right-sided shoulder arthroplasty. The patient is essentially edentulous. CT/Soft Tissue Neck WITH Contrast IMPRESSION: 1. No soft tissue masses of the neck are identified. BBs indicate sites were adipose tissue is prominent without pathologic soft tissue abnormality. 2. Multinodular goiter of thyroid with enlarged left-sided thyroid nodule measuring up to 1.6 cm. Electronically Signed: Lawanda Johnson MD at 3:17 EST , Service support ,
== END ==
PROVIDERS: PCP Internal Medicine; Referring Provider Internal Medicine; Visit Provider Internal Medicine
DX: R22.1 Localized swelling, mass and lump, neck (principal); E04.2 Nontoxic multinodular goiter
CPT/HCPCS: 70491; Q9967

== ENCOUNTER 2020-05-29 16:21 | Outpatient (RCR) | payer MEDICARE, OTHER, SELFPAY ==
[2020-04-10 15:16] VITALS: BMI 53.5
[2020-05-15 18:15] LABS: International Normalized Ratio 2.1; Prothrombin Time (Protime)PT. 23.3 SECONDS (11.7-14.9)
[2020-05-15 18:18] LABS: Absolute Lymphocyte Count 1.49 X10^3/uL (0.83-4.51); Absolute Neutrophil Count 3.2 X10^3/uL (2.0-7.7); Basophil# 0.04 X10^3/uL; Basophil% 0.7 % (0-1); Eosinophil# 0.05 X10^3/uL; Eosinophils% 0.9 % (0-5); Hemoglobin 12.7 g/dL (12.0-15.0); Lymphocyte # 1.49 X10^3/ul (4.0); Lymphocyte % 27.8 % (19-41); Mean Corp Hgb Conc 31.8 g/dL (32-36); Mean Corpuscular Hgb 30.7 pg (27.0-32.0); Mean Corpuscular Volume 96.6 fL (81-99); Mean Platelet Vol. 11.8 fl (6.2-12.0); Monocyte# 0.57 X10^3/uL; Monocyte% 10.6 % (0-10); NRBC Flagged by Analyzer 0 % (0-5); Neutrophil % 59.8 % (47-70); Platelet Count 198 K/mm3 (150-450); RBC Distribution Width CV 12.9 % (11.6-14.6); RBC Distribution Width SD 46.1 fl (35.1-43.9); Red Blood Count 4.14 M/mm3 (4.2-5.4); White Blood Count 5.4 K/mm3 (4.4-11.0)
[2020-05-15 18:36] LABS: ALB/GLOB Ratio 0.9 RATIO (0.9-2.4); AST(SGOT) 23 U/L (15-37); Alanine Aminotransfer ALT/SGPT 28 U/L (13-56); Albumin, Serum 3.8 g/dL (3.2-5.0); Alkaline Phosphatase 119 U/L (45-117); Anion Gap 6 (5-15); BUN 34 mg/dL (7-18); BUN/Creat Ratio 26.2 RATIO (10-20); Calcium,Total 9.3 mg/dL (8.5-10.1); Chloride 108 mmol/L (98-107); Cholesterol 184 mg/dL (200); EST Glomerular Filtration Rate 42 mL/min (>60); Est Glom Filt Rate - Afr Amer 51 mL/min (>60); Globulin 4.2 g/dL (2.2-4.2); Glucose 87 mg/dL (74-106); High Density Lipoprotein 71 mg/dL; Potassium 4.4 mmol/L (3.5-5.1); Sodium Level 141 mmol/L (136-145); Thyroid Stim Hormone (TSH) 0.68 uIU/mL (0.358-3.74); Triglycerides 94 mg/dL; Very Low Density Lipoprotein 19 mg/dL (5-40)
[2020-05-16 12:45] LABS: Vitamin B12 1339 pg/mL (211-911); Vitamin D,25 Hydroxy 63.5 ng/mL
[2020-05-29 18:22] LABS: International Normalized Ratio 2.9; Prothrombin Time (Protime)PT. 29.7 SECONDS (11.7-14.9)
== END 2020-05-29 18:00 | disposition home or self-care (01) ==
LOC: MTLAB 16:21
PROVIDERS: PCP Internal Medicine; Referring Provider Internal Medicine Cardiovascular Disease; Visit Provider Internal Medicine Cardiovascular Disease
DX: I48.92 Unspecified atrial flutter (principal); Z79.01 Long term (current) use of anticoagulants; E03.9 Hypothyroidism, unspecified; I10 Essential (primary) hypertension; E55.9 Vitamin D deficiency, unspecified; E53.8 Deficiency of other specified B group vitamins
CPT/HCPCS: 36415; 80053; 80061; 82306; 82607; 84443; 85025; 85610

== ENCOUNTER 2020-06-08 06:50 | Day surgery (SDC) | payer MEDICARE, OTHER, SELFPAY ==
[2020-05-16 12:13] VITALS: BMI 53.7
[2020-06-06 09:38] VITALS: BMI 53.7
--- NOTE | 2020-06-08 06:14 | HP_ITS ---
HPI HPI History of Present Illness Details: SERA MARK, is a 80 F who presents for a follow-up visit. 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 She also had a history of previous peripheral edema. She has complained about being fatigued. She says this has been going on for a few months. She has not had any dizziness or diaphoresis or near syncope or syncope. She has been compliant with all her medications. She has had occasional fluttering sensations in her chest she denies any chest pain at this particular time. You do remember that her last echocardiogram in 2017 demonstrated an ejection fraction of 60%. She also did undergo a stress test in April 2019 which did not demonstrate any obvious ischemia. Her physical exam here today demonstrates clear lung pritchard regular rate and rhythm with tachycardia and no pedal edema. During her last visit her EKG demonstrated atrial fibrillation with a rapid ventricular response rate she was placed on a beta-cheng and Eliquis. The latter was then changed to Coumadin due to cost. She continues to complain of shortness of breath. She did have a mildly elevated natruretic peptide at the last visit, her echocardiogram demonstrated an ejection fraction of 65%. Physical exam is unremarkable. Intake Vital Signs 05/16/20 Height 4 ft 11 in 05/16/20 Weight: 266 lb 05/16/20 BMI 53.7 05/16/20 BP 118/62 05/16/20 Respiration 18 05/16/20 Pulse 70 05/16/20 Pulse Oximetry (%) 95 Intake Visit Reasons: 2 M FU Allergies latex Allergy (Verified 05/16/20 12:13) Rash bupropion [From Wellbutrin] Adverse Reaction (Severe, Verified 05/16/20 12:13) Shakiness & lightheadedness ciprofloxacin Adverse Reaction (Verified 05/16/20 12:13) Diarrhea levofloxacin [From Levaquin] Adverse Reaction (Verified 05/16/20 12:13) Diarrhea Medications Omeprazole [Prilosec] 40 mg PO DAILY 04/18/14 [History Confirmed 05/16/20] Calcium Carb/Mag Ox/Zinc Sulf [Biozych-Sgppgeesa-Qyha Tablet] 1 ea PO DAILY 05/09/16 [History Confirmed 05/16/20] L.acidoph,Paracasei, B.lactis [Probiotic] 1 ea PO DAILY 08/15/16 [History Confirmed 05/16/20] Cholecalciferol (Vitamin D3) [Vitamin D3] 2,000 unit PO DAILY 02/13/17 [History Confirmed 05/16/20] Meloxicam 15 mg PO DAILY 02/13/17 [History Confirmed 05/16/20] melatonin 5 mg capsule 5 mg PO QHS 07/18/17 [History Confirmed 05/16/20] potassium 99 mg tablet 99 mg PO QDAY 07/18/17 [History Confirmed 05/16/20] bupropion HCl 150 mg tablet,12 hr sustained-release 150 mg PO BID 02/16/19 [History Confirmed 05/16/20] cyanocobalamin (vitamin B-12) 2,500 mcg tablet 2,500 mcg PO MOTUWE tab 02/16/19 [History Confirmed 05/16/20] losartan 100 mg tablet 100 mg PO DAILY #90 tab 06/23/19 [Rx Confirmed 05/16/20] gabapentin 300 mg capsule 300 mg PO DAILY cap 10/12/19 [History Confirmed 05/16/20] CBD OIL SUBLINGUAL BID 02/16/20 [History Confirmed 05/16/20] biotin 5,000 mcg sublingual tablet 5,000 mcg SUBLINGUAL DAILY 02/16/20 [History Confirmed 05/16/20] buspirone 15 mg tablet 30 mg PO BID tab 02/16/20 [History Confirmed 05/16/20] magnesium 250 mg tablet 250 mg PO DAILY 02/16/20 [History Confirmed 05/16/20] metoprolol succinate 100 mg tablet,extended release 24 hr 100 mg PO DAILY #60 tab 02/16/20 [Rx Confirmed 05/16/20] levothyroxine 75 mcg tablet 75 mcg PO .COMPLEX 04/10/20 [History Confirmed 05/16/20] furosemide 40 mg tablet 40 mg PO DAILY #180 tab 04/19/20 [Rx Confirmed 05/16/20] warfarin 4 mg tablet 4 mg PO DAILY #90 tab 04/24/20 [Rx Confirmed 05/16/20] Ejection fraction %: 60 to 64 PFSH Medical History Paroxysmal atrial flutter (Chronic) Chronic diastolic (congestive) heart failure (Chronic) Essential (primary) hypertension (Chronic) Hyperlipidemia (Chronic) Bilateral lower extremity edema (Chronic) correction current use of anticoagulant (Chronic) Anxiety (Chronic) Bipolar disorder (Chronic) Delayed wound healing (Chronic) Diverticulosis (Chronic) GERD (gastroesophageal reflux disease) (Chronic) Hammer toe of right foot (Chronic) History of Headley's esophagus (Chronic) Hypothyroidism (Chronic) Hypothyroidism (acquired) (Chronic) IBS (irritable bowel syndrome) (Chronic) Insomnia (Chronic) Neuropathic pain (Chronic) Obesity (Chronic) Obstructive sleep apnea (Chronic) Osteoarthritis of right hip (Chronic) Osteopenia determined by x-ray (Chronic) Posterior tibialis muscle dysfunction (Chronic) Renal insufficiency (Chronic) Sciatica (Chronic) Vitamin D deficiency (Chronic) Walking difficulty due to ankle and foot (Chronic) Osteomyelitis (Suspected) Atrial flutter with rapid ventricular response (Resolved 02/16/20) Palpitations (Resolved) Postoperative anemia (Resolved) Ulcer of right second toe, limited to breakdown of skin (Resolved) Congenital coronary artery anomaly (Ruled-out) Mitral valve prolapse (Ruled-out) Surgical History S/P colonoscopy (Suspected) History of cardiac catheterization (Resolved 2008) History of carpal tunnel release (Resolved 2006) History of esophagogastroduodenoscopy (EGD) (Resolved 05/04/08) History of flexible sigmoidoscopy (Resolved 2007) History of suburethral sling procedure (Resolved 2015) History of total hysterectomy (Resolved 2015) History of total right hip replacement (Resolved 05/2016) S/P shoulder replacement (Resolved) Status post knee replacement (Resolved) Family History Father Aortic aneurysm Cancer lymphoma Mother CVA (cerebral vascular accident) Dementia Aunt Colon cancer Social History (Updated 05/16/20 @ 15:[address] Slava Phillips MD) Smoking Status: Former smoker how long ago did patient quit smokin alcohol intake: never substance use type: does not use caffeine: Yes Type: coffee what type of physical activity do you participate in: none seatbelt use: never do you feel safe at home: Yes ROS Const Const: Positive for fatigue; negative for weakness, headache(s), frequent falls, difficulty sleeping or excessive sweating Eyes Eyes: Negative for loss of peripheral vision, transient loss of vision, blurry vision, double vision or tunnel vision ENT ENT: Negative for headache(s), dizziness, Nosebleed/epistaxis or balance problems Cardio Chest Pain: No Edema: Bilateral (non pitting L>R ankle edema) Muscle aches with walking: None Resp Respiratory: Positive for SOB with activity; negative for SOB at rest, SOB orthopnea\SOB lying down, Cough or paroxysmal nocturnal dyspnea GI GI: Negative nausea, vomiting, heartburn or black,tarry stools : Negative for hematuria Musc Musc: Negative for muscle aches/ myalgia, muscle weakness, joint pain or balance problems Skin Skin: Negative non-healing lesions, rash or unusual bruising Neuro Neuro: Negative for dizziness, lightheadedness, near syncope, syncope, orthostatic symptoms, frequent falls, headache(s), weakness, blurry vision, double vision or lack of coordination Jason Hematologic/Lymphatic: Negative for easy bleeding or easy bruising Endo Endo: Positive for fatigue; negative for excessive sweating or increased thirst/drinking Psych Psych: Negative for anxiety or depression Allergy Allergy/Immunology: Negative for hives, Negative for rash Cardiology Exam Const Appearance: cooperative, healthy appearing, no acute distress, well developed and well groomed Nutritional Appearance: average body habitus and well nourished Orientation: alert, awake and oriented x3 Head Head: normal to inspection, normocephalic and atraumatic Ears: hearing grossly normal bilaterally and external ears normal Nose: external nose normal, nares normal, nasal mucous membranes and turbinates normal, septum normal, no nasal discharge Face and Sinus: face symmetric Mouth: oral mucosae normal, tongue normal, oropharynx normal and moist mucous membranes Teeth and gingiva: dentition normal Throat: posterior oropharynx normal, tonsils normal and uvula midline Eyes General: appearance normal, both eyes and all related structures Eyelids: eyelids normal Conjunctivae: conjunctivae normal Pupils: PERRL, normal by confrontation and accommodation normal EOM: EOM intact bilaterally Neck Neck: normal visual inspection, trachea midline and no JVD JVD: +5 Carotids: normal carotid upstroke and bounding pulses Chest Chest inspection: normal inspection of the chest, symmetric chest movement and normal respiratory effort Auscultation: Bilateral: Clear to Auscultation Cardio Palpation: normal PMI Rate: regular rate Rhythm: regular rhythm Heart sounds: S1 normal, S2 normal and normal, physiologic split S2; negative rub, gallop or murmur GI GI: normal to inspection, soft, no hepatosplenomegaly and bowel sounds present Neuro General: alert, awake, oriented x3, gait normal, moves all extremities and no focal sensory deficit Skin Skin: no rashes or lesions noted Extremities Pulses: Normal: Right Femoral Pulse, Left Femoral Pulse, Right Dorsalis Pedis Pulse, Left Dorsalis Pedis Pulse, Right Posterior Tibial Pulse, Left Posterior Tibial Pulse, Right Radial Pulse, Left Radial Pulse Lower Extremity Edema: None: Bilateral Musculoskel Musculoskeletal: No joint tenderness Psych Psychological: normal affect Assessment & Plan 1. Dyspnea R06.00 Plan She does have dyspnea which appears to be out of proportion to her natruretic peptide level ejection fraction is preserved and at this juncture I would like to recommend that we perform a left heart catheterization to exclude obstructive coronary disease. Stress testing may be fraught with false results. I explained the above to her she understands and agrees to proceed. Her last catheterization was in 2008 we will pull that report. 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 2. Essential (primary) hypertension I10 Plan Her blood pressure is under good control at this time I would not recommend that we make any changes. 3. Paroxysmal atrial flutter I48.92 Plan She does have a history of paroxysmal atrial flutter. She appears to be in sinus rhythm and thus it does not look like her going into atrial fibrillation was what caused her shortness of breath. She will remain on the Coumadin until prior to her heart catheterization. 4. Hyperlipidemia E78.5 Plan Her most recent lipid profile demonstrated total cholesterol 184, HDL of 71, LDL 94 triglycerides of 94. No changes were made respect to her lipid-lowering therapy. Thank you for allowing me to participate in the care of your patient. Please don't hesitate to call if any issues arise. 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
[2020-06-08 07:01] LABS: Prothrombin Time Fingerstick 15.1 SEC (11.9-14.4)
--- NOTE | 2020-06-08 09:20 | CL.D_ITS ---
Patient Name: SERA MARK Study Date: 06/08/2020 Performing: Slava Phillips MD Ht: 59.05 inches 150 cm : 1940 Wt: 266.76 lbs 121 kg Age: 80 Gender: female BSA: 2.09 PROCEDURE(S) PERFORMED [id number]/COR DC11-AO ROOT ANGIO WITH HEART CATH CLINICAL PROFILE AND INDICATIONS Indications: Other Heart Failure: NYHA Class: 2, Newly Diagnosed: Yes, Heart Failure Type: Diastolic Stress/Imaging Stress/Image Study Performed: No CAD Presentations: Other: sob CONCLUSIONS Non obstructive coronary arteries RECOMMENDATIONS Medical therapy DESCRIPTION OF PROCEDURE The patient arrived to the procedure lab. The risks and benefits of the procedure as well as a full d escription of our services here and current unavailability of surgical backup were fully explained to the patient and/or their significant other prior to the catheterization. The Timeout was completed, verifying the correct patient and procedure. The patient's procedural site was prepped and draped in the usual fashion. Local anesthetic was given subcutaneously to right radial region with Lidocaine 2% . Using a modified Seldinger technique, arterial access was obtained via the right radial artery, a 6 Fr sheath was inserted. Left Coronary Artery selective angiography was performed in multiple views u sing a 5 Fr. 4.0 [place] catheter. Ascending (root) aorta selective angiography was then performed in s tania view. Ascending (root) aorta selective angiography was then performed in single view.The arteri al sheath was pulled and a TR Band was applied for hemostasis w/ 18ml air CORONARY ANGIOGRAPHY DOMINANCE: Right Dominant LEFT MAIN: Mild calcification, No significant disease noted LEFT ANTERIOR DESCENDING ARTERY: No significant disease noted CIRCUMFLEX ARTERY: No significant disease noted RIGHT CORONARY ARTERY: Mild luminal irregularities AORTIC ROOT: Angiographically normal COMPLICATIONS No Complications PROCEDURE MEDICATIONS Versed 1 mg IV Fentanyl 50 mcg IV Versed 1 mg IV Fentanyl 25 mcg IV Oxygen: 2 L/min via nasal cannula Aspirin (325mg) 1 Tabs PO @ 06/08/2020 08:05:38 SUMMARY OF HEMODYNAMIC DATA Time AIR REST ECG 07:21:11 AO 113/49 (74) SA 08:26:11 AO 137/57 (89) 08:35:19 Signed By Slava Phillips MD On 06/08/2020 09:19:59 Signed By Slava Phillips MD On 06/08/2020 09:19:35 Slava Phillips MD
== END 2020-06-08 12:00 | disposition home or self-care (01) ==
LOC: CLSP 06:51
PROVIDERS: PCP Internal Medicine; Referring Provider Internal Medicine Cardiovascular Disease; Visit Provider Internal Medicine Cardiovascular Disease
DX: R06.02 Shortness of breath (principal); I48.92 Unspecified atrial flutter; I13.0 Hypertensive heart and chronic kidney disease with heart failure and stage 1 through stage 4 chronic kidney disease, or unspecified chronic kidney disease; N18.9 Chronic kidney disease, unspecified; I50.32 Chronic diastolic (congestive) heart failure; I48.91 Unspecified atrial fibrillation; R93.1 Abnormal findings on diagnostic imaging of heart and coronary circulation; E78.5 Hyperlipidemia, unspecified; E03.9 Hypothyroidism, unspecified; E55.9 Vitamin D deficiency, unspecified; K21.9 Gastro-esophageal reflux disease without esophagitis; F31.9 Bipolar disorder, unspecified; F41.9 Anxiety disorder, unspecified; E66.9 Obesity, unspecified; Z68.43 Body mass index [BMI] 50.0-59.9, adult; Z88.1 Allergy status to other antibiotic agents; Z79.01 Long term (current) use of anticoagulants; Z79.1 Long term (current) use of non-steroidal anti-inflammatories (NSAID); Z87.891 Personal history of nicotine dependence; Z79.899 Other long term (current) drug therapy
CPT/HCPCS: 36416; 85610; 93005; 93454; 93567; 99152; 99153; J7040; Q9967; C1769; C1894

== ENCOUNTER 2020-06-27 14:32 | Outpatient (RCR) | payer MEDICARE, OTHER, SELFPAY ==
[2020-06-06 09:38] VITALS: BMI 53.7
[2020-06-27 15:57] LABS: International Normalized Ratio 2.2
== END 2020-06-27 18:00 | disposition home or self-care (01) ==
LOC: MTLAB 14:32
PROVIDERS: PCP Internal Medicine; Referring Provider Internal Medicine Cardiovascular Disease; Visit Provider Internal Medicine Cardiovascular Disease
DX: I48.92 Unspecified atrial flutter (principal); Z79.01 Long term (current) use of anticoagulants
CPT/HCPCS: 36415; 85610

== ENCOUNTER 2020-07-27 12:30 | Outpatient (RCR) | payer MEDICARE, OTHER, SELFPAY ==
[2020-06-06 09:38] VITALS: BMI 53.7
--- NOTE | 2020-06-28 14:52 | HP.PTEVAL_ITS ---
Patient's Visit Information SERA MARK is a 80 year old F referred to Physical Therapy by Dr. Tomasa Self DO with a diagnosis of L sciatica. Date of Evaluation: 06/28/20 Physical Therapist: Arcelia Whiting DPT - Visit Plan Frequency: 2x /Week Duration: 4 Weeks Plan: AT to start in order to decrease pain, increase core strength and stabilization and improve functional mobility. - Subjective Pt has had sciatic for a long time, goes away and comes back and it is getting worse (2 months ago). when she gets up in morning she cannot do anything but as the day progresses the pain allevaites. no trouble sleeping. uses cane to walk, and uses a walker when walking dog d/t unsteadiness. Pain: intense, sharp, heavy pain goes all the way down to calf of L leg and to lateral malleous. no numbness or tingling. better: moving helps 5/10. worse: laying down 8/10. PMHc: has artifical shoudler, R hip replacement, artifical knees, and wears ankle braces (travis ankle braces,had for 10 years), DDD. Meds: melocam- does not seem to be helping. Goal: decrease pain - Pain L low back Pain Intensity (Out of 10): 5 Comment: currently all the way down to the lateral calf - Objective Posture:RS, FH, unsble to correct with verbal or tactile cues. Observation: unable to sit for long period of time, pt was standing after short period of time, pt is obese. Palpation: tender/pain along sacrum, lumbar paraspinal on L, posterior L knee. Gait: decreased endurance, required standing rest break back to the treatment room from waiting room, antaglic gait, wide ANTELMO. Pt reports cane use for long distances but left in car. ROM: Spine: forward flexion- increased pain greater than extension, side bend to left: relief pain. rotation: no increase in pain either direction. Hip/knee/ankle: WFL. HR/TR: unable to perform position d/t [employer] ankle braces. SLS: L increases pain, and able without BUE assist. sensation: hypersenstive on L lateral lower leg to light touch. Strength: core: poor (bridge- compensate by using unaffected leg) hip:flexion: R 3/5 L 3-/5, abd: R 3+/5 L 3+/5 ext: 3+/5 bilaterally knee: flexion: R 4/5 L 4-/5 ext: R 4/5 L 4-/5, ankles not tested d/t Travis ankle braces. flexibilty: hamstrings: severe. special test: SLR: L positive. Dural signs: L positive - Goals Goal 1:: Patient will be able to perform HEP I and progression Goal Time Frame: 4-6 Weeks Goal 2:: Patient will increase strength in LE to 4/5 bilaterally in order to improve functional mobilty Goal Time Frame: 4-6 Weeks Goal 3:: Patient will maintain proper posture througoht treatment session wi thout verbal cues to demonstrate increase core strength and stabilization. Goal Time Frame: 4-6 Weeks Goal 4:: Patient will ambulate >300 feet with least restrictive device without stopping. Goal Time Frame: 4-6 Weeks - Rehabilitation Potential Physical Therapy Diagnosis: Pt presents with decreased LE and core strength, balance, flexibilty contributing to decreased ability to perform ADLs. Rehabilitation Potential: Good - Anticipated Interventions Patient/Client Instruction: Educate patient on: Plan of Care For the Purpose of:: To improve muscle performance and motor function Therapeutic Exercise to Include: Strength training, Endurance training, Balance training, Coordination, Body mechanics, Postural training, Flexibilty training, Gait and locomotor training, Neuromotor development, In an aquatic setting, Dynamic Lumbar Stabilization, Scapular Strength/Stabilization For the Purpose of:: To improve muscle performance and motor function Functional Training to Include: ADL Training, Functional home training, Gait training For the Purpose of:: To increase tolerance to activity/condition/position, To improve performance and independence with ADL's Thank you for the opportunity to evaluate your patient. For Medicare and Medicare HMO plans, please review the plan of care and approve it. It will need to be FAXED BACK to us at [phone] for Medicare purposes. For Medicare only, by signing this I certify the plan of care. Please let me know if there are questions or concerns regarding this plan of care. Physician Signature: Date:
--- NOTE | 2020-07-27 13:15 | HP.PTDCSUM ---
It has been my pleasure to treat SERA MARK referred by Dr. oTmasa Self DO, with the diagnosis of L sciatica for a total of 6 visit(s). Discharge Date: Please see the following information for a summary of their discharge status. Subjective: Pt reports that she is still extremly painful in the morning. She does not think that therapy is helping. currently 10/16. L low back Pain Intensity (Out of 10): 5 % Improvement: 20 Objective/Function: Posture:RS, FH, unsble to correct with verbal or tactile cues. Gait: decreased endurance, antaglic gait, wide ANTELMO. Pt is not using AD. ROM: Spine: flex/ext: no increase in pain, SB/rotation: no increase in pain either direction. Hip/knee/ankle: WFL. SLS: no increase in pain, able with BUE support. Strength: hip:flexion: R 3+/5 L 3+/5, abd: R 4-/5 L 4-/5 knee: flexion: R 4/5 L 4/5 ext: R 4/5 L 4/5, ankles not tested d/t Sunitha ankle braces. Patient very self limiting due to only wanting seated exericses due to breathing and pain Goal 1:: Patient will be able to perform HEP I and progression Goal Progress: Progressing Goal 2:: Patient will increase strength in LE to 4/5 bilaterally in order to improve functional mobilty Goal Progress: Not Progressing Goal 3:: Patient will maintain proper posture througoht treatment session without verbal cues to demonstrate increase core strength and stabilization. Goal Progress: Not Progressing Goal 4:: Patient will ambulate >300 feet with least restrictive device without stopping. Goal Progress: Not Progressing Plan: Pt to return back to MD for further evalution. If there are questions or concerns regarding this patient's physical therapy, please feel free to call me at [phone]. Thank you for the referral of this patient. Sincerely, Arcelia Whiting DPT
== END 2020-07-27 19:00 | disposition home or self-care (01) ==
LOC: PT 12:30
PROVIDERS: PCP Internal Medicine; Referring Provider Internal Medicine; Visit Provider Internal Medicine
DX: M54.32 Sciatica, left side (principal); M51.36 Other intervertebral disc degeneration, lumbar region
CPT/HCPCS: 97110; 97162

== ENCOUNTER 2020-08-03 16:36 | Outpatient (RCR) | payer MEDICARE, OTHER, SELFPAY ==
[2020-06-06 09:38] VITALS: BMI 53.7
[2020-07-13 14:56] LABS: Prothrombin Time Fingerstick 31.3 SEC (11.9-14.4)
[2020-08-03 16:50] LABS: Prothrombin Time Fingerstick 29.1 SEC (11.9-14.4)
== END 2020-08-03 18:00 | disposition home or self-care (01) ==
LOC: MTLAB 16:36
PROVIDERS: PCP Internal Medicine; Referring Provider Internal Medicine Cardiovascular Disease; Visit Provider Internal Medicine Cardiovascular Disease
DX: I48.92 Unspecified atrial flutter (principal); Z79.01 Long term (current) use of anticoagulants
CPT/HCPCS: 36416; 85610

== ENCOUNTER → 2020-08-24 15:34 | Outpatient (CLI) | payer MEDICARE, OTHER, SELFPAY ==
[2020-06-06 09:38] VITALS: BMI 53.7
--- NOTE | 2020-08-24 15:39 | CT_ITS ---
STUDY: CTA CHEST REASON FOR EXAM: Female, 80 years old. DYSPNEA, ELEVATED D-DIMER RADIATION DOSAGE (If Supplied By Facility): CTDIvol = ( 11.84 ) mGy, DLP = ( 452.51 ) mGycm TECHNIQUE: The examination was performed with the intravenous administration of IV 100ML ISOVUE 370. Post-processing of the angiographic images was performed, with multiplanar reformation and 3D reconstruction. Individualized dose optimization techniques were used for this CT. COMPARISON: Comparison is made with prior study 04/04/2020. FINDINGS: Normal enhancement of the main pulmonary artery and right and left pulmonary arteries. Normal enhancement of the bilateral peripheral pulmonary arteries. There is no demonstrated pulmonary embolism. Normal thoracic aorta and visualized great vessels. There is no demonstrated aortic dissection. Normal heart and pericardium. Normal mediastinum. Normal hilar regions. Normal visualized trachea and bronchi. The lungs are well expanded. Stable scattered calcified granulomas. Stable mild increased markings at the lung bases suggestive of mild scarring. Normal pleura. Normal chest wall structures. There are degenerative changes of thoracic spine. Gallstones. Small hiatal hernia. CT/CTA Chest W/WO Contrast IMPRESSION: Stable examination. Electronically Signed: Hi Naranjo MD at 9:58 EDT , Service support ,
== END ==
PROVIDERS: PCP Internal Medicine; Referring Provider Internal Medicine Pulmonary Disease; Visit Provider Internal Medicine Pulmonary Disease
DX: R79.1 Abnormal coagulation profile (principal); R06.00 Dyspnea, unspecified
CPT/HCPCS: 71275; Q9967

== ENCOUNTER 2020-08-25 13:51 | Outpatient (RCR) | payer MEDICARE, OTHER, SELFPAY ==
[2020-06-06 09:38] VITALS: BMI 53.7
[2020-08-18 17:47] LABS: International Normalized Ratio 1.3; Prothrombin Time (Protime)PT. 15.4 SECONDS (11.7-14.9)
[2020-08-18 17:59] LABS: D-Dimer Quantitative (DVT/PE) 0.75 FEU/ug/m (0.27-0.49)
[2020-08-18 18:03] LABS: Anion Gap 7 (5-15); BUN 39 mg/dL (7-18); BUN/Creat Ratio 29.5 RATIO (10-20); Calcium,Total 9.1 mg/dL (8.5-10.1); Chloride 105 mmol/L (98-107); Creatinine, Serum 1.32 mg/dL (0.55-1.02); EST Glomerular Filtration Rate 41 mL/min (>60); Est Glom Filt Rate - Afr Amer 50 mL/min (>60); Glucose 94 mg/dL (74-106); Potassium 3.9 mmol/L (3.5-5.1); Sodium Level 141 mmol/L (136-145); T4 Free Direct 1.29 ng/dL (0.76-1.46); Thyroid Stim Hormone (TSH) 0.02 uIU/mL (0.358-3.74)
[2020-08-18 18:23] LABS: BNP,B-Type NATRIURETIC PEPTIDE 87.8 pg/mL (0-100)
[2020-08-25 14:01] LABS: INR Fingerstick 1.8; Prothrombin Time Fingerstick 21.2 SEC (11.9-14.4)
== END 2020-08-25 18:00 | disposition home or self-care (01) ==
LOC: MTLAB 13:51
PROVIDERS: PCP Internal Medicine; Referring Provider Internal Medicine Cardiovascular Disease; Visit Provider Internal Medicine Cardiovascular Disease
DX: I48.92 Unspecified atrial flutter (principal); I10 Essential (primary) hypertension; R06.00 Dyspnea, unspecified; Z79.01 Long term (current) use of anticoagulants
CPT/HCPCS: 36415; 36416; 80048; 83880; 84439; 84443; 85379; 85610

== ENCOUNTER → 2020-09-04 15:35 | Outpatient (CLI) | payer MEDICARE, OTHER, SELFPAY ==
[2020-06-06 09:38] VITALS: BMI 53.7
--- NOTE | 2020-09-04 15:45 | MRI_ITS ---
STUDY: MRI LUMBAR SPINE WITHOUT CONTRAST REASON FOR EXAM: Female, 80 years old. BACK PAIN W/ RADICULOPATHY TECHNIQUE: Standardized fat and water weighted pulse sequences were obtained in the sagittal and axial planes. COMPARISON: None FINDINGS: This study is limited by the patient''s body habitus and motion. Conus medullaris ends at lower T12 level. Multilevel endplate degenerative changes are seen. 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 Mild anterior slippage of L4 on L5 is most likely degenerative. Multilevel disc desiccation and height loss is noted. Multilevel posterior disc bulges with ligamentum flavum and facet joint hypertrophy is noted. Details cannot be adequately evaluated due to motion artifact; however, findings are most prominent at L5-S1 where there is moderate to severe left-sided neural foraminal narrowing and at L4-L5 where there is severe central canal stenosis with mild left-sided and mild left-sided neural foraminal narrowing. Note is made of T2 hyperintense lesions in the left kidney, likely cysts. MRI/Spine Lumbar (Routine) IMPRESSION: Limited study by the patient''s body habitus and motion. Multilevel lumbar spondylosis, inadequately evaluated. Electronically Signed: Robin Avendano MD at 1:32 EDT Tel , Service support ,
== END ==
PROVIDERS: PCP Internal Medicine; Referring Provider Internal Medicine; Visit Provider Internal Medicine
DX: M47.26 Other spondylosis with radiculopathy, lumbar region (principal)
CPT/HCPCS: 72148

== ENCOUNTER 2020-09-12 15:19 | Outpatient (RCR) | payer MEDICARE, OTHER, SELFPAY ==
[2020-06-06 09:38] VITALS: BMI 53.7
[2020-09-08 16:55] LABS: INR Fingerstick 1.5; Prothrombin Time Fingerstick 17.2 SEC (11.9-14.4)
[2020-09-12 15:51] LABS: INR Fingerstick 2.2; Prothrombin Time Fingerstick 25.3 SEC (11.9-14.4)
== END 2020-09-12 18:00 | disposition home or self-care (01) ==
LOC: MTLAB 15:19
PROVIDERS: PCP Internal Medicine; Referring Provider Internal Medicine Cardiovascular Disease; Visit Provider Internal Medicine Cardiovascular Disease
DX: I48.92 Unspecified atrial flutter (principal); Z79.01 Long term (current) use of anticoagulants
CPT/HCPCS: 36416; 85610

== ENCOUNTER 2020-10-30 15:27 | Outpatient (RCR) | payer MEDICARE, OTHER, SELFPAY ==
[2020-09-12 14:14] VITALS: BMI 55.3
[2020-10-10 15:25] LABS: INR Fingerstick 1.5; Prothrombin Time Fingerstick 17.8 SEC (11.9-14.4)
[2020-10-30 15:46] LABS: INR Fingerstick 1.3; Prothrombin Time Fingerstick 14.9 SEC (11.9-14.4)
== END 2020-10-30 18:00 | disposition home or self-care (01) ==
LOC: MTLAB 15:27
PROVIDERS: PCP Internal Medicine; Referring Provider Internal Medicine Cardiovascular Disease; Visit Provider Internal Medicine Cardiovascular Disease
DX: I48.92 Unspecified atrial flutter (principal); Z79.01 Long term (current) use of anticoagulants
CPT/HCPCS: 36416; 85610

== ENCOUNTER 2020-11-27 09:26 | Day surgery (SDC) | payer MEDICARE, OTHER, SELFPAY ==
[2020-09-12 14:14] VITALS: BMI 55.3
[2020-11-27] VITALS (7 sets, daily range): BP systolic 120–134; BP diastolic 55–68; PULSE 66–72; RESP 16–18; TEMP 36.3–36.7; O2SAT 95–100; BMI 54.8
[2020-11-27] MEDS: Lactated Ringers 1,000 ML 100 ML IV (10:25)
--- NOTE | 2020-11-27 10:50 | RAD_ITS ---
PROCEDURE: Caudal steroid injection. DATE OF EXAMINATION: 11/27/2020. INDICATION: Female, 80 years old. Chronic low back pain. FLUOROSCOPY TIME (if supplied): (15 seconds) minutes/seconds. 3 images were obtained. Intraoperative images provided for caudal steroid injection. RAD/Fluor Guidance for Spine Inj IMPRESSION: Intraoperative imaging provided for caudal steroid injection. Electronically Signed: Hi Naranjo MD at 10:01 EDT , Service support ,
[2020-11-27] MEDS: MethylPREDNISolone Acetate 80 MG/ML Vial (10:56)
[2020-11-27] MEDS: 0.9% Normal Saline (Pres. free 10 ML Vial (10:56)
[2020-11-27] MEDS: Lidocaine 1% (5 ml sdv) 5 ML Vial (10:56)
[2020-11-27] MEDS: Bupivacaine 0.25% 30 ML Vial (10:56)
[2020-11-27 13:30] LABS: INR Fingerstick 1.2; Prothrombin Time Fingerstick 14.3 SEC (11.9-14.4)
--- NOTE | 2020-11-27 16:29 | OP.PCM_ITS ---
Report of Operation Date of Procedure: 11/27/20 Pre-Operative Diagnosis: Lumbosacral radiculopathy, lumbosacral degenerative di sc disease, lumbosacral spinal stenosis Post-Operative Diagnosis: Lumbosacral radiculopathy, lumbosacral degenerative disc disease, lumbosacral spinal stenosis Surgery/Procedure Performed:: Caudal epidural steroid injection under fluoroscopic guidance Type of Anesthesia: MAC Estimated Blood Loss (mL): Minimal Description of Procedure: DESCRIPTION OF PROCEDURE: History and physical of today was reviewed. Risks and benefits of the procedure were explained. The patient understood and agreed to proceed. Informed consent was obtained. IV inserted per routine protocol. The patient was taken to the operating room and placed in the prone position with a pillow positioned underneath the abdomen. The lower back and tailbone area was prepped and draped in a sterile fashion using iodine x3. Under fluoroscopy guidance on a lateral view, the caudal space was identified. The skin and subcutaneous tissue was anesthetized with approximately 3 mL of 1% lidocaine using a 25-gauge regular needle. Under direct visualization with fluoroscopy, using a 22-gauge 3-1/2-inch spinal needle, the needle was advanced via the skin through the sacral hiatus. The tip of the needle was passed through the sacrococcygeal ligament and advanced to approximately S4 area. After negative aspiration of blood or CSF, a total of 3 mL of contrast was injected to confirm correct placement of the needle as well as cephalad spread. The spread was followed to approximately L5 area. After confirmation on AP as well as lateral view and repeated negative aspiration, a total of 15 mL of preservative-free 0.125% Marcaine with 80 mg of Depo-Medrol was injected easily. The needle was then removed intact. The patient experienced no sign or symptoms of intrathecal or intravascular injection. The patient experienced no paresthesia. The procedure was completed without any apparent difficulty or any complications. The patient appeared to tolerate it well. ASSESSMENT AND PLAN: This is a 80-year-old female with lumbosacral radiculopathy, lumbosacral degenerative disc disease, lumbosacral spinal stenosis status post caudal epidural steroid injection, patient will continue her current medications, patient will follow in approximately 2 weeks for reevaluation. Complications None
== END 2020-11-27 12:20 | disposition home or self-care (01) ==
LOC: SDC 09:28 → AC 09:41
PROVIDERS: PCP Internal Medicine; Referring Provider Anesthesiology Pain Medicine; Visit Provider Anesthesiology Pain Medicine
PROC: 3E0S3BZ Introduction of Anesthetic Agent into Epidural Space, Percutaneous Approach (ICD-10-PCS; CPT 62282; principal; 2020-11-27 10:45)
DX: M47.27 Other spondylosis with radiculopathy, lumbosacral region (principal); M46.96 Unspecified inflammatory spondylopathy, lumbar region; M51.17 Intervertebral disc disorders with radiculopathy, lumbosacral region; M48.07 Spinal stenosis, lumbosacral region; I13.0 Hypertensive heart and chronic kidney disease with heart failure and stage 1 through stage 4 chronic kidney disease, or unspecified chronic kidney disease; N18.9 Chronic kidney disease, unspecified; M79.7 Fibromyalgia; M19.90 Unspecified osteoarthritis, unspecified site; L40.50 Arthropathic psoriasis, unspecified; K76.0 Fatty (change of) liver, not elsewhere classified; K58.9 Irritable bowel syndrome, unspecified; K21.9 Gastro-esophageal reflux disease without esophagitis; I34.1 Nonrheumatic mitral (valve) prolapse; I89.0 Lymphedema, not elsewhere classified; E78.5 Hyperlipidemia, unspecified; Q24.5 Malformation of coronary vessels; I50.32 Chronic diastolic (congestive) heart failure; I48.92 Unspecified atrial flutter; I25.10 Atherosclerotic heart disease of native coronary artery without angina pectoris; F41.9 Anxiety disorder, unspecified; F31.9 Bipolar disorder, unspecified; E66.9 Obesity, unspecified; Z68.43 Body mass index [BMI] 50.0-59.9, adult; E03.9 Hypothyroidism, unspecified; E55.9 Vitamin D deficiency, unspecified; I27.20 Pulmonary hypertension, unspecified; M16.11 Unilateral primary osteoarthritis, right hip; G47.33 Obstructive sleep apnea (adult) (pediatric); Z87.19 Personal history of other diseases of the digestive system; Z79.01 Long term (current) use of anticoagulants; Z79.899 Other long term (current) drug therapy; Z87.891 Personal history of nicotine dependence
CPT/HCPCS: 01992; 62323; 36416; 64483; 77003; 85610; J7120; J3490

== ENCOUNTER 2020-11-30 16:42 | Outpatient (RCR) | payer MEDICARE, OTHER, SELFPAY ==
[2020-09-12 14:14] VITALS: BMI 55.3
[2020-11-15 16:45] LABS: INR Fingerstick 1.4; Prothrombin Time Fingerstick 16.7 SEC (11.9-14.4)
--- NOTE | 2020-11-30 16:45 | RAD_ITS ---
STUDY: X-RAY - PELVIS AND LEFT HIP REASON FOR EXAM: Female, 80 years old. PAIN TECHNIQUE: 3 views of the pelvis and hip. COMPARISON: 04/09/2016 FINDINGS: There is a non-specific bowel gas pattern. Normal visualized soft tissue structures. Normal bilateral iliac wings, sacroiliac joints and visualized sacrum. Normal bilateral superior and inferior pubic rami. Normal pubic symphysis. Normal bilateral ischial tuberosities. Normal visualized femoral head. Normal acetabulum. Normal hip joint. RAD/HIP, UNI W/ Pelvis 2-3 Views IMPRESSION: Normal x-ray examination of the pelvis and hip. Electronically Signed: Severiano Guillory MD at 18:24 EDT Tel , Service support ,
[2020-11-30 16:56] LABS: INR Fingerstick 1.3; Prothrombin Time Fingerstick 15.3 SEC (11.9-14.4)
== END 2020-11-30 18:00 | disposition home or self-care (01) ==
LOC: MTLAB 16:42
PROVIDERS: PCP Internal Medicine; Referring Provider Internal Medicine Cardiovascular Disease; Visit Provider Internal Medicine Cardiovascular Disease
DX: I48.92 Unspecified atrial flutter (principal); Z79.01 Long term (current) use of anticoagulants
CPT/HCPCS: 36416; 73502; 85610

== ENCOUNTER 2020-12-25 07:45 | Day surgery (SDC) | payer MEDICARE, OTHER, SELFPAY ==
[2020-11-27 10:27] VITALS: BMI 54.8
[2020-12-25] VITALS (7 sets, daily range): BP systolic 106–150; BP diastolic 46–74; PULSE 65–70; RESP 16; TEMP 36.4–36.6; O2SAT 94–100; BMI 54.8
[2020-12-25 08:00] LABS: INR Fingerstick 1.2; Prothrombin Time Fingerstick 13.8 SEC (11.9-14.4)
[2020-12-25] MEDS: Lactated Ringers 1,000 ML 100 ML IV (08:37)
--- NOTE | 2020-12-25 08:51 | RAD_ITS ---
INDICATION: TRANSFORAMINAL STERIOD INJECTION L3-L5,LEFT EXAMINATION/TECHNIQUE: XR Spine Lumbar 2 or 3 Views COMPARISON: None. FINDINGS: Intraoperative images provided for transforaminal steroid injection at L3 L5 on the left. RAD/Lumbar Spine 2 or 3 Views IMPRESSION: Intraoperative images provided for transforaminal steroid injection at L3 L5 on the left. Refer to operative note for further details. Electronically Signed: Canelo Tony MD at 17:18 EDT Tel , Service support ,
[2020-12-25] MEDS: Lidocaine 1% (5 ml sdv) 5 ML Vial (08:55)
[2020-12-25] MEDS: Bupivacaine 0.25% 30 ML Vial (08:55)
[2020-12-25] MEDS: MethylPREDNISolone Acetate 80 MG/ML Vial (08:55)
--- NOTE | 2020-12-25 17:11 | PCM.OPRPT ---
Report of Operation Date of Procedure: 12/25/20 Description of Surgical Findings:: PREOPERATIVE DIAGNOSES: 1. Lumbosacral radiculopathy. 2. Lumbosacral degenerative disk disease. 3. Lumbosacral spinal stenosis. POSTOPERATIVE DIAGNOSES: 1. Lumbosacral radiculopathy. 2. Lumbosacral degenerative disk disease. 3. Lumbosacral spinal stenosis. PROCEDURE PERFORMED: Left-sided lumbar transforaminal epidural steroid injection, L3-4 and L4-5. ANESTHESIA: MAC. BLOOD LOSS: Minimal. COMPLICATIONS: None. DESCRIPTION OF PROCEDURE: History and physical of today was reviewed. Risks and benefits of the procedure were explained. The patient understood and agreed to proceed. Informed consent was obtained. IV inserted per routine protocol. The patient was taken to the operating room and placed in the prone position with a pillow positioned underneath the abdomen. The left side of his lower back was prepped and draped in a sterile fashion using iodine x3. Under fluoroscopy guidance on oblique view, the L3 through L5 vertebral bodies were visualized. The skin and subcutaneous tissue was anesthetized with approximately 5 mL of 1% lidocaine using a 25-gauge regular needle. Under direct visualization with fluoroscopy at approximately 35-degree angle, starting on the left L3, ending on the left L5, using a 22-gauge 5-inch spinal needle, the needle was advanced via the skin. The tip of the needle was maneuvered and directed towards the inferior and medial gutter of the transverse process at the superiormost aspect of the neural foramen. Once the tip of the needle was at the vicinity of the foramen, after negative aspiration for blood or CSF, a total of 1 mL of contrast was injected in divided doses between both levels to confirm correct placement of the needle as well as medial spread. The confirmation was obtained on AP as well as lateral view. After repeated negative aspiration and confirmation on AP as well as lateral view, a total of 6 mL of preservative-free 0.25% Marcaine with 80 mg of Depo-Medrol was injected in divided doses between both levels. The needles were then removed intact. The patient experienced no sign or symptoms of intrathecal or intravascular injection. The patient experienced no paresthesia. The procedure was completed without any apparent difficulty or any complications. The patient appeared to tolerate it well. ASSESSMENT AND PLAN: This is a 80-year-old female with lumbosacral radiculopathy, lumbosacral degenerative disk disease, and lumbosacral spinal stenosis, status post left_-sided lumbar transforaminal epidural steroid injection at L3-4 and L4-5. The patient will continue her current medications. The patient will follow up in approximately 2 weeks for reevaluation.
== END 2020-12-25 10:11 | disposition home or self-care (01) ==
LOC: SDC 07:45 → AC 07:46
PROVIDERS: PCP Internal Medicine; Referring Provider Anesthesiology Pain Medicine; Visit Provider Anesthesiology Pain Medicine
PROC: 3E0S3BZ Introduction of Anesthetic Agent into Epidural Space, Percutaneous Approach (ICD-10-PCS; CPT 64484; principal; 2020-12-25 09:15)
DX: M51.17 Intervertebral disc disorders with radiculopathy, lumbosacral region (principal); M48.07 Spinal stenosis, lumbosacral region; I25.10 Atherosclerotic heart disease of native coronary artery without angina pectoris; I13.0 Hypertensive heart and chronic kidney disease with heart failure and stage 1 through stage 4 chronic kidney disease, or unspecified chronic kidney disease; I50.32 Chronic diastolic (congestive) heart failure; N18.9 Chronic kidney disease, unspecified; I27.20 Pulmonary hypertension, unspecified; E78.5 Hyperlipidemia, unspecified; I48.92 Unspecified atrial flutter; F31.9 Bipolar disorder, unspecified; F41.9 Anxiety disorder, unspecified; M79.7 Fibromyalgia; K21.9 Gastro-esophageal reflux disease without esophagitis; E03.9 Hypothyroidism, unspecified; E55.9 Vitamin D deficiency, unspecified; E66.9 Obesity, unspecified; Z68.43 Body mass index [BMI] 50.0-59.9, adult; Z79.01 Long term (current) use of anticoagulants; Z79.899 Other long term (current) drug therapy; Z87.891 Personal history of nicotine dependence
CPT/HCPCS: 64484; 36416; 64483; 72100; 85610; J7120

== ENCOUNTER 2021-01-04 16:58 | Outpatient (RCR) | payer MEDICARE, OTHER, SELFPAY ==
[2020-11-27 10:27] VITALS: BMI 54.8
[2020-12-07 17:00] LABS: INR Fingerstick 1.5; Prothrombin Time Fingerstick 17.3 SEC (11.9-14.4)
[2020-12-14 16:25] LABS: INR Fingerstick 2.1; Prothrombin Time Fingerstick 24.4 SEC (11.9-14.4)
[2021-01-05 16:56] LABS: INR Fingerstick 2.7; Prothrombin Time Fingerstick 29.9 SEC (11.9-14.4)
== END 2021-01-04 18:00 | disposition home or self-care (01) ==
LOC: MTLAB 16:58
PROVIDERS: PCP Internal Medicine; Referring Provider Internal Medicine Cardiovascular Disease; Visit Provider Internal Medicine Cardiovascular Disease
DX: I48.92 Unspecified atrial flutter (principal); Z79.01 Long term (current) use of anticoagulants
CPT/HCPCS: 36416; 85610

== ENCOUNTER → 2021-01-23 16:11 | Outpatient (CLI) | payer MEDICARE, OTHER, SELFPAY ==
[2020-12-25 08:31] VITALS: BMI 54.8
[2021-01-23 18:00] LABS: Absolute Neutrophil Count 3.4 X10^3/uL (2.0-7.7); Basophil# 0.03 X10^3/uL; Basophil% 0.6 % (0-1); Eosinophil# 0.06 X10^3/uL; Eosinophils% 1.1 % (0-5); Hematocrit 34.3 % (37-47); Lymphocyte % 20.3 % (19-41); Mean Corp Hgb Conc 32.1 g/dL (32-36); Mean Corpuscular Volume 93.5 fL (81-99); Mean Platelet Vol. 11.9 fl (6.2-12.0); Monocyte# 0.82 X10^3/uL; Monocyte% 15.1 % (0-10); NRBC Flagged by Analyzer 0 % (0-5); Neutrophil % 62.5 % (47-70); Platelet Count 192 K/mm3 (150-450); RBC Distribution Width CV 13.8 % (11.6-14.6); RBC Distribution Width SD 47.2 fl (35.1-43.9); Red Blood Count 3.67 M/mm3 (4.2-5.4); White Blood Count 5.4 K/mm3 (4.4-11.0)
[2021-01-23 18:12] LABS: BNP,B-Type NATRIURETIC PEPTIDE 166.2 pg/mL (0-100)
[2021-01-23 18:38] LABS: Anion Gap 5 (5-15); BUN 46 mg/dL (7-18); BUN/Creat Ratio 35.1 RATIO (10-20); Chloride 107 mmol/L (98-107); Creatinine, Serum 1.31 mg/dL (0.55-1.02); EST Glomerular Filtration Rate 41 mL/min (>60); Est Glom Filt Rate - Afr Amer 50 mL/min (>60); Glucose 105 mg/dL (74-106); Potassium 4.3 mmol/L (3.5-5.1); Sodium Level 140 mmol/L (136-145); T4 Free Direct 1.41 ng/dL (0.76-1.46); Thyroid Stim Hormone (TSH) < 0.01 uIU/mL (0.358-3.74)
== END ==
PROVIDERS: PCP Internal Medicine; Referring Provider Physician Assistant Medical; Visit Provider Physician Assistant Medical
DX: I50.32 Chronic diastolic (congestive) heart failure (principal); E03.9 Hypothyroidism, unspecified; R60.9 Edema, unspecified; R06.00 Dyspnea, unspecified
CPT/HCPCS: 36415; 80048; 83880; 84439; 84443; 84481; 85025

== ENCOUNTER 2021-01-25 16:19 | Outpatient (RCR) | payer MEDICARE, OTHER, SELFPAY ==
[2020-12-25 08:31] VITALS: BMI 54.8
[2021-01-22 18:07] LABS: Prothrombin Time (Protime)PT. 57.8 SECONDS (11.7-14.9)
[2021-01-22 18:17] LABS: International Normalized Ratio 6.7
[2021-01-29 07:16] LABS: INR Fingerstick 2.6; Prothrombin Time Fingerstick 29.2 SEC (11.9-14.4)
== END 2021-01-25 18:00 | disposition home or self-care (01) ==
LOC: MTLAB 16:19
PROVIDERS: PCP Internal Medicine; Referring Provider Internal Medicine Cardiovascular Disease; Visit Provider Internal Medicine Cardiovascular Disease
DX: I48.92 Unspecified atrial flutter (principal); Z79.01 Long term (current) use of anticoagulants
CPT/HCPCS: 36415; 36416; 85610

== ENCOUNTER 2021-02-23 16:42 | Outpatient (RCR) | payer MEDICARE, OTHER, SELFPAY ==
[2021-02-07 01:34] VITALS: BMI 54.8
[2021-02-08 12:06] LABS: INR Fingerstick 3.6; Prothrombin Time Fingerstick 39.4 SEC (11.9-14.4)
[2021-02-15 12:10] LABS: INR Fingerstick 4.2; Prothrombin Time Fingerstick 45.1 SEC (11.9-14.4)
[2021-02-15 13:11] LABS: International Normalized Ratio 3.4; Prothrombin Time (Protime)PT. 33.3 SECONDS (11.7-14.9)
[2021-02-23 16:55] LABS: INR Fingerstick 4.1; Prothrombin Time Fingerstick 44.5 SEC (11.9-14.4)
[2021-02-23 17:42] LABS: International Normalized Ratio 3.4; Prothrombin Time (Protime)PT. 33.3 SECONDS (11.7-14.9)
== END 2021-02-23 18:00 | disposition home or self-care (01) ==
LOC: MTLAB 16:42
PROVIDERS: PCP Internal Medicine; Referring Provider Internal Medicine Cardiovascular Disease; Visit Provider Internal Medicine Cardiovascular Disease
DX: I48.92 Unspecified atrial flutter (principal); Z79.01 Long term (current) use of anticoagulants
CPT/HCPCS: 36415; 36416; 85610

== ENCOUNTER 2021-02-26 09:44 | Day surgery (SDC) | payer MEDICARE, OTHER, SELFPAY ==
[2021-02-26] VITALS (7 sets, daily range): BP systolic 87–156; BP diastolic 37–54; PULSE 63–71; RESP 16–18; TEMP 35.9–36.7; O2SAT 97–98; BMI 53.8
[2021-02-26] MEDS: Lactated Ringers 1,000 ML 100 ML IV (10:24)
--- NOTE | 2021-02-26 10:58 | RAD_ITS ---
PROCEDURE: Medial branch block. DATE OF EXAMINATION: 02/26/2021. INDICATION: Female, 81 years old. Left back pain. FLUOROSCOPY TIME (if supplied): (7 seconds.) minutes/seconds. 5 images were obtained. RAD/Lumbar Spine 2 or 3 Views IMPRESSION: Intraoperative fluoroscopic services provided for left L3-S1 medial branch block. Electronically Signed: Hi Naranjo MD at 15:50 EDT , Service support ,
[2021-02-26 11:01] LABS: International Normalized Ratio 1.4; Prothrombin Time (Protime)PT. 16.4 SECONDS (11.7-14.9)
[2021-02-26] MEDS: Bupivacaine 0.25% 30 ML Vial (11:09)
[2021-02-26] MEDS: Lidocaine 1% (5 ml sdv) 5 ML Vial (11:09)
--- NOTE | 2021-02-26 12:53 | PCM.OPRPT ---
Report of Operation Date of Procedure: 02/26/21 Description of Surgical Findings:: PROCEDURE: Left-sided lumbar medial branch block at L3, L4, L5, S1 PREOPERATIVE DIAGNOSIS: Lumbar spondylosis, lumbar degenerative disc disease, and lumbar facet arthropathy POSTOPERATIVE DIAGNOSIS: Lumbar spondylosis, lumbar degenerative disc disease, and lumbar facet arthropathy ANESTHESIA: MAC COMPLICATIONS: None BLOOD LOSS: Minimal PROCEDURE IN DETAIL: History and physical today was reviewed. Risks and benefits of the procedure were explained. The patient understood, agreed to our procedure, and informed consent was obtained. IV inserted per routine protocol. The patient was taken to the operating room, placed in a prone position with a pillow positioned underneath the abdomen. The left side of the lower back was prepped and draped in a sterile fashion using iodine x3. Under fluoroscopy guidance, on AP view, L3 through S1 vertebral bodies were visualized. Skin and subcutaneous tissues were anesthetized with approximately 5 mL of 1% lidocaine using a 25-gauge regular needle. Under direct visualization with fluoroscopy at approximately 25-degree angle, starting on the left L3, ending on the left S1, passing through the L4-L5 using a 22-gauge 3 1/2-inch spinal needle, the needle was advanced via the skin. The tip of the needle was maneuvered and directed towards the superior and medial gutter of the transverse process at the vicinity of the medial branch. Once the tip of the needle was in contact with the bone, the needle pulled approximately 2 mm off the bone. After negative aspiration of blood with CSF and confirmation of AP as well as oblique view, a total of 8 mL of preservative-free 0.25% Marcaine was injection in divided doses between those 4 levels. The needles were then removed intact. The patient experienced no signs or symptoms intrathecal, intravascular injection. The patient experienced no paraesthesia. The procedure was completed without any apparent difficult, any complication. The patient appeared to tolerate well. ASSESSMENT AND PLAN: This is a 81-year-old female with lumbar spondylosis, lumbar degenerative disc disease, and lumbar facet arthropathy, status post left-sided lumbar medial branch block at L3 through S1. The patient will continue her current medications. The patient will follow in approximately 1 weeks for reevaluation.
[2021-03-10 07:21] LABS: INR Fingerstick 1.7; Prothrombin Time Fingerstick 19.6 SEC (11.9-14.4)
== END 2021-02-26 12:24 | disposition home or self-care (01) ==
LOC: SDC 09:46 → AC 09:47
PROVIDERS: PCP Internal Medicine; Referring Provider Anesthesiology Pain Medicine; Visit Provider Anesthesiology Pain Medicine
PROC: 3E0T3BZ Introduction of Anesthetic Agent into Peripheral Nerves and Plexi, Percutaneous Approach (ICD-10-PCS; CPT 64493; principal; 2021-02-26 11:05)
DX: M47.816 Spondylosis without myelopathy or radiculopathy, lumbar region (principal); M51.36 Other intervertebral disc degeneration, lumbar region; M46.96 Unspecified inflammatory spondylopathy, lumbar region; I11.0 Hypertensive heart disease with heart failure; I50.32 Chronic diastolic (congestive) heart failure; I27.20 Pulmonary hypertension, unspecified; I25.10 Atherosclerotic heart disease of native coronary artery without angina pectoris; I48.0 Paroxysmal atrial fibrillation; I48.92 Unspecified atrial flutter; E78.5 Hyperlipidemia, unspecified; E03.9 Hypothyroidism, unspecified; M19.90 Unspecified osteoarthritis, unspecified site; M79.7 Fibromyalgia; K21.9 Gastro-esophageal reflux disease without esophagitis; F31.9 Bipolar disorder, unspecified; F41.9 Anxiety disorder, unspecified; G47.33 Obstructive sleep apnea (adult) (pediatric); E66.9 Obesity, unspecified; E55.9 Vitamin D deficiency, unspecified; Z68.43 Body mass index [BMI] 50.0-59.9, adult; Z79.01 Long term (current) use of anticoagulants; Z79.899 Other long term (current) drug therapy; Z87.891 Personal history of nicotine dependence
CPT/HCPCS: 01992; 64493; 64494; 64495; 36416; 64483; 72100; 85610; J7120

== ENCOUNTER → 2021-03-06 13:58 | Outpatient (CLI) | payer MEDICARE, OTHER, SELFPAY ==
[2021-03-06 15:43] LABS: International Normalized Ratio 2.2; Prothrombin Time (Protime)PT. 23.2 SECONDS (11.7-14.9)
[2021-03-06 17:06] LABS: T4 Free Direct 1.03 ng/dL (0.76-1.46); Thyroid Stim Hormone (TSH) 0.05 uIU/mL (0.358-3.74)
== END ==
PROVIDERS: Internal Medicine Cardiovascular Disease; PCP Internal Medicine; Referring Provider Internal Medicine Endocrinology, Diabetes & Metabolism; Visit Provider Internal Medicine Endocrinology, Diabetes & Metabolism
DX: I48.92 Unspecified atrial flutter (principal); Z79.01 Long term (current) use of anticoagulants; E03.9 Hypothyroidism, unspecified
CPT/HCPCS: 36415; 84439; 84443; 85610

== ENCOUNTER 2021-03-12 07:34 | Day surgery (SDC) | payer MEDICARE, OTHER, SELFPAY ==
[2021-03-12 08:01] LABS: INR Fingerstick 1.4; Prothrombin Time Fingerstick 16.2 SEC (11.9-14.4)
[2021-03-12 08:12] VITALS: BP 136/48; PULSE 77; RESP 16; TEMP 36.2; O2SAT 99; BMI 54.7
[2021-03-12] MEDS: Lactated Ringers 1,000 ML 100 ML IV (08:18)
[2021-03-12 08:44] LABS: International Normalized Ratio 1.2; Prothrombin Time (Protime)PT. 14.9 SECONDS (11.7-14.9)
--- NOTE | 2021-03-12 08:50 | RAD_ITS ---
INDICATION: TRANSFORAMINAL INJECTIONS L4-S1, LEFT EXAMINATION/TECHNIQUE: X-RAY - XR Spine Lumbar 2 or 3 Views Total Fluoroscopic Time: 9.1 seconds. Fluoroscopic Images: 3 Fluoroscopy Dose: 7.19 mGy COMPARISON: None. FINDINGS: Three spot floroscopic images were obtained intra-operatively demonstrating needles superimposed over the left lateral aspect of the L4-L5 and L5-S1 nerve roots followed by contrast injection with contrast tracking along the nerve roots. No radiologist was present for the procedure, please refer to operative report for details. RAD/Lumbar Spine 2 or 3 Views IMPRESSION: Please refer to operative report for details. Electronically Signed: Ian Burgos MD at 13:34 EDT Tel , Service support ,
[2021-03-12] MEDS: MethylPREDNISolone Acetate 80 MG/ML Vial (09:03)
[2021-03-12] MEDS: Bupivacaine 0.25% 30 ML Vial (09:03)
[2021-03-12] MEDS: Lidocaine 1% (5 ml sdv) 5 ML Vial (09:04)
[2021-03-12 09:09] VITALS: BP 136/48; BP 85/46; PULSE 63; RESP 16; TEMP 36.2; O2SAT 95
[2021-03-12 09:12] VITALS: BP 100/50; BP 136/48; PULSE 64; RESP 16; O2SAT 94
[2021-03-12 09:20] VITALS: BP 102/52; BP 136/48; PULSE 63; RESP 16; O2SAT 98
[2021-03-12 09:26] VITALS: BP 114/69; BP 136/48; PULSE 64; RESP 16; TEMP 36.3; O2SAT 97
[2021-03-12 09:48] VITALS: BP 136/48
--- NOTE | 2021-03-12 15:39 | PCM.OPRPT ---
Report of Operation Date of Procedure: 03/12/21 Description of Surgical Findings:: PREOPERATIVE DIAGNOSIS: Lumbosacral radiculopathy, lumbosacral degenerative disc disease, lumbosacral spinal stenosis POSTOPERATIVE DIAGNOSIS: Lumbosacral radiculopathy, lumbosacral degenerative disc disease, lumbosacral spinal stenosis PROCEDURE PERFORMED: Left sided lumbar transforaminal epidural steroid injection, L4-5 and L5-S1. ANESTHESIA: BLOOD LOSS: COMPLICATIONS: DESCRIPTION OF PROCEDURE: History and physical of today was reviewed. Risks and benefits of the procedure were explained. The patient understood and agreed to proceed. Informed consent was obtained. IV inserted per routine protocol. The patient was taken to the operating room and placed in the prone position with a pillow positioned underneath the abdomen. The left side of the lower back was prepped and draped in a sterile fashion using iodine x3. Under fluoroscopy guidance on oblique view, the L4 through S1 vertebral bodies were visualized. The skin and subcutaneous tissue was anesthetized with approximately 5 mL of 1% lidocaine using a 25-gauge regular needle. Under direct visualization with fluoroscopy at approximately 35-degree angle, starting on the left L4, ending on the left L5, using a 22-gauge 5-inch spinal needle, the needle was advanced via the skin. The tip of the needle was maneuvered and directed towards the inferior and medial gutter of the transverse process at the superiormost aspect of the neural foramen. Once the tip of the needle was at the vicinity of the foramen, after negative aspiration for blood or CSF, a total of 1 mL of contrast was injected in divided doses between both levels to confirm correct placement of the needle as well as medial spread. The confirmation was obtained on AP as well as lateral view. After repeated negative aspiration and confirmation on AP as well as lateral view, a total of 6 mL of preservative-free 0.25% Marcaine with 80 mg of Depo-Medrol was injected in divided doses between both levels. The needles were then removed intact. The patient experienced no sign or symptoms of intrathecal or intravascular injection. The patient experienced no paresthesia. The procedure was completed without any apparent difficulty or any complications. The patient appeared to tolerate it well. Assessment and plan: This is a 81-year-old female with lumbosacral radiculopathy, lumbosacral degenerative disc disease, lumbosacral spinal stenosis status post left-sided lumbar transforaminal epidural steroid injection L4- 5, L5-S1 patient will continue her current medications, patient will follow in approximately 2 weeks for reevaluation.
== END 2021-03-12 09:58 | disposition home or self-care (01) ==
LOC: SDC 07:36 → AC 07:36
PROVIDERS: PCP Internal Medicine; Referring Provider Anesthesiology Pain Medicine; Visit Provider Anesthesiology Pain Medicine
PROC: 3E0S3BZ Introduction of Anesthetic Agent into Epidural Space, Percutaneous Approach (ICD-10-PCS; CPT 62322; principal; 2021-03-12 08:45)
DX: M51.17 Intervertebral disc disorders with radiculopathy, lumbosacral region (principal); M47.817 Spondylosis without myelopathy or radiculopathy, lumbosacral region; M48.07 Spinal stenosis, lumbosacral region; M46.96 Unspecified inflammatory spondylopathy, lumbar region; G47.33 Obstructive sleep apnea (adult) (pediatric); I13.0 Hypertensive heart and chronic kidney disease with heart failure and stage 1 through stage 4 chronic kidney disease, or unspecified chronic kidney disease; N18.9 Chronic kidney disease, unspecified; Z87.891 Personal history of nicotine dependence; I50.9 Heart failure, unspecified
CPT/HCPCS: 64484; 36416; 64483; 72100; 85610; J7120

== ENCOUNTER 2021-04-03 15:45 | Outpatient (RCR) | payer MEDICARE, OTHER, SELFPAY ==
[2021-03-09 02:10] VITALS: BMI 54.8
[2021-03-30 13:50] LABS: INR Fingerstick 5.1; Prothrombin Time Fingerstick 54.4 SEC (11.9-14.4)
[2021-04-03 16:00] LABS: INR Fingerstick 3.6; Prothrombin Time Fingerstick 39.3 SEC (11.9-14.4)
== END 2021-04-08 18:00 | disposition home or self-care (01) ==
LOC: MTLAB 15:45
PROVIDERS: PCP Internal Medicine; Referring Provider Internal Medicine Cardiovascular Disease; Visit Provider Internal Medicine Cardiovascular Disease
DX: I48.92 Unspecified atrial flutter (principal); Z79.01 Long term (current) use of anticoagulants
CPT/HCPCS: 36416; 85610

== ENCOUNTER → 2021-04-10 16:15 | Outpatient (CLI) | payer MEDICARE, OTHER, SELFPAY ==
--- NOTE | 2021-04-10 16:17 | MRI_ITS ---
STUDY: MRI LUMBAR SPINE WITHOUT CONTRAST REASON FOR EXAM: Female, 81 years old. Left leg pain. TECHNIQUE: Standardized fat and water weighted pulse sequences were obtained in the sagittal and axial planes. COMPARISON: MRI lumbar spine without contrast 09/04/2020. FINDINGS: T8-T9: (Sagittal only). Normal endplates. Normal disc space height narrowing. No ventral extradural defect. Normal central canal and bilateral intervertebral neural foramina. T9-T10: (Sagittal only). Anterior marginal spurs. Normal endplates. Normal disc height. No ventral extradural defect. Normal central canal and bilateral intervertebral neural foramina. T10-T11: (Sagittal only). Anterior marginal spurs. Schmorl''s node in the central T10 inferior endplate. Normal T11 superior endplate. Normal disc height. No ventral extradural defect. Normal central canal and bilateral intervertebral neural foramina. T11-T12: (Sagittal only). Anterior marginal spurs. Broad Schmorl''s node in the T11 inferior endplate. Normal T12 superior endplate. Minimal degenerative retrolisthesis of T11 on T12 accounts for the ventral extradural defect. Normal central canal and bilateral intervertebral neural foramina. T12-L1: Irregularities of the vertebral endplates due to intervertebral osteochondrosis. Pronounced disc space height narrowing. Mild degenerative retrolisthesis of T12 on L1. Mild asymmetric degenerative facet arthropathy. Normal central canal and bilateral lateral recesses. Mild stenosis of the right intervertebral neural foramen. Normal left intervertebral neural foramen. Normal lumbar lordosis. There is no substantial scoliosis. Normal conus medullaris that terminates at the mid T12 vertebral body level. L1-2: Pronounced disc space height narrowing. Minimal MODIC type II degenerative vertebral marrow fatty changes underneath the vertebral endplates. Mild degenerative retrolisthesis of L1 on L2. Mild central canal stenosis with an AP canal diameter of 8.6 mm is unchanged. Normal bilateral lateral recesses. Normal bilateral intervertebral neural foramina. L2-3: Pronounced disc space height narrowing and irregularities of the vertebral endplates due to intervertebral osteochondrosis. Mild degenerative retrolisthesis of L2 on L3. Pronounced central canal stenosis with an AP canal diameter of 4.2 mm. Moderate left degenerative facet arthropathy. Mild right degenerative facet arthropathy. Mild stenosis of the bilateral lateral recesses are unchanged. Mild stenosis of the left intervertebral neural foramen is unchanged. Normal right intervertebral neural foramen. L3-4: Normal vertebral endplates. Pronounced disc space height narrowing. Moderate central canal stenosis with a transverse canal diameter of 6.8 mm. Normal bilateral lateral recesses. Moderate left ureter facet arthropathy. Mild right degenerative facet arthropathy. Normal bilateral intervertebral neural foramina. L4-5: Normal endplates. Pronounced right-sided disc space height narrowing. Grade 1 degenerative anterolisthesis of L4 on L5. Prominent left posterior paramedian disc extrusion displacing the left L5 nerve root sleeve. This is also causing severe stenosis of the left lateral recess. Severe central canal stenosis with an AP canal diameter of 4.2 mm. Asymmetric posterior ligamenta flava hypertrophy. Pronounced left due to facet arthropathy. Moderate right degenerative facet arthropathy. Mild to moderate stenosis of the right intervertebral neural foramen. Mild stenosis of the left intervertebral neural foramen. L5-S1: Normal endplates. Normal disc height. Prominent posterior annular bulging disc. Minimal degenerative anterolisthesis of L5 on S1. Mild central canal stenosis with an AP canal diameter of 9 mm. Moderate stenosis of the bilateral lateral recesses. Moderately pronounced asymmetric degenerative facet arthropathy, left greater than right. Moderate stenosis of the bilateral intervertebral neural foramina. Normal visualized sacral ala. Normal visualized paraspinous soft tissue structures. MRI/Spine Lumbar (Routine) IMPRESSION: 1. Prominent left L4-L5 posterior paramedian disc extrusion displacing the left L5 nerve sleeve and severe central canal stenosis with an AP canal diameter of 4.2 mm. This was previously a disc protrusion but the severe central canal stenosis and the grade 1 degenerative anterolisthesis of L4 on L5 are unchanged. 2. Pronounced central canal stenosis at L2-L3 disc space level with an AP canal diameter of 4.2 mm, pronounced L2-L3 disc space height narrowing and mild degenerative retrolisthesis of L2 on L3. This level is unchanged. 3. Moderate central canal stenosis at L3-L4 disc space level with an AP canal diameter of 6.8 mm. This level is unchanged. 4. Mild central canal stenosis at L5-S1 disc space level with an AP canal diameter of 9 mm, moderate stenosis of the bilateral intervertebral neural foramina and the bilateral lateral recesses and moderately pronounced asymmetric degenerative facet arthropathy, left greater than right. This level is unchanged. 5. Mild central canal stenosis at L1-L2 disc space level with an AP canal diameter of 8.6 mm and mild degenerative retrolisthesis of L1 on L2. This level is unchanged. 6. Electronically Signed: Xu Caputo MD at 9:24 EDT , Service support ,
== END ==
PROVIDERS: PCP Internal Medicine; Visit Provider Orthopaedic Surgery
DX: M43.16 Spondylolisthesis, lumbar region (principal); M51.16 Intervertebral disc disorders with radiculopathy, lumbar region; M48.061 Spinal stenosis, lumbar region without neurogenic claudication
CPT/HCPCS: 72148

== ENCOUNTER 2021-04-23 06:50 | Day surgery (SDC) | payer MEDICARE, OTHER, SELFPAY ==
[2021-04-23 07:14] VITALS: BP 117/52; PULSE 65; RESP 18; TEMP 36.2; O2SAT 100; BMI 55.8
[2021-04-23] MEDS: Lactated Ringers 1,000 ML 15 ML IV (07:35)
--- NOTE | 2021-04-23 08:15 | RAD_ITS ---
STUDY: X-RAY - LUMBAR SPINE REASON FOR EXAM: Female, 81 years old. FACET INJECTION, L3-S1, LEFT TECHNIQUE: 4 view(s) of the lumbar spine were obtained. COMPARISON: None FINDINGS: Intraoperative imaging provided for left L3-S1 facet injection. RAD/Lumbar Spine 2 or 3 Views IMPRESSION: Intraoperative imaging provided for left L5 3 to S1 facet injection. Electronically Signed: Hi Naranjo MD at 14:26 EST , Service support ,
[2021-04-23] MEDS: Bupivacaine 0.25% 30 ML Vial (08:16)
[2021-04-23] MEDS: MethylPREDNISolone Acetate 80 MG/ML Vial (08:16)
[2021-04-23] MEDS: Lidocaine 1% (5 ml sdv) 5 ML Vial (08:16)
[2021-04-23 08:25] VITALS: BP 117/52; PULSE 64; RESP 16; TEMP 36.4; O2SAT 95
[2021-04-23 08:30] VITALS: BP 117/52; BP 90/46; PULSE 64; RESP 16; O2SAT 92
[2021-04-23 08:35] VITALS: BP 106/52; BP 117/52; PULSE 62; RESP 16; O2SAT 93
[2021-04-23 08:41] VITALS: BP 106/58; BP 117/52; PULSE 64; RESP 16; TEMP 36.2; O2SAT 95
[2021-04-23 09:07] VITALS: BP 117/52
[2021-04-23 09:10] LABS: INR Fingerstick 1.7; Prothrombin Time Fingerstick 19.4 SEC (11.9-14.4)
--- NOTE | 2021-04-23 13:08 | PCM.OPRPT ---
Report of Operation Date of Procedure: 04/23/21 Description of Surgical Findings:: PREOPERATIVE DIAGNOSIS: Lumbosacral spondylosis, lumbosacral degenerative disc disease, lumbar facet arthropathy POSTOPERATIVE DIAGNOSIS: Lumbosacral spondylosis, lumbosacral degenerative disc disease, lumbar facet arthropathy PROCEDURE PERFORMED: Left-sided lumbar facet steroid injection, L3, L4, L5, and S1. ANESTHESIA: MAC. BLOOD LOSS: Minimal. COMPLICATIONS: None. DESCRIPTION OF PROCEDURE: History and physical of today was reviewed. Risks and benefits of the procedure were explained. The patient understood and agreed to proceed. Informed consent was obtained. IV inserted per routine protocol. The patient was taken to the operating room and placed in the prone position with a pillow positioned underneath the abdomen. The left side of her lower back was prepped and draped in a sterile fashion using iodine x3. Under fluoroscopy on oblique view, the L3 through S1 vertebral bodies were visualized. The skin and subcutaneous tissue was anesthetized with approximately 5 mL of 1% lidocaine using a 25-gauge regular needle. Under direct visualization with fluoroscopy, at approximately 25-degree angle starting on the left L3, ending on the left S1, passing through the L4 and L5, using a 22-gauge 3-1/2-inch spinal needle, the needle was advanced via the skin. The tip of the needle was maneuvered and directed towards the superior medial gutter of the transverse process at the vicinity of the medial branch. Once tip of the needle was in contact with the bone, the needle was pulled approximately 2 mm off the bone. After negative aspiration of blood or CSF and confirmation on AP as well as oblique view, a total of 8 mL of preservative-free 0.25% Marcaine with 80 mg of Depo-Medrol was injected in divided doses between those four levels. The needles were then removed intact. The patient experienced no sign or symptoms of intrathecal or intravascular injection. The patient experienced no paresthesia. The procedure was completed without any apparent difficulty or any complications. The patient appeared to tolerate it well. ASSESSMENT AND PLAN: This is an 81-year-old female with lumbosacral spondylosis, lumbosacral degenerative disc disease, lumbar facet arthropathy status post left-sided lumbar facet steroid injection L3-S1, patient will continue current medications, patient will follow approximately 2 weeks for reevaluation.
== END 2021-04-23 09:12 | disposition home or self-care (01) ==
LOC: SDC 06:50 → AC 06:51
PROVIDERS: PCP Internal Medicine; Referring Provider Anesthesiology Pain Medicine; Visit Provider Anesthesiology Pain Medicine
PROC: 3E0T3BZ Introduction of Anesthetic Agent into Peripheral Nerves and Plexi, Percutaneous Approach (ICD-10-PCS; CPT 64493; principal; 2021-04-23 08:10)
DX: M47.817 Spondylosis without myelopathy or radiculopathy, lumbosacral region (principal); M51.37 Other intervertebral disc degeneration, lumbosacral region; M46.96 Unspecified inflammatory spondylopathy, lumbar region; M79.7 Fibromyalgia; I25.10 Atherosclerotic heart disease of native coronary artery without angina pectoris; I13.0 Hypertensive heart and chronic kidney disease with heart failure and stage 1 through stage 4 chronic kidney disease, or unspecified chronic kidney disease; N18.9 Chronic kidney disease, unspecified; I50.32 Chronic diastolic (congestive) heart failure; I27.20 Pulmonary hypertension, unspecified; E03.9 Hypothyroidism, unspecified; M19.90 Unspecified osteoarthritis, unspecified site; K21.9 Gastro-esophageal reflux disease without esophagitis; F31.9 Bipolar disorder, unspecified; F41.9 Anxiety disorder, unspecified; E66.9 Obesity, unspecified; Z68.43 Body mass index [BMI] 50.0-59.9, adult; Z96.641 Presence of right artificial hip joint; Z96.653 Presence of artificial knee joint, bilateral; Z96.612 Presence of left artificial shoulder joint; Z96.611 Presence of right artificial shoulder joint; Z79.01 Long term (current) use of anticoagulants; Z79.899 Other long term (current) drug therapy; Z87.891 Personal history of nicotine dependence
CPT/HCPCS: 01992; 64493; 64494; 64495; 36416; 64483; 72100; 85610; J7120

== ENCOUNTER 2021-05-25 15:47 | Outpatient (RCR) | payer MEDICARE, OTHER, SELFPAY ==
[2021-04-08 20:46] VITALS: BMI 54.8
[2021-05-15 16:30] LABS: INR Fingerstick 1.4; Prothrombin Time Fingerstick 16.7 SEC (11.9-14.4)
[2021-05-25 15:56] LABS: INR Fingerstick 3.1; Prothrombin Time Fingerstick 33.9 SEC (11.9-14.4)
== END 2021-06-09 18:00 | disposition home or self-care (01) ==
LOC: MTLAB 15:47
PROVIDERS: PCP Internal Medicine; Referring Provider Internal Medicine Cardiovascular Disease; Visit Provider Internal Medicine Cardiovascular Disease
DX: I48.92 Unspecified atrial flutter (principal); Z79.01 Long term (current) use of anticoagulants
CPT/HCPCS: 36416; 85610

== ENCOUNTER 2021-06-15 14:08 | Outpatient (RCR) | payer MEDICARE, OTHER, SELFPAY ==
[2021-06-10 19:43] VITALS: BMI 54.8
[2021-06-15 14:25] LABS: INR Fingerstick 1.6
== END 2021-07-09 18:00 | disposition home or self-care (01) ==
LOC: MTLAB 14:08
PROVIDERS: PCP Internal Medicine; Referring Provider Internal Medicine Cardiovascular Disease; Visit Provider Internal Medicine Cardiovascular Disease
DX: I48.92 Unspecified atrial flutter (principal); Z79.01 Long term (current) use of anticoagulants
CPT/HCPCS: 36416; 85610

== ENCOUNTER 2021-07-03 15:00 | Outpatient (RCR) | payer MEDICARE, OTHER, SELFPAY ==
--- NOTE | 2021-04-11 15:57 | HP.PTEVAL_ITS ---
Patient's Visit Information SERA MARK is a 81 year old F referred to Physical Therapy by Dr. Tomasa Self DO with a diagnosis of Balance. Date of Evaluation: 04/11/21 Physical Therapist: Arcelia Whiting DPT - Visit Plan Frequency: 2x /Week Duration: 4 Weeks Plan: Balance assessment- 2x a week for 4 weeks with LE and core strength/stabilization for functional mobility- addition of balance exercises as prescribed by PT performing balance assessment. - Subjective Patient reports that she has a lot of weakness. She has to pull herself up the stairs and use rails to help coming down. Has noticed this decline in the last month- thinks it might be medication related. She feels the whole body is week. She has been using a straight cane in the community but does not use it at home. Lives in a two story home but she has a stair chair- 3 stairs to enter the home- but has handrail on one side- no problems navigating. Her grandson lives with her but she doesn't see much of him as he works third shift. She is I with all of her ADL's and does drive. She is not as steady and strong as normal and she doesn't like. She has only had one fall- 3 weeks- getting out of the shower and missed the shower bench. No injuries- she had to have her daughter come get her up off the floor. She has bad sciatica- which it pretty normal-see Dr. Mcdonald for pain management and is now seeing Dr. Hitchcock- sees him Friday- had an MRI yesterday. Sleep is not disturbed. Is still able to stand and cook for herself but does sit down due to back pains. She feels like her feet are on stand- she has an Sunitha brace but does not wear them- but does have braces on both ankles. PMHX/Meds: see list and MD added 2 medications but she is unsure of the names. - Objective Posture: Fh, RS- increased kyphosis- can correct with verbal cues but does not maintain. Gait: wide ANTELMO- slow jarrett- straight cane- Stopped 3x in 300 feet for SOB. HR/TR: not tested due to braces. Stairs: reports asc/desc non recip with 2 HR. Endurance: poor. SLS: weight shift- see FGA for balance. ROM: WFL. Strength: Core: poor, Hip: 4-/5, Knee: 4+/5, Ankle: 5/5. Special Test: see TUG and sit to stand - Balance/Special Test Scores Functional Gait Assessment Score: 16 % Disability: 46.6700 Lower Extremity Functional Score: 31 TUG Test Time Seconds: 19 30 Second Chair Rise Test Seconds: 10 - Goals Goal 1:: Patient will be I with HEP and progression Goal Time Frame: 4-6 Weeks Goal 2:: Patient will improve her sit to stand to 12 in 30 sec with single UE A Goal Time Frame: 4-6 Weeks Goal 3:: Patient will asc/desc 8 stairs recip with 2 HR Goal Time Frame: 4-6 Weeks Goal 4:: Patient will improve her FGA by 4 points Goal Time Frame: 4-6 Weeks Goal 5:: Patient will report feeling 80% more confident with balance and functional mobility. Goal Time Frame: 4-6 Weeks - Rehabilitation Potential Physical Therapy Diagnosis: Patient presents with hypomobility- she has decreased LE and core strength/stabilization, proprioception, flex and muscular endurance leading to poor posture, decreased safety, balance and functional mobility. Rehabilitation Potential: Fair - Anticipated Interventions Patient/Client Instruction: Educate patient on: Benefits of Fitness Program Therapeutic Exercise to Include: Strength training, Endurance training, Balance training, Body mechanics, Postural training, Flexibilty training, Gait and locomotor training, Neuromotor development, via [employer] Balance Mas, Dynamic Lumbar Stabilization, Scapular Strength/Stabilization For the Purpose of:: To improve muscle performance and motor function Thank you for the opportunity to evaluate your patient. For Medicare and Medicare HMO plans, please review the plan of care and approve it. It will need to be FAXED BACK to us at [phone] for Medicare purposes. For Medicare only, by signing this I certify the plan of care. Please let me know if there are questions or concerns regarding this plan of care. Physician Signature: Date:
--- NOTE | 2021-04-24 13:48 | HP.PTDCSUM ---
It has been my pleasure to treat SERA MARK referred by Dr. Tomasa Self DO, with the diagnosis of Balance for a total of 3 visit(s). Discharge Date: Please see the following information for a summary of their discharge status. Subjective: LBP and left leg pain. Will have injections of steroids. Or ablation. Objective/Function: SOT:vestibular deficits. MCT:terior musculature slow. LOS:Fw weight shift is poor in all aspects. Goal 1:: Patient will be I with HEP and progression Goal 2:: Patient will improve her sit to stand to 12 in 30 sec with single UE A Goal 3:: Patient will asc/desc 8 stairs recip with 2 HR Goal 4:: Patient will improve her FGA by 4 points Goal 5:: Patient will report feeling 80% more confident with balance and functional mobility. Plan: Continue previous POC for strengthening adding Fw weight shift baance ex, vest(ec or foam) balance ex and work to I. If there are questions or concerns regarding this patient's physical therapy, please feel free to call me at [phone]. Thank you for the referral of this patient. Sincerely, Arcelia Whiting, EMI Balance/Gait/Functional tests - Balance/Special Test Scores Functional Gait Assessment Score: 16 % Disability: 46.6700 Lower Extremity Functional Score: 31 TUG Test Time Seconds: 19 Tug Test: <20 sec.=mostly independent 30 Second Chair Rise Test Seconds: 10
--- NOTE | 2021-05-24 15:39 | HP.PTREVAL ---
Dr. Tomasa Self, DO, It has been my pleasure to treat SERA MARK over the last 10 visits for Balance. Please see the progress note below for an update on the physical therapy plan of care! Subjective: Patient reports that since she has had injections from Dr. Mcdonald and now her back is even more sore. She is having a hard time standing more than 15-20 min. Objective/Function: Posture: Fh, RS- increased kyphosis- can correct with verbal cues but does not maintain. Gait: wide ANTELMO- slow jarrett- straight cane- Stopped 3x in 300 feet for SOB. HR/TR: not tested due to braces. Stairs: reports asc/desc non recip with 2 HR. Endurance: poor. SLS: weight shift- see FGA for balance. ROM: WFL. Strength: Core: poor, Hip: 4-/5, Knee: 4+/5, Ankle: 5/5. Special Test: see TUG and sit to stand Plan Plan: Continue previous POC for strengthening adding Fwd weight shift balance ex, vest (ec or foam) balance ex and work to I. Balance/Gait/Functional tests - Balance/Special Test Scores Functional Gait Assessment Score: 10 % Disability: 66.6700 Lower Extremity Functional Score: 36 TUG Test Time Seconds: 19 Tug Test: <20 sec.=mostly independent 30 Second Chair Rise Test Seconds: 12 Goals Goal 1:: Patient will be I with HEP and progression Goal Time Frame: 4-6 Weeks Goal Progress: Progressing Goal 2:: Patient will improve her sit to stand to 12 in 30 sec with single UE A Goal Time Frame: 4-6 Weeks Goal 3:: Patient will asc/desc 8 stairs recip with 2 HR Goal Time Frame: 4-6 Weeks Goal 4:: Patient will improve her FGA by 4 points Goal Time Frame: 4-6 Weeks Goal 5:: Patient will report feeling 80% more confident with balance and functional mobility. Goal Time Frame: 4-6 Weeks Anticipated Interventions Patient/Client Instruction: Educate patient on: Benefits of Fitness Program Therapeutic Exercise to Include: Strength training, Endurance training, Balance training, Body mechanics, Postural training, Flexibilty training, Gait and locomotor training, Neuromotor development, via Neurocom Balance Mas, Dynamic Lumbar Stabilization, Scapular Strength/Stabilization For the Purpose of:: To improve muscle performance and motor function Please do not hesitate to contact me at [phone] by phone or if you have questions or concerns regarding this new plan of care! Sincerely, MYLES BynumT
--- NOTE | 2021-10-17 07:44 | HP.PT.NRP ---
SERA MARK was seen in my office for initial evaluation on 04/11/21. The following Plan of Care was established for this patient: Initial Frequency: 2x /Week Initial Duration: 4 Weeks Patient/Client Instruction: Educate patient on: Benefits of Fitness Program Therapeutic Exercise to Include: Strength training, Endurance training, Balance training, Body mechanics, Postural training, Flexibilty training, Gait and locomotor training, Neuromotor development, via Neurocom Balance Mas, Dynamic Lumbar Stabilization, Scapular Strength/Stabilization For the Purpose of:: To improve muscle performance and motor function This patient was last seen in our office . Pertinent comments regarding their Physical therapy will appear below: Patient has not attended PT in over 30 days, appropriate to be d/c from PT and return to MD for further evaluation. At this point I will be discontinuing this patient from physical therapy. I would be happy to see this patient again in the future if found appropriate by the physician. Thank you! Arcelia Whiting, DPT Balance/Gait/Functional tests - Balance/Special Test Scores Functional Gait Assessment Score: 10 % Disability: 66.6700 Lower Extremity Functional Score: 36 TUG Test Time Seconds: 19 Tug Test: <20 sec.=mostly independent 30 Second Chair Rise Test Seconds: 12
== END 2021-07-03 19:00 | disposition home or self-care (01) ==
LOC: PT 15:00
PROVIDERS: PCP Internal Medicine; Referring Provider Internal Medicine; Visit Provider Internal Medicine
DX: R53.1 Weakness (principal); R26.89 Other abnormalities of gait and mobility
CPT/HCPCS: 97110; 97162; 97164; 97750

== ENCOUNTER 2021-07-10 16:43 | Outpatient (RCR) | payer MEDICARE, OTHER, SELFPAY ==
[2021-07-10 02:34] VITALS: BMI 54.8
[2021-07-10 18:15] LABS: Anion Gap 7 (5-15); BUN 97 mg/dL (7-18); BUN/Creat Ratio 31.7 RATIO (10-20); Calcium,Total 8.8 mg/dL (8.5-10.1); Chloride 109 mmol/L (98-107); Creatinine, Serum 3.06 mg/dL (0.55-1.02); EST Glomerular Filtration Rate 16 mL/min (>60); Est Glom Filt Rate - Afr Amer 19 mL/min (>60); Glucose 122 mg/dL (74-106); Potassium 4.6 mmol/L (3.5-5.1); Sodium Level 138 mmol/L (136-145)
[2021-07-10 18:20] LABS: International Normalized Ratio 4.1
== END 2021-07-10 23:59 | disposition home or self-care (01) ==
LOC: MTLAB 16:43
PROVIDERS: Nurse Practitioner Family; PCP Internal Medicine; Referring Provider Internal Medicine Cardiovascular Disease; Visit Provider Internal Medicine Cardiovascular Disease
DX: I48.92 Unspecified atrial flutter (principal); Z79.01 Long term (current) use of anticoagulants
CPT/HCPCS: 36415; 80048; 85610

== ENCOUNTER 2021-07-16 16:45 | Outpatient (CLI) | payer MEDICARE, OTHER, SELFPAY ==
[2021-07-16 18:48] LABS: Anion Gap 7 (5-15); BUN 39 mg/dL (7-18); BUN/Creat Ratio 25.5 RATIO (10-20); Calcium,Total 9.5 mg/dL (8.5-10.1); Chloride 105 mmol/L (98-107); Creatinine, Serum 1.53 mg/dL (0.55-1.02); EST Glomerular Filtration Rate 35 mL/min (>60); Est Glom Filt Rate - Afr Amer 42 mL/min (>60); Glucose 117 mg/dL (74-106); Potassium 3.7 mmol/L (3.5-5.1); Sodium Level 140 mmol/L (136-145)
== END 2021-07-16 23:59 | disposition home or self-care (01) ==
LOC: MTLAB 16:46
PROVIDERS: PCP Internal Medicine; Referring Provider Physician Assistant Medical; Visit Provider Physician Assistant Medical
DX: I50.32 Chronic diastolic (congestive) heart failure (principal); R60.0 Localized edema
CPT/HCPCS: 36415; 80048

== ENCOUNTER 2021-08-23 16:38 | Outpatient (RCR) | payer MEDICARE, OTHER, SELFPAY ==
[2021-08-07 10:29] VITALS: BMI 54.8
[2021-08-16 15:51] LABS: INR Fingerstick 1.4
[2021-08-24 11:35] LABS: INR Fingerstick 1.7; Prothrombin Time Fingerstick 20.2 SEC (11.7-14.9)
== END 2021-09-06 18:00 | disposition home or self-care (01) ==
LOC: MTLAB 16:38
PROVIDERS: PCP Internal Medicine; Referring Provider Internal Medicine Cardiovascular Disease; Visit Provider Internal Medicine Cardiovascular Disease
DX: I48.92 Unspecified atrial flutter (principal); Z79.01 Long term (current) use of anticoagulants
CPT/HCPCS: 36416; 85610

== ENCOUNTER 2021-09-11 17:54 | Emergency (ER) | payer MEDICARE, OTHER, SELFPAY ==
[2021-09-11 17:56] VITALS: BP 180/51; PULSE 96; RESP 16; TEMP 36.1; BMI 52.4
--- NOTE | 2021-09-11 18:14 | EDS_ITS ---
HPI History of Present Illness Chief Complaint: Lower Extremity Injury Detail of Chief Complaint: Left foot injury Informant: patient Narrative Narrative: Patient presents with bruising to her toes in the left foot as well as a swollen red area over the left midfoot. She reports dropping a can on her foot a couple days ago. Patient is currently on Coumadin. She was concerned that the red swollen area may represent a clot. [facility] Medical History Anxiety Arthritis Atrial flutter with rapid ventricular response (02/16/20) Headley esophagus Bilateral lower extremity edema BiPAP (biphasic positive airway pressure) dependence Bipolar disorder Chronic diastolic (congestive) heart failure Congenital coronary artery anomaly Delayed wound healing Depression Difficulty swallowing Diverticulosis Essential (primary) hypertension Fatty liver GERD (gastroesophageal reflux disease) Hammer toe of right foot History of Headley's esophagus History of CHF (congestive heart failure) Hypothyroidism Hypothyroidism (acquired) IBS (irritable bowel syndrome) Insomnia snf current use of anticoagulant Mitral valve prolapse Neuropathic pain Nonobstructive atherosclerosis of coronary artery Obesity Obesity Obstructive sleep apnea Osteoarthritis of right hip Osteomyelitis Osteopenia determined by x-ray Palpitations Paroxysmal atrial flutter Posterior tibialis muscle dysfunction Postoperative anemia Pulmonary hypertension Renal insufficiency Sciatica Ulcer of right second toe, limited to breakdown of skin Vitamin D deficiency Walking difficulty due to ankle and foot Wears dentures Wears glasses Home Medications omeprazole 40 mg PO DAILY 04/18/14 [History Last Taken 04/23/21] meloxicam 15 mg tablet 15 mg PO DAILY 02/13/17 [History Last Taken 06/08/20] melatonin 5 mg capsule 5 mg PO QHS 07/18/17 [History Last Taken Unknown] amlodipine 5 mg tablet 5 mg PO DAILY #90 tablet 09/12/20 [Rx Last Taken 04/23/21] metoprolol succinate 50 mg tablet,extended release 24 hr 50 mg PO DAILY #90 tablet 10/06/20 [Rx Last Taken 04/23/21] levothyroxine 75 mcg tablet 75 mcg PO .COMPLEX #102 tab 03/06/21 [Rx Last Taken Unknown] buspirone 30 mg tablet 30 mg PO BID tab 05/14/21 [History Last Taken Unknown] cholecalciferol (vitamin D3) 50 mcg (2,000 unit) capsule 2,000 unit PO .COMPLEX 05/14/21 [History Last Taken Unknown] gabapentin 600 mg tablet 300 mg PO TID tab 05/14/21 [History Last Taken Unknown] warfarin 4 mg tablet 4 mg PO .COMPLEX #90 tab 05/14/21 [Rx Last Taken Unknown] amitriptyline 10 mg tablet 10 mg PO DAILY 06/15/21 [History Last Taken Unknown] furosemide 40 mg tablet 40 mg PO DAILY #0 tab 07/11/21 [Rx Last Taken Unknown] losartan 100 mg tablet 50 mg PO DAILY #45 tab 07/26/21 [Rx Last Taken Unknown] Allergy/AdvReac Type Severity Reaction Status Date / Time baclofen Allergy Intermediate jittery/heard Verified 09/11/21 17:55 voices latex Allergy Rash Verified 09/11/21 17:55 bupropion [From Wellbutrin] AdvReac Mild Shakiness Verified 09/11/21 17:55 & lightheadedness fluvoxamine AdvReac Mild Other Verified 09/11/21 17:55 ciprofloxacin AdvReac Diarrhea Verified 09/11/21 17:55 levofloxacin [From Levaquin] AdvReac Diarrhea Verified 09/11/21 17:55 Family History Father Aortic aneurysm Cancer lymphoma Mother CVA (cerebral vascular accident) Dementia Aunt Colon cancer Surgical History History of carpal tunnel release (2006) History of esophagogastroduodenoscopy (EGD) (05/04/08) History of flexible sigmoidoscopy (2007) History of left heart catheterization (06/08/20) History of suburethral sling procedure (2015) History of total hysterectomy (2015) History of total right hip replacement (05/2016) S/P colonoscopy S/P shoulder replacement Status post knee replacement Social History Smoking Status: Never smoker alcohol intake: never substance use type: does not use caffeine: Yes Type: coffee what type of physical activity do you participate in: none seatbelt use: never do you feel safe at home: Yes ROS ROS ED Constitutional Constitutional ED: Denies chills or fever(s) Eyes Eyes: Denies change in vision ENT ENT ED: Denies sore throat Cardiovascular Cardiovascular: Denies chest pain Respiratory/Chest Respiratory/Chest: Denies cough or dyspnea Gastrointestinal Gastrointestinal: Denies abdominal pain, diarrhea, nausea or vomiting Genitourinary Genitourinary ED: Denies dysuria Musculoskeletal Musculoskeletal: Reports arthralgias; Denies back pain Integumentary Reports other Details: Ecchymosis Neurologic Neurologic: Denies headache(s) or weakness Allergic/Immunologic Allergic/Immunologic ED: Denies urticaria EXAM Physical Exam Const Vital Signs: 09/11/21 17:56 Temperature 96.9 F L Temperature Source Temporal Pulse Rate 96 Respiratory Rate 16 Blood Pressure 180/51 H Blood Pressure Mean 94 Positive well nourished and well developed General Appearance ED: well developed HEENT normocephalic Chest Wall inspection of chest normal and palpation of chest normal Resp normal respiratory effort and clear to auscultation bilaterally Cardio regular rate and regular rhythm GI non-tender Extremity Extremity Narrative: Ecchymosis to her left second, third, fourth toes. No bony tenderness. Mild area of erythema over the fourth and fifth metatarsals. Neuro oriented x3 Sensorium / Orientation: alert Psych mental status grossly normal MDM MDM MDM Narrative Medical decision making narrative: Left foot x-rays ordered. INR checked. Lab Data Labs: Laboratory Results - last 24 hr 09/11/21 09/11/21 18:30 19:35 PT Cancelled 21.3 H INR Cancelled 1.9 Radiography Diagnostic Testing: Clinical Impression(s) from Imaging Studies Foot X-Ray 09/11/21 19:10 IMPRESSION: Marked destructive changes with collapse of the talonavicular joint. There is also irregularity of the anterior aspect of the talus some questionable lateral subluxation of the talonavicular joint . Further evaluation with CT or MRI may be beneficial. at 1949 Reported and signed by: Chandler Almaraz MD Electronically Signed: Chandler Almaraz MD at 19:48 EDT , Treatment and Re-Evaluation Narrative: Left foot x-rays from interpretation reveal chronic changes only. INR is only slightly subtherapeutic at 1.9. The area of erythema and edema on her foot is consistent with a contusion. Matteo wrap will be applied. Patient is to follow-up with her PCP if not improving. Discharge Plan Triage Chief Complaint: Lower Extremity Injury ED Provider: Griselda Mohamud Dx/Rx/DC Orders Clinical Impression: Contusion of foot Instructions: ED Foot Contusion Prescriptions: No Action melatonin 5 mg capsule 5 mg PO QHS RF: 0 amlodipine 5 mg tablet 5 mg PO DAILY Qty: 90 RF: 4 Hold Instructions: edema 07/19/2021 warfarin 4 mg tablet 4 mg PO .COMPLEX Qty: 90 RF: 3 buspirone 30 mg tablet 30 mg PO BID RF: 0 omeprazole 40 MG capsule 40 mg PO DAILY RF: 0 meloxicam 15 MG tablet 15 mg PO DAILY RF: 0 Hold Instructions: kidney function cholecalciferol (vitamin D3) 50 mcg (2,000 unit) capsule 2,000 unit PO .COMPLEX RF: 0 gabapentin 600 mg tablet 300 mg PO TID RF: 0 metoprolol succinate 50 mg tablet extended release 24 hr 50 mg PO DAILY Qty: 90 RF: 3 levothyroxine 75 mcg tablet 75 mcg PO .COMPLEX Qty: 102 RF: 2 amitriptyline 10 mg tablet 10 mg PO DAILY RF: 0 furosemide 40 mg tablet 40 mg PO DAILY Qty: 0 RF: 0 losartan 100 mg tablet 50 mg PO DAILY Qty: 45 RF: 3 Primary Care Provider: Tomasa Self Referrals: Tomasa Self DO [Primary Care Provider] - 10-14 Days if not better Disposition Disposition: Home, Self Care
--- NOTE | 2021-09-11 19:10 | RAD_ITS ---
EXAM: XR LEFT FOOT COMPLETE, 3 OR MORE VIEWS : 1940 CLINICAL INDICATION: injury TECHNIQUE: Frontal, lateral and oblique views of the left foot. This report was created using [employer] report generation technology. COMPARISON: 11/12/2012 FINDINGS: BONES/JOINTS: There is collapse of the anterior aspect of the calcaneus which appears to be a chronic process. There is irregularity of the anterior aspect of the talus as well as the distal fibula. There is lateral subluxation of the talonavicular joint. No acute fracture. No sclerotic or destructive changes observed. SOFT TISSUES: There is extensive soft tissue swelling over the dorsum of the foot. No radiopaque foreign body. RAD/Foot min 3 Views IMPRESSION: Marked destructive changes with collapse of the talonavicular joint. There is also irregularity of the anterior aspect of the talus some questionable lateral subluxation of the talonavicular joint . Further evaluation with CT or MRI may be beneficial. at 1949 Reported and signed by: Chandler Almaraz MD Electronically Signed: Chandler Almaraz MD at 19:48 EDT ,
[2021-09-11 20:00] LABS: International Normalized Ratio 1.9; Prothrombin Time (Protime)PT. 21.3 SECONDS (11.7-14.9)
== END 2021-09-11 20:40 | disposition home or self-care (01) ==
PROVIDERS: Emergency Provider Emergency Medicine; PCP Internal Medicine; Visit Provider Emergency Medicine
DX: S90.32XA Contusion of left foot, initial encounter (principal); I11.0 Hypertensive heart disease with heart failure; I50.32 Chronic diastolic (congestive) heart failure; F31.9 Bipolar disorder, unspecified; I48.92 Unspecified atrial flutter; Z68.43 Body mass index [BMI] 50.0-59.9, adult; W20.8XXA Other cause of strike by thrown, projected or falling object, initial encounter; F41.9 Anxiety disorder, unspecified; E03.9 Hypothyroidism, unspecified; E66.9 Obesity, unspecified; I25.10 Atherosclerotic heart disease of native coronary artery without angina pectoris; I34.1 Nonrheumatic mitral (valve) prolapse; K21.9 Gastro-esophageal reflux disease without esophagitis; Z79.01 Long term (current) use of anticoagulants; Z79.899 Other long term (current) drug therapy
CPT/HCPCS: 36415; 73630; 85610; 99282

== ENCOUNTER → 2021-10-05 | Outpatient (CLI) | payer MEDICARE, OTHER, SELFPAY ==
--- NOTE | 2021-10-05 13:20 | VDLE_ITS ---
Reason For Study: Swelling RIGHT LEFT GSV is normal. GSV is normal. CFV is compressible, spontaneous, phasic, CFV is compressible, spontaneous, phasic, competent and demonstrates normal competent, and demonstrates normal augmentation. augmentation. FV is compressible, spontaneous, phasic, FV is compressible, spontaneous, phasic, competent and demonstrates normal competent and demonstrates normal augmentation. augmentation. POP V is compressible, spontaneous, phasic, POP V is compressible, spontaneous, phasic, competent and demonstrates normal competent and demonstrates normal augmentation. augmentation. T/P Trunk is compressible. T/P Trunk is compressible. PTV is compressible. PTV is compressible. RT PerV is compressible. LT PerV is compressible. Procedure This is a venous duplex using B-mode, color flow and spectral Doppler. Exam performed in department. A preliminary report was called and/or faxed to Bill. VL/Venous Duplex US - Merlin Extrem Interpretation Summary No evidence for acute deep venous thrombosis bilateral lower extremities with p atent and compressible bilateral great saphenous veins. Ordering Physician: Allyson Khan Referring Physician: Tomasa Self M.D. Performed By: Elizabeth Vyas RVT
== END | disposition home or self-care (01) ==
LOC: CVS 13:18
PROVIDERS: PCP Internal Medicine; Referring Provider Physician Assistant Medical; Visit Provider Physician Assistant Medical
DX: R79.1 Abnormal coagulation profile (principal); R60.0 Localized edema
CPT/HCPCS: 93970

== ENCOUNTER 2021-12-13 15:54 | Outpatient (RCR) | payer MEDICARE, OTHER, SELFPAY ==
[2021-09-07 03:16] VITALS: BMI 54.8
== END 2022-01-06 03:36 | disposition home or self-care (01) ==
LOC: MTLAB 15:54
PROVIDERS: PCP Internal Medicine; Referring Provider Internal Medicine Cardiovascular Disease; Visit Provider Internal Medicine Cardiovascular Disease
DX: I48.92 Unspecified atrial flutter (principal); Z79.01 Long term (current) use of anticoagulants
CPT/HCPCS: 36415; 85610

== ENCOUNTER 2022-01-01 14:25 | Outpatient (RCR) | payer MEDICARE, OTHER, SELFPAY ==
--- NOTE | 2022-01-02 08:29 | HP.OTEVAL_ITS ---
Patient's Visit Information SERA MARK is a 81 year old F, referred to Occupational Therapy by Dr. Tomasa Self DO, with a diagnosis of lymphedema. Date of Evaluation: 01/01/22 Occupational Therapist: Allyson Collado, QUINTON/Jeferson, CHT - Subjective This 81 year old female was seen for OT eval with dx with LE lymphedema- pt states she has had swelling for years. She has leg pumps to assist with swelling- states she started using them few weeks ago and feels this has helped with her leg swelling--pt states she has been sleeping with her legs elevated (above her heart) states she does notice swelling is better- pt also states she has decreased her salt intake and this has helped as well. pt states she was dx with CHF maybe 5 years. pt states she is on 40 mg of a water pill and was taken off 80mg about three months ago. ( will see clinical research analyst in May.) she states she has noticed a increase in swelling with this medication change-. pt states she did get velcro closure compression garment about a month ago her armin clemente recommended because she can not get compression socks on. pt states these are still in the box as she con not wear them with her hinge ankle braces. States they make her ankle braces not fit. pt would like to know what she can do to help her mtg her leg swelling. - Lymphedema (Circumferential Measure) Mid-foot: right 24cm left 23.5cm Ankle: right 28cm left 28cm Lower calf: right 29cm left 30cm Largest calf: right 40cm left 40cm Below knee: right 42cm left 43cm Above knee: right 66cm left 64cm - Lower Limb Functional Index Lower Extremity Functional Score: 24 - Goals Demonstrate a 20% reduction in edema by d/c: Yes Demonstrate adequate knowledge of self-massage by 2nd week: Yes Demonstrate adequate knowledge skin care/prec by 2nd week: Yes Demonstrate adequate knowledge therapeutic exercises by d/c: Yes Select approp compression garment w/donning/care/wear by d/c: Yes Voice need to replace compression garment every 4-6mo by dc: Yes - Rehabilitation General Assessment: pt demo with LE swelling that she has been struggling with on and off for years- pt would benefit from skilled OT services to help her mtg. her swelling. PT unfortunately can not get her compression socks on- or use the Velcro closure compression alterative during the day as she can not wear her her ankle braces with them on- Pt has an abundance of eq. to assist her in mtg. her swelling but unfortunately due to difficulty in some form is unable to utilize. Today therapist discussed treatment and home mt. pt also ed. she will need some kind of compression when up /ambulating or she will continue to have swelling in her legs. pt demo understanding but still reluctant on using compression. pt ed. on use of the vaso pneumatic pumps for LE 1x a day for 30 min therapist also ed. pt that this will increase her urine output pt demo understanding. Therapist ed. pt on lymph stim exercise to perform 2x a day pt given handouts and demo understanding. therapist also ed. pt on self manual lymph massage and was given handout- pt demo understanding and agree to POC. Therapist will work with pt on compression use for during the day. Rehabilitation Potential: Questionable - Anticipated Interventions Education re assistive Equipment, Education re Diagnosis, Manual Lymph Drainage, Education re Life-long lymphedema Management, Education re Skin Care and Precautions, Education re Self Massage Techniques, Education re Correct Donning Tech,Care&Wearing Sched Comp Garments, Home Program - Visit Plan TEXT: Thank you for the opportunity to evaluate your patient. For Medicare and Medicare HMO plans, please review the plan of care and approve it. It will need to be FAXED BACK to us at [phone] for Medicare purposes. Please let me know if there are questions or concerns regarding this plan of care. Physician Signature: Date:
--- NOTE | 2022-05-15 11:51 | HP.OT.NRP ---
SERA MARK was seen in my office for initial evaluation on 01/01/22. The following Plan of Care was established for this patient: Anticipated Interventions: Education re assistive Equipment, Education re Diagnosis, Manual Lymph Drainage, Education re Life-long lymphedema Management, Education re Skin Care and Precautions, Education re Self Massage Techniques, Education re Correct Donning Tech,Care&Wearing Sched Comp Garments, Home Program This patient was last seen in our office 01/01/22. Pertinent comments regarding their Occupational therapy will appear below: Pt was seen for OT eval only. No further apts scheduled and due to time lapse in services pt d.c at this time. At this point I will be discontinuing this patient from occupational therapy. I would be happy to see this patient again in the future if found appropriate by the physician. Thank you! Allyson Collado, OTR/L, CHT
== END 2022-01-01 19:00 | disposition home or self-care (01) ==
LOC: OT 14:25
PROVIDERS: PCP Internal Medicine; Referring Provider Internal Medicine; Visit Provider Internal Medicine
DX: I89.0 Lymphedema, not elsewhere classified (principal)
CPT/HCPCS: 97166; 97530

== ENCOUNTER 2022-01-14 14:38 | Outpatient (RCR) | payer MEDICARE, OTHER, SELFPAY ==
[2022-01-06 03:36] VITALS: BMI 54.8
[2022-01-14 14:50] LABS: INR Fingerstick 2.2; Prothrombin Time Fingerstick 25.5 SEC (11.7-14.9)
== END 2022-01-14 18:00 | disposition home or self-care (01) ==
LOC: MTLAB 14:38
PROVIDERS: PCP Internal Medicine; Referring Provider Internal Medicine Cardiovascular Disease; Visit Provider Internal Medicine Cardiovascular Disease
DX: I48.92 Unspecified atrial flutter (principal); Z79.01 Long term (current) use of anticoagulants
CPT/HCPCS: 36416; 85610

== ENCOUNTER 2022-02-28 15:40 | Outpatient (RCR) | payer MEDICARE, OTHER, SELFPAY ==
[2022-02-07 01:09] VITALS: BMI 54.8
[2022-02-12 16:25] LABS: INR Fingerstick 1.2; Prothrombin Time Fingerstick 14.9 SEC (11.7-14.9)
[2022-02-28 15:50] LABS: INR Fingerstick 2.4; Prothrombin Time Fingerstick 28.1 SEC (11.7-14.9)
== END 2022-02-28 18:00 | disposition home or self-care (01) ==
LOC: MTLAB 15:40
PROVIDERS: PCP Internal Medicine; Referring Provider Internal Medicine Cardiovascular Disease; Visit Provider Internal Medicine Cardiovascular Disease
DX: I48.92 Unspecified atrial flutter (principal); Z79.01 Long term (current) use of anticoagulants
CPT/HCPCS: 36416; 85610

== ENCOUNTER → 2022-04-08 | Outpatient (CLI) | payer MEDICARE, OTHER, SELFPAY ==
--- NOTE | 2022-04-08 08:49 | AAAS_ITS ---
Reason For Study: AAA screening Aorta Measurements Aorta Doppler Measurements Proximal aorta measures1.34 x 1.38cm. in cross- Peak systolic flow velocities within the proximal sectional axis. aorta measure 97.7 cm/sec. Proximal aorta measures1.43cm. in longitudinal Peak systolic flow velocities within the mid aorta axis. measure 121.3 cm/sec. Mid aorta measures1.38 x 1.38cm. in cross- Peak systolic flow velocities within the distal sectional axis. aorta measure 89.9 cm/sec. Mid aorta measures1.39cm. in longitudinal axis. Distal aorta measures1.28 x 1.30cm. in cross- sectional axis. Distal aorta measures1.27cm. in longitudinal axis. Left Iliac Artery Left iliac artery measures 0.84 x 0.83 cm. in the cross-sectional axis. Left iliac artery measures 0.89 cm. in the longitudinal axis. Peak systolic velocity in the left iliac artery measures 121.3 cm/sec. Right Iliac Artery Right iliac artery measures 0.92 x 0.94 cm. in the cross-sectional axis. Right iliac artery measures 0.92 cm. in the longitudinal axis. Peak systolic velocity in the right iliac artery measures 199.7 cm/sec. VL/AAA Screening Interpretation Summary Maximal aortic diameter in the mid aorta at 1.38 x 1.38 cm diameter which is no rmal. Very slightly elevated flow velocity in the mid abdominal aorta at 121.3 cm/s Normal left common iliac artery dimensions of 0.84 x 0.83 cm diameter with mini wilfredo increased flow velocity and 121.3 cm/s Right common neck normal at 0.92 x 0.94 cm in diameter with elevated flow veloc ity of 199.7 cm/s The velocity changes do not meet clinical significance. Ordering Physician: Slava Phillips Referring Physician: Tomasa Self M.D. Performed By: Elizabeth Vyas RVT
--- NOTE | 2022-04-08 09:16 | BI_ITS ---
MAMMOGRAPHY - BILATERAL SCREENING REASON FOR EXAM: Female, 82 years old. Routine annual screening examination. PERTINENT HISTORY: Non-contributory. Prior right stereotactic breast biopsy. TECHNIQUE: Digital bilateral breast yanelis (3D mammographic acquisition) in the CC and MLO projections. 2-D mediolateral oblique (MLO) and craniocaudad (CC) views of both breasts were obtained. CAD: Full Field Digital Mammography with Computer Added Detection was performed. COMPARISON: Comparison is made with prior study dated 05/31/2019 and 04/28/2018. FINDINGS: Breast Composition: There are scattered areas of fibroglandular density. There are no dominant masses or suspicious calcifications. No other significant abnormalities are identified. There has been no significant change since the prior study. BI/SCRN MAMM (CAD)W/YANELIS BILAT IMPRESSION: Stable bilateral screening mammogram. Yearly follow-up mammogram recommended. (A) ASSESSMENT CATEGORY: BIRADS Category 1: Negative. A letter regarding these results will be sent to the patient by the facility within 30 days. Approximately 10% of breast cancers are not detected by mammography. A normal mammogram should not delay biopsy of a clinically suspicious abnormality. [id number] Electronically Signed: Hi Naranjo MD at 10:45 EDT ,
== END | disposition home or self-care (01) ==
PROVIDERS: PCP Internal Medicine; Referring Provider Internal Medicine Cardiovascular Disease; Visit Provider Internal Medicine
DX: I71.40 Abdominal aortic aneurysm, without rupture, unspecified (principal); I10 Essential (primary) hypertension; Z12.31 Encounter for screening mammogram for malignant neoplasm of breast
CPT/HCPCS: 76706; 77063; 77067

== ENCOUNTER 2022-04-16 17:01 | Outpatient (RCR) | payer MEDICARE, OTHER, SELFPAY ==
[2022-03-09 04:08] VITALS: BMI 54.8
[2022-04-16 17:11] LABS: INR Fingerstick 2.3; Prothrombin Time Fingerstick 26.6 SEC (11.7-14.9)
== END 2022-05-08 18:00 | disposition home or self-care (01) ==
LOC: MTLAB 17:01
PROVIDERS: PCP Internal Medicine; Referring Provider Internal Medicine Cardiovascular Disease; Visit Provider Internal Medicine Cardiovascular Disease
DX: I48.92 Unspecified atrial flutter (principal); Z79.01 Long term (current) use of anticoagulants
CPT/HCPCS: 36416; 85610

== ENCOUNTER 2022-05-14 11:18 | Day surgery (SDC) | payer MEDICARE, OTHER, SELFPAY ==
[2022-05-14 11:45] LABS: INR Fingerstick 1.5; Prothrombin Time Fingerstick 18.3 SEC (11.7-14.9)
[2022-05-14 11:59] VITALS: BP 111/59; PULSE 75; RESP 16; TEMP 36.9; O2SAT 93; BMI 50.7
--- NOTE | 2022-05-14 12:15 | IMM_PTH ---
PATIENT: SERA MARK [place] [facility] [place][id number] AGE/SX: 82/F ROOM: RE05/14/[address]: Dr. Lissette Taylor MD : 1940 BED: DIS: 05/14/2022 SPEC #: [id number] RECD: 05/15/22 08:55 STATUS: WILFRID REQ #: [id number] VIET: 05/14/22 12:[address]: Lissette Taylor DEPT: IMMUNOHISTOCHEMISTRY RECD BY: Ghislaine Glasgow ENTERED: 05/15/22 08:55 SP TYPE: IMMUNO OTHR DR: Dr. Tomasa Self DO Tissues: A - Stomach, NOS Procedures: H Pylori (initial) PHYSICIAN & INSTITUTION [place] [address] SPECIMEN INFORMATION: Tissue Source: A - Antrum Clinical Info: Headley?s esophagus, screening Specimen Number: [id number] CPT code: 95157 METHODOLOGY: Deparaffinized sections of prefer/formalin-fixed tissue or PAP/DQ stained slides are incubated with monoclonal/polyclonal antibodies/oligonucleotide probes. Localization is made via biotin free immunoperoxidase method. Appropriate controls are performed and reacted as expected. Results on target cell population are indicated in the following table: RESULTS: ANTIBODY / CLONE RESULT Block A H Pylori (polyclonal) negative These tests were developed and their performance characteristics determined by [facility]. They may not have been cleared or approved by the U.S. Food and Drug Administration. The FDA has determined that such clearance or approval is not necessary. The above immunohistochemical/dualISH markers are ordered and reviewed by the Pathologist. INTERPRETATION: A. Antrum, biopsy: Negative for Helicobacter pylori organisms. AM:leticia 05/16/2022
--- NOTE | 2022-05-14 12:15 | COLBX_PTH ---
PATIENT: SERA MARK [place] [facility] [place][id number] AGE/SX: 82/F ROOM: RE05/14/[address]: Dr. Lissette Taylor MD : 1940 BED: DIS: 05/14/2022 SPEC #: [id number] RECD: 05/14/22 16:12 STATUS: WILFRID MEKHI #: [id number] VIET: 05/14/22 12:[address]: Lissette Taylor DEPT: SURGICAL PATHOLOGY RECD BY: Stephen Calzada ENTERED: 05/15/22 07:40 SP TYPE: COLON BX OTHR DR: Dr. Tomasa Self, DO Tissues: A - Gastric mucous membrane B - Gastric mucous membrane C - Gastric mucous membrane D - Gastric mucous membrane E - Gastric mucous membrane Procedures: Special Stain Group II Surgery Specimen Level IV Alcian Blue/PAS (control) HEADER OPERATION: Colonoscopy, EGD with biopsy and polypectomy (MAC) PRE-OP DIAGNOSIS: Headley?s esophagus, screening TISSUE SUBMITTED: A ? Biopsy antrum for H. pylori and path, B ? Polyp gastric, C ? Biopsy GE junction, D ? Biopsy 2 cm from GE junction, E - Biopsy 4 cm from GE junction MICROSCOPIC DIAGNOSIS A. Gastric antrum, biopsy: Chronic gastritis. See comment. B. Gastric polyp, biopsy: Fundic gland polyp. C. Gastroesophageal junction, biopsy: Mild chronic inflammation. No evidence of goblet cell metaplasia. See comment. D. Mucosa 2 cm from gastroesophageal junction, biopsy: Fragments of benign squamous mucosa. E. Mucosa 4 cm from gastroesophageal junction, biopsy: Fragments of benign squamous mucosa. AM:leticia 05/16/2022 COMMENT A. The results of immunohistochemistry for Helicobacter pylori will be reported separately ([id number]). C. Alcian blue/PAS stain with matched control supports the above diagnosis. MICROSCOPIC DESCRIPTION Slides are reviewed. GROSS DESCRIPTION A - Received in fixative is one container labeled with the patient's name and designated antrum biopsy. The specimen consists of multiple irregular fragments of light gibbs soft tissue that in aggregate measure 0.8 x 0.3 x 0.1 cm. The specimen is totally submitted in one cassette. B - Received in fixative is one container labeled with the patient's name and designated gastric polyp. The specimen consists of one irregular fragment of light gibbs soft tissue that measures 0.4 x 0.3 x 0.1 cm. The specimen is totally submitted in one cassette. C - Received in fixative is one container labeled with the patient's name and designated biopsy GE junction. The specimen consists of one irregular fragment of light gibbs soft tissue that measures 0.6 x 0.3 x 0.1 cm. The specimen is totally submitted in one cassette. D - Received in fixative is one container labeled with the patient's name and designated biopsy 2 cm from GE junction. The specimen consists of two irregular fragments of light gibbs soft tissue that in aggregate measure 0.6 x 0.3 x 0.1 cm. The specimen is totally submitted in one cassette. E - Received in fixative is one container labeled with the patient's name and designated biopsy 4 cm from GE junction. The specimen consists of two irregular fragments of light gibbs soft tissue that in aggregate measure 0.4 x 0.4 x 0.1 cm. The specimen is totally submitted in one cassette. / SJ:rg 05/15/2022 TC:3 CPT: 64547 x5, 67000
[2022-05-14] MEDS: Lactated Ringers 1,000 ML 15 ML IV (12:18)
--- NOTE | 2022-05-14 12:54 | OP.CCLET_ITS ---
05/14/2022 Tomasa Self [address] [place] [address] Re : Upper GI endoscopy procedure for Leeann Johnson Dear Dr. Self This procedure was performed on Saturday, May 14, 2022. My impressions and recommendations are as follows: Impressions : - Normal first portion of the duodenum and second portion of the duodenum. - Erythematous mucosa in the antrum. Biopsied. 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 Biopsied. Recommendations : - Await pathology results. - Follow up visit via telemedicine with Irlanda Bey PA-C to discuss results. Call to set this up, thank you - Continue present medications. My findings are described in the full procedure note, which is enclosed. If I can be of further assistance, please feel free to contact me at Doctor phone number(s): , Work: . Sincerely, MD Lissette Whitman MD 05/14/2022 12:53:42 PM This report has been signed electronically.
--- NOTE | 2022-05-14 12:54 | OP.EGD_ITS ---
Patient Name: Leeann Johnson Procedure Date: 05/14/2022 12:24 PM Date of : 1940 Age: 82 Procedure: Upper GI endoscopy Indications: Follow-up of Headley's esophagus Providers: Lissette Taylor MD Medicines: See the Anesthesia note for documentation of the administered medications Patient Profile: Refer to note in patient chart for documentation of history and physical. Complications: No immediate complications. Procedure: Pre-Anesthesia Assessment: - see anesthesia note After obtaining informed consent, the endoscope was passed under direct vision. Throughout the procedure, the patient's blood pressure, pulse, and oxygen saturations were monitored continuously. The pediatric colonoscope was introduced through the mouth, and advanced to the second part of duodenum. The upper GI endoscopy was accomplished without difficulty. The patient tolerated the procedure well. Scope In: 12:37:50 PM Scope Out: 12:48:39 PM Total Procedure Duration Time 0 hours 10 minutes 49 seconds Findings: The first portion of the duodenum and second portion of the duodenum were normal. Striped mildly erythematous mucosa with stigmata of recent bleeding was found in the gastric antrum. Biopsies were taken with a cold forceps for histology. Verification of patient identification for the specimen was done by the nurse. Estimated blood loss was minimal. There were esophageal mucosal changes consistent with short-segment Headley's esophagus present in the lower third of the esophagus. The maximum longitudinal extent of these mucosal changes was 1 cm in length. Mucosa was biopsied with a cold forceps for histology in a targeted manner - at GE junction, 2 cm proximal and 4 cm proximal. . . Multiple benign appearing fundic gland polyps noted, biopsied a 3 to 5 mm pedunculated and sessile polyp with no bleeding and no stigmata of recent bleeding were found in the gastric body. The polyp was removed with a cold biopsy forceps. Resection and retrieval were complete. Verification of patient identification for the specimen was done by the nurse. Impression: - Normal first portion of the duodenum and second portion of the duodenum. - Erythematous mucosa in the antrum. Biopsied. 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 Biopsied. Recommendation: - Await pathology results. - Follow up visit via telemedicine with Irlanda Bey PA-C to discuss results. Call to set this up, thank you - Continue present medications. Procedure Code(s): --- Professional --- 20509, Esophagogastroduodenoscopy, flexible, transoral; with biopsy, single or multiple Diagnosis Code(s): --- Professional --- K31.89, Other diseases of stomach and duodenum K22.70, Headley's esophagus without dysplasia CPT copyright 2017 [employer]. All rights reserved. The codes documented in this report are preliminary and upon microbiology lab analyst review may be revised to meet current compliance requirements. MD Lissette Whitman MD 05/14/2022 12:53:42 PM This report has been signed electronically. Number of Addenda: 0 Note Initiated On: 05/14/2022 12:24 PM
--- NOTE | 2022-05-14 13:29 | OP.COLON_ITS ---
Patient Name: Leeann Johnson Procedure Date: 05/14/2022 12:48 PM Date of : 1940 Age: 82 Procedure: Colonoscopy Indications: High risk colon cancer surveillance: Personal history of colonic polyps Providers: Lissette Taylor MD Medicines: See the Anesthesia note for documentation of the administered medications Patient Profile: Refer to note in patient chart for documentation of history and physical. Last Colonoscopy: several years ago. Complications: No immediate complications. Procedure: Pre-Anesthesia Assessment: - see anesthesia note After I obtained informed consent, the scope was passed under direct vision. Throughout the procedure, the patient's blood pressure, pulse, and oxygen saturations were monitored continuously. The pediatric colonoscope was introduced through the anus and advanced to the cecum, identified by the appendiceal orifice, ileocecal valve and palpation. The colonoscopy was performed without difficulty. The patient tolerated the procedure well. The quality of the bowel preparation was poor, there was still retained fecal material. Therefore lavage and aspiration was done to clear the fecal material. This took some time. The patel were cleared adequately. Scope In: 12:54:31 PM Scope Withdrawal Time 0 hours 8 minutes 30 seconds Scope Out: 1:17:12 PM Total Procedure Duration Time 0 hours 22 minutes 41 seconds Findings: The perianal and digital rectal examinations were normal. Non-bleeding external and internal hemorrhoids were found. Impression: - Diverticulosis in the sigmoid colon. - Non-bleeding external and internal hemorrhoids. - No specimens collected. Recommendation: - Repeat colonoscopy is not recommended due to current age (66 years or older) for screening purposes. - Return to primary care physician PRN. - Continue present medications. Procedure Code(s): --- Professional --- 50676, Colonoscopy, flexible; diagnostic, including collection of specimen(s) by brushing or washing, when performed (separate procedure) Diagnosis Code(s): --- Professional --- Z86.010, Personal history of colonic polyps K64.8, Other hemorrhoids K57.30, Diverticulosis of large intestine without perforation or abscess without bleeding CPT copyright 2017 [employer]. All rights reserved. The codes documented in this report are preliminary and upon dinkey operator slate review may be revised to meet current compliance requirements. MD Lissette Whitman MD 05/14/2022 1:28:21 PM This report has been signed electronically. Number of Addenda: 0 Note Initiated On: 05/14/2022 12:48 PM
--- NOTE | 2022-05-14 13:29 | OP.CCLET_ITS ---
05/14/2022 Tomasa Self [address] [place] [address] Re : Colonoscopy procedure for Leeann Johnson Dear Dr. Self This procedure was performed on Saturday, May 14, 2022. My impressions and recommendations are as follows: Impressions : - Diverticulosis in the sigmoid colon. - Non-bleeding external and internal hemorrhoids. - No specimens collected. Recommendations : - Repeat colonoscopy is not recommended due to current age (66 years or older) for screening purposes. - Return to primary care physician PRN. - Continue present medications. My findings are described in the full procedure note, which is enclosed. If I can be of further assistance, please feel free to contact me at Doctor phone number(s): , Work: . Sincerely, MD Lissette Whitman MD 05/14/2022 1:28:21 PM This report has been signed electronically.
[2022-05-14 13:30] VITALS: BP 111/59; BP 115/54; PULSE 64; RESP 18; TEMP 36.6; O2SAT 95
[2022-05-14 13:35] VITALS: BP 111/59; BP 121/63; PULSE 64; RESP 18; O2SAT 95
[2022-05-14 13:45] VITALS: BP 111/59; BP 127/71; PULSE 62; RESP 18; O2SAT 98
[2022-05-14 13:50] VITALS: BP 111/59; BP 141/62; PULSE 60; RESP 18; TEMP 36.6; O2SAT 97
[2022-05-14 14:26] VITALS: BP 111/59
== END 2022-05-14 14:45 | disposition home or self-care (01) ==
LOC: SDC 11:20 → AC 11:22
PROVIDERS: PCP Internal Medicine; Referring Provider Surgery; Visit Provider Surgery
PROC: 0DJD8ZZ Inspection of Lower Intestinal Tract, Via Natural or Artificial Opening Endoscopic (ICD-10-PCS; CPT 45378; principal; 2022-05-14 12:10)
DX: Z12.11 Encounter for screening for malignant neoplasm of colon (principal); I50.32 Chronic diastolic (congestive) heart failure; I11.0 Hypertensive heart disease with heart failure; I27.20 Pulmonary hypertension, unspecified; F31.9 Bipolar disorder, unspecified; K20.90 Esophagitis, unspecified without bleeding; K57.30 Diverticulosis of large intestine without perforation or abscess without bleeding; K64.9 Unspecified hemorrhoids; K29.50 Unspecified chronic gastritis without bleeding; K31.7 Polyp of stomach and duodenum; Z79.01 Long term (current) use of anticoagulants; Z79.890 Hormone replacement therapy; Z79.899 Other long term (current) drug therapy; Z86.010 Personal history of colon polyps
CPT/HCPCS: G0105; 43239; 36416; 85610; 88305; 88313; 88342; J7120

== ENCOUNTER → 2022-08-01 | Outpatient (CLI) | payer MEDICARE, OTHER, SELFPAY ==
[2022-08-01 17:25] LABS: Absolute Neutrophil Count 2.6 X10^3/uL (2.0-7.7); Basophil# 0.03 X10^3/uL; Basophil% 0.7 % (0-1); Eosinophil# 0.04 X10^3/uL; Hematocrit 37.4 % (37-47); Hemoglobin 11.5 g/dL (12.0-15.0); Lymphocyte % 24.2 % (19-41); Mean Corp Hgb Conc 30.7 g/dL (32-36); Mean Corpuscular Hgb 28.5 pg (27.0-32.0); Mean Corpuscular Volume 92.6 fL (81-99); Mean Platelet Vol. 11.7 fl (6.2-12.0); Monocyte# 0.48 X10^3/uL; Monocyte% 11.6 % (0-10); NRBC Flagged by Analyzer 0 % (0-5); Neutrophil # 2.58 X10^3/uL (2.7-7.7); Neutrophil % 62.3 % (47-70); Platelet Count 207 K/mm3 (150-450); RBC Distribution Width CV 15.6 % (11.6-14.6); RBC Distribution Width SD 53.1 fl (35.1-43.9); Red Blood Count 4.04 M/mm3 (4.2-5.4); White Blood Count 4.1 K/mm3 (4.4-11.0)
[2022-08-01 17:29] LABS: International Normalized Ratio 1.8; Prothrombin Time (Protime)PT. 20.2 SECONDS (11.7-14.9)
[2022-08-01 17:30] LABS: Partial Thromboplast Time 39.6 Seconds (24.1-36.2)
[2022-08-01 17:56] LABS: BNP,B-Type NATRIURETIC PEPTIDE 137.1 pg/mL (0-100)
[2022-08-01 18:03] LABS: Anion Gap 6 (5-15); BUN 36 mg/dL (7-18); BUN/Creat Ratio 26.5 RATIO (10-20); Calcium,Total 9.4 mg/dL (8.5-10.1); Chloride 115 mmol/L (98-107); Creatinine, Serum 1.36 mg/dL (0.55-1.02); EST Glomerular Filtration Rate 40 mL/min (>60); Est Glom Filt Rate - Afr Amer 48 mL/min (>60); Glucose 105 mg/dL (74-106); Sodium Level 144 mmol/L (136-145); Thyroid Stim Hormone (TSH) 0.48 uIU/mL (0.358-3.74)
== END | disposition home or self-care (01) ==
PROVIDERS: PCP Internal Medicine; Referring Provider Nurse Practitioner Gerontology; Visit Provider Nurse Practitioner Gerontology
DX: R06.09 Other forms of dyspnea (principal); I48.92 Unspecified atrial flutter; Z79.01 Long term (current) use of anticoagulants
CPT/HCPCS: 36415; 80048; 83880; 84443; 85025; 85610; 85730

== ENCOUNTER → 2022-08-12 | Outpatient (CLI) | payer MEDICARE, OTHER, SELFPAY ==
--- NOTE | 2022-08-12 13:59 | ECHOD_ITS ---
Reason For Study: JARA Procedure This was a 2D Doppler, Color Flow transthoracic echocardiogram. Exam performed in department. Left Ventricle Normal LV size. Left ventricular systolic function is normal. The estimated ejection fraction is 60 %. Stage 3 diastolic dysfunction. No regional wall motion abnormalities noted. Right Ventricle Normal RV size. Normal systolic function. Atria The left atrium is moderately enlarged. Normal right atrium. Mitral Valve There is mild mitral annular calcification. Tricuspid Valve Normal tricuspid valve. Mild (1+) tricuspid valve insufficiency. Pulmonary artery systolic pressure is 36 mmHg. Aortic Valve Trisinus/trileaflet aortic valve. Mild focal aortic valve calcification. Pulmonic Valve The pulmonic valve is not well visualized. Great Vessels Normal aortic root. The pulmonary artery is normal size. Normal inferior vena cava. Pericardium/Pleural No pericardial effusion. MMode/2D Measurements & Calculations LVIDd: 4.7 cm IVSd: 1.2 cm Ao root diam: 3.2 cm LVIDs: 2.5 cm LVPWd: 0.79 cm RVDd: 3.3 cm FS: 46.3 % LAV(MOD-bp): 111.6 ml LVAd ap4: 16.4 cm2 SV(MOD-sp4): 22.0 ml LAV(MOD-bp) Indexed: 55.0 ml/m2 LVLd ap4: 6.1 cm LAV(MOD-sp2): 107.6 ml EDV(MOD-sp4): 36.6 ml LAV(MOD-sp4): 108.1 ml EDV(sp4-el): 37.6 ml LVAs ap4: 9.3 cm2 LVLs ap4: 5.0 cm ESV(MOD-sp4): 14.6 ml ESV(sp4-el): 14.6 ml EF(MOD-sp4): 60.1 % EF(sp4-el): 61.1 % SV(sp4-el): 23.0 ml LA A4 area: 30.6 cm2 LA dimension(2D): 5.8 cm RA A4 area: 18.9 cm2 Time Measurements MV dec time: 0.13 sec Doppler Measurements & Calculations MV E max leann: 166.1 cm/sec MV V2 max: 177.2 cm/sec MV dec slope: 1317 cm/sec2 MV A max leann: 44.0 cm/sec MV max P.6 mmHg MV E/A: 3.8 MV V2 mean: 96.1 cm/sec MV mean P.8 mmHg MV V2 VTI: 34.3 cm Ao V2 max: 160.9 cm/sec LV V1 max: 136.6 cm/sec PA V2 max: 102.3 cm/sec Ao max P.4 mmHg LV V1 max P.5 mmHg Ao V2 mean: 120.1 cm/sec Ao mean P.4 mmHg Ao V2 VTI: 36.0 cm TR max leann: 285.7 cm/sec TR max P.7 mmHg ECHO/Echo Complete Interpretation Summary Normal LV size. Left ventricular systolic function is normal. The estimated ejection fraction is 60 %. Stage 3 diastolic dysfunction. Pulmonary artery systolic pressure is 36 mmHg. The left atrium is moderately enlarged. Ordering Physician: eRnetta Siddiqui Referring Physician: Tomasa Self Performed By: Sheela Laird, PADDY, RVT
[2022-08-12 15:50] LABS: International Normalized Ratio 1.7; Prothrombin Time (Protime)PT. 19.5 SECONDS (11.7-14.9)
[2022-08-12 16:13] LABS: Anion Gap 8 (5-15); BUN 40 mg/dL (7-18); BUN/Creat Ratio 28.6 RATIO (10-20); Calcium,Total 9.4 mg/dL (8.5-10.1); Chloride 114 mmol/L (98-107); EST Glomerular Filtration Rate 38 mL/min (>60); Est Glom Filt Rate - Afr Amer 46 mL/min (>60); Glucose 107 mg/dL (74-106); Potassium 3.9 mmol/L (3.5-5.1); Sodium Level 145 mmol/L (136-145)
== END | disposition home or self-care (01) ==
PROVIDERS: PCP Internal Medicine; Referring Provider Nurse Practitioner Gerontology; Visit Provider Nurse Practitioner Gerontology
DX: R06.09 Other forms of dyspnea (principal); Z79.01 Long term (current) use of anticoagulants
CPT/HCPCS: 36415; 80048; 85610; 93306

== ENCOUNTER 2022-10-04 15:51 | Outpatient (RCR) | payer MEDICARE, OTHER, SELFPAY ==
[2022-05-09 02:34] VITALS: BMI 54.8
[2022-09-09 18:13] LABS: International Normalized Ratio 2.2; Prothrombin Time (Protime)PT. 23.8 SECONDS (11.7-14.9)
[2022-09-09 18:17] LABS: Anion Gap 6 (5-15); BUN 25 mg/dL (7-18); BUN/Creat Ratio 20.2 RATIO (10-20); Calcium,Total 9.2 mg/dL (8.5-10.1); Chloride 110 mmol/L (98-107); Creatinine, Serum 1.24 mg/dL (0.55-1.02); EST Glomerular Filtration Rate 44 mL/min (>60); Est Glom Filt Rate - Afr Amer 53 mL/min (>60); Glucose 102 mg/dL (74-106); Potassium 3.8 mmol/L (3.5-5.1); Sodium Level 139 mmol/L (136-145)
[2022-10-04 17:59] LABS: Color, Urine Yellow (Yellow); Glucose, Dipstick Normal (Normal); Ketone-Dipstick Negative (Negative); Leukocyte Esterase-Dipstick Negative /ul (Negative); Nitrite-Dipstick Negative (Negative); Occult Blood-Urine Negative /ul (Negative); Protein-Dipstick Negative (Negative); Urine Bilirubin Dipstick Negative (Negative); Urine Clarity Clear (Clear); Urine Urobilinogen Normal (Normal); Urine pH 6.5 (5.0 - 8.0)
[2022-10-07 11:16] LABS: Prothrombin Time Fingerstick 32.6 SEC (11.7-14.9)
== END 2022-10-06 05:28 | disposition home or self-care (01) ==
LOC: MTLAB 15:51
PROVIDERS: PCP Internal Medicine; Referring Provider Internal Medicine Cardiovascular Disease; Visit Provider Internal Medicine Cardiovascular Disease
DX: I48.92 Unspecified atrial flutter (principal); Z79.01 Long term (current) use of anticoagulants; N28.9 Disorder of kidney and ureter, unspecified; I50.32 Chronic diastolic (congestive) heart failure
CPT/HCPCS: 36415; 36416; 80048; 81002; 85610; 87086; 87088

== ENCOUNTER → 2022-12-30 | Outpatient (CLI) | payer MEDICARE, OTHER, SELFPAY ==
[2022-12-30 12:33] LABS: Absolute Lymphocyte Count 0.89 X10^3/uL (0.83-4.51); Basophil# 0.03 X10^3/uL; Basophil% 0.7 % (0-1); Eosinophil# 0.05 X10^3/uL; Eosinophils% 1.1 % (0-5); Hematocrit 36.9 % (37-47); Hemoglobin 11.8 g/dL (12.0-15.0); Lymphocyte # 0.89 X10^3/ul (0.83-4.51); Lymphocyte % 20.2 % (19-41); Mean Corpuscular Hgb 29.5 pg (27.0-32.0); Mean Corpuscular Volume 92.3 fL (81-99); Mean Platelet Vol. 11.1 fl (6.2-12.0); Monocyte# 0.41 X10^3/uL; Monocyte% 9.3 % (0-10); NRBC Flagged by Analyzer 0 % (0-5); Neutrophil # 3.01 X10^3/uL (2.7-7.7); Neutrophil % 68.5 % (47-70); Platelet Count 214 K/mm3 (150-450); RBC Distribution Width CV 14.6 % (11.6-14.6); RBC Distribution Width SD 49.3 fl (35.1-43.9); White Blood Count 4.4 K/mm3 (4.4-11.0)
[2022-12-30 12:48] LABS: Prothrombin Time (Protime)PT. 31.8 SECONDS (11.7-14.9)
[2022-12-30 13:32] LABS: BNP,B-Type NATRIURETIC PEPTIDE 178.7 pg/mL (0-100)
[2022-12-30 13:55] LABS: ALB/GLOB Ratio 0.9 RATIO (0.9-2.4); AST(SGOT) 23 U/L (15-37); Alanine Aminotransfer ALT/SGPT 23 U/L (13-56); Albumin, Serum 3.6 g/dL (3.2-5.0); Alkaline Phosphatase 97 U/L (45-117); Anion Gap 5 (5-15); BUN 27 mg/dL (7-18); BUN/Creat Ratio 22.3 RATIO (10-20); Calcium,Total 9.3 mg/dL (8.5-10.1); Chloride 111 mmol/L (98-107); Cholesterol 142 mg/dL (200); Creatinine, Serum 1.21 mg/dL (0.55-1.02); EST Glomerular Filtration Rate 45 mL/min (>60); Est Glom Filt Rate - Afr Amer 55 mL/min (>60); Glucose 93 mg/dL (74-106); High Density Lipoprotein 66 mg/dL; Magnesium 2.2 mg/dL (1.6-2.6); Potassium 3.5 mmol/L (3.5-5.1); Protein, Total 7.6 g/dL (6.4-8.2); Sodium Level 142 mmol/L (136-145); Thyroid Stim Hormone (TSH) 0.48 uIU/mL (0.358-3.74); Triglycerides 66 mg/dL; Very Low Density Lipoprotein 13 mg/dL (5-40)
== END | disposition home or self-care (01) ==
PROVIDERS: PCP Internal Medicine; Referring Provider Physician Assistant Medical; Visit Provider Physician Assistant Medical
DX: R07.9 Chest pain, unspecified (principal); I11.0 Hypertensive heart disease with heart failure; I50.32 Chronic diastolic (congestive) heart failure; I48.92 Unspecified atrial flutter; R53.83 Other fatigue; R06.09 Other forms of dyspnea; E78.5 Hyperlipidemia, unspecified
CPT/HCPCS: 36415; 80053; 80061; 83735; 83880; 84443; 85025; 85610

== ENCOUNTER → 2023-01-09 | Outpatient (CLI) | payer MEDICARE, OTHER, SELFPAY ==
--- NOTE | 2023-01-09 14:38 | STRESSREP_ITS ---
Stress Test Report Pharmacologic myocardial perfusion stress test. 82-year-old lady with a history of atrial fibrillation and chest pain Resting EKG demonstrates atrial fibrillation with a rate of 75 bpm. Resting blood pressure is 136/61 mmHg. 0.4 mg of regadenoson was infused per usual protocol followed by rapid intravenous saline flush injection. Continuous EKG monitoring was performed. The maximum heart rate was 87 bpm which was 63% of max impacted heart rate the maximum workload was 1 metabolic equivalent. At rest there were no ST or T wave changes noted to suggest ischemia and at peak infusion nonspecific ST changes were noted which did not meet the criteria for ischemia. No clinical angina is noted. The final blood pressure was 128/56 m mHg. Myocardial perfusion protocol. 14.4 mCi of technetium 99m sestamibi was injected at rest. 0.4 mg of regadenoson was infused per usual protocol. At peak infusion 45.0 mCi of technetium 99m sestamibi was injected stress images were obtained stress and rest images were reconstructed and compared in the short axis vertical long and horizontal long axis. Gated images were also obtained. Perfusion SPECT analysis: Review of the stress images demonstrate normal uptake of tracer noted in all areas of the myocardium. The resting images similar demonstrated normal uptake of tracer noted in all areas of the myocardium. No areas of reversibility are noted to suggest ischemia and no previous infarct is noted. Gated SPECT analysis: The gated ejection fraction is 71%. Conclusion: Normal pharmacologic myocardial perfusion stress test. Preserved ejection fraction.
== END | disposition home or self-care (01) ==
LOC: CVS 07:20
PROVIDERS: PCP Internal Medicine; Referring Provider Physician Assistant Medical; Visit Provider Physician Assistant Medical
DX: R07.9 Chest pain, unspecified (principal); I50.32 Chronic diastolic (congestive) heart failure; I11.0 Hypertensive heart disease with heart failure; I48.92 Unspecified atrial flutter; R53.83 Other fatigue; R06.09 Other forms of dyspnea; E78.5 Hyperlipidemia, unspecified
CPT/HCPCS: 78452; 93017; A9500; A4216; J2785

== ENCOUNTER 2023-01-15 12:38 | Outpatient (RCR) | payer MEDICARE, OTHER, SELFPAY ==
[2022-10-06 05:28] VITALS: BMI 54.8
[2023-01-15 15:39] LABS: Anion Gap 8 (5-15); BUN 48 mg/dL (7-18); BUN/Creat Ratio 33.3 RATIO (10-20); Calcium,Total 9.9 mg/dL (8.5-10.1); Chloride 111 mmol/L (98-107); Creatinine, Serum 1.44 mg/dL (0.55-1.02); EST Glomerular Filtration Rate 37 mL/min (>60); Est Glom Filt Rate - Afr Amer 45 mL/min (>60); Glucose 98 mg/dL (74-106); Potassium 4.3 mmol/L (3.5-5.1); Sodium Level 142 mmol/L (136-145)
[2023-01-15 15:46] LABS: International Normalized Ratio 3.1; Prothrombin Time (Protime)PT. 32.2 SECONDS (11.7-14.9)
== END 2023-01-15 18:00 | disposition home or self-care (01) ==
LOC: MTLAB 12:38
PROVIDERS: Physician Assistant Medical; PCP Internal Medicine; Referring Provider Internal Medicine Cardiovascular Disease; Visit Provider Internal Medicine Cardiovascular Disease
DX: I48.92 Unspecified atrial flutter (principal); Z79.01 Long term (current) use of anticoagulants
CPT/HCPCS: 36415; 80048; 85610

== ENCOUNTER → 2023-01-24 | Outpatient (CLI) | payer MEDICARE, OTHER, SELFPAY ==
[2023-01-24 11:39] LABS: Prothrombin Time (Protime)PT. 54.3 SECONDS (11.7-14.9)
[2023-01-24 12:08] LABS: International Normalized Ratio 5.9
== END | disposition home or self-care (01) ==
LOC: LAB 10:00
PROVIDERS: PCP Internal Medicine; Visit Provider Physician Assistant Medical
DX: I48.92 Unspecified atrial flutter (principal); Z79.01 Long term (current) use of anticoagulants; R06.00 Dyspnea, unspecified
CPT/HCPCS: 36415; 85610

== ENCOUNTER → 2023-01-27 | Outpatient (CLI) | payer MEDICARE, OTHER, SELFPAY ==
[2023-01-27 11:10] LABS: International Normalized Ratio 1.7; Prothrombin Time (Protime)PT. 20.1 SECONDS (11.7-14.9)
== END | disposition home or self-care (01) ==
LOC: LAB 09:10
PROVIDERS: PCP Internal Medicine; Visit Provider Physician Assistant Medical
DX: I48.92 Unspecified atrial flutter (principal); Z79.01 Long term (current) use of anticoagulants; R06.00 Dyspnea, unspecified
CPT/HCPCS: 36415; 85610

== ENCOUNTER → 2023-01-31 | Outpatient (CLI) | payer MEDICARE, OTHER, SELFPAY ==
[2023-01-31 10:33] LABS: International Normalized Ratio 1.3; Prothrombin Time (Protime)PT. 16.6 SECONDS (11.7-14.9)
[2023-01-31 10:48] LABS: Anion Gap 3 (5-15); BUN 34 mg/dL (7-18); BUN/Creat Ratio 22.7 RATIO (10-20); Calcium,Total 9.4 mg/dL (8.5-10.1); Chloride 110 mmol/L (98-107); EST Glomerular Filtration Rate 35 mL/min (>60); Est Glom Filt Rate - Afr Amer 43 mL/min (>60); Glucose 95 mg/dL (74-106); Potassium 4.8 mmol/L (3.5-5.1); Sodium Level 138 mmol/L (136-145)
== END | disposition home or self-care (01) ==
LOC: LAB 09:08
PROVIDERS: PCP Internal Medicine; Visit Provider Physician Assistant Medical
DX: I48.92 Unspecified atrial flutter (principal); R06.00 Dyspnea, unspecified; Z79.01 Long term (current) use of anticoagulants
CPT/HCPCS: 36415; 80048; 85610

== ENCOUNTER → 2023-02-07 | Outpatient (CLI) | payer MEDICARE, OTHER, SELFPAY ==
[2023-02-07 11:35] LABS: Absolute Lymphocyte Count 1.36 X10^3/uL (0.83-4.51); Absolute Neutrophil Count 2.5 X10^3/uL (2.0-7.7); Basophil# 0.04 X10^3/uL; Basophil% 0.9 % (0-1); Eosinophil# 0.08 X10^3/uL; Eosinophils% 1.8 % (0-5); Hematocrit 38.4 % (37-47); Hemoglobin 11.9 g/dL (12.0-15.0); Lymphocyte # 1.36 X10^3/ul (0.83-4.51); Mean Corpuscular Hgb 27.8 pg (27.0-32.0); Mean Corpuscular Volume 89.7 fL (81-99); Mean Platelet Vol. 11.6 fl (6.2-12.0); Monocyte# 0.44 X10^3/uL; NRBC Flagged by Analyzer 0 % (0-5); Neutrophil # 2.46 X10^3/uL (2.7-7.7); Neutrophil % 56.1 % (47-70); Platelet Count 215 K/mm3 (150-450); RBC Distribution Width CV 15.5 % (11.6-14.6); RBC Distribution Width SD 50.7 fl (35.1-43.9); Red Blood Count 4.28 M/mm3 (4.2-5.4); White Blood Count 4.4 K/mm3 (4.4-11.0)
[2023-02-07 11:46] LABS: International Normalized Ratio 1.7; Prothrombin Time (Protime)PT. 20.5 SECONDS (11.7-14.9)
[2023-02-07 11:59] LABS: Vitamin B12 771 pg/mL (211-911); Vitamin D,25 Hydroxy 48.5 ng/mL
[2023-02-07 12:08] LABS: AST(SGOT) 22 U/L (15-37); Alanine Aminotransfer ALT/SGPT 22 U/L (13-56); Albumin, Serum 3.6 g/dL (3.2-5.0); Alkaline Phosphatase 105 U/L (45-117); Anion Gap 7 (5-15); BUN 42 mg/dL (7-18); BUN/Creat Ratio 25.3 RATIO (10-20); Calcium,Total 9.2 mg/dL (8.5-10.1); Chloride 108 mmol/L (98-107); Creatinine, Serum 1.66 mg/dL (0.55-1.02); EST Glomerular Filtration Rate 31 mL/min (>60); Est Glom Filt Rate - Afr Amer 38 mL/min (>60); Ferritin 16 ng/mL (8-252); Free T3 3.4 pg/mL (2.18-3.98); Globulin 3.7 g/dL (2.2-4.2); Glucose 97 mg/dL (74-106); Potassium 4.9 mmol/L (3.5-5.1); Protein, Total 7.3 g/dL (6.4-8.2); Sodium Level 138 mmol/L (136-145); Thyroid Stim Hormone (TSH) 0.85 uIU/mL (0.358-3.74)
== END | disposition home or self-care (01) ==
LOC: LAB 10:54
PROVIDERS: PCP Internal Medicine; Visit Provider Physician Assistant Medical
DX: I48.92 Unspecified atrial flutter (principal); R06.00 Dyspnea, unspecified; E55.9 Vitamin D deficiency, unspecified; Z79.01 Long term (current) use of anticoagulants
CPT/HCPCS: 36415; 80053; 82306; 82607; 82728; 84439; 84443; 84481; 85025; 85610

== ENCOUNTER → 2023-02-14 | Outpatient (CLI) | payer MEDICARE, OTHER, SELFPAY ==
[2023-02-14 10:02] LABS: International Normalized Ratio 1.8; Prothrombin Time (Protime)PT. 20.6 SECONDS (11.7-14.9)
== END | disposition home or self-care (01) ==
LOC: LAB 08:23
PROVIDERS: PCP Internal Medicine; Visit Provider Physician Assistant Medical
DX: I48.92 Unspecified atrial flutter (principal); Z79.01 Long term (current) use of anticoagulants; R06.00 Dyspnea, unspecified
CPT/HCPCS: 36415; 85610

== ENCOUNTER → 2023-02-21 | Outpatient (CLI) | payer MEDICARE, OTHER, SELFPAY ==
[2023-02-21 10:56] LABS: International Normalized Ratio 2.9; Prothrombin Time (Protime)PT. 30.9 SECONDS (11.7-14.9)
== END | disposition home or self-care (01) ==
LOC: LAB 09:33
PROVIDERS: PCP Internal Medicine; Visit Provider Internal Medicine Cardiovascular Disease
DX: I48.92 Unspecified atrial flutter (principal); Z79.01 Long term (current) use of anticoagulants; R06.00 Dyspnea, unspecified
CPT/HCPCS: 36415; 85610

== ENCOUNTER → 2023-02-28 | Outpatient (CLI) | payer MEDICARE, OTHER, SELFPAY ==
[2023-02-28 10:43] LABS: International Normalized Ratio 3.7; Prothrombin Time (Protime)PT. 37.5 SECONDS (11.7-14.9)
== END | disposition home or self-care (01) ==
LOC: LAB 10:01
PROVIDERS: PCP Internal Medicine; Visit Provider Physician Assistant Medical
DX: I48.92 Unspecified atrial flutter (principal); R06.00 Dyspnea, unspecified; Z79.01 Long term (current) use of anticoagulants
CPT/HCPCS: 36415; 85610

== ENCOUNTER → 2023-03-07 | Outpatient (CLI) | payer MEDICARE, OTHER, SELFPAY ==
[2023-03-07 10:22] LABS: International Normalized Ratio 3.7; Prothrombin Time (Protime)PT. 37.5 SECONDS (11.7-14.9)
== END | disposition home or self-care (01) ==
LOC: LAB 09:00
PROVIDERS: PCP Internal Medicine; Visit Provider Physician Assistant Medical
DX: I48.92 Unspecified atrial flutter (principal); R06.00 Dyspnea, unspecified; Z79.01 Long term (current) use of anticoagulants
CPT/HCPCS: 36415; 85610

== ENCOUNTER → 2023-03-14 | Outpatient (CLI) | payer MEDICARE, OTHER, SELFPAY ==
[2023-03-14 10:33] LABS: International Normalized Ratio 4.1; Prothrombin Time (Protime)PT. 40.3 SECONDS (11.7-14.9)
== END | disposition home or self-care (01) ==
LOC: LAB 09:23
PROVIDERS: PCP Internal Medicine; Visit Provider Physician Assistant Medical
DX: Z79.01 Long term (current) use of anticoagulants (principal)
CPT/HCPCS: 36415; 85610

== ENCOUNTER → 2023-03-20 | Outpatient (CLI) | payer MEDICARE, OTHER, SELFPAY ==
[2023-03-20 10:31] LABS: Anion Gap 2 (5-15); BUN 30 mg/dL (7-18); BUN/Creat Ratio 23.6 RATIO (10-20); Calcium,Total 9.2 mg/dL (8.5-10.1); Chloride 111 mmol/L (98-107); Creatinine, Serum 1.27 mg/dL (0.55-1.02); EST Glomerular Filtration Rate 43 mL/min (>60); Est Glom Filt Rate - Afr Amer 52 mL/min (>60); Glucose 101 mg/dL (74-106); Potassium 4.4 mmol/L (3.5-5.1); Sodium Level 140 mmol/L (136-145)
[2023-03-20 10:33] LABS: Prothrombin Time (Protime)PT. 40.7 SECONDS (11.7-14.9)
[2023-03-20 10:46] LABS: International Normalized Ratio 4.1
== END | disposition home or self-care (01) ==
LOC: LAB 08:15
PROVIDERS: PCP Internal Medicine; Referring Provider Physician Assistant Medical; Visit Provider Physician Assistant Medical
DX: I48.92 Unspecified atrial flutter (principal); Z79.01 Long term (current) use of anticoagulants; R06.00 Dyspnea, unspecified
CPT/HCPCS: 36415; 80048; 85610

== ENCOUNTER → 2023-03-27 | Outpatient (CLI) | payer MEDICARE, OTHER, SELFPAY ==
[2023-03-27 10:50] LABS: Magnesium 2.1 mg/dL (1.6-2.6)
[2023-03-27 10:59] LABS: Prothrombin Time (Protime)PT. 31.7 SECONDS (11.7-14.9)
== END | disposition home or self-care (01) ==
LOC: LAB 08:23
PROVIDERS: PCP Internal Medicine; Referring Provider Physician Assistant Medical; Visit Provider Physician Assistant Medical
DX: I48.92 Unspecified atrial flutter (principal); R06.00 Dyspnea, unspecified; R25.2 Cramp and spasm; Z79.01 Long term (current) use of anticoagulants
CPT/HCPCS: 36415; 83735; 85610

== ENCOUNTER 2023-04-01 10:21 | Day surgery (SDC) | payer MEDICARE, OTHER, SELFPAY ==
--- NOTE | 2023-03-19 14:11 | PCM.HP.BLA ---
History and Physical Leeann Johnson is a 82-year-old female with a history of hypertension, diastolic dysfunction, paroxysmal atrial flutter, hyperlipidemia. She underwent a cardiac catheterization in May 2020 which demonstrated no significant obstructive coronary disease and she did have preserved left ventricular systolic function estimated ejection fraction of 65%. She has presented to the office in December of 2022 with Cp and SOB. She was was noted to be in Afib. She did undergo a stress test which was negative. She has had 4 theraputic INRs over the past month. She is here today for a DCCV. [facility] Medical History Anxiety Arthritis Atrial flutter with rapid ventricular response (02/16/20) Headley esophagus Bilateral lower extremity edema BiPAP (biphasic positive airway pressure) dependence Bipolar disorder Bipolar disorder Cardiology follow-up encounter Chronic diastolic (congestive) heart failure Congenital coronary artery anomaly COPD (chronic obstructive pulmonary disease) Degenerative spondylolisthesis Delayed wound healing Depression Depression Difficulty swallowing Diverticulosis Essential (primary) hypertension Fatty liver Former smoker GERD (gastroesophageal reflux disease) Hammer toe of right foot History of atrial fibrillation History of Headley's esophagus History of CHF (congestive heart failure) History of IBS Hypothyroidism Hypothyroidism (acquired) IBS (irritable bowel syndrome) Insomnia Leg cramps correction current use of anticoagulant Lumbar spine pain Mitral valve prolapse Morbid obesity Neuropathic pain Obesity Obstructive sleep apnea Osteoarthritis Osteoarthritis of right hip Osteomyelitis Osteopenia determined by x-ray Palpitations Paroxysmal atrial flutter Posterior tibialis muscle dysfunction Postoperative anemia Pulmonary hypertension Radiculopathy of lumbar region Renal insufficiency Sciatica Shortness of breath on exertion Sleep apnea Thyroid disease Ulcer of right second toe, limited to breakdown of skin Venous insufficiency (chronic) (peripheral) Vitamin D deficiency Walker as ambulation aid Walking difficulty due to ankle and foot Wears dentures Wears glasses Surgical History History of carpal tunnel release (2006) History of esophagogastroduodenoscopy (EGD) (05/04/08) History of flexible sigmoidoscopy (2007) History of hysterectomy History of knee joint replacement History of left heart catheterization (06/08/20) History of suburethral sling procedure (2015) History of total hysterectomy (2015) History of total right hip replacement (05/2016) S/P colonoscopy S/P shoulder replacement Status post knee replacement Family History Father Aortic aneurysm Cancer lymphomaMother CVA (cerebral vascular accident) DementiaAunt Colon cancer Social History Smoking Status: Former smoker alcohol intake: never substance use type: does not use caffeine: Yes Type: coffee what type of physical activity do you participate in: none seatbelt use: never do you feel safe at home: Yes ROS Const Const: Positive for fatigue; Negative for weakness, fever(s), headache(s), chills, frequent falls, weight gain or weight loss Eyes Eyes: Negative for blind spots, loss of peripheral vision, transient loss of vision, blurry vision, change in vision, double vision, floaters or tunnel vision ENT ENT: Positive for balance problems; Negative for headache(s), dizziness, Nosebleed/epistaxis or neck pain Cardio Chest Pain: Yes Palpitations: No Edema: None Muscle aches with walking: None Resp Respiratory: Positive for SOB with activity (worsening); Negative for SOB at rest or SOB orthopnea\SOB lying down GI GI: Negative nausea, vomiting, heartburn, bloating, vomiting blood/hematemesis, bright, red blood in stools or black,tarry stools Musc Musc: Positive for muscle aches/ myalgia, muscle weakness, joint pain and balance problems Neuro Neuro: Negative for dizziness, lightheadedness, near syncope, syncope, orthostatic symptoms, frequent falls, headache(s), weakness, blurry vision or double vision Jason Hematologic/Lymphatic: Negative for easy bleeding or easy bruising Endo Endo: Positive for fatigue Cardiology Exam Const Appearance: cooperative, comfortable, no acute distress and well developed Nutritional Appearance: obese Orientation: alert, awake and oriented x3 Head Head: normal to inspection Ears: hearing grossly normal bilaterally Nose: external nose normal Face and Sinus: face symmetric Eyes General: appearance normal, both eyes and all related structures Eyelids: eyelids normal Conjunctivae: conjunctivae normal Pupils: PERRL EOM: EOM intact bilaterally Neck Neck: normal visual inspection and trachea midline; Negative no JVD Carotids: Negative bruit Chest Chest inspection: normal inspection of the chest Auscultation: Bilateral: Clear to Auscultation Cardio Palpation: normal PMI Rate: regular rate Rhythm: irregularly irregular Heart sounds: S1 normal and S2 normal; Negative rub, gallop or murmur GI GI: normal to inspection, soft and obese Neuro General: patient alert, patient awake, patient oriented x3 and CN's II-XI intact bilaterally Extremities Pulses: Normal: Right Posterior Tibial Pulse, Left Posterior Tibial Pulse, Right Radial Pulse and Left Radial Pulse Lower Extremity Edema: None: Bilateral (wears braces) Psych Psychological: normal affect Supplemental Info Supplemental Information AAA SCREENING 04/08/2022 Interpretation Summary Maximal aortic diameter in the mid aorta at 1.38 x 1.38 cm diameter which is normal. Very slightly elevated flow velocity in the mid abdominal aorta at 121.3 cm/s Normal left common iliac artery dimensions of 0.84 x 0.83 cm diameter with minimally increased flow velocity and 121.3 cm/s Right common neck normal at 0.92 x 0.94 cm in diameter with elevated flow velocity of 199.7 cm/s The velocity changes do not meet clinical significance. ? CARDIAC CATHETERIZATION 06/08/2020 CORONARY ANGIOGRAPHY DOMINANCE:? Right Dominant LEFT MAIN: Mild calcification, No significant disease noted LEFT ANTERIOR DESCENDING ARTERY: No significant disease noted CIRCUMFLEX ARTERY: No significant disease noted RIGHT CORONARY ARTERY: Mild luminal irregularities AORTIC ROOT: Angiographically normal ECHOCARDIOGRAM 04/04/2020 Interpretation Summary Normal LV size. Left ventricular systolic function is normal. The estimated ejection fraction is 65 %. Contrast injection was performed. The study was technically difficult. Echocardiogram 08/2022: Normal LV size. Left ventricular systolic function is normal. The estimated ejection fraction is 60 %. Stage 3 diastolic dysfunction. Pulmonary artery systolic pressure is 36 mmHg. The left atrium is moderately enlarged. Pharmacologic myocardial perfusion stress test 2022: 82-year-old lady with a history of atrial fibrillation and chest pain Resting EKG demonstrates atrial fibrillation with a rate of 75 bpm. Resting blood pressure is 136/61 mmHg. 0.4 mg of regadenoson was infused per usual protocol followed by rapid intravenous saline flush injection. Continuous EKG monitoring was performed. The maximum heart rate was 87 bpm which was 63% of max impacted heart rate the maximum workload was 1 metabolic equivalent. At rest there were no ST or T wave changes noted to suggest ischemia and at peak infusion nonspecific ST changes were noted which did not meet the criteria for ischemia. No clinical angina is noted. The final blood pressure was 128/56 mmHg. Myocardial perfusion protocol. 14.4 mCi of technetium 99m sestamibi was injected at rest. 0.4 mg of regadenoson was infused per usual protocol. At peak infusion 45.0 mCi of technetium 99m sestamibi was injected stress images were obtained stress and rest images were reconstructed and compared in the short axis vertical long and horizontal long axis. Gated images were also obtained. Perfusion SPECT analysis: Review of the stress images demonstrate normal uptake of tracer noted in all areas of the myocardium. The resting images similar demonstrated normal uptake of tracer noted in all areas of the myocardium. No areas of reversibility are noted to suggest ischemia and no previous infarct is noted. Gated SPECT analysis: The gated ejection fraction is 71%. Conclusion: Normal pharmacologic myocardial perfusion stress test. Preserved ejection fraction. Assessment & Plan Assessment/Plan (1) Paroxysmal atrial flutter: (2) Chronic diastolic (congestive) heart failure: PLAN: Plan Pt will undergo a DCCV. If it is unsuccessful will consider antiarrhythmic vs EP consult.
[2023-03-31 08:22] VITALS: BMI 41.1
[2023-04-01 10:32] LABS: INR Fingerstick 3.2; Prothrombin Time Fingerstick 34.1 SEC (11.7-14.9)
--- NOTE | 2023-04-01 12:01 | PCM.OP.PRO ---
Procedure Report Date of Procedure: 04/01/23 DC cardioversion. 83-year-old lady with a history of symptomatic persistent atrial fibrillation. Patient was brought to the cardiac catheterization lab in the postabsorptive nonsedated state. She has been compliant with anticoagulation with therapeutic INR between 2 and 3 for over a month. Patient was seen by Dr. Garza of the critical care division. Informed consent was obtained. Anterior-posterior pads were applied. The patient was administered 40 mg of intravenous propofol. 300 J of DC biphasic cardioversion energy were applied with prompt reversal to sinus rhythm. Conclusion: Successful DC cardioversion from atrial fibrillation to sinus rhythm. Continue as per office protocol.
--- NOTE | 2023-04-01 14:43 | PCM.OP.PRO ---
Procedure Report Date of Procedure: 04/01/23 CONSCIOUS SEDATION REPORT BRIEF HISTORY OF PRESENT ILLNESS: The patient is an 83-year-old female who presented to [facility] for an elective outpatient cardioversion due to underlying atrial fibrillation. The patient reports no PO intake since midnight, but is currently therapeutic on anticoagulation. The patient does have a history of obstructive sleep apnea and is reportedly compliant with therapy. The patient reports a history of smoking, but denies COPD. The patient denies any recent constitutional symptoms such as fevers, chills, nausea or vomiting. The patient denies previous applicable anesthetic complications. Patient's last known ejection fraction was 60%. PHYSICAL EXAMINATION: VITAL SIGNS: Reviewed and were acceptable. GENERAL: The patient is a female, in no apparent distress, speaking in full sentences. HEENT: Normocephalic, atraumatic. Mucous membranes are moist and pink. Good mouth opening noted. Trachea is midline. Good neck mobility. MP III CHEST: S1, S2 irregularly irregular. No murmurs, rubs or gallops were noted. LUNGS: Clear to auscultation bilaterally without appreciable wheezes, rales or rhonchi. ABDOMEN: Soft, nontender, nondistended. Positive bowel sounds. EXTREMITIES: There is no clubbing, cyanosis or edema. ASA Class: II DESCRIPTION OF PROCEDURE: After confirmation of informed consent, the patient's anesthesia plan was reviewed in detail. Propofol was chosen. Risks and benefits were reviewed and the patient agreed to proceed. At 11:56 AM, the patient was given 40 mg of propofol. The patient achieved an appropriate level of sedation and received 1 attempt synchronized cardioversion, at [address] Phillips at the bedside. This was successful in achieving normal sinus rhythm. The patient was monitored until 12:10 PM, at which time the patient reached their baseline mental status and function. The patient tolerated the procedure well. COMPLICATIONS: None ESTIMATED BLOOD LOSS: None RECOMMENDATIONS: Okay to recover in usual fashion. Procedures Pulmonary 9xxxx: [id number] Con Sedation
== END 2023-04-01 12:55 | disposition home or self-care (01) ==
LOC: CLSP 10:24
PROVIDERS: PCP Internal Medicine; Referring Provider Internal Medicine Cardiovascular Disease; Visit Provider Internal Medicine Cardiovascular Disease
DX: I48.0 Paroxysmal atrial fibrillation (principal); J44.9 Chronic obstructive pulmonary disease, unspecified; I11.0 Hypertensive heart disease with heart failure; I50.32 Chronic diastolic (congestive) heart failure; E78.5 Hyperlipidemia, unspecified; Z79.01 Long term (current) use of anticoagulants; Z79.899 Other long term (current) drug therapy; Z87.891 Personal history of nicotine dependence
CPT/HCPCS: 36416; 85610; 92960; 93005; J7040

== ENCOUNTER → 2023-04-10 | Outpatient (CLI) | payer MEDICARE, OTHER, SELFPAY ==
[2023-04-10 12:08] LABS: Prothrombin Time (Protime)PT. 43.4 SECONDS (11.7-14.9)
[2023-04-10 12:13] LABS: International Normalized Ratio 4.5
== END | disposition home or self-care (01) ==
LOC: LAB 08:46
PROVIDERS: PCP Internal Medicine; Referring Provider Physician Assistant Medical; Visit Provider Physician Assistant Medical
DX: I48.92 Unspecified atrial flutter (principal); Z79.01 Long term (current) use of anticoagulants; R06.00 Dyspnea, unspecified
CPT/HCPCS: 36415; 85610

== ENCOUNTER → 2023-04-15 | Outpatient (CLI) | payer MEDICARE, OTHER, SELFPAY ==
[2023-04-15 12:27] LABS: International Normalized Ratio 2.3; Prothrombin Time (Protime)PT. 25.8 SECONDS (11.7-14.9)
== END | disposition home or self-care (01) ==
LOC: LAB 11:42
PROVIDERS: PCP Internal Medicine; Visit Provider Physician Assistant Medical
DX: I48.92 Unspecified atrial flutter (principal); R06.00 Dyspnea, unspecified; Z79.01 Long term (current) use of anticoagulants
CPT/HCPCS: 36415; 85610

== ENCOUNTER → 2023-04-17 | Outpatient (CLI) | payer MEDICARE, OTHER, SELFPAY ==
[2023-04-17 11:52] LABS: Anion Gap 3 (5-15); BUN 27 mg/dL (7-18); BUN/Creat Ratio 21.3 RATIO (10-20); Calcium,Total 8.9 mg/dL (8.5-10.1); Chloride 112 mmol/L (98-107); Creatinine, Serum 1.27 mg/dL (0.55-1.02); EST Glomerular Filtration Rate 43 mL/min (>60); Est Glom Filt Rate - Afr Amer 52 mL/min (>60); Glucose 97 mg/dL (74-106); Potassium 4.3 mmol/L (3.5-5.1); Sodium Level 141 mmol/L (136-145)
[2023-04-17 12:13] LABS: BNP,B-Type NATRIURETIC PEPTIDE 145.8 pg/mL (0-100)
== END | disposition home or self-care (01) ==
LOC: LAB 10:12
PROVIDERS: PCP Internal Medicine; Referring Provider Nurse Practitioner Family; Visit Provider Nurse Practitioner Family
DX: R25.2 Cramp and spasm (principal); I50.32 Chronic diastolic (congestive) heart failure; R06.00 Dyspnea, unspecified
CPT/HCPCS: 36415; 80048; 83880

== ENCOUNTER 2023-04-28 15:25 | Outpatient (RCR) | payer MEDICARE, OTHER, SELFPAY ==
[2023-02-07 02:17] VITALS: BMI 54.8
[2023-04-28 16:42] LABS: International Normalized Ratio 1.8; Prothrombin Time (Protime)PT. 20.8 SECONDS (11.7-14.9)
[2023-04-28 17:18] LABS: Anion Gap 6 (5-15); BUN 31 mg/dL (7-18); BUN/Creat Ratio 26.3 RATIO (10-20); Chloride 109 mmol/L (98-107); Creatinine, Serum 1.18 mg/dL (0.55-1.02); EST Glomerular Filtration Rate 47 mL/min (>60); Est Glom Filt Rate - Afr Amer 56 mL/min (>60); Glucose 86 mg/dL (74-106); Potassium 4.6 mmol/L (3.5-5.1); Sodium Level 141 mmol/L (136-145)
== END 2023-05-08 18:00 | disposition home or self-care (01) ==
LOC: LAB 15:25
PROVIDERS: Nurse Practitioner Family; PCP Internal Medicine; Referring Provider Internal Medicine Cardiovascular Disease; Visit Provider Internal Medicine Cardiovascular Disease
DX: R07.9 Chest pain, unspecified; I11.0 Hypertensive heart disease with heart failure; I50.32 Chronic diastolic (congestive) heart failure; R39.9 Unspecified symptoms and signs involving the genitourinary system
CPT/HCPCS: 36415; 80048; 85610

== ENCOUNTER → 2023-05-06 | Outpatient (CLI) | payer MEDICARE, OTHER, SELFPAY ==
[2023-05-06 11:04] LABS: International Normalized Ratio 1.9; Prothrombin Time (Protime)PT. 22.2 SECONDS (11.7-14.9)
== END | disposition home or self-care (01) ==
LOC: LAB 09:56
PROVIDERS: PCP Internal Medicine; Visit Provider Physician Assistant Medical
DX: I48.92 Unspecified atrial flutter (principal); Z79.01 Long term (current) use of anticoagulants; R06.00 Dyspnea, unspecified
CPT/HCPCS: 36415; 85610

== ENCOUNTER 2023-05-20 11:53 | Outpatient (RCR) | payer MEDICARE, OTHER, SELFPAY ==
[2023-05-09 03:53] VITALS: BMI 54.8
[2023-05-20 17:02] LABS: INR Fingerstick 2.2; Prothrombin Time Fingerstick 23.8 SEC (11.7-14.9)
== END 2023-06-08 18:00 | disposition home or self-care (01) ==
LOC: LAB 11:53
PROVIDERS: PCP Internal Medicine; Referring Provider Internal Medicine Cardiovascular Disease; Visit Provider Internal Medicine Cardiovascular Disease
DX: R07.9 Chest pain, unspecified
CPT/HCPCS: 36416; 85610

== ENCOUNTER → 2023-06-20 | Outpatient (CLI) | payer MEDICARE, OTHER, SELFPAY ==
[2023-06-20 10:13] LABS: Erythrocyte Sedimentation Rate 20 mm/hr (0-30)
[2023-06-20 10:15] LABS: Absolute Lymphocyte Count 0.95 X10^3/uL (0.83-4.51); Absolute Neutrophil Count 2.7 X10^3/uL (2.0-7.7); Basophil# 0.02 X10^3/uL; Basophil% 0.5 % (0-1); Eosinophil# 0.06 X10^3/uL; Eosinophils% 1.4 % (0-5); Hematocrit 33.1 % (37-47); Hemoglobin 10.3 g/dL (12.0-15.0); Lymphocyte # 0.95 X10^3/ul (0.83-4.51); Lymphocyte % 22.5 % (19-41); Mean Corp Hgb Conc 31.1 g/dL (32-36); Mean Corpuscular Hgb 27.8 pg (27.0-32.0); Mean Corpuscular Volume 89.2 fL (81-99); Mean Platelet Vol. 11.6 fl (6.2-12.0); Monocyte# 0.48 X10^3/uL; Monocyte% 11.4 % (0-10); NRBC Flagged by Analyzer 0 % (0-5); Platelet Count 206 K/mm3 (150-450); RBC Distribution Width CV 14.7 % (11.6-14.6); RBC Distribution Width SD 48.1 fl (35.1-43.9); Red Blood Count 3.71 M/mm3 (4.2-5.4); White Blood Count 4.2 K/mm3 (4.4-11.0)
[2023-06-20 10:33] LABS: International Normalized Ratio 1.7; Prothrombin Time (Protime)PT. 19.8 SECONDS (11.7-14.9)
[2023-06-20 10:36] LABS: ALB/GLOB Ratio 0.9 RATIO (0.9-2.4); AST(SGOT) 18 U/L (15-37); Alanine Aminotransfer ALT/SGPT 21 U/L (13-56); Albumin, Serum 3.4 g/dL (3.2-5.0); Alkaline Phosphatase 97 U/L (45-117); Anion Gap 4 (5-15); BUN 26 mg/dL (7-18); BUN/Creat Ratio 22.2 RATIO (10-20); CRP < 2.90 mg/L (0.0-3.0); Calcium,Total 9.5 mg/dL (8.5-10.1); Chloride 108 mmol/L (98-107); Creatinine, Serum 1.17 mg/dL (0.55-1.02); EST Glomerular Filtration Rate 47 mL/min (>60); Est Glom Filt Rate - Afr Amer 57 mL/min (>60); Globulin 3.9 g/dL (2.2-4.2); Glucose 91 mg/dL (74-106); Potassium 4.3 mmol/L (3.5-5.1); Protein, Total 7.3 g/dL (6.4-8.2); Sodium Level 141 mmol/L (136-145)
== END | disposition home or self-care (01) ==
PROVIDERS: PCP Internal Medicine; Visit Provider Internal Medicine Cardiovascular Disease
DX: I48.92 Unspecified atrial flutter (principal); R06.00 Dyspnea, unspecified; R19.7 Diarrhea, unspecified; Z79.01 Long term (current) use of anticoagulants
CPT/HCPCS: 36415; 80053; 82274; 83630; 85025; 85610; 85652; 86140; 87177; 87209; 87493

== ENCOUNTER → 2023-06-26 | Outpatient (CLI) | payer MEDICARE, OTHER, SELFPAY ==
--- NOTE | 2023-06-26 14:54 | ECHOCS_ITS ---
Reason For Study: Murmur Procedure This was a 2D Doppler, Color Flow transthoracic echocardiogram. The study was technically difficult. Contrast injection was performed. Exam performed in department. Left Ventricle Normal LV size. Left ventricular systolic function is normal. The estimated ejection fraction is 65 %. No regional wall motion abnormalities noted. Right Ventricle Normal RV size. Normal systolic function. Atria The left atrium is moderately enlarged. Normal right atrium. Mitral Valve There is mild mitral annular calcification. Tricuspid Valve Normal tricuspid valve. Mild to moderate (1-2+) tricuspid valve insufficiency. Pulmonary artery systolic pressure is 41 mmHg. Aortic Valve The aortic valve is not well visualized. Pulmonic Valve The pulmonic valve is not well visualized. Great Vessels Normal aortic root. The pulmonary artery is normal size. Normal inferior vena cava. Pericardium/Pleural No pericardial effusion. Medication 20 gauge I.V. with prn adaptor inserted into right arm. Diluted definity 2ml given slow IV push to enhance endocardial definition. MMode/2D Measurements & Calculations LVIDd: 5.2 cm IVSd: 0.89 cm LA dimension: 5.4 cm LVIDs: 3.4 cm LVPWd: 0.92 cm RVDd: 4.3 cm FS: 33.2 % LAV(MOD-sp4): 136.1 ml LA A4 area: 35.1 cm2 RA A4 area: 20.2 cm2 TAPSE: 2.0 cm Time Measurements MV dec time: 0.22 sec Doppler Measurements & Calculations MV E max patrick: 149.2 cm/sec Lat Peak E' Patirck: 10.3 cm/sec Med Peak E' Patrick: 7.6 cm/sec MV A max patrick: 83.1 cm/sec E/E' lat: 14.5 E/E' med: 19.5 MV E/A: 1.8 MV V2 max: 169.7 cm/sec MV P1/2t max patrick: 171.1 cm/sec Ao V2 max: 188.4 cm/sec MV max P.5 mmHg MV P1/2t: 79.8 msec Ao max P.2 mmHg MV V2 mean: 77.4 cm/sec MV dec slope: 628.4 cm/sec2 Ao V2 mean: 133.2 cm/sec MV mean P.0 mmHg MVA(P1/2t): 2.8 cm2 Ao mean P.1 mmHg MV V2 VTI: 51.2 cm Ao V2 VTI: 47.3 cm AV (velocity ratio): 0.67 LV V1 max: 128.1 cm/sec MR max patrick: 561.1 cm/sec PA V2 max: 94.5 cm/sec LV V1 max P.6 mmHg MR max P.9 mmHg LV V1 mean P.7 mmHg MR mean patrick: 433.3 cm/sec LV V1 mean: 90.5 cm/sec MR mean P.8 mmHg LV V1 VTI: 31.8 cm MR VTI: 192.6 cm TR max patrick: 306.7 cm/sec TR max P.6 mmHg ECHO/Echo Complete W/ Contrast Interpretation Summary Normal LV size. Left ventricular systolic function is normal. The estimated ejection fraction is 65 %. Pulmonary artery systolic pressure is 41 mmHg. Contrast injection was performed. Ordering Physician: Hiren Freitas V Referring Physician: Tomasa Self Performed By: Mark Swan RCS
--- NOTE | 2023-06-26 16:05 | CT_ITS ---
STUDY: CT ABDOMEN AND PELVIS WITH CONTRAST REASON FOR EXAM: Female, 83 years old. LLQ pain, diarrhea RADIATION DOSAGE (If Supplied By Facility): CTDIvol = ( 23.53 ) mGy, DLP = ( 1483.12 ) mGycm TECHNIQUE: Transaxial images were obtained from the dome of the diaphragm to the symphysis pubis without oral contrast. IV 100mL Isovue-300 was administered. Sagittal and coronal images were reconstructed. Individualized dose optimization techniques were used for this CT. COMPARISON: 04/24/2016 FINDINGS: The visualized lung bases are unremarkable. The visualized portions of the heart are within normal limits. Normal liver. There are multiple gallstones. Normal spleen. Normal pancreas. Normal bilateral adrenal glands. Normal right kidney. Normal left kidney. Normal visualized stomach. Small diverticulum second portion the duodenum. There are multiple colonic diverticula consistent with diverticulosis. There is non-visualization of the appendix. There is diffuse atherosclerotic calcification of the abdominal aorta, without a demonstrated aneurysm. Normal inferior vena cava. Normal retroperitoneum. Normal urinary bladder. Normal abdominal wall. Mild levoscoliosis lumbar spine with degenerative disc disease. Status post right hip arthroplasty which produces streak artifact and obscures the pelvis. CT/Abdomen/Pelvis WITH Contrast IMPRESSION: 1. Sigmoid diverticulosis without diverticulitis. 2. Cholelithiasis. Electronically Signed: Severiano Guillory MD at 23:35 EST ,
--- NOTE | 2023-06-26 16:06 | BI_ITS ---
MAMMOGRAPHY - BILATERAL SCREENING REASON FOR EXAM: Female, 83 years old. Routine annual screening examination. PERTINENT HISTORY: Non-contributory. History of prior right stereotactic breast biopsy. TECHNIQUE: Digital bilateral breast yanelis (3D mammographic acquisition) in the CC and MLO projections. 2-D mediolateral oblique (MLO) and craniocaudad (CC) views of both breasts were obtained. CAD: Full Field Digital Mammography with Computer Added Detection was performed. COMPARISON: Comparison is made with prior study April 08, 2022 and May 31, 2019. FINDINGS: Breast Composition: There are scattered areas of fibroglandular density. There are no dominant masses or suspicious calcifications. No other significant abnormalities are identified. There has been no significant change since the prior study. BI/SCRN MAMM (CAD)W/YANELIS BILAT IMPRESSION: Stable bilateral screening mammogram. Yearly follow-up mammogram recommended. (A) ASSESSMENT CATEGORY: BIRADS Category 1: Negative. A letter regarding these results will be sent to the patient by the facility within 30 days. Approximately 10% of breast cancers are not detected by mammography. A normal mammogram should not delay biopsy of a clinically suspicious abnormality. [id number] Electronically Signed: Hi Naranjo MD at 10:09 EST ,
== END | disposition home or self-care (01) ==
PROVIDERS: PCP Internal Medicine; Referring Provider Internal Medicine; Visit Provider Internal Medicine
DX: Z12.31 Encounter for screening mammogram for malignant neoplasm of breast (principal); R10.32 Left lower quadrant pain; R01.1 Cardiac murmur, unspecified
CPT/HCPCS: 74177; 77063; 77067; 93306; Q9957; Q9967; A4216; C8929

== ENCOUNTER → 2023-07-07 | Outpatient (CLI) | payer MEDICARE, OTHER, SELFPAY ==
[2023-07-07 11:53] LABS: International Normalized Ratio 2.1; Prothrombin Time (Protime)PT. 24.1 SECONDS (11.7-14.9)
== END | disposition home or self-care (01) ==
LOC: LAB 09:26
PROVIDERS: PCP Internal Medicine; Referring Provider Nurse Practitioner Family; Visit Provider Nurse Practitioner Family
DX: R25.2 Cramp and spasm (principal); I50.32 Chronic diastolic (congestive) heart failure; R06.00 Dyspnea, unspecified
CPT/HCPCS: 36415; 85610

== ENCOUNTER → 2023-07-21 | Outpatient (CLI) | payer MEDICARE, OTHER, SELFPAY ==
[2023-07-21 11:54] LABS: International Normalized Ratio 2.4
== END | disposition home or self-care (01) ==
PROVIDERS: PCP Internal Medicine; Visit Provider Physician Assistant Medical
DX: I48.92 Unspecified atrial flutter (principal); R06.00 Dyspnea, unspecified; Z79.01 Long term (current) use of anticoagulants
CPT/HCPCS: 36415; 85610

== ENCOUNTER 2023-08-27 16:51 | Inpatient (IN) | payer MEDICARE, OTHER, SELFPAY ==
[2023-08-27] VITALS (27 sets, daily range): BP systolic 131–159; BP diastolic 68–105; PULSE 67–110; RESP 11–40; TEMP 35.6–36.4; O2SAT 66–96; BMI 54.0; BMI 53.1
--- NOTE | 2023-08-27 16:55 | EKG12_ITS ---
Test Reason : sob Blood Pressure : / mmHG Vent. Rate : 097 BPM Atrial Rate : 000 BPM P-R Int : 000 ms QRS Dur : 092 ms QT Int : 362 ms P-R-T Axes : 000 007 -12 degrees QTc Int : 459 ms Atrial fibrillation Nonspecific ST and T wave abnormality Abnormal ECG Confirmed by Marquis Martinez ([id number]), editor house organ ANDRES BRAVO ([id number]) on 08/28/2023 10:49:35 AM Referred By: TL Confirmed By:Marquis Martinez
--- NOTE | 2023-08-27 17:04 | ED.VIS.DYS ---
HPI History of Present Illness Chief Complaint: Shortness of Breath Informant: patient and EMS Narrative Narrative: History of sleep apnea CPAP with 2 L oxygen at night. Paroxysmal A-fib on warfarin. Presents by EMS from home reported increasing dyspnea. Nonproductive cough for a week. She has been wearing oxygen during the day for the last week. Worsening dyspnea over the last 2 days. Denies wheeze. Denies fevers. Per EMS on arrival she was 8 L nasal cannula reported pulse ox in the 50s. They put on her CPAP states her pulse ox was in the 70s. She is brought to emergency department. She denies chest or abdominal pain. Reports history of heart failure denies any increasing leg swelling. She reports improvement of her dyspnea with the CPAP. [facility] Medical History (Updated 08/27/23 @ 20:[address] Christina Mariano MD) Anxiety and depression Arthritis Headley esophagus Bipolar disorder Cardiology follow-up encounter Chronic anemia Chronic diastolic (congestive) heart failure CKD (chronic kidney disease), stage III Congenital coronary artery anomaly COPD (chronic obstructive pulmonary disease) Degenerative spondylolisthesis Diverticulosis Essential (primary) hypertension Fatty liver Former smoker Ganglion cyst of volar aspect of right wrist GERD (gastroesophageal reflux disease) Hammer toe of right foot History of atrial fibrillation History of Headley's esophagus Hypothyroidism IBS (irritable bowel syndrome) 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 Lumbar spine pain Mitral valve prolapse Morbid obesity Neuropathic pain Obesity DESTINEE treated with BiPAP Osteoarthritis Osteoarthritis of right hip Osteopenia determined by x-ray Paroxysmal atrial flutter Posterior tibialis muscle dysfunction Pulmonary hypertension Radiculopathy of lumbar region Renal insufficiency Right hand pain Sciatica Venous insufficiency (chronic) (peripheral) Vitamin D deficiency Walker as ambulation aid Wears dentures Wears glasses Home Medications omeprazole 40 mg capsule,delayed release 40 mg PO DAILY ACID REFLUX 04/18/14 [History Last Taken 04/01/23] melatonin 5 mg capsule 5 mg PO QHS SLEEP 07/18/17 [History Last Taken Unknown] levothyroxine 75 mcg tablet 75 mcg PO DAILY THYROID 08/01/22 [History Last Taken 04/01/23] losartan 50 mg tablet 50 mg PO DAILY BLOOD PRESSURE #90 tabs 11/25/22 [Rx Last Taken 04/01/23] spironolactone 25 mg tablet 25 mg PO DAILY BLOOD PRESSURE #90 tabs 12/30/22 [Rx Last Taken Unknown] buspirone 30 mg tablet 30 mg PO BID ANXIETY 04/28/23 [History Last Taken Unknown] furosemide 40 mg tablet 40 mg PO DAILY EDEMA 04/28/23 [History Last Taken Unknown] gabapentin 300 mg capsule 300 mg PO BID NEUROPATHY 04/28/23 [History Last Taken Unknown] lumateperone 42 mg capsule (Caplyta) 42 mg PO DAILY 04/28/23 [History Last Taken Unknown] meloxicam 15 mg tablet 15 mg PO DAILY ARTHRITIS 04/28/23 [History Last Taken Unknown] vitamin B complex 1 tab PO DAILY SUPPLEMENT 04/28/23 [History Last Taken Unknown] magnesium 250 mg tablet 250 mg PO DAILY SUPPLEMENT #90 tabs 07/07/23 [Rx Last Taken Unknown] amlodipine 2.5 mg tablet 2.5 mg PO DAILY BLOOD PRESSURE #30 tabs 08/08/23 [Rx Last Taken Unknown] metoprolol succinate 50 mg tablet,extended release 24 hr 50 mg PO BID BLOOD PRESSURE #180 tabs 08/26/23 [Rx Last Taken Unknown] biotin 1 mg capsule 1 mg PO DAILY SUPPLEMENT 08/27/23 [History Last Taken Unknown] portable oxygen tank #3 ea 08/27/23 [Rx Last Taken Unknown] warfarin 2 mg tablet 2 mg PO [place] [facility] 08/27/23 [History Last Taken Unknown] warfarin 4 mg tablet 4 mg PO MOTUWETHFRSA BLOOD THINNER 08/27/23 [History Last Taken Unknown] Allergy/AdvReac Type Severity Reaction Status Date / Time baclofen Allergy Intermediate jittery/heard Verified 08/22/23 14:05 voices latex Allergy Rash Verified 08/22/23 14:05 amiodarone AdvReac Intermediate It Verified 08/26/23 14:39 doesn't work bupropion [From Wellbutrin] AdvReac Mild Shakiness Verified 08/22/23 14:05 & lightheadedness fluvoxamine AdvReac Mild Other Verified 08/22/23 14:05 clindamycin AdvReac Unknown Diarrhea Verified 08/22/23 14:05 ciprofloxacin AdvReac Diarrhea Verified 08/22/23 14:05 levofloxacin [From Levaquin] AdvReac Diarrhea Verified 08/22/23 14:05 Penicillins AdvReac PT UNSURE Verified 08/27/23 19:19 OF REACTION Family History Father Aortic aneurysm Cancer lymphoma Mother CVA (cerebral vascular accident) Dementia Aunt Colon cancer Surgical History History of cardioversion (~04/01/23) History of carpal tunnel release (2006) History of esophagogastroduodenoscopy (EGD) (05/04/08) History of flexible sigmoidoscopy (2007) History of hysterectomy History of knee joint replacement History of left heart catheterization (06/08/20) History of suburethral sling procedure (2015) History of total hysterectomy (2015) History of total right hip replacement (05/2016) S/P colonoscopy S/P shoulder replacement Status post knee replacement Social History Smoking Status: Former smoker how long ago did patient quit smokin's alcohol intake: never substance use type: does not use caffeine: Yes Type: coffee what type of physical activity do you participate in: none seatbelt use: never do you feel safe at home: Yes ROS ROS ED Constitutional Constitutional ED: Denies chills, fever(s) or sweats Eyes Eyes: Denies change in vision ENT ENT ED: Denies dysphagia or sore throat Cardiovascular Cardiovascular: Denies chest pain, leg edema, palpitations or racing heartbeat Respiratory/Chest Respiratory/Chest: Reports cough, dyspnea and dyspnea on exertion Gastrointestinal Gastrointestinal: Denies abdominal pain, diarrhea, nausea or vomiting Genitourinary Genitourinary ED: Denies dysuria, hematuria or urinary frequency Musculoskeletal Musculoskeletal: Denies back pain, extremity pain or neck pain Integumentary Denies rash or wounds Neurologic Neurologic: Denies headache(s), paresthesias or weakness EXAM Physical Exam Const Vital Signs: 08/27/23 16:52 08/27/23 17:01 08/27/23 16:56 Temperature 96.1 F L 97.0 F L Temperature Source Temporal Temporal Pulse Rate 94 79 Respiratory Rate 33 H 20 H Respiratory Effort Short of Breath Labored Respiratory Depth Shallow Respiratory Pattern Tachypnea Blood Pressure 159/85 H 149/76 H Blood Pressure Mean 109 100 Pulse Ox 93 92 Oxygen Delivery Method Bi-pap Bi-pap Bi-pap Fraction of Inspired Oxygen (FIO2) 100 90 08/27/23 16:51 08/27/23 17:00 08/27/23 17:05 Temperature Temperature Source Pulse Rate 110 H 95 Respiratory Rate 40 H 30 H Respiratory Effort Respiratory Depth Respiratory Pattern Tachypnea Tachypnea Blood Pressure Blood Pressure Mean Pulse Ox 77 92 95 Oxygen Delivery Method Fraction of Inspired Oxygen (FIO2) 100 90 80 08/27/23 17:24 08/27/23 17:56 08/27/23 18:00 Temperature 97.5 F L 97.2 F L Temperature Source Temporal Temporal Pulse Rate 81 73 78 Respiratory Rate 30 H 19 H 18 Respiratory Effort Respiratory Depth Respiratory Pattern Tachypnea Blood Pressure 141/76 H 135/81 H Blood Pressure Mean 97 99 Pulse Ox 92 91 92 Oxygen Delivery Method Bi-pap Bi-pap Fraction of Inspired Oxygen (FIO2) 65 08/27/23 17:21 08/27/23 17:23 08/27/23 17:30 Temperature Temperature Source Pulse Rate 74 95 84 Respiratory Rate 17 18 24 H Respiratory Effort Respiratory Depth Respiratory Pattern Blood Pressure 139/100 H Blood Pressure Mean 111 Pulse Ox 95 96 91 Oxygen Delivery Method Fraction of Inspired Oxygen (FIO2) 08/27/23 17:31 08/27/23 17:40 08/27/23 17:45 Temperature Temperature Source Pulse Rate 83 87 88 Respiratory Rate 18 22 H 18 Respiratory Effort Respiratory Depth Respiratory Pattern Blood Pressure 147/86 H 131/77 H Blood Pressure Mean 105 87 Pulse Ox 93 92 90 Oxygen Delivery Method Fraction of Inspired Oxygen (FIO2) 08/27/23 17:50 08/27/23 18:00 08/27/23 18:10 Temperature Temperature Source Pulse Rate 82 83 88 Respiratory Rate 24 H 21 H 15 Respiratory Effort Respiratory Depth Respiratory Pattern Blood Pressure 147/86 H Blood Pressure Mean 104 Pulse Ox 90 95 91 Oxygen Delivery Method Fraction of Inspired Oxygen (FIO2) 08/27/23 18:15 08/27/23 18:20 08/27/23 18:30 Temperature Temperature Source Pulse Rate 67 81 76 Respiratory Rate 11 L 17 13 Respiratory Effort Respiratory Depth Respiratory Pattern Blood Pressure 142/80 H 140/77 H Blood Pressure Mean 100 95 Pulse Ox 92 93 91 Oxygen Delivery Method Fraction of Inspired Oxygen (FIO2) 08/27/23 19:00 Temperature 96.8 F L Temperature Source Temporal Pulse Rate 86 Respiratory Rate 18 Respiratory Effort Respiratory Depth Respiratory Pattern Blood Pressure 154/105 H Blood Pressure Mean 121 Pulse Ox 93 Oxygen Delivery Method Bi-pap Fraction of Inspired Oxygen (FIO2) Positive well nourished and well developed Constitutional Narrative: Seen on arrival CPAP, no respiratory distress. Moving all 4 extremities. General Appearance ED: well developed and NAD HEENT Reports moist mucous membranes normocephalic and atraumatic Eyes PERRL, EOMs intact bilaterally and conjunctivae normal General Eye ED: Yes normal appearance of both eyes Neck no lymphadenopathy and supple General: Negative for tenderness Chest Wall Chest: Negative for tenderness Resp normal respiratory effort and normal air movement Effort and Inspection: symmetric chest movement; Negative for respiratory distress Cardio regular rate, regular rhythm and no murmurs Peripheral Pulses: pulses 2+ throughout GI normal to inspection, nondistended, normoactive bowel sounds and non-tender Palpation: Negative for guarding or rebound tenderness present Back/Spine no CVA tenderness and no thoracic nor lumbar tenderness Extremity normal to inspection General Extremety ED: Negative for edema or tenderness General Extremity: Negative for edema Neuro oriented x3 and no sensory deficits noted Sensorium / Orientation: awake and alert Skin no rashes or lesions noted and no wounds MDM MDM MDM Narrative Medical decision making narrative: Interventions / MDM: Differential diagnosis: Pneumonia, CHF Diagnosis considered but do not suspect: Pulmonary embolism however supratherapeutic INR My EKG interpretation: Rate controlled A-fib at 97, no ST or T wave changes. Artifact at baseline. Imaging independently reviewed and interpreted by myself: Chest x-ray 1 view: Bilateral patchy changes infiltrate versus edema External documents reviewed: Cardiology office visit from 08/22/2023 5 days ago. Coronary artery weight calculated to be the exact same at 121 kg from 5 days ago. Report concerns for her A-fib causing her dyspnea symptoms, adjustments of medication with added amiodarone, along with continue Lasix at 40 mg twice daily was recommended. Test considered but not ordered:N/A ED course: Patient continued on BiPAP transition over. Will check ABG. Will check labs and chest x-ray. EKG ordered. 1744: Remains on BiPAP, clinically improved stable on this. ABG pO2 57 pH 7.41 on 90% oxygenation. She currently weaned down to 65% oxygenation. Chest x-ray patchy changes bilaterally infiltrative changes versus edema. Patient states only a dry hacking cough. Daughter currently present states she has been using her oxygen over 2 days. She is reported increasing weight gain however did see her cardiology office 2 days ago was taken off amiodarone with increase of her metoprolol. White count 11.8 hemoglobin 10.3. Creatinine 1.67 up from 1.1 previously. BNP 352. 1900: Remained stable on BiPAP chest x-ray read infiltrate versus edema. We discussed with patient at her visit 5 days ago she states she is not take the Lasix twice a day only once a day. Her weight is the same. She has had a dry cough. Creatinine is elevated from to 1.6 from 1.1, 2 months ago. I will discuss with hospital service for treatment plans and admission. 1914: Discussed with hospitalist Dr. Mariano, discussed history and presentation. Will diurese and start antibiotics. Lasix, Rocephin and Zithromax IV ordered. Patient admitted to PCU for further management. Re-evaluation: stable Disposition discussed with patient/family/significant other: Patient and family Case discussed with consulting clinician: Hospitalist This note was generated with [employer]erto dictation software. It may contain incorrect words, spelling, and punctuation that were not noted in checking the note before signing. Lab Data Attestation: I reviewed the patient's lab results. Labs: Laboratory Results - last 24 hr 08/27/23 17:09 WBC 11.8 H RBC 3.76 L Hgb 10.3 L Hct 32.2 L MCV 85.6 MCH 27.4 MCHC 32.0 RDW Std Deviation 48.4 H RDW Coeff of Carol 15.5 H Plt Count 195 MPV 10.7 Immature Gran % (Auto) 0.800 Neut % (Auto) 87.1 H Lymph % (Auto) 3.6 L Nolan % (Auto) 8.3 Eos % (Auto) 0.0 Baso % (Auto) 0.2 Absolute Neuts (auto) 10.3 H Absolute Lymphs (auto) 0.42 L Nucleated RBC % 0 Differential Comment SCANNED PT 62.3 H INR 7.4 H* APTT 52.7 H Sodium 135 L Potassium 4.1 Chloride 103 Carbon Dioxide 22.0 Anion Gap 10 BUN 42 H Creatinine 1.67 H Estim Creat Clear Calc 30.57 Est GFR (MDRD) Af Amer 38 L Est GFR (MDRD) Non-Af 31 L BUN/Creatinine Ratio 25.1 H Glucose 139 H Calcium 8.8 Magnesium 2.4 Total Bilirubin 0.70 AST 33 ALT 27 Alkaline Phosphatase 134 H B-Natriuretic Peptide 352.9 H Total Protein 7.3 Albumin 3.1 L Globulin 4.2 Albumin/Globulin Ratio 0.7 L ABG Data ABG results: ABG 08/27/23 17:30 Specimen Type ART Sample Site L Radial pH 7.42 Bicarbonate Actual 19.1 L Total CO2 20 Base Excess -5 L O2 Saturation 91 L O2 % 90.0 ABG pCO2 29.8 L ABG pO2 58 L Wesley Test Positive Respiration Rate 12 O2 Delivery Device BiPAP Vent Mode BiLevel Clinical Comments 16 over 10 [id number] Radiography Diagnostic Testing: Clinical Impression(s) from Imaging Studies Chest X-Ray 08/27/23 17:18 IMPRESSION: Bilateral interstitial and airspace opacities may represent edema and/or infection. Electronically Signed: Canelo Tony MD at 18:32 EDT , Critical Care Time Critical Care Time: Yes Critical care time (excluding procedures): 30-74 minutes, Discussing w/Patient &/or Family/Airport Representative, Discussing w/Consultants, Arranging Admission or Transfer, Performing Direct Patient Care at Bedside and - (35 minutes) Discharge Plan Dx/Rx/DC Orders Clinical Impression: Acute hypoxic respiratory failure, CHF (congestive heart failure), Atrial fibrillation with normal ventricular rate, Acute renal insufficiency, Supratherapeutic INR, Pneumonia Disposition Disposition: Acute Care Hospital [facility] Discharge Date/Time: 08/27/23 20:57
--- NOTE | 2023-08-27 17:18 | RAD_ITS ---
INDICATION: cough EXAMINATION/TECHNIQUE: X-RAY - XR Chest 1 View COMPARISON: 04/09/2016. FINDINGS: Bilateral interstitial and airspace opacities. Tortuous and calcified thoracic aorta. The heart is mildly enlarged. No pleural effusion or pneumothorax. Degenerative changes of the thoracic spine. Bilateral shoulder arthroplasties. RAD/Chest 1 View (Portable) IMPRESSION: Bilateral interstitial and airspace opacities may represent edema and/or infection. Electronically Signed: Canelo Tony MD at 18:32 EDT ,
[2023-08-27 17:19] LABS: Absolute Lymphocyte Count 0.42 X10^3/uL (0.83-4.51); Absolute Neutrophil Count 10.3 X10^3/uL (2.0-7.7); Basophil# 0.02 X10^3/uL; Basophil% 0.2 % (0-1); Hematocrit 32.2 % (37-47); Hemoglobin 10.3 g/dL (12.0-15.0); Lymphocyte # 0.42 X10^3/ul (0.83-4.51); Lymphocyte % 3.6 % (19-41); Mean Corpuscular Hgb 27.4 pg (27.0-32.0); Mean Corpuscular Volume 85.6 fL (81-99); Mean Platelet Vol. 10.7 fl (6.2-12.0); Monocyte# 0.98 X10^3/uL; Monocyte% 8.3 % (0-10); NRBC Flagged by Analyzer 0 % (0-5); Neutrophil # 10.27 X10^3/uL (2.7-7.7); Neutrophil % 87.1 % (47-70); POSITIVE DIFFERENTIAL YES; Platelet Count 195 K/mm3 (150-450); RBC Distribution Width CV 15.5 % (11.6-14.6); RBC Distribution Width SD 48.4 fl (35.1-43.9); Red Blood Count 3.76 M/mm3 (4.2-5.4); White Blood Count 11.8 K/mm3 (4.4-11.0)
[2023-08-27 17:21] LABS: Differential Indicated SCAN CRITERIA MET
[2023-08-27 17:32] LABS: Prothrombin Time (Protime)PT. 62.3 SECONDS (11.7-14.9)
[2023-08-27 17:33] LABS: Allen Test Positive; Base Excess -5 mmol/L (-2 to +2); Bicarbonate 19.1 mmol/L (22-26); Blood Gas Specimen Type ART; Comment 16 over 10 rr12; Mode BiLevel; O2 Delivery Device BiPAP; PO2 58 mmHG (75-100); RR 12; SITE L Radial; SO2 91 % (95-99); Total Carbon Dioxide 20 mmol/L; pCO2 29.8 mmHg (35-45); pH 7.42 (7.35-7.45)
[2023-08-27 17:33] LABS: Partial Thromboplast Time 52.7 Seconds (24.1-36.2)
[2023-08-27 17:39] LABS: International Normalized Ratio 7.4
[2023-08-27 17:55] LABS: BNP,B-Type NATRIURETIC PEPTIDE 352.9 pg/mL (0-100)
--- NOTE | 2023-08-27 17:56 | CPS ---
[employer] asked to remove patient dentures, patient stated they are a full denture, and refused to remove them at this time.
[2023-08-27 18:00] LABS: ALB/GLOB Ratio 0.7 RATIO (0.9-2.4); AST(SGOT) 33 U/L (15-37); Alanine Aminotransfer ALT/SGPT 27 U/L (13-56); Albumin, Serum 3.1 g/dL (3.2-5.0); Alkaline Phosphatase 134 U/L (45-117); Anion Gap 10 (5-15); BUN 42 mg/dL (7-18); BUN/Creat Ratio 25.1 RATIO (10-20); Calcium,Total 8.8 mg/dL (8.5-10.1); Chloride 103 mmol/L (98-107); Creatinine, Serum 1.67 mg/dL (0.55-1.02); EST Glomerular Filtration Rate 31 mL/min (>60); Est Glom Filt Rate - Afr Amer 38 mL/min (>60); Estimated Creatinine Clearance 30.57 ml/min; Globulin 4.2 g/dL (2.2-4.2); Glucose 139 mg/dL (74-106); Potassium 4.1 mmol/L (3.5-5.1); Protein, Total 7.3 g/dL (6.4-8.2); Sodium Level 135 mmol/L (136-145)
[2023-08-27 18:08] LABS: Differential Comment SCANNED
--- NOTE | 2023-08-27 19:14 | PCM.HP.STD ---
HPI - General General Date of Admission: 08/27/23 Date of Service: 08/27/23 Chief Complaint: Dyspnea, patient reported weight gain, dry cough. HPI Narrative The patient is an 83 y/o F w/ PMHx: CKD stage III unclear subtype, Chronic anemia, Morbid obesity, HTN, HLD, Hypothyroidism, PAF/Flutter, Anxiety and Depression/Bipolar disorder, COPD, HFpEF, GERD w/ Hx Headley's esophagus, IBS, DESTINEE with CPAP nightly with 2 L nasal cannula who presents to the [facility] ED on 08/27/23 with history of increasing dyspnea, worse with exertion over the last couple days as well as a dry nonproductive cough with no recent fevers or chills nor any pleuritic chest discomfort with patient self-reported weight gain but no increased edema orthopnea but given not improving especially day of presentation prompted EMS call and upon their arrival they noted she was wearing 8 L nasal cannula reportedly in the 50s with CPAP placed at that time with improvement in the 70s and transition to the ED for evaluation. Patient in the ED upon evaluation does note feeling improved and had appropriate oxygenation although she recently utilize the restroom in the bed and was shifting and moving positions also change into a gown with some desaturation following this but improvement slowly as she rested. Workup in the ED included T96.1, heart rate 94, BP 159/85, initially respiratory rate 33 noted to be 93% on BiPAP with FiO2 100% with most recent repeat vitals heart rate 76, BP 140/77, respiratory rate 13, 91% oxygenation, CBC with WBC 11.8, hemoglobin 10.3, MCV 85.6, platelet 195 with left shift and lymphopenia, coags with PT 62.3, INR 7.4, PTT 52.7, ABG with bicarb 19.1, pH 7.42, O2 saturation 91%, pCO2 29.8, PaO2 58 obtained on BiPAP potentially at 90% FiO2, CMP with sodium 135, BUN/creatinine 42/1.67, glucose 139, BNP 352.9, alk phos 134 otherwise hepatic profile unremarkable, chest x-ray with bilateral interstitial airspace opacities suspicious for edema, SARS COVID/influenza/RSV PCR negative, EKG with rate controlled atrial fibrillation with acute evidence of ischemia. In the ED patient administered lasix 40 mg IV x 1, Rocephin 1 gm IV x 1, azithromycin 500 mg IV x 1. [facility] Medical History (Updated 08/27/23 @ 20:[address] Christina Mariano MD) Anxiety and depression Arthritis Headley esophagus Bipolar disorder Cardiology follow-up encounter Chronic anemia Chronic diastolic (congestive) heart failure CKD (chronic kidney disease), stage III Congenital coronary artery anomaly COPD (chronic obstructive pulmonary disease) Degenerative spondylolisthesis Diverticulosis Essential (primary) hypertension Fatty liver Former smoker Ganglion cyst of volar aspect of right wrist GERD (gastroesophageal reflux disease) Hammer toe of right foot History of atrial fibrillation History of Headley's esophagus Hypothyroidism IBS (irritable bowel syndrome) Insomnia USP current use of anticoagulant Lumbar spine pain Mitral valve prolapse Morbid obesity Neuropathic pain Obesity DESTINEE treated with BiPAP Osteoarthritis Osteoarthritis of right hip Osteopenia determined by x-ray Paroxysmal atrial flutter Posterior tibialis muscle dysfunction Pulmonary hypertension Radiculopathy of lumbar region Renal insufficiency Right hand pain Sciatica Venous insufficiency (chronic) (peripheral) Vitamin D deficiency Walker as ambulation aid Wears dentures Wears glasses Home Medications omeprazole 40 mg capsule,delayed release 40 mg PO DAILY ACID REFLUX 04/18/14 [History Last Taken 04/01/23] melatonin 5 mg capsule 5 mg PO QHS SLEEP 07/18/17 [History Last Taken Unknown] levothyroxine 75 mcg tablet 75 mcg PO DAILY THYROID 08/01/22 [History Last Taken 04/01/23] losartan 50 mg tablet 50 mg PO DAILY BLOOD PRESSURE #90 tabs 11/25/22 [Rx Last Taken 04/01/23] spironolactone 25 mg tablet 25 mg PO DAILY BLOOD PRESSURE #90 tabs 12/30/22 [Rx Last Taken Unknown] buspirone 30 mg tablet 30 mg PO BID ANXIETY 04/28/23 [History Last Taken Unknown] furosemide 40 mg tablet 40 mg PO DAILY EDEMA 04/28/23 [History Last Taken Unknown] gabapentin 300 mg capsule 300 mg PO BID NEUROPATHY 04/28/23 [History Last Taken Unknown] lumateperone 42 mg capsule (Caplyta) 42 mg PO DAILY 04/28/23 [History Last Taken Unknown] meloxicam 15 mg tablet 15 mg PO DAILY ARTHRITIS 04/28/23 [History Last Taken Unknown] vitamin B complex 1 tab PO DAILY SUPPLEMENT 04/28/23 [History Last Taken Unknown] magnesium 250 mg tablet 250 mg PO DAILY SUPPLEMENT #90 tabs 07/07/23 [Rx Last Taken Unknown] amlodipine 2.5 mg tablet 2.5 mg PO DAILY BLOOD PRESSURE #30 tabs 08/08/23 [Rx Last Taken Unknown] metoprolol succinate 50 mg tablet,extended release 24 hr 50 mg PO BID BLOOD PRESSURE #180 tabs 08/26/23 [Rx Last Taken Unknown] biotin 1 mg capsule 1 mg PO DAILY SUPPLEMENT 08/27/23 [History Last Taken Unknown] portable oxygen tank #3 ea 08/27/23 [Rx Last Taken Unknown] warfarin 2 mg tablet 2 mg PO [place] BLOOD [facility]NER 08/27/23 [History Last Taken Unknown] warfarin 4 mg tablet 4 mg PO MOTUWETHFRSA BLOOD THINNER 08/27/23 [History Last Taken Unknown] Allergy/AdvReac Type Severity Reaction Status Date / Time baclofen Allergy Intermediate jittery/heard Verified 08/22/23 14:05 voices latex Allergy Rash Verified 08/22/23 14:05 amiodarone AdvReac Intermediate It Verified 08/26/23 14:39 doesn't work bupropion [From Wellbutrin] AdvReac Mild Shakiness Verified 08/22/23 14:05 & lightheadedness fluvoxamine AdvReac Mild Other Verified 08/22/23 14:05 clindamycin AdvReac Unknown Diarrhea Verified 08/22/23 14:05 ciprofloxacin AdvReac Diarrhea Verified 08/22/23 14:05 levofloxacin [From Levaquin] AdvReac Diarrhea Verified 08/22/23 14:05 Penicillins AdvReac PT UNSURE Verified 08/27/23 19:19 OF REACTION Family History Father Aortic aneurysm Cancer lymphoma Mother CVA (cerebral vascular accident) Dementia Aunt Colon cancer Surgical History History of cardioversion (~04/01/23) History of carpal tunnel release (2006) History of esophagogastroduodenoscopy (EGD) (05/04/08) History of flexible sigmoidoscopy (2007) History of hysterectomy History of knee joint replacement History of left heart catheterization (06/08/20) History of suburethral sling procedure (2015) History of total hysterectomy (2015) History of total right hip replacement (05/2016) S/P colonoscopy S/P shoulder replacement Status post knee replacement Social History Smoking Status: Former smoker how long ago did patient quit smokin's alcohol intake: never substance use type: does not use caffeine: Yes Type: coffee what type of physical activity do you participate in: none seatbelt use: never do you feel safe at home: Yes ROS ROS Narrative Admission Review of Systems: CONSTITUTIONAL: No weight loss, fever, chills. + weakness or fatigue. HEENT: Eyes: No visual loss, blurred vision, double vision or yellow sclerae. Ears, Nose, Throat: No hearing loss, sneezing, congestion, runny nose or sore throat. SKIN: No rash or itching, lesions, wounds. CARDIOVASCULAR: + Patient reported edema. No chest pain, chest pressure or chest discomfort, palpitations, edema, orthopnea, syncopal events. RESPIRATORY: + Cough, dyspnea without marked sputum. No wheezing, hemoptysis. GASTROINTESTINAL: No anorexia, nausea, vomiting or diarrhea, abdominal pain, melena, BRBPR. GENITOURINARY: No dysuria, frequency, urgency or retention. NEUROLOGICAL: No headache, dizziness, syncope, paralysis, ataxia, numbness or tingling in the extremities, focal weakness, change in bowel or bladder control, seizure. MUSCULOSKELETAL: No muscle, back pain, joint pain or stiffness. HEMATOLOGIC: + Anemia, easy bleeding and bruising. LYMPHATICS: No enlarged nodes. No history of splenectomy. PSYCHIATRIC: + History of anxiety and depression/bipolar disorder. ENDOCRINOLOGIC: No reports of sweating, cold or heat intolerance. No polyuria or polydipsia. ALLERGIES: No history of asthma, hives, eczema or rhinitis. Vital Signs Vital Signs Vital Signs: 08/27/23 16:52 08/27/23 17:01 08/27/23 16:56 Temperature 96.1 F L 97.0 F L Temperature Source Temporal Temporal Pulse Rate 94 79 Respiratory Rate 33 H 20 H Respiratory Effort Short of Breath Labored Respiratory Depth Shallow Respiratory Pattern Tachypnea Blood Pressure 159/85 H 149/76 H Blood Pressure Mean 109 100 Pulse Ox 93 92 Oxygen Delivery Method Bi-pap Bi-pap Bi-pap Fraction of Inspired Oxygen (FIO2) 100 90 08/27/23 16:51 08/27/23 17:00 08/27/23 17:05 Temperature Temperature Source Pulse Rate 110 H 95 Respiratory Rate 40 H 30 H Respiratory Effort Respiratory Depth Respiratory Pattern Tachypnea Tachypnea Blood Pressure Blood Pressure Mean Pulse Ox 77 92 95 Oxygen Delivery Method Fraction of Inspired Oxygen (FIO2) 100 90 80 08/27/23 17:24 08/27/23 17:56 08/27/23 18:00 Temperature 97.5 F L 97.2 F L Temperature Source Temporal Temporal Pulse Rate 81 73 78 Respiratory Rate 30 H 19 H 18 Respiratory Effort Respiratory Depth Respiratory Pattern Tachypnea Blood Pressure 141/76 H 135/81 H Blood Pressure Mean 97 99 Pulse Ox 92 91 92 Oxygen Delivery Method Bi-pap Bi-pap Fraction of Inspired Oxygen (FIO2) 65 08/27/23 17:21 08/27/23 17:23 08/27/23 17:30 Temperature Temperature Source Pulse Rate 74 95 84 Respiratory Rate 17 18 24 H Respiratory Effort Respiratory Depth Respiratory Pattern Blood Pressure 139/100 H Blood Pressure Mean 111 Pulse Ox 95 96 91 Oxygen Delivery Method Fraction of Inspired Oxygen (FIO2) 08/27/23 17:31 08/27/23 17:40 08/27/23 17:45 Temperature Temperature Source Pulse Rate 83 87 88 Respiratory Rate 18 22 H 18 Respiratory Effort Respiratory Depth Respiratory Pattern Blood Pressure 147/86 H 131/77 H Blood Pressure Mean 105 87 Pulse Ox 93 92 90 Oxygen Delivery Method Fraction of Inspired Oxygen (FIO2) 08/27/23 17:50 08/27/23 18:00 08/27/23 18:10 Temperature Temperature Source Pulse Rate 82 83 88 Respiratory Rate 24 H 21 H 15 Respiratory Effort Respiratory Depth Respiratory Pattern Blood Pressure 147/86 H Blood Pressure Mean 104 Pulse Ox 90 95 91 Oxygen Delivery Method Fraction of Inspired Oxygen (FIO2) 08/27/23 18:15 08/27/23 18:20 08/27/23 18:30 Temperature Temperature Source Pulse Rate 67 81 76 Respiratory Rate 11 L 17 13 Respiratory Effort Respiratory Depth Respiratory Pattern Blood Pressure 142/80 H 140/77 H Blood Pressure Mean 100 95 Pulse Ox 92 93 91 Oxygen Delivery Method Fraction of Inspired Oxygen (FIO2) 08/27/23 19:00 Temperature 96.8 F L Temperature Source Temporal Pulse Rate 86 Respiratory Rate 18 Respiratory Effort Respiratory Depth Respiratory Pattern Blood Pressure 154/105 H Blood Pressure Mean 121 Pulse Ox 93 Oxygen Delivery Method Bi-pap Fraction of Inspired Oxygen (FIO2) Weight Weight: 267 lb 10.259 oz Body Mass Index (BMI) 54.0 Physical Exam Narrative Physical Examination: General: Awake, alert, oriented x 3 and cooperative, seated upright in the ED bed, BiPAP still in place, fatigued but notes dyspnea has improved, respiratory distress lessened. Skin: Normal color, normal turgor, no icterus, no cyanosis except occasional staged ecchymoses. HEENT: AT/NC, EOMI, PERRLA, moderately dry MM, BiPAP in place, difficult to discern carotid bruit given referred sound, difficult to discern JVD given very thickened neck. Lungs: Remains diminished, distant, BiPAP in place, still some increased respiratory rate but no marked distress noted, respiratory rate is normalizing, very distant potential rales at bases but again very difficult to appreciate given habitus, no obvious rhonchi or wheezing. Heart: Irregular, rate controlled; no gallop, rub audible. Abdomen: Soft, morbidly obese, NTTP, no obvious distention, very distant bowel sounds, no appreciated HSM but habitus makes evaluation very difficult. Extremities: No cyanosis, no clubbing, distal not markedly pitting but present tight edema from the hope downward bilaterally. Neurological: Patient awake, alert, oriented as noted, cognitive function intact, improving given improved oxygenation as noted, pupils equally reactive to light and accommodation, cranial nerves grossly normal but difficult evaluation given BiPAP in place, moving all 4 extremities, strength accordingly severely globally decreased. Psychiatric: Affect appears fatigued, improving she notes, respiratory distress is lessening, no acute evidence of depressive or anxiety feelings but does have underlying history. Results Lab / Micro Data 08/27/23 17:09 08/27/23 17:09 Labs: Laboratory Results - last 24 hr 08/27/23 17:09: WBC 11.8 H, RBC 3.76 L, Hgb 10.3 L, Hct 32.2 L, MCV 85.6, MCH 27.4, MCHC 32.0, RDW Std Deviation 48.4 H, RDW Coeff of Carol 15.5 H, Plt Count 195, MPV 10.7, Immature Gran % (Auto) 0.800, Neut % (Auto) 87.1 H, Lymph % (Auto) 3.6 L, [place] % (Auto) 8.3, Eos % (Auto) 0.0, Baso % (Auto) 0.2, Absolute Neuts (auto) 10.3 H, Absolute Lymphs (auto) 0.42 L, Nucleated RBC % 0, Differential Comment SCANNED, PT 62.3 H, INR 7.4 H*, APTT 52.7 H, Sodium 135 L, Potassium 4.1, Chloride 103, Carbon Dioxide 22.0, Anion Gap 10, BUN 42 H, Creatinine 1.67 H, Estim Creat Clear Calc 30.57, Est GFR (MDRD) Af Amer 38 L, Est GFR (MDRD) Non-Af 31 L, BUN/Creatinine Ratio 25.1 H, Glucose 139 H, Calcium 8.8, Total Bilirubin 0.70, AST 33, ALT 27, Alkaline Phosphatase 134 H, B-Natriuretic Peptide 352.9 H, Total Protein 7.3, Albumin 3.1 L, Globulin 4.2, Albumin/Globulin Ratio 0.7 L Micro: Microbiology 08/27/23 17:31 Mucosa - Nose SARS-CoV-2, Influenza & RSV (PCR) - Final ABG Data ABG results: ABG 08/27/23 17:30 Specimen Type ART Sample Site L Radial pH 7.42 Bicarbonate Actual 19.1 L Total CO2 20 Base Excess -5 L O2 Saturation 91 L O2 % 90.0 ABG pCO2 29.8 L ABG pO2 58 L Wesley Test Positive Respiration Rate 12 O2 Delivery Device BiPAP Vent Mode BiLevel Clinical Comments 16 over 10 [id number] Imaging Radiology Impression Chest X-Ray 08/27/23 17:18 IMPRESSION: Bilateral interstitial and airspace opacities may represent edema and/or infection. Electronically Signed: Canelo Tony MD at 18:32 EDT , Assessment & Plan Assessment/Plan (1) Acute hypoxic respiratory failure: PLAN: Plan The patient is an 83 y/o F w/ PMHx: CKD stage III unclear subtype, Chronic anemia, Morbid obesity, HTN, HLD, Hypothyroidism, PAF/Flutter, Anxiety and Depression/Bipolar disorder, COPD, HFpEF, GERD w/ Hx Headley's esophagus, IBS, DSETINEE with CPAP nightly with 2 L nasal cannula who presents to the [facility] ED on 08/27/23 with history of increasing dyspnea, worse with exertion over the last couple days as well as a dry nonproductive cough with no recent fevers or chills nor any pleuritic chest discomfort with patient self-reported weight gain but no increased edema orthopnea but given not improving especially day of presentation prompted EMS call and upon their arrival they noted she was wearing 8 L nasal cannula reportedly in the 50s with CPAP placed at that time with improvement in the 70s and transition to the ED for evaluation. #1. Acute hypoxic respiratory failure secondary to Suspected Acute Decompensated HFpEF, questionable PNA unclear type: Patient administered IV lasix in the ED in addition to coverage with IV Rocephin and azithromycin to be cautious. Given clinical improvement per discussion with ED physician will admit to PCU, maintain on cardiac telemetry, obtain cardiac enzyme series, obtain serial EKGs, continue IV lasix diuresis cautiously will continue to monitor for possible overlapping pneumonia as etiology, monitor I/Os, continue medical therapy, obtain TSH and magnesium level. Most recent ECHO noted 06/26/2023 with normal LV size, normal LV systolic function, EF 65%, PASP 41 mmHg thus will not repeat immediately. Will continue BiPAP therapy with transition to supplemental oxygen and wean as able. Will until further evaluation continue as needed albuterol, maintain on IV Rocephin and azithromycin, encourage HOB, IS parameters w/ pending sputum cultures, full respiratory viral panel and urine antigens as well as procalcitonin and if these findings are more suggestive of primarily a noninfectious etiology will wean off antibiotic therapy once appropriate. PT/OT/case management consulted for discharge planning. #2. Acute Renal Insufficiency on Chronic Kidney Disease Stage III, unclear subtype per GFR trending: Suspect secondary to #1 as noted above, admission BUN/Cr 42/1.67, baseline renal function more recently primarily appears to be 1.1-1.2, last noted 06/20/2023 creatinine 1.17, given presentation we will continue treatment as noted with hold on other nephrotoxic medications and closely monitor with repeat CMP in AM. #3. PAF/flutter: We will continue patient home metoprolol regimen, temporally holding Coumadin given supratherapeutic INR as noted. #4. Hypercoagulable state with supratherapeutic INR on Coumadin therapy: Admission INR supratherapeutic 7.4, no evidence of any bleeding, will hold Coumadin and continue to closely trend. #5. Hypertension: Continue home regimen including amlodipine, metoprolol, IV Lasix as noted above, PRN hydralazine. #6. Hyperlipidemia: Per current list not on statin therapy, clarified to be cautious with planned addition statin if no obvious contrainidication, FLP in AM. #7. Chronic normocytic anemia: Admission hemoglobin 10.3, MCV 85.6, baseline appears 10-11, stable, continue to trend. #8. Anxiety and depression/bipolar disorder: Will cautiously continue patient home lumateperone and buspirone home regimen however closely monitor given renal function and may need to alter or hold if worsens. #9. Morbid Obesity: Weight loss and lifestyle changes encouraged. #10. DESTINEE: CPAP nightly normally however given presentation we will maintain on BiPAP in the interim. #11. GERD with history of Headley's esophagus: We will continue patient on PPI. #12. Hypothyroidism: Continue home synthroid regimen, TSH pending. #13. DVT prophylaxis: Holding Coumadin given supratherapeutic INR upon presentation, continue closely trend, given no active bleeding we will not immediately reverse. #14. CODE status: Patient LINDEN is her daughter who is present and living will is currently in place. Discussed CODE status at length including difference between FULL code, DNR-CCA and DNR-CC status. Following discussions about the differences in these status, requested DNR-CCA, no intubation or aggressive measures. Advanced Care Planning Face to Face Time: 16 minutes. Charges/Coding Visit Charges Inpatient E&M: 89186 Init Hosp L3 Procedures Hospitalists Procedures: 20607 Advncd Care Plan 30 Min
[2023-08-27] MEDS: Furosemide 40 MG/4 ML Vial IV (19:38)
[2023-08-27] MEDS: Ceftriaxone 1 GM/50 ML BAG IV (19:42)
[2023-08-27 20:32] LABS: Magnesium 2.4 mg/dL (1.6-2.6)
[2023-08-27] MEDS: Azithromycin 500 MG in Dextrose 5%-Water (250mL Bag) 250 ML 250 MG IV (20:56)
[2023-08-27 21:19] LABS: Procalcitonin 0.59 ng/mL (0.00-0.09)
[2023-08-27 22:19] LABS: Troponin-I HS 79 pg/mL (3.0-54.0)
[2023-08-28] VITALS (14 sets, daily range): BP systolic 126–149; BP diastolic 52–74; PULSE 76–126; RESP 12–26; TEMP 36.1–37.2; O2SAT 88–95; BMI 53.1
[2023-08-28 00:49] LABS: Troponin-I HS 76 pg/mL (3.0-54.0)
[2023-08-28] MEDS: 0.9% Saline Lock 10 ML Syringe IV ×4 (03:18→18:28)
[2023-08-28 04:01] LABS: Absolute Lymphocyte Count 0.64 X10^3/uL (0.83-4.51); Absolute Neutrophil Count 9.9 X10^3/uL (2.0-7.7); Basophil# 0.02 X10^3/uL; Basophil% 0.2 % (0-1); Eosinophil# 0.04 X10^3/uL; Eosinophils% 0.3 % (0-5); Hematocrit 30.8 % (37-47); Hemoglobin 9.7 g/dL (12.0-15.0); Lymphocyte # 0.64 X10^3/ul (0.83-4.51); Lymphocyte % 5.4 % (19-41); Mean Corp Hgb Conc 31.5 g/dL (32-36); Mean Corpuscular Hgb 26.5 pg (27.0-32.0); Mean Corpuscular Volume 84.2 fL (81-99); Monocyte# 1.15 X10^3/uL; Monocyte% 9.7 % (0-10); NRBC Flagged by Analyzer 0.2 % (0-5); Neutrophil # 9.89 X10^3/uL (2.7-7.7); Neutrophil % 83.8 % (47-70); Platelet Count 181 K/mm3 (150-450); RBC Distribution Width CV 15.4 % (11.6-14.6); RBC Distribution Width SD 46.6 fl (35.1-43.9); Red Blood Count 3.66 M/mm3 (4.2-5.4); White Blood Count 11.8 K/mm3 (4.4-11.0)
[2023-08-28 04:18] LABS: Troponin-I HS 64 pg/mL (3.0-54.0)
[2023-08-28 04:22] LABS: Prothrombin Time (Protime)PT. 63.1 SECONDS (11.7-14.9)
[2023-08-28 04:33] LABS: International Normalized Ratio 7.5
[2023-08-28 04:46] LABS: ALB/GLOB Ratio 0.7 RATIO (0.9-2.4); AST(SGOT) 30 U/L (15-37); Alanine Aminotransfer ALT/SGPT 22 U/L (13-56); Albumin, Serum 2.8 g/dL (3.2-5.0); Alkaline Phosphatase 128 U/L (45-117); Anion Gap 9 (5-15); BUN 34 mg/dL (7-18); BUN/Creat Ratio 27.4 RATIO (10-20); Calcium,Total 8.8 mg/dL (8.5-10.1); Chloride 106 mmol/L (98-107); Cholesterol 93 mg/dL (200); Creatinine, Serum 1.24 mg/dL (0.55-1.02); EST Glomerular Filtration Rate 44 mL/min (>60); Est Glom Filt Rate - Afr Amer 53 mL/min (>60); Estimated Creatinine Clearance 40.71 ml/min; Glucose 103 mg/dL (74-106); High Density Lipoprotein 47 mg/dL; Potassium 3.7 mmol/L (3.5-5.1); Protein, Total 6.8 g/dL (6.4-8.2); Sodium Level 139 mmol/L (136-145); Thyroid Stim Hormone (TSH) 0.11 uIU/mL (0.358-3.74); Triglycerides 66 mg/dL; Very Low Density Lipoprotein 13 mg/dL (5-40)
[2023-08-28] MEDS: Pantoprazole Sodium 40 MG Tablet PO (08:16)
[2023-08-28] MEDS: busPIRone 15 MG TABLET 30 MG PO ×2 (08:16→20:54)
[2023-08-28] MEDS: Furosemide 40 MG/4 ML Vial IV ×2 (08:16→18:28)
[2023-08-28] MEDS: Magnesium Chloride 64 MG Delay Rel.Tablet PO (08:16)
[2023-08-28] MEDS: amLODIPine 2.5 MG Tablet PO (08:16)
[2023-08-28] MEDS: Metoprolol(XL)Succ 50 MG Tablet PO ×2 (08:17→20:55)
[2023-08-28] MEDS: Gabapentin 300 MG Capsule PO ×2 (08:22→21:03)
[2023-08-28 09:04] LABS: M R Staph aureus DNA By PCR Negative (Negative)
[2023-08-28 09:05] LABS: Probe Check PASS; Specimen Processing Control PASS
--- NOTE | 2023-08-28 10:30 | CASEMGMT ---
RN?CM?NUCLEAR PHYSICS TEACHER?CM?to room to meet with patient for initial transition planning/care coordination?assessment.?RN?CM?introduced self and role at [facility].? Pt voices understanding and consents to?assessment?at this time.? Pt resting in bed in no distress at this time.? Pt is A/O at this time and answers all questions appropriately.?? Care providers, pharmacy, and demographics verified/updated at this time. PCP: Dr Self Specialists: Dr Phillips-cardiology, Dr Freitas-pulmonology. [facility] Gisel Kevin Preferred Pharmacy: [facility] Insurance: [facility] [employer] Prescription Benefit:?yes Living Will/HPOA:? Has both LW and HCPOA, who is her daughter, Taty OCASIOOK: Dtr Taty Living Arrangements: Lives in a condo w/basement w/stair lift and ramp entrance. 23-yr-old grandson lives w/her and he works night-shift. Pt is independent w/ADL's and IADL's. Hires a cleaning lady every 3 weeks. Transportation:?daughter provides transportation DME: States has the following DME:?has a rollator that she uses all the time, lift chair, pulse ox, BIPAP w/O2 bleed-in @ HS @ 2 l/m from [employer]. She has a concentrator and one portable tank on wheels that she thinks may be just as a back-up for HS, but she started using it a day or two during the day prior to coming to [facility] d/t increased SOB. She does not have any smaller portable tanks. She has a shower chair available, but does not use. Pt states no need for further DME at this time.? HHC/SNF: Pt has been to [facility] in the past (2016) and has not had any HHC. Pt states someone from [facility] comes to her home to draw INR's, usually weekly. PT/OT evals pending. Discussed discharge planning and questions answered re: HHC and SNF. Pt states she has been very weak, but she is hoping to be strong enough to discharge home, stating she feels once her breathing has improved she'll be able to get stronger and go home. She is interested in HHC and would like [facility]. She declines list of other HHC options, unless [facility] unable to accept her. Call placed to Veronica @ [facility] and referral made for SN and PT/OT. Pt stated when her daughter returns to her room, she may have further questions re: SNF and HHC. Pt made aware a CM will be available to answer any questions she may have. PLAN:??Pt prefers home w/HHC. PT/OT evals pending. CM to follow. Follow for any increase in O2 needs. Fadumo BSN?RN?CM
--- NOTE | 2023-08-28 12:10 | RAD_ITS ---
STUDY: X-RAY - RIGHT KNEE REASON FOR EXAM: Female, 83 years old. Right knee pain TECHNIQUE: 3 view(s) of the knee. COMPARISON: Comparison is made with prior study dated February 16, 2016. FINDINGS: Normal visualized distal femur. Normal visualized proximal tibia and fibula. Normal proximal tibiofibular articulation. The patient is status post total knee replacement. Soft tissue swelling. RAD/Knee 3 Views IMPRESSION: Status post total knee replacement. Soft tissue swelling. Electronically Signed: Hi Naranjo MD at 12:46 EDT ,
--- NOTE | 2023-08-28 13:40 | PN_ITS ---
Subjective Subjective Patient seen and examined. Still complains of some shortness of breath. She was off BiPAP and was on 15 L of oxygen. She denied any cough or chest pain, palpitations, dizziness, nausea or vomiting. She did complain of right knee pain and says it may have been due to the squad moving here. Review of systems otherwise negative. Objective Data Objective Data Vital Signs: Vital Signs Temp Pulse Resp BP Pulse Ox O2 Del Method FiO2 99 F 95 24 H 136/69 H 89 Bi-pap 60 08/28/23 08:08 08/28/23 10:36 08/28/23 10:36 08/28/23 08:17 08/28/23 12:40 08/28/23 08:21 08/28/23 10:36 Oxygen Delivery Method Bi-pap Weight: 263 lb 0.183 oz Body Mass Index (BMI) 53.1 Intake & Output: Intake and Output for Last 24 Hours 08/26/23 08/27/23 08/28/23 23:59 23:59 23:59 Intake Total 305 / 305 550 / 550 Output Total 2160 / 2160 Balance 305 / -505 -1610 / -1610 Lab / Micro Data 08/28/23 03:46 08/28/23 03:46 Labs: Laboratory Results - last 24 hr 08/27/23 17:09: WBC 11.8 H, RBC 3.76 L, Hgb 10.3 L, Hct 32.2 L, MCV 85.6, MCH 27.4, MCHC 32.0, RDW Std Deviation 48.4 H, RDW Coeff of Carol 15.5 H, Plt Count 195, MPV 10.7, Immature Gran % (Auto) 0.800, Neut % (Auto) 87.1 H, Lymph % (Auto) 3.6 L, Cherry % (Auto) 8.3, Eos % (Auto) 0.0, Baso % (Auto) 0.2, Absolute Neuts (auto) 10.3 H, Absolute Lymphs (auto) 0.42 L, Nucleated RBC % 0, Differential Comment SCANNED, PT 62.3 H, INR 7.4 H*, APTT 52.7 H, Sodium 135 L, Potassium 4.1, Chloride 103, Carbon Dioxide 22.0, Anion Gap 10, BUN 42 H, Creatinine 1.67 H, Estim Creat Clear Calc 30.57, Est GFR (MDRD) Af Amer 38 L, Est GFR (MDRD) Non-Af 31 L, BUN/Creatinine Ratio 25.1 H, Glucose 139 H, Calcium 8.8, Magnesium 2.4, Total Bilirubin 0.70, AST 33, ALT 27, Alkaline Phosphatase 134 H, B-Natriuretic Peptide 352.9 H, Total Protein 7.3, Albumin 3.1 L, Globulin 4.2, Albumin/Globulin Ratio 0.7 L 08/27/23 20:45: Procalcitonin 0.59 H 08/27/23 21:50: Troponin I High Sens 79 H 08/27/23 23:55: Troponin I High Sens 76 H 08/28/23 02:55: MRSA (PCR) Negative 08/28/23 03:46: WBC 11.8 H, RBC 3.66 L, Hgb 9.7 L, Hct 30.8 L, MCV 84.2, MCH 26.5 L, MCHC 31.5 L, RDW Std Deviation 46.6 H, RDW Coeff of Carol 15.4 H, Plt Count 181, MPV 11.0, Immature Gran % (Auto) 0.600, Neut % (Auto) 83.8 H, Lymph % (Auto) 5.4 L, Cherry % (Auto) 9.7, Eos % (Auto) 0.3, Baso % (Auto) 0.2, Absolute Neuts (auto) 9.9 H, Absolute Lymphs (auto) 0.64 L, Nucleated RBC % 0.2, PT 63.1 H, INR 7.5 H*, Sodium 139, Potassium 3.7, Chloride 106, Carbon Dioxide 24.0, Anion Gap 9, BUN 34 H, Creatinine 1.24 H, Estim Creat Clear Calc 40.71, Est GFR (MDRD) Af Amer 53 L, Est GFR (MDRD) Non-Af 44 L, BUN/Creatinine Ratio 27.4 H, Glucose 103, Calcium 8.8, Total Bilirubin 0.60, AST 30, ALT 22, Alkaline Phosphatase 128 H, Troponin I High Sens 64 H, Total Protein 6.8, Albumin 2.8 L, Globulin 4.0, Albumin/Globulin Ratio 0.7 L, Triglycerides 66, Cholesterol 93, LDL Cholesterol 33, VLDL Cholesterol 13, HDL Cholesterol 47, TSH 0.11 L Micro: Microbiology 08/28/23 09:45 Sputum, Expectorated/Coughed Gram Stain - Final 08/27/23 19:34 Mucosa - Nasopharyngeal Respiratory Panel (PCR) - Final 08/27/23 17:31 Mucosa - Nose SARS-CoV-2, Influenza & RSV (PCR) - Final ABG Data ABG results: ABG 08/27/23 17:30 Specimen Type ART Sample Site L Radial pH 7.42 Bicarbonate Actual 19.1 L Total CO2 20 Base Excess -5 L O2 Saturation 91 L O2 % 90.0 ABG pCO2 29.8 L ABG pO2 58 L Wesley Test Positive Respiration Rate 12 O2 Delivery Device BiPAP Vent Mode BiLevel Clinical Comments 16 over 10 [id number] Radiography Diagnostic Testing: Radiology Impression Chest X-Ray 08/27/23 17:18 IMPRESSION: Bilateral interstitial and airspace opacities may represent edema and/or infection. Electronically Signed: Canelo Tony MD at 18:32 EDT , Knee X-Ray 08/28/23 12:10 IMPRESSION: Status post total knee replacement. Soft tissue swelling. Electronically Signed: Hi Naranjo MD at 12:46 EDT , Physical Exam Const alert, oriented x3 and no apparent distress Constitutional Narrative: super morbid obesity HEENT normocephalic, moist oral mucous membranes and oropharynx normal Eyes PERRL and EOMs intact bilaterally Neck no lymphadenopathy and supple Lymph Lymphatic: no lymphadenopathy noted and no lymphedema noted Resp Resp Narrative: diminished breath sounds bibasally, bilateral crackles. On 15L of oxygen at time of review Cardio regular rate, regular rhythm, S1 normal heart sound and S2 normal heart sound Cardio Narrative: Grade 2 through 3 systolic murmur loudest in the aortic region. GI normal to inspection, nondistended, normoactive bowel sounds, soft to palpation, non-tender and non-distended Extremity normal capillary refill, no clubbing, cyanosis or edema and no calf tenderness General Extremity: no tenderness to palpation of joints or extremities Skin General Skin Exam: no breakdown Neuro CN's II-XII intact bilaterally, no focal motor deficits, no sensory deficits noted and deep tendon reflexes 2+ bilaterally Motor Exam: strength 5/5 throughout and general weakness Psych thought process normal and cooperative Appearance: appropriate Assessment & Plan Assessment/Plan (1) Supratherapeutic INR: (2) Pneumonia: (3) Atrial fibrillation with normal ventricular rate: (4) CHF (congestive heart failure): (5) Acute hypoxic respiratory failure: PLAN: Plan #Acute hypoxic respiratory failure * due to pneumonia and acute on chronic HFrEF * on IV ceftriaxone and azithromycin. on IV lasix * monitor intake and output chart * breathing treatment with bronchodilators * will consult her scan coordinator due to patient requiring BIPAP and now on 15L of oxygen. * #Hypercoagulable state with Supratherapeutic INR: INR is 7.5. currently asymptomatic. Will monitor with serial INRs; if it remains elevated, will give vitamin K #CKD 3B: CR is 1.24, which is around her baseline. #Right knee pain: patient was complaining of pain in her right knee. Xray of the right knee showed soft tissue swelling, and s/p total knee replacement. PO tylenol prn. PT/OT consult # Paroxysmal atrial fibrillation: On metoprolol. Coumadin held on account of elevated INR #Hypertension: On amlodipine and metoprolol. IV hydralazine as needed #Anxiety and depression as well as bipolar disorder: On lumateperone and buspirone #GERD: On PPI #DESTINEE: On CPAP nightly #Hypothyroidism: On Synthroid. TSH 0.11. Will check free T4. #Super morbid obesity: BMI is 83. Complicates acute care, expected recovery and prognosis. DVT prophylaxis: Neurological prophylaxis as INR is supratherapeutic at 7.5. Charges/Coding Visit Charges Inpatient E&M: 23443 Subs Hosp L3
--- NOTE | 2023-08-28 14:08 | NURSING ---
Dr. Zena ellison for consult.
[2023-08-28 14:26] LABS: T4 Free Direct 1.62 ng/dL (0.76-1.46)
[2023-08-28] MEDS: LORazepam 2 MG/ML Syringe 1 MG IV ×2 (15:54→22:09)
--- NOTE | 2023-08-28 16:04 | CHAPLAIN ---
Type of Pastoral Visit _x__ Initial Visit ___ Follow-up Visit ___ On-call Visit ___ General Patient Visit ___ Spiritual Assessment ___ Family Conference ___ Bereavement ___ Rapid Response ___ Code Blue ___ Other (describe below) Pastoral Care Referral From _x__ Patient ___ Family ___ Nurse ___ Physician ___ Olive Pitter ___ Delivery Driver/Supervisor ___ Other (describe below) Sacrament/Intervention _x__ Active listening ___ Anointing ___ Taoist ___ Bereavement ___ Communion ___ Mayelin exploration ___ ___ Life review _x__ Prayer ___ Reconciliation ___ Sacrament of Sick _x__ Supportive presence ___ Wedding ___ Other (describe below) Pastoral Comments patient is on bi-pap but tries to talk through it; daughter is at bedside; pt asks for prayer and presence; did not make a long visit due to breathing issues; pt reached out her hand and wanted prayer and the support of spiritual care;
--- NOTE | 2023-08-28 17:57 | NURSING ---
Dr. Zena ellison for consult.
[2023-08-28] MEDS: MELATONIN 10 MG TABLET 5 MG PO (20:54)
[2023-08-28] MEDS: LUMATEPERONE TOSYLATE 42 MG CAPSULE PO (20:54)
[2023-08-28] MEDS: Levothyroxine 75 MCG Tablet PO (20:55)
[2023-08-28] MEDS: Atorvastatin Calcium 40 MG Tablet PO (20:56)
[2023-08-28] MEDS: Ceftriaxone 1 GM/50 ML BAG IV (22:03)
[2023-08-28] MEDS: Azithromycin 500 MG in Dextrose 5%-Water (250mL Bag) 250 ML 250 MG IV (23:20)
[2023-08-28] MEDS: Albuterol 2.5 MG/3 ML VIAL.NEB. INHALATION (23:45)
[2023-08-29] VITALS (24 sets, daily range): BP systolic 104–147; BP diastolic 38–85; PULSE 90–125; RESP 12–34; TEMP 36.3–37.9; O2SAT 85–94; BMI 53.0
[2023-08-29 07:47] LABS: Absolute Neutrophil Count 10.7 X10^3/uL (2.0-7.7); Basophil# 0.02 X10^3/uL; Basophil% 0.2 % (0-1); Eosinophil# 0.08 X10^3/uL; Eosinophils% 0.6 % (0-5); Hematocrit 30.2 % (37-47); Hemoglobin 9.5 g/dL (12.0-15.0); Lymphocyte % 4.7 % (19-41); Mean Corp Hgb Conc 31.5 g/dL (32-36); Mean Corpuscular Hgb 27.1 pg (27.0-32.0); Mean Corpuscular Volume 86.3 fL (81-99); Mean Platelet Vol. 11.6 fl (6.2-12.0); Monocyte# 1.23 X10^3/uL; Monocyte% 9.7 % (0-10); NRBC Flagged by Analyzer 0 % (0-5); Neutrophil # 10.68 X10^3/uL (2.7-7.7); Neutrophil % 84.2 % (47-70); POSITIVE DIFFERENTIAL YES; Platelet Count 165 K/mm3 (150-450); RBC Distribution Width CV 15.8 % (11.6-14.6); RBC Distribution Width SD 49.7 fl (35.1-43.9); White Blood Count 12.7 K/mm3 (4.4-11.0)
--- NOTE | 2023-08-29 08:13 | CT_ITS ---
STUDY: CT CHEST WITHOUT CONTRAST REASON FOR EXAM: Female, 83 years old. Hypoxia RADIATION DOSAGE (If Supplied By Facility): CTDIvol = ( 20.15 ) mGy, DLP = ( 649.45 ) mGycm TECHNIQUE: Transaxial imaging was performed without the administration of intravenous contrast material. Multiplanar coronal and sagittal images were reformatted. Individualized dose optimization techniques were used for this CT. COMPARISON: Comparison is made with prior chest radiograph dated January 27, [address] scan of the thorax dated August 24, 2020. FINDINGS: CHEST Heterogeneous enlargement of the left lobe of the thyroid gland. There is a 2.4 cm x 1.8 cm hypodense nodule in the inferior pole of the left lobe of the thyroid with calcification. Diffuse groundglass appearance in the upper lobes worse in the right upper lobe. Increased groundglass appearance in both lower lobes with evidence of bibasilar pulmonary infiltrates. There is a 1 cm nodule in the anterior right upper lobe. Stable 5.3 mm nodule in the anterior aspect of the right middle lobe. Stable densely calcified granuloma in the peripheral lateral aspect of the right upper lobe. There is no demonstrated pleural abnormality. There are calcifications of the coronary arteries. There are small lymph nodes within the mediastinum, which are normal in size and morphology most compatible with reactive lymph hyperplasia. Normal hilar regions. Normal unenhanced pulmonary arteries. There is atherosclerotic calcification of the aortic arch with tortuosity and elongation of the aortic arch and descending thoracic aorta. There are multi-level degenerative changes of the thoracic spine. Status post right shoulder replacement. There is no demonstrated abnormality of the visualized upper abdomen. CT/Chest without Contrast IMPRESSION: Diffuse bilateral groundglass appearance involving both lungs with bibasilar pulmonary consolidation. Stable calcified granuloma in the peripheral aspect of the right upper lobe. 1 cm nodule in the right upper lobe. Electronically Signed: Hi Naranjo MD at 9:12 EDT ,
[2023-08-29 08:17] LABS: Anion Gap 7 (5-15); BUN 32 mg/dL (7-18); BUN/Creat Ratio 23.4 RATIO (10-20); Calcium,Total 8.9 mg/dL (8.5-10.1); Chloride 103 mmol/L (98-107); Creatinine, Serum 1.37 mg/dL (0.55-1.02); EST Glomerular Filtration Rate 39 mL/min (>60); Est Glom Filt Rate - Afr Amer 47 mL/min (>60); Estimated Creatinine Clearance 36.83 ml/min; Glucose 110 mg/dL (74-106); Potassium 3.9 mmol/L (3.5-5.1); Sodium Level 139 mmol/L (136-145)
[2023-08-29] MEDS: Metoprolol(XL)Succ 50 MG Tablet PO (10:25)
[2023-08-29] MEDS: Pantoprazole Sodium 40 MG Tablet PO (10:25)
[2023-08-29] MEDS: Magnesium Chloride 64 MG Delay Rel.Tablet PO (10:25)
[2023-08-29] MEDS: busPIRone 15 MG TABLET 30 MG PO (10:25)
[2023-08-29] MEDS: LUMATEPERONE TOSYLATE 42 MG CAPSULE PO (10:26)
[2023-08-29] MEDS: Furosemide 40 MG/4 ML Vial IV ×2 (10:26→18:15)
[2023-08-29] MEDS: amLODIPine 2.5 MG Tablet PO (10:26)
[2023-08-29] MEDS: Gabapentin 300 MG Capsule PO (10:30)
[2023-08-29] MEDS: 0.9% Saline Lock 10 ML Syringe IV (10:30)
--- NOTE | 2023-08-29 11:24 | CON.PCM.CA_ITS ---
<Statement entered by Carol Rosas MD - 08/29/23 16:00> Pt seen & evaluated w/DELMI. I personally interviewed & exam the pt. I was involved in all aspects of pt's orders, interpretation of results & treatment Assessment & Plan Assessment/Plan (1) Atrial fibrillation with normal ventricular rate: (2) Chronic diastolic (congestive) heart failure: PLAN: Plan * Would like to try to optimize patient's heart rate. Originally was going to stop her Norvasc and start diltiazem 120 mg daily., however there is an interaction with one of her medications. Will increase her metoprolol to 75 mg BID. * Her Coumadin is currently being held until her INR is reaching therapeutic range. At that time would then resume her Coumadin. * Patient is currently on IV Lasix. When able would recommend switching over to p.o. Would continue continue to follow her BMP closely. * Reviewed echocardiogram from June 2023. Do not feel that any additional cardiac testing needs done at this time. HPI Consult Data Date of Consult: 08/29/23 HPI Narrative HPI Narrative: SERA MARK, is a 83 F who presented to [facility] on August 27, 2023 with dyspnea, increased weight and a cough. Daughter had called EMS to help transport patient to emergency room. She had low pulse ox readings despite being on oxygen. She was started on BiPAP with 100% oxygen. SpO2 was 91%. BNP was noted to be 252. Chest x-ray demonstrated bilateral interstitial airspace opacities suspicious for edema. EKG demonstrated atrial fibrillation without acute evidence of ischemia. Patient was admitted to PCU. It is noted that a few days prior she was in our office for concerns of shortness of breath. She was noted to be in persistent atrial fibrillation. She was started on amiodarone. She called our office 2 days later stating that she had increased s hortness of breath and felt like that she could not breathe. Her amiodarone was stopped. She did have an elevated INR upon presentation to the hospital. INR was 7.9. We were consulted for atrial fibrillation. Patient notes that she does at times feel that her heart does beat fast. She still does feel short of breath however she states that is somewhat better since she has been here in the hospital. She does not have any chest pain. She does have chronic lower extremity edema. She does feel that this did worsen over the last few days prior to being admitted to the hospital. She had fatigue and lightheadedness due to her low oxygen level. She has a history of hypertension, diastolic dysfunction, paroxysmal atrial flutter, hyperlipidemia. She underwent a cardiac catheterization in May 2020 which demonstrated no significant obstructive coronary disease and she did have preserved left ventricular systolic function estimated ejection fraction of 65%. She is however concerned that she may have an abdominal aortic aneurysm due to the fact that she was checked a number of years ago and was told that it was 3 cm. She did have an echocardiogram done in June 2023 which dem onstrated normal LV size, estimated ejection fraction 65%. RVSP 41 mmHg. [facility] Medical History Anxiety and depression Arthritis Headley esophagus Bipolar disorder Cardiology follow-up encounter Chronic anemia Chronic diastolic (congestive) heart failure CKD (chronic kidney disease), stage III Congenital coronary artery anomaly COPD (chronic obstructive pulmonary disease) Degenerative spondylolisthesis Diverticulosis Essential (primary) hypertension Fatty liver Former smoker Ganglion cyst of volar aspect of right wrist GERD (gastroesophageal reflux disease) Hammer toe of right foot History of atrial fibrillation History of Headley's esophagus Hypothyroidism IBS (irritable bowel syndrome) Insomnia FPC current use of anticoagulant Lumbar spine pain Mitral valve prolapse Morbid obesity Neuropathic pain Obesity DESTINEE treated with BiPAP Osteoarthritis Osteoarthritis of right hip Osteopenia determined by x-ray Paroxysmal atrial flutter Posterior tibialis muscle dysfunction Pulmonary hypertension Radiculopathy of lumbar region Renal insufficiency Right hand pain Sciatica Venous insufficiency (chronic) (peripheral) Vitamin D deficiency Walker as ambulation aid Wears dentures Wears glasses Home Medications omeprazole 40 mg capsule,delayed release 40 mg PO DAILY ACID REFLUX 04/18/14 [History Last Taken 08/27/23 10:00 40 mg] melatonin 5 mg capsule 5 mg PO QHS SLEEP 07/18/17 [History Last Taken 08/26/23 22:00 5 mg] levothyroxine 75 mcg tablet 75 mcg PO DAILY THYROID 08/01/22 [History Last Taken 08/26/23 21:59 75 mcg] losartan 50 mg tablet 50 mg PO DAILY BLOOD PRESSURE #90 tabs 11/25/22 [Rx Last Taken 08/27/23 10:00 50 mg] spironolactone 25 mg tablet 25 mg PO DAILY BLOOD PRESSURE #90 tabs 12/30/22 [Rx Last Taken 08/27/23 10:00 25 mg] buspirone 30 mg tablet 30 mg PO BID ANXIETY 04/28/23 [History Last Taken 08/27/23 10:00 30 mg] furosemide 40 mg tablet 40 mg PO DAILY EDEMA 04/28/23 [History Last Taken 08/27/23 10:00 40 mg] gabapentin 300 mg capsule 300 mg PO BID NEUROPATHY 04/28/23 [History Last Taken 08/27/23 10:00 300 mg] lumateperone 42 mg capsule (Caplyta) 42 mg PO DAILY DEPRESSION 04/28/23 [History Last Taken 08/26/23 22:00 42 mg] meloxicam 15 mg tablet 15 mg PO DAILY ARTHRITIS 04/28/23 [History Last Taken Unknown] vitamin B complex 1 tab PO DAILY SUPPLEMENT 04/28/23 [History Last Taken 08/27/23 10:00 1 TAB] magnesium 250 mg tablet 250 mg PO DAILY SUPPLEMENT #90 tabs 07/07/23 [Rx Last Taken 08/26/23 22:00 250 mg] amlodipine 2.5 mg tablet 2.5 mg PO DAILY BLOOD PRESSURE #30 tabs 08/08/23 [Rx Last Taken 08/27/23 10:00 2.5 mg] metoprolol succinate 50 mg tablet,extended release 24 hr 50 mg PO BID BLOOD PRESSURE #180 tabs 08/26/23 [Rx Last Taken 08/27/23 10:00 50 mg] biotin 1 mg capsule 1 mg PO DAILY SUPPLEMENT 08/27/23 [History Last Taken Unknown] portable oxygen tank #3 ea 08/27/23 [Rx Last Taken Unknown] warfarin 2 mg tablet 2 mg PO CUMMINGS BLOOD THINNER 08/27/23 [History Last Taken 08/24/23 17:00 2 mg] warfarin 4 mg tablet 4 mg PO MOTUWETHFRSA BLOOD THINNER 08/27/23 [History Last Taken 08/26/23 17:00 4 mg] Allergy/AdvReac Type Severity Reaction Status Date / Time baclofen Allergy Intermediate jittery/heard Verified 08/22/23 14:05 voices latex Allergy Rash Verified 08/22/23 14:05 amiodarone AdvReac Intermediate It Verified 08/26/23 14:39 doesn't work bupropion [From Wellbutrin] AdvReac Mild Shakiness Verified 08/22/23 14:05 & lightheadedness fluvoxamine AdvReac Mild Other Verified 08/22/23 14:05 clindamycin AdvReac Unknown Diarrhea Verified 08/22/23 14:05 ciprofloxacin AdvReac Diarrhea Verified 08/22/23 14:05 levofloxacin [From Levaquin] AdvReac Diarrhea Verified 08/22/23 14:05 Penicillins AdvReac PT UNSURE Verified 08/27/23 19:19 OF REACTION Family History Father Aortic aneurysm Cancer lymphoma Mother CVA (cerebral vascular accident) Dementia Aunt Colon cancer Surgical History History of cardioversion (~04/01/23) History of carpal tunnel release (2006) History of esophagogastroduodenoscopy (EGD) (05/04/08) History of flexible sigmoidoscopy (2007) History of hysterectomy History of knee joint replacement History of left heart catheterization (06/08/20) History of suburethral sling procedure (2015) History of total hysterectomy (2015) History of total right hip replacement (05/2016) S/P colonoscopy S/P shoulder replacement Status post knee replacement Social History Smoking Status: Former smoker how long ago did patient quit smokin' alcohol intake: never substance use type: does not use caffeine: Yes Type: coffee what type of physical activity do you participate in: none seatbelt use: never do you feel safe at home: Yes ROS ROS Narrative Admission Review of Systems: CONSTITUTIONAL: No weight loss, fever, chills. + weakness or fatigue. HEENT: Eyes: No visual loss, blurred vision, double vision or yellow sclerae. Ears, Nose, Throat: No hearing loss, sneezing, congestion, runny nose or sore throat. SKIN: No rash or itching, lesions, wounds. CARDIOVASCULAR: + Patient reported edema. Does feel her heart racing. No chest pain, chest pressure or chest discomfort, syncopal events. RESPIRATORY: + Cough, dyspnea without marked sputum. No wheezing, hemoptysis. GASTROINTESTINAL: No anorexia, nausea, vomiting or diarrhea, abdominal pain, melena, BRBPR. NEUROLOGICAL: No headache, dizziness, syncope, paralysis, ataxia, numbness or tingling in the extremities, focal weakness, change in bowel or bladder control, seizure. MUSCULOSKELETAL: No muscle, back pain, joint pain or stiffness. HEMATOLOGIC: + Anemia, easy bleeding and bruising. LYMPHATICS: No enlarged nodes. No history of splenectomy. ENDOCRINOLOGIC: No reports of sweating, cold or heat intolerance. No polyuria or polydipsia. Physical Exam Const alert and oriented x3 Constitutional Narrative: super morbid obesity, in Bipap with 15 l NC HEENT normocephalic, moist oral mucous membranes and oropharynx normal Eyes PERRL and EOMs intact bilaterally Neck no lymphadenopathy and supple Lymph Lymphatic: no lymphadenopathy noted and no lymphedema noted Resp Resp Narrative: diminished breath sounds bibasally, bilateral crackles. On 15L of oxygen at time of review Cardio Cardio Narrative: Tachycardic, irregularly irregular. GI normal to inspection, nondistended, normoactive bowel sounds, soft to palpation, non-tender and non-distended Extremity normal capillary refill, no clubbing, cyanosis or edema and no calf tenderness General Extremity: no tenderness to palpation of joints or extremities Skin General Skin Exam: no breakdown Neuro CN's II-XII intact bilaterally, no focal motor deficits, no sensory deficits noted and deep tendon reflexes 2+ bilaterally Motor Exam: strength 5/5 throughout and general weakness Psych thought process normal and cooperative Appearance: appropriate Risk Stratification Risk Stratification Applicable: No Charges/Coding Visit Charges Office Visits / Consults: 26515 IP Consult L3 Objective Data Vital Signs: Vital Signs Temp Pulse Resp BP Pulse Ox O2 Del Method O2 Flow Rate 99.2 F H 107 H 22 H 121/43 H 90 Bi-pap 60 08/29/23 09:29 08/29/23 10:25 08/29/23 09:29 08/29/23 10:25 08/29/23 09:29 08/29/23 09:29 08/28/23 21:00 FiO2 80 08/29/23 09:29 Oxygen Flow Rate (L/min) 60 Oxygen Delivery Method Bi-pap Weight: 262 lb 12.656 oz Body Mass Index (BMI) 53.0 Intake & Output: Intake and Output for Last 24 Hours 08/27/23 08/28/23 08/29/23 23:59 23:59 23:59 Intake Total 305 / 305 840 / 1090 505 / 505 Output Total 2960 / 4060 1100 / 1100 Balance 305 / -505 -2120 / -2970 -595 / -595 Lab / Micro Data 08/29/23 06:55 08/29/23 06:55 Labs: Laboratory Results - last 24 hr 08/28/23 03:46: Free T4 1.62 H 08/29/23 06:55: WBC 12.7 H, RBC 3.50 L, Hgb 9.5 L, Hct 30.2 L, MCV 86.3, MCH 27.1, MCHC 31.5 L, RDW Std Deviation 49.7 H, RDW Coeff of Carol 15.8 H, Plt Count 165, MPV 11.6, Immature Gran % (Auto) 0.600, Neut % (Auto) 84.2 H, Lymph % (Auto) 4.7 L, [place] % (Auto) 9.7, Eos % (Auto) 0.6, Baso % (Auto) 0.2, Absolute Neuts (auto) 10.7 H, Absolute Lymphs (auto) 0.60 L, Nucleated RBC % 0, Sodium 139, Potassium 3.9, Chloride 103, Carbon Dioxide 29.0, Anion Gap 7, BUN 32 H, Creatinine 1.37 H, Estim Creat Clear Calc 36.83, Est GFR (MDRD) Af Amer 47 L, Est GFR (MDRD) Non-Af 39 L, BUN/Creatinine Ratio 23.4 H, Glucose 110 H, Calcium 8.9 Micro: Microbiology 08/28/23 20:15 Urine, Random Legionella Antigen - Final 08/28/23 20:15 Urine, Random Streptococcus pneumoniae Antigen (M - Final 08/28/23 09:45 Sputum, Expectorated/Coughed Gram Stain - Final Cardiology Labs/Tests 08/29/23 06:55: WBC 12.7 H, RBC 3.50 L, Hgb 9.5 L, Hct 30.2 L, MCV 86.3, MCH 27.1, MCHC 31.5 L, Plt Count 165, MPV 11.6, Immature Gran % (Auto) 0.600, Neut % (Auto) 84.2 H, Lymph % (Auto) 4.7 L, [place] % (Auto) 9.7, Eos % (Auto) 0.6, Baso % (Auto) 0.2, Absolute Neuts (auto) 10.7 H, Nucleated RBC % 0, Sodium 139, Potassium 3.9, Chloride 103, Carbon Dioxide 29.0, Anion Gap 7, BUN 32 H, Creatinine 1.37 H, Est GFR (MDRD) Af Amer 47 L, Est GFR (MDRD) Non-Af 39 L, BUN/Creatinine Ratio 23.4 H, Glucose 110 H, Calcium 8.9 Rhythm: EKG: ECHO: Stress Test: Cardiac Cath: PCI: CT Surgery: Holter monitor: EPS: PPM: CXR: Chest CT Scan: Radiography Diagnostic Testing: Radiology Impression Knee X-Ray 08/28/23 12:10 IMPRESSION: Status post total knee replacement. Soft tissue swelling. Electronically Signed: Hi Naranjo MD at 12:46 EDT , Chest CT 08/29/23 08:13 IMPRESSION: Diffuse bilateral groundglass appearance involving both lungs with bibasilar pulmonary consolidation. Stable calcified granuloma in the peripheral aspect of the right upper lobe. 1 cm nodule in the right upper lobe. Electronically Signed: Hi Naranjo MD at 9:12 EDT ,
--- NOTE | 2023-08-29 13:30 | CASEMGMT ---
ANGELICA MOSELEY updated by therapy that patient will need SNF at discharge. ANGELICA CM in to discuss discharge needs and progress with therapy. A list of SNF providers including quality and resource use data and consistent with the patient?s preferred geographical region, medical needs, and insurance network were provided from the [facility] Guide. Patient states she prefers TCU. ANGELICA MOSELEY updated patient to look at list for additional preferences if TCU does not have a bed. Patient and family had no further questions or concerns. ANGELICA MOSELEY updated SW regarding request for TCU. CM will continue to follow this patient and plan for a safe discharge.
--- NOTE | 2023-08-29 13:55 | CASEMGMT ---
SW made a referral to [facility]. Muriel OROSCO
--- NOTE | 2023-08-29 14:21 | CPS ---
Decreased PAP pressures to 16/10 for patient comfort at 13:23
--- NOTE | 2023-08-29 14:22 | CPS ---
RN attempted bipap break for patient, however sat's dropped to mid 60's. PAP pressures increased to AVAPS settings to allow patient to recover.
--- NOTE | 2023-08-29 14:31 | PN_ITS ---
Subjective Subjective Patient seen and examined. Her daughter was by her bedside. She remains on BIPAP. She is tachypneic and tachycardic. She denies any chest pain, palpitations, dizziness, nausea, vomiting or any other symptoms. Review of systems is otherwise negative. Objective Data Objective Data Vital Signs: Vital Signs Temp Pulse Resp BP Pulse Ox O2 Del Method O2 Flow Rate 97.9 F 125 H 32 H 135/85 H 92 Bi-pap 15 08/29/23 10:30 08/29/23 13:23 08/29/23 13:23 08/29/23 10:30 08/29/23 13:23 08/29/23 10:30 08/29/23 12:14 FiO2 90 08/29/23 13:23 Oxygen Flow Rate (L/min) 15 Oxygen Delivery Method Bi-pap Weight: 262 lb 12.656 oz Body Mass Index (BMI) 53.0 Intake & Output: Intake and Output for Last 24 Hours 08/27/23 08/28/23 08/29/23 23:59 23:59 23:59 Intake Total 305 / 305 840 / 1090 505 / 505 Output Total 2960 / 4060 1100 / 1100 Balance 305 / -505 -2120 / -2970 -595 / -595 Lab / Micro Data 08/29/23 06:55 08/29/23 06:55 Labs: Laboratory Results - last 24 hr 08/29/23 06:55: WBC 12.7 H, RBC 3.50 L, Hgb 9.5 L, Hct 30.2 L, MCV 86.3, MCH 27.1, MCHC 31.5 L, RDW Std Deviation 49.7 H, RDW Coeff of Carol 15.8 H, Plt Count 165, MPV 11.6, Immature Gran % (Auto) 0.600, Neut % (Auto) 84.2 H, Lymph % (Auto) 4.7 L, [place] % (Auto) 9.7, Eos % (Auto) 0.6, Baso % (Auto) 0.2, Absolute Neuts (auto) 10.7 H, Absolute Lymphs (auto) 0.60 L, Nucleated RBC % 0, Sodium 139, Potassium 3.9, Chloride 103, Carbon Dioxide 29.0, Anion Gap 7, BUN 32 H, Creatinine 1.37 H, Estim Creat Clear Calc 36.83, Est GFR (MDRD) Af Amer 47 L, Est GFR (MDRD) Non-Af 39 L, BUN/Creatinine Ratio 23.4 H, Glucose 110 H, Calcium 8.9 Micro: Microbiology 08/28/23 09:45 Sputum, Expectorated/Coughed Gram Stain - Final 08/28/23 09:45 Sputum, Expectorated/Coughed Respiratory Culture - Preliminary Gram negative brien Gram negative brien#2 08/29/23 08:45 Mucosa - Nasopharyngeal Respiratory Panel (PCR) - Final 08/28/23 20:15 Urine, Random Legionella Antigen - Final 08/28/23 20:15 Urine, Random Streptococcus pneumoniae Antigen (M - Final 08/27/23 19:34 Mucosa - Nasopharyngeal Respiratory Panel (PCR) - Final 08/27/23 17:31 Mucosa - Nose SARS-CoV-2, Influenza & RSV (PCR) - Final Radiography Diagnostic Testing: Radiology Impression Chest CT 08/29/23 08:13 IMPRESSION: Diffuse bilateral groundglass appearance involving both lungs with bibasilar pulmonary consolidation. Stable calcified granuloma in the peripheral aspect of the right upper lobe. 1 cm nodule in the right upper lobe. Electronically Signed: Hi Naranjo MD at 9:12 EDT , Physical Exam Const alert, oriented x3 and no apparent distress Constitutional Narrative: super morbid obesity HEENT normocephalic, moist oral mucous membranes and oropharynx normal Eyes PERRL and EOMs intact bilaterally Neck no lymphadenopathy and supple Lymph Lymphatic: no lymphadenopathy noted and no lymphedema noted Resp Resp Narrative: diminished breath sounds bibasally, bilateral crackles. On BiPAP. She is tachypneic Effort and Inspection: tachypneic Cardio regular rhythm, S1 normal heart sound and S2 normal heart sound Cardio Narrative: Grade 2 through 3 systolic murmur loudest in the aortic region. Patient was tachycardic, atrial flutter with RVR. GI normal to inspection, nondistended, normoactive bowel sounds, soft to palpation, non-tender and non-distended Extremity normal capillary refill, no clubbing, cyanosis or edema and no calf tenderness General Extremity: no tenderness to palpation of joints or extremities Skin General Skin Exam: no breakdown Neuro CN's II-XII intact bilaterally, no focal motor deficits, no sensory deficits noted and deep tendon reflexes 2+ bilaterally Motor Exam: strength 5/5 throughout and general weakness Psych thought process normal and cooperative Appearance: appropriate Assessment & Plan Assessment/Plan (1) Supratherapeutic INR: (2) Pneumonia: (3) Atrial fibrillation with normal ventricular rate: (4) CHF (congestive heart failure): (5) Acute hypoxic respiratory failure: PLAN: Plan #Acute hypoxic respiratory failure * due to pneumonia and acute on chronic HFrEF * on IV ceftriaxone and azithromycin. on IV lasix * monitor intake and output chart * breathing treatment with bronchodilators * Currently on BiPAP. Remains tachycardic. Discussed with her contact center engineer today. 2D echo ordered and antibiotics broadened to IV Zosyn. * Sputum culture did come back with gram-negative rods. * CT of the chest also ordered and showed diffuse bilateral groundglass appearance involving both lungs with bibasilar pulmonary consolidation with a 1 cm nodule in the right upper lobe * Pulmonology on board. Respiratory panel is negative. * will consult her contact center engineer due to patient requiring BIPAP and now on 15L of oxygen. * #Hypercoagulable state with Supratherapeutic INR: INR was 7.5 yesterday. INR pending today #CKD 3B: CR is 1.37, which is around her baseline. #Right knee pain: patient was complaining of pain in her right knee. Xray of the right knee showed soft tissue swelling, and s/p total knee replacement. PO tylenol prn. PT/OT consult # Paroxysmal atrial fibrillation: On metoprolol. Coumadin held on account of elevated INR #Hypertension: On amlodipine and metoprolol. IV hydralazine as needed #Anxiety and depression as well as bipolar disorder: On lumateperone and buspirone #GERD: On PPI #DESTINEE: On CPAP nightly #Hypothyroidism: On Synthroid. TSH 0.11. Free T4 is elevated at 1.62. Will therefore cut down on her dose of Synthroid from 75 mcg daily to 50 mcg daily. #Super morbid obesity: BMI is 83. Complicates acute care, expected recovery and prognosis. DVT prophylaxis: no need for prophylaxis due to supratherapeutic iNR.INR is pending today Charges/Coding Visit Charges Inpatient E&M: 05271 Subs Hosp L3
[2023-08-29 15:35] LABS: Prothrombin Time (Protime)PT. 66.7 SECONDS (11.7-14.9)
[2023-08-29 15:44] LABS: International Normalized Ratio 8.1
--- NOTE | 2023-08-29 16:16 | CASEMGMT ---
TCU is unable to take patient due to a medication cost. SW notified patient's daughter Taty. Taty asked if patient could just stop taking the medication. SW encouraged her to ask the doctor this question. SW did also mention it to the physician. Plan: SNF pending accepting facility. Muriel OROSCO
[2023-08-29] MEDS: Cefepime 1 GM in 0.9% NS 50 ML Minibag Q12 IV ×2 (17:15→21:28)
[2023-08-29] MEDS: Phytonadione (Vit K) 5 MG in 0.9% Normal Saline (50mL Bag) 50 ML 150 MG IV (18:15)
[2023-08-29] MEDS: Albuterol 2.5 MG/3 ML VIAL.NEB. INHALATION (20:25)
[2023-08-29] MEDS: LORazepam 2 MG/ML Syringe 1 MG IV (21:27)
[2023-08-29] MEDS: Metoprolol Tartrate 5 MG/5 ML Vial IV (21:28)
[2023-08-29] MEDS: Azithromycin 500 MG in Dextrose 5%-Water (250mL Bag) 250 ML 250 MG IV (22:53)
[2023-08-30] VITALS (26 sets, daily range): BP systolic 100–140; BP diastolic 41–95; PULSE 98–135; RESP 12–42; TEMP 36.1–37.2; O2SAT 83–93; BMI 52.4
--- NOTE | 2023-08-30 03:50 | CPS ---
Increased BIPAP pressures for low oxygenation at 100% FIO2
--- NOTE | 2023-08-30 04:00 | NURSING ---
Pt pulling off bipap mask. Pt sats dropping to mid 70's. Pt not wanting to wear mask. Pt aware that she needs to wear the mask as she is at 100% fio2 and that if she doesn't she may not have a favorable outcome. Pt is alert and oriented x3 and answering all questions appropriately. Pt adamant that she doesn't want her daughter called at this time. Pt aware that while she is awake and alert she could have a conversation regarding her code status, but still declines to have her daughter called. Pt agreeable to continue wearing bipap mask at this time.
--- NOTE | 2023-08-30 04:07 | NURSING ---
Pt pulling off bipap mask. Pts sats dropping to mid 70's. Pt aware that she needs to wear mask to maintain her sats as she is at 100%fio2. This rn asked if she understands the current situation that if she doesn't wear the bipap that she may not have a favorable outcome. Pt is alert and oriented x3 and is answering all questions appropriately. Pt when asked if she wants her daughter called she declines adamantly that she doesn't want her called at this time. Pt understands that while she remains alert she would be able to have a discussion with her daughter regarding her code status and outcomes. Pt still does not want her called at this time. Aware to th
[2023-08-30 05:48] LABS: Absolute Lymphocyte Count 0.55 X10^3/uL (0.83-4.51); Absolute Neutrophil Count 11.8 X10^3/uL (2.0-7.7); Basophil# 0.02 X10^3/uL; Basophil% 0.1 % (0-1); Eosinophil# 0.17 X10^3/uL; Eosinophils% 1.2 % (0-5); Hematocrit 30.7 % (37-47); Hemoglobin 9.8 g/dL (12.0-15.0); Lymphocyte # 0.55 X10^3/ul (0.83-4.51); Mean Corp Hgb Conc 31.9 g/dL (32-36); Mean Corpuscular Hgb 27.2 pg (27.0-32.0); Mean Corpuscular Volume 85.3 fL (81-99); Mean Platelet Vol. 10.7 fl (6.2-12.0); Monocyte# 1.17 X10^3/uL; Monocyte% 8.5 % (0-10); NRBC Flagged by Analyzer 0 % (0-5); Neutrophil # 11.77 X10^3/uL (2.7-7.7); Neutrophil % 85.5 % (47-70); POSITIVE DIFFERENTIAL YES; Platelet Count 121 K/mm3 (150-450); RBC Distribution Width CV 15.2 % (11.6-14.6); RBC Distribution Width SD 47.8 fl (35.1-43.9); White Blood Count 13.8 K/mm3 (4.4-11.0)
[2023-08-30 06:14] LABS: Anion Gap 9 (5-15); BUN 36 mg/dL (7-18); BUN/Creat Ratio 25.7 RATIO (10-20); Calcium,Total 8.9 mg/dL (8.5-10.1); Chloride 102 mmol/L (98-107); EST Glomerular Filtration Rate 38 mL/min (>60); Est Glom Filt Rate - Afr Amer 46 mL/min (>60); Estimated Creatinine Clearance 35.79 ml/min; Glucose 116 mg/dL (74-106); Potassium 3.6 mmol/L (3.5-5.1); Sodium Level 139 mmol/L (136-145)
[2023-08-30 08:15] LABS: AST(SGOT) 37 U/L (15-37); Alanine Aminotransfer ALT/SGPT 20 U/L (13-56); Albumin, Serum 2.4 g/dL (3.2-5.0); Alkaline Phosphatase 195 U/L (45-117); Bilirubin, Direct 0.55 mg/dL (0.00-0.30); Protein, Total 6.4 g/dL (6.4-8.2)
[2023-08-30] MEDS: Amiodarone 150 MG in Dextrose 5%-Water (100mL Bag) 100 ML 600 MG IV BOLUS (08:37)
[2023-08-30] MEDS: Furosemide 40 MG/4 ML Vial IV ×2 (08:39→18:10)
[2023-08-30 08:58] LABS: International Normalized Ratio 1.9; Prothrombin Time (Protime)PT. 21.5 SECONDS (11.7-14.9)
--- NOTE | 2023-08-30 09:56 | CASEMGMT ---
Social Work SW spoke w/pt and daughter Taty in room in regard to concern over medication, Caplyta, due to cost. TCU had said the medication is too costly. Daughter states the pt has wanted to get off this medication. She spoke w/someone at [facility](where it is being prescribed) and her practitioner is okay with her coming off the medication. SW will send an email to Jillian in TCU to see if they can reconsider pt. Also, the daughter asked to speak w/the physician, text sent to physician to let her know. Pt will be here through the weekend. SW will continue to follow. CIRILO Grey
--- NOTE | 2023-08-30 10:41 | PN_ITS ---
Subjective Subjective Worsening shortness of breath no cough no sputum no hemoptysis no chest pain Objective Data Objective Data Vital Signs: Vital Signs Temp Pulse Resp BP Pulse Ox O2 Del Method O2 Flow Rate 98.4 F 135 H 41 H 140/95 H 87 Bi-pap 15 08/30/23 07:00 08/30/23 08:37 08/30/23 08:37 08/30/23 08:37 08/30/23 08:37 08/30/23 08:37 08/29/23 12:14 FiO2 100 08/30/23 08:37 Oxygen Flow Rate (L/min) 15 Oxygen Delivery Method Bi-pap Weight: 117.9 kg Body Mass Index (BMI) 52.4 Intake & Output: Intake and Output for Last 24 Hours 08/28/23 08/29/23 08/30/23 23:59 23:59 23:59 Intake Total 840 / 1090 910.5 / 910.5 0 / 0 Output Total 2960 / 4060 1800 / 1800 50 / 50 Balance -2120 / -2970 -889.5 / -889.5 -50 / -50 Lab / Micro Data Lab results narrative: CT scan is reviewed at length the pattern is not consistent with CHF. The patient has no evidence of viral disease, the pattern is not consistent with viral disease. Air bronchograms are present, all this disease is new, inflammatory disease with crazy paving pattern/groundglass suggestive 08/30/23 05:28 08/30/23 05:28 Labs: Laboratory Results - last 24 hr 08/29/23 15:03: PT 66.7 H, INR 8.1 H* 08/30/23 05:28: WBC 13.8 H, RBC 3.60 L, Hgb 9.8 L, Hct 30.7 L, MCV 85.3, MCH 27.2, MCHC 31.9 L, RDW Std Deviation 47.8 H, RDW Coeff of Carol 15.2 H, Plt Count 121 L, MPV 10.7, Immature Gran % (Auto) 0.700, Neut % (Auto) 85.5 H, Lymph % (Auto) 4.0 L, [place] % (Auto) 8.5, Eos % (Auto) 1.2, Baso % (Auto) 0.1, Absolute Neuts (auto) 11.8 H, Absolute Lymphs (auto) 0.55 L, Nucleated RBC % 0, Sodium 139, Potassium 3.6, Chloride 102, Carbon Dioxide 28.0, Anion Gap 9, BUN 36 H, Creatinine 1.40 H, Estim Creat Clear Calc 35.79, Est GFR (MDRD) Af Amer 46 L, Est GFR (MDRD) Non-Af 38 L, BUN/Creatinine Ratio 25.7 H, Glucose 116 H, Calcium 8.9, Total Bilirubin 1.20 H, Direct Bilirubin 0.55 H, AST 37, ALT 20, Alkaline Phosphatase 195 H, Total Protein 6.4, Albumin 2.4 L, Globulin 4.0 08/30/23 08:26: PT 21.5 H, INR 1.9 Micro: Microbiology 08/28/23 09:45 Sputum, Expectorated/Coughed Gram Stain - Final 08/28/23 09:45 Sputum, Expectorated/Coughed Respiratory Culture - Preliminary Gram negative brien GNR lactose desktop publisher 08/29/23 08:45 Mucosa - Nasopharyngeal Respiratory Panel (PCR) - Final 08/28/23 20:15 Urine, Random Legionella Antigen - Final 08/28/23 20:15 Urine, Random Streptococcus pneumoniae Antigen (M - Final 08/27/23 19:34 Mucosa - Nasopharyngeal Respiratory Panel (PCR) - Final 08/27/23 17:31 Mucosa - Nose SARS-CoV-2, Influenza & RSV (PCR) - Final Physical Exam Const alert and oriented x3 Constitutional Narrative: Moderate respiratory distress able to speak in brief sentences tachypnea General Appearance: cooperative and anxious Orientation / Consciousness: awake HEENT normocephalic, head/scalp atraumatic, hearing grossly normal bilaterally, external ears normal, EAC's normal, TM's normal bilaterally, external nose normal, nasal mucous membranes and turbinates normal, moist oral mucous membranes, oropharynx normal, dentition normal and gingiva normal Eyes PERRL, EOMs intact bilaterally, conjunctivae normal, no scleral icterus, no papilledema, normal visual pritchard by confrontation and fundi normal bilaterally Neck full ROM, nuchal rigidity, no lymphadenopathy, supple, no meningeal signs, no JVD, thyroid normal, nodes and no carotid bruits Lymph Lymphatic: no lymphadenopathy noted, no lymphedema noted, lymphedema, lymphadenopathy and other Chest Chest Narrative: Tachypnea, some accessory muscle use, prominent basilar Rales, no egophony, fine rales, not wet no rhonchi no wheezing, not coughing, using BiPAP Resp Resp Narrative: Bibasilar rales Cardio S1 normal heart sound and S2 normal heart sound Cardio Narrative: Tachycardia with atrial fibrillation GI normal to inspection, nondistended, normoactive bowel sounds, soft to palpation, non-tender, non-distended, hepatosplenomegaly, no masses and no bruits Extremity normal to inspection, full ROM, normal capillary refill, no joint enlargement, no clubbing, cyanosis or edema, no calf tenderness and no pedal edema Skin no rashes or lesions noted, no wounds, skin turgor normal, no jaundice, no petechiae and no mottling Neuro oriented x3, CN's II-XII intact bilaterally and moves all extremities Psych Psych Narrative: Anxious, reporting she has no hope Assessment & Plan Assessment/Plan (1) Acute interstitial pneumonitis: PLAN: Features of interstitial pneumonitis-crazy paving pattern, groundglass disease in patches, inflammatory or present. I am recommending 1 g IV Solu- Medrol daily for 3 days. The patient is in moderate respiratory failure. Continue with BiPAP, respiratory support, the patient has no interest in mechanical ventilation. The differential includes nonspecific interstitial pneumonitis cryptogenic organizing pneumonia acute interstitial pneumonia (2) Atrial fibrillation with normal ventricular rate: PLAN: Rapid atrial fibrillation due to the anxiety and due to respiratory failure. Continue to support with BiPAP therapy (3) Pneumonia: PLAN: Continue cefuroxime and azithromycin
--- NOTE | 2023-08-30 10:52 | PCM.PROGNOTE ---
Objective Data Objective Data Vital Signs: Vital Signs Temp Pulse Resp BP Pulse Ox O2 Del Method O2 Flow Rate 98.4 F 135 H 41 H 140/95 H 87 Bi-pap 15 08/30/23 07:00 08/30/23 08:37 08/30/23 08:37 08/30/23 08:37 08/30/23 08:37 08/30/23 08:37 08/29/23 12:14 FiO2 100 08/30/23 08:37 Oxygen Flow Rate (L/min) 15 Oxygen Delivery Method Bi-pap Weight: 117.9 kg Body Mass Index (BMI) 52.4 Intake & Output: Intake and Output for Last 24 Hours 08/28/23 08/29/23 08/30/23 23:59 23:59 23:59 Intake Total 840 / 1090 910.5 / 910.5 0 / 0 Output Total 2960 / 4060 1800 / 1800 50 / 50 Balance -2120 / -2970 -889.5 / -889.5 -50 / -50 Lab / Micro Data 08/30/23 05:28 08/30/23 05:28 Labs: Laboratory Results - last 24 hr 08/29/23 15:03: PT 66.7 H, INR 8.1 H* 08/30/23 05:28: WBC 13.8 H, RBC 3.60 L, Hgb 9.8 L, Hct 30.7 L, MCV 85.3, MCH 27.2, MCHC 31.9 L, RDW Std Deviation 47.8 H, RDW Coeff of Carol 15.2 H, Plt Count 121 L, MPV 10.7, Immature Gran % (Auto) 0.700, Neut % (Auto) 85.5 H, Lymph % (Auto) 4.0 L, [place] % (Auto) 8.5, Eos % (Auto) 1.2, Baso % (Auto) 0.1, Absolute Neuts (auto) 11.8 H, Absolute Lymphs (auto) 0.55 L, Nucleated RBC % 0, Sodium 139, Potassium 3.6, Chloride 102, Carbon Dioxide 28.0, Anion Gap 9, BUN 36 H, Creatinine 1.40 H, Estim Creat Clear Calc 35.79, Est GFR (MDRD) Af Amer 46 L, Est GFR (MDRD) Non-Af 38 L, BUN/Creatinine Ratio 25.7 H, Glucose 116 H, Calcium 8.9, Total Bilirubin 1.20 H, Direct Bilirubin 0.55 H, AST 37, ALT 20, Alkaline Phosphatase 195 H, Total Protein 6.4, Albumin 2.4 L, Globulin 4.0 08/30/23 08:26: PT 21.5 H, INR 1.9 Micro: Microbiology 08/28/23 09:45 Sputum, Expectorated/Coughed Gram Stain - Final 08/28/23 09:45 Sputum, Expectorated/Coughed Respiratory Culture - Preliminary Gram negative brien GNR lactose powered bridge specialist 08/29/23 08:45 Mucosa - Nasopharyngeal Respiratory Panel (PCR) - Final 08/28/23 20:15 Urine, Random Legionella Antigen - Final 08/28/23 20:15 Urine, Random Streptococcus pneumoniae Antigen (M - Final 08/27/23 19:34 Mucosa - Nasopharyngeal Respiratory Panel (PCR) - Final 08/27/23 17:31 Mucosa - Nose SARS-CoV-2, Influenza & RSV (PCR) - Final
[2023-08-30] MEDS: Cefepime 1 GM in 0.9% NS 50 ML Minibag Q12 IV ×2 (11:02→20:40)
[2023-08-30] MEDS: LORazepam 2 MG/ML Syringe 1 MG IV ×3 (11:03→19:42)
[2023-08-30] MEDS: MethylPREDNISolone 1,000 MG in 0.9% Normal Saline (100mL Bag) 100 ML 100 MG IV (12:15)
[2023-08-30] MEDS: 0.9% Saline Lock 10 ML Syringe IV ×3 (15:05→19:42)
--- NOTE | 2023-08-30 15:07 | PN_ITS ---
Subjective Subjective Patient seen and examined. Daughter was by her bedside. Patient was quite agitated. She is very tachypneic and tachycardic. Patient wanted her BiPAP off and stated that she did not want to do this anymore and wanted to stop treatment. Patient is taking a turn for the worse. Objective Data Objective Data Vital Signs: Vital Signs Temp Pulse Resp BP Pulse Ox O2 Del Method O2 Flow Rate 97.0 F L 124 H 30 H 139/78 H 84 Bi-pap 15 08/30/23 14:00 08/30/23 14:00 08/30/23 14:00 08/30/23 14:00 08/30/23 14:00 08/30/23 14:00 08/29/23 12:14 FiO2 100 08/30/23 14:00 Oxygen Flow Rate (L/min) 15 Oxygen Delivery Method Bi-pap Weight: 259 lb 14.8 oz Body Mass Index (BMI) 52.4 Intake & Output: Intake and Output for Last 24 Hours 08/28/23 08/29/23 08/30/23 23:59 23:59 23:59 Intake Total 840 / 1090 910.5 / 910.5 269 / 269 Output Total 2960 / 4060 1800 / 1800 50 / 50 Balance -2120 / -2970 -889.5 / -889.5 219 / 219 Lab / Micro Data 08/30/23 05:28 08/30/23 05:28 Labs: Laboratory Results - last 24 hr 08/29/23 15:03: PT 66.7 H, INR 8.1 H* 08/30/23 05:28: WBC 13.8 H, RBC 3.60 L, Hgb 9.8 L, Hct 30.7 L, MCV 85.3, MCH 27.2, MCHC 31.9 L, RDW Std Deviation 47.8 H, RDW Coeff of Carol 15.2 H, Plt Count 121 L, MPV 10.7, Immature Gran % (Auto) 0.700, Neut % (Auto) 85.5 H, Lymph % (Auto) 4.0 L, [place] % (Auto) 8.5, Eos % (Auto) 1.2, Baso % (Auto) 0.1, Absolute Neuts (auto) 11.8 H, Absolute Lymphs (auto) 0.55 L, Nucleated RBC % 0, Sodium 139, Potassium 3.6, Chloride 102, Carbon Dioxide 28.0, Anion Gap 9, BUN 36 H, Creatinine 1.40 H, Estim Creat Clear Calc 35.79, Est GFR (MDRD) Af Amer 46 L, Est GFR (MDRD) Non-Af 38 L, BUN/Creatinine Ratio 25.7 H, Glucose 116 H, Calcium 8.9, Total Bilirubin 1.20 H, Direct Bilirubin 0.55 H, AST 37, ALT 20, Alkaline Phosphatase 195 H, Total Protein 6.4, Albumin 2.4 L, Globulin 4.0 08/30/23 08:26: PT 21.5 H, INR 1.9 Micro: Microbiology 08/28/23 09:45 Sputum, Expectorated/Coughed Gram Stain - Final 08/28/23 09:45 Sputum, Expectorated/Coughed Respiratory Culture - Prelimi nary Gram negative brien GNR lactose septic technician 08/29/23 08:45 Mucosa - Nasopharyngeal Respiratory Panel (PCR) - Final 08/28/23 20:15 Urine, Random Legionella Antigen - Final 08/28/23 20:15 Urine, Random Streptococcus pneumoniae Antigen (M - Final 08/27/23 19:34 Mucosa - Nasopharyngeal Respiratory Panel (PCR) - Final 08/27/23 17:31 Mucosa - Nose SARS-CoV-2, Influenza & RSV (PCR) - Final Physical Exam Const alert and oriented x3 Constitutional Narrative: super morbid obesity, agitated HEENT normocephalic, moist oral mucous membranes and oropharynx normal Eyes PERRL and EOMs intact bilaterally Neck no lymphadenopathy and supple Lymph Lymphatic: no lymphadenopathy noted and no lymphedema noted Resp Resp Narrative: diminished breath sounds bibasally, bilateral crackles. On BiPAP. Patient arrived tachypneic and tachycardic Effort and Inspection: tachypneic Cardio regular rhythm, S1 normal heart sound and S2 normal heart sound Cardio Narrative: Grade 2 through 3 systolic murmur loudest in the aortic region. Patient remains tachycardic, atrial flutter with RVR. GI normal to inspection, nondistended, normoactive bowel sounds, soft to palpation, non-tender and non-distended Extremity normal capillary refill, no clubbing, cyanosis or edema and no calf tenderness General Extremity: no tenderness to palpation of joints or extremities Skin General Skin Exam: no breakdown Neuro CN's II-XII intact bilaterally, no focal motor deficits, no sensory deficits no chuck and deep tendon reflexes 2+ bilaterally Motor Exam: strength 5/5 throughout and general weakness Psych Psych Narrative: Confused, agitated, restless Attitude: agitated Activity / Motor Behavior: restless Assessment & Plan Assessment/Plan (1) Supratherapeutic INR: (2) Pneumonia: (3) Atrial fibrillation with normal ventricular rate: (4) CHF (congestive heart failure): (5) Acute hypoxic respiratory failure: PLAN: Plan #Acute hypoxic respiratory failure * due to pneumonia and acute on chronic HFrEF. Patient is very agitated * on IV ceftriaxone and azithromycin. on IV lasix * monitor intake and output chart * breathing treatment with bronchodilators * Currently on BiPAP. Remains tachycardic. Patient remains very tachycardic and tachypneic. Patient is restless and says she does not want to go through with treatment anymore. Daughter is by her bedside. Patient was counseled that if she takes at the BiPAP he could mean that she would . Patient says she is aware of this but she is tired and wants to give up on treatment. * On IV Zosyn. Discussed with her educational institution president and patient to be given a dose of IV Solu-Medrol 1000 mg x 1 today and to continue with IV steroids from tomorrow. Also to be diuresed with IV Lasix. * Sputum culture did come back with gram-negative rods. * CT of the chest also ordered and showed diffuse bilateral groundglass appearance involving both lungs with bibasilar pulmonary consolidation with a 1 cm nodule in the right upper lobe * Pulmonology on board. Respiratory panel is negative. * Patient had a 2D echo done in June 2023 which showed EF of 65% with no regional wall motion abnormalities noted and pulmonary systolic pressure 41 mmHg. * #Hypercoagulable state with Supratherapeutic INR: INR was up to 8 yesterday. Received vitamin K yesterday. INR today is down to 1.9. #CKD 3B: CR is 1.37, which is around her baseline. #Right knee pain: patient was complaining of pain in her right knee. Xray of the right knee showed soft tissue swelling, and s/p total knee replacement. PO tylenol prn. PT/OT on board # Paroxysmal atrial fibrillation: On metoprolol. Coumadin held on account of elevated INR #Hypertension: On amlodipine and metoprolol. IV hydralazine as needed #Anxiety and depression as well as bipolar disorder: On lumateperone and buspirone #GERD: On PPI #DESTINEE: On CPAP nightly #Hypothyroidism: On Synthroid. TSH 0.11. Free T4 is elevated at 1.62. Will therefore cut down on her dose of Synthroid from 75 mcg daily to 50 mcg daily. #Super morbid obesity: BMI is 83. Complicates acute care, expected recovery and prognosis. DVT prophylaxis: SCDs. INR is now down to 1.9 after she received vitamin K. Disposition: Patient counseled extensively today about CODE STATUS. Patient sta boni that she still wants to remain DNR CCA no intubation and does not want CPR or intubation. It was explained to patient that she could if she needed intubation and refused and patient says she is aware of this. Her daughter was present by her bedside. CODE STATUS therefore remains DNR CCA. Patient offered the option of hospice evaluation and patient and family agreed to this and want hospice to evaluate her as she does not want to be on the BiPAP and does not want to go through treatment anymore. Hospice consulted. Total time spent on counseling about CODE STATUS 20 minutes Prognosis is very poor Charges/Coding Visit Charges Inpatient E&M: 22222 Subs Hosp L3 Procedures Hospitalists Procedures: 08334 Advncd Care Plan 30 Min
[2023-08-30] MEDS: QUEtiapine 25 MG Tablet PO (18:09)
[2023-08-30] MEDS: Ipratropium/Albuterol Sulfate 3 ML AMPUL.NEB INHALATION (20:22)
[2023-08-30] MEDS: Azithromycin 500 MG in Dextrose 5%-Water (250mL Bag) 250 ML 250 MG IV (22:16)
[2023-08-30] MEDS: LORazepam 2 MG/ML Syringe 0.5 MG IV (23:07)
[2023-08-31 01:00] VITALS: PULSE 110; RESP 12; RESP 24; O2SAT 84
[2023-08-31 03:20] VITALS: BP 119/58; PULSE 100; RESP 18; TEMP 36; O2SAT 86; O2SAT 96
[2023-08-31 03:36] VITALS: BMI 50.7
[2023-08-31 04:03] VITALS: PULSE 107; RESP 12; RESP 18; O2SAT 86
[2023-08-31 06:03] LABS: Absolute Lymphocyte Count 0.35 X10^3/uL (0.83-4.51); Absolute Neutrophil Count 13.1 X10^3/uL (2.0-7.7); Basophil# 0.02 X10^3/uL; Basophil% 0.1 % (0-1); Hematocrit 32.2 % (37-47); Lymphocyte # 0.35 X10^3/ul (0.83-4.51); Lymphocyte % 2.4 % (19-41); Mean Corp Hgb Conc 31.1 g/dL (32-36); Mean Corpuscular Hgb 26.5 pg (27.0-32.0); Mean Corpuscular Volume 85.2 fL (81-99); Mean Platelet Vol. 10.9 fl (6.2-12.0); Monocyte% 6.2 % (0-10); NRBC Flagged by Analyzer 0.1 % (0-5); Neutrophil % 90.6 % (47-70); POSITIVE COUNT YES; POSITIVE DIFFERENTIAL YES; Platelet Count 63 K/mm3 (150-450); RBC Distribution Width CV 15.5 % (11.6-14.6); RBC Distribution Width SD 47.8 fl (35.1-43.9); Red Blood Count 3.78 M/mm3 (4.2-5.4); White Blood Count 14.5 K/mm3 (4.4-11.0)
[2023-08-31 06:07] LABS: Differential Indicated SCAN CRITERIA MET
[2023-08-31] MEDS: Morphine 2 MG/ML Syringe IV ×2 (06:14)
[2023-08-31 06:22] LABS: Anion Gap 9 (5-15); BUN 52 mg/dL (7-18); BUN/Creat Ratio 27.8 RATIO (10-20); Calcium,Total 9.5 mg/dL (8.5-10.1); Chloride 104 mmol/L (98-107); Creatinine, Serum 1.87 mg/dL (0.55-1.02); EST Glomerular Filtration Rate 27 mL/min (>60); Est Glom Filt Rate - Afr Amer 33 mL/min (>60); Estimated Creatinine Clearance 26.22 ml/min; Glucose 158 mg/dL (74-106); Potassium 3.8 mmol/L (3.5-5.1); Sodium Level 141 mmol/L (136-145)
[2023-08-31] MEDS: 0.9% Saline Lock 10 ML Syringe IV ×4 (06:32→12:31)
[2023-08-31 06:33] LABS: Differential Comment SCANNED
[2023-08-31 06:35] LABS: Platelet Estimate MOD DEC (ADEQ); Platelet Morphology LARGE
[2023-08-31] MEDS: LORazepam 2 MG/ML Syringe 1 MG IV ×2 (07:03→10:51)
[2023-08-31 07:49] VITALS: PULSE 141; RESP 12; RESP 36; O2SAT 87
[2023-08-31 09:20] VITALS: BP 152/64; PULSE 57; RESP 16; TEMP 36.8; O2SAT 99
[2023-08-31] MEDS: morphine (oral solution) 10MG/0.5ML Syringe 5 MG SL/PO (10:21)
[2023-08-31] MEDS: LORazepam 2 MG/ML Syringe IV (12:30)
[2023-08-31] MEDS: morphine 10 MG/ML Syringe 6 MG IV (12:30)
--- NOTE | 2023-08-31 14:11 | NURSING ---
Patient did not have any IV fluids but did have 2 mg IV ativan, 6mg IV morphine.
--- NOTE | 2023-08-31 14:44 | PCM.DEATH ---
Preliminary Cause of Preliminary Cause of Preliminary Cause of : Acute hypoxic respiratory failure due to acute on chronic heart failure with reduced ejection fraction and community-acquired pneumonia. Date of Admission: 08/27/23 Date of : 08/31/23 Principle Diagnosis Problem List: Active and Suspected Problems (Updated 08/30/23 @ 10:[address] Hiren Freitas MD) Atrial fibrillation with normal ventricular rate (Acute) Remains in atrial fibrillation, tachycardia, active precordium, the patient is in respiratory distress Acute interstitial pneumonitis (Acute ~08/30/23) Viral panel is negative. The patient has worsening respiratory failure, oxygen needs are increasing, accessory muscle use is increased the patient is tachypneic and is not desirous of mechanical ventilation. She remains on BiPAP but is worsening. The findings are consistent with acute pneumonitis-inflammatory Recommendations IV Solu-Medrol 1 g daily for 3 days the case is discussed with the attending physician, the order has been placed for the Solu-Medrol, The patient understands that there is little more to offer short of mechanical ventilation Pneumonia (Acute) Features of bacterial pneumonia are not present. At this point for now continue cefuroxime and azithromycin. Cultures negative Supratherapeutic INR (Acute) Acute renal insufficiency (Acute) CHF (congestive heart failure) (Acute) Acute hypoxic respiratory failure (Acute) Acute hypoxic respiratory failure (Acute) Hospital Course Patient was an 83-year-old female with an extensive past medical history as outlined including chronic respiratory failure on 2 L of oxygen at night due to DESTINEE. She was admitted through the ED on 08/27/2023 with a complaint of worsening shortness of breath which was especially worse with exertion over the last couple of days. She also had a dry nonproductive cough. She denied any fever or chills and admitted to weight gain. However she denied any orthopnea or PND or any lower extremity edema. His shortness of breath had not been improving at home so EMS was called and when the EMS arrived she was wearing 8 L of oxygen. She was saturating in the 50s even on the 8 L of oxygen so she was placed on BiPAP which improved her saturation to the 70s and she was sent to the ED. Desaturation was noted to be worsened with movement. In the ED she required FiO2 of 100% to get her saturation up to 93%. ABGs done showed pH of 7.42 with oxygen saturation of 91% and PaO2 of 58. Chest x-ray showed bilateral interstitial airspace disease suspicious for edema. COVID and flu as well as RSV testing was negative. EKG showed A-fib which was rate controlled. She was admitted and managed for acute hypoxic respiratory failure due to acute exacerbation of heart failure with preserved ejection fraction as well as probable community-acquired pneumonia. She was started on IV Rocephin and azithromycin also diuresed with IV Lasix. Patient had a protracted and complicated hospital course where her respiratory status was not improving. She kept on requiring increasing amounts of oxygen. She was eventually placed on BiPAP and patient became BiPAP dependent and could not be weaned off the BiPAP. Her senior product development manager Dr. Freitas was consulted and was recommended that patient's antibiotics be broadened to IV Zosyn. She was also started on IV Solu-Medrol in addition to the IV Lasix. Patient's shortness of breath persisted and patient eventually said she did not want to be on the BiPAP anymore. She was counseled that she could if she was off the BiPAP as she was refusing intubation or CPR. Patient expressed understanding of this and repeatedly stated that she was tired and wanted to be let go. Family was counseled about this and in the presence of her daughter, patient expressing that she wanted to get off the BiPAP and she did not want to go through all of this anymore. Hospice was consulted and family initially refused hospice care because they wanted to see if patient would improve. However on the morning of 08/31/2023, patient still remained very short of breath and BiPAP dependent. Family was therefore agreeable to hospice care but did not wanted transported to the hospice facility as she would not be transported on BiPAP and they were concerned that she would not be able to make it to the hospice facility off the BiPAP. Family agreed to change her CODE STATUS to DNR CC. Hospice order set was placed and patient was medicated to keep her comfortable. Patient at 1335 on 08/31/2023. Cause of is asystole due to acute hypoxic respiratory failure due to acute on chronic heart failure preserved ejection fraction community-acquired pneumonia. Visit Charges Inpatient E&M: [id number] [facility]
--- NOTE | 2023-08-31 15:25 | NURSING ---
Time of 1325, verified by this RN and Gabriel Zacarias RN
== END 2023-08-31 13:35 | DRG 177 ==
LOC: ED 17:42 → PCU 19:24
PROVIDERS: Admitting Provider Family Medicine; Emergency Provider Emergency Medicine; PCP Internal Medicine; Visit Provider Student in an Organized Health Care Education/Training Program
DX: J15.69 Pneumonia due to other Gram-negative bacteria (principal); J96.01 Acute respiratory failure with hypoxia; I50.33 Acute on chronic diastolic (congestive) heart failure; Z68.43 Body mass index [BMI] 50.0-59.9, adult; D68.69 Other thrombophilia; I13.0 Hypertensive heart and chronic kidney disease with heart failure and stage 1 through stage 4 chronic kidney disease, or unspecified chronic kidney disease; J44.0 Chronic obstructive pulmonary disease with (acute) lower respiratory infection; D63.1 Anemia in chronic kidney disease; F31.9 Bipolar disorder, unspecified; N18.32 Chronic kidney disease, stage 3b; I48.0 Paroxysmal atrial fibrillation; E66.01 Morbid (severe) obesity due to excess calories; I46.8 Cardiac arrest due to other underlying condition; E03.9 Hypothyroidism, unspecified; E78.5 Hyperlipidemia, unspecified; K21.9 Gastro-esophageal reflux disease without esophagitis; G47.33 Obstructive sleep apnea (adult) (pediatric); F41.9 Anxiety disorder, unspecified; M25.561 Pain in right knee; Z79.01 Long term (current) use of anticoagulants; Z66 Do not resuscitate; Z96.651 Presence of right artificial knee joint; Z79.1 Long term (current) use of non-steroidal anti-inflammatories (NSAID); Z79.899 Other long term (current) drug therapy; Z87.891 Personal history of nicotine dependence
CPT/HCPCS: 36415; 36600; 71045; 71250; 73562; 80048; 80053; 80061; 80076; 82803; 83735; 83880; 84145; 84439; 84443; 84484; 85025; 85610; 85730; 87070; 87077; 87186; 87205; 87449; 87631; 87633; 87641; 93005; 94002; 94003; 94640; 94762; 97162; 97166; 97530; 97535; 99284; J7050; A4216; J1940; J2930; J3490